=== PATIENT | female | born 1940 | race Caucasian/White ===

== ENCOUNTER → 2016-12-29 | Outpatient (CLI) | payer OTHER ==
[~2016-12-29] MED LIST: AMLO-110 PO; ATEN-173 PO; CLX20 PO; LSX20 PO; MULT-506 PO; PRED-301 PO; SIMV10TA2 PO; SYN88 PO
== END | disposition home or self-care (01) ==
LOC: C.LABSPEC 13:18
PROVIDERS: ATTEND Obstetrics & Gynecology
DX: N89.8 Other specified noninflammatory disorders of vagina (principal)

== ENCOUNTER → 2017-02-10 | Outpatient (CLI) | payer OTHER | END | disposition home or self-care (01) | LOC: C.LABSPEC 13:29 | PROVIDERS: ATTEND Physician Assistant | DX: N89.8 Other specified noninflammatory disorders of vagina (principal) ==

== ENCOUNTER → 2017-06-28 | Outpatient (CLI) | payer OTHER | END | disposition home or self-care (01) | LOC: C.LABSPEC 16:41 | PROVIDERS: ATTEND Obstetrics & Gynecology | DX: N89.8 Other specified noninflammatory disorders of vagina (principal); N82.4 Other female intestinal-genital tract fistulae ==

== ENCOUNTER → 2017-08-10 | Outpatient (CLI) | payer OTHER | END | disposition home or self-care (01) | LOC: C.LABSPEC 15:48 | PROVIDERS: ATTEND Obstetrics & Gynecology | DX: N89.8 Other specified noninflammatory disorders of vagina (principal); N82.4 Other female intestinal-genital tract fistulae ==

== ENCOUNTER → 2017-08-10 | Outpatient (CLI) | payer OTHER | END | disposition home or self-care (01) | LOC: C.LABPBG 09:26 | PROVIDERS: ATTEND Internal Medicine Rheumatology | DX: M06.9 Rheumatoid arthritis, unspecified (principal); Z51.81 Encounter for therapeutic drug level monitoring; Z79.899 Other long term (current) drug therapy; M81.0 Age-related osteoporosis without current pathological fracture; M54.2 Cervicalgia ==

== ENCOUNTER → 2017-08-31 | Outpatient (CLI) | payer OTHER ==
--- NOTE | 2017-08-31 16:30 | DIAGNOSTIC IMAGING REPORT ---
C-SPINE ROUTINE 4 OR 5 VIEWS CLINICAL HISTORY: 76 years-old Female presenting with M06.9 Rheumatoid [id number] High risk medication useM81.0. TECHNIQUE: Lateral, bilateral oblique, frontal, and open-mouth odontoid views of the cervical spine were obtained. Additionally, lateral view in flexion and extension positioning was obtained. COMPARISON: None. FINDINGS: On neutral positioning, slight reversal of normal cervical lordosis at C4-5. Vertebral body heights and alignment otherwise maintained. Intervertebral disc height loss at C4-5 through C6-7, where there are disc osteophyte complexes and extensive degenerative change. No significant change in alignment or evidence of subluxation on flexion positioning. Mild cervical lordosis on extension positioning without evidence of abnormal subluxation. Osseous neural foraminal narrowing at C4-5 and C5-6, left greater than right. Lateral masses of C1 articulate normally with C2. The atlantodental interval measures 3 mm in neutral position, does not significantly change on flexion and decreases on extension. IMPRESSION: 1. Multilevel degenerative change at C4-5 through C6-7 with osseous neural foraminal narrowing at C4-5 and C5-6. 2. Mild widening of the atlantodental interval, which suggests atlantoaxial subluxation. This can be seen in the setting of rheumatoid arthritis. Electronically signed by: Jonathan Moreno M.D. 08/31/2017 4:29 PM Dictated Date/Time: 08/31/2017 4:23 PM
== END | disposition home or self-care (01) ==
LOC: C.RAD 15:06
PROVIDERS: ATTEND Internal Medicine Rheumatology
DX: M50.321 Other cervical disc degeneration at C4-C5 level (principal); M50.322 Other cervical disc degeneration at C5-C6 level; M50.323 Other cervical disc degeneration at C6-C7 level; M81.0 Age-related osteoporosis without current pathological fracture; M06.9 Rheumatoid arthritis, unspecified; Z79.899 Other long term (current) drug therapy

== ENCOUNTER → 2017-09-07 | Outpatient (CLI) | payer OTHER | END | disposition home or self-care (01) | LOC: C.MAMM 15:07 | PROVIDERS: ATTEND Internal Medicine Rheumatology | DX: M85.88 Other specified disorders of bone density and structure, other site (principal); M81.0 Age-related osteoporosis without current pathological fracture; M06.9 Rheumatoid arthritis, unspecified; Z51.81 Encounter for therapeutic drug level monitoring; Z79.899 Other long term (current) drug therapy ==

== ENCOUNTER → 2017-10-12 | Outpatient (CLI) | payer OTHER ==
[2017-10-12 17:25] LABS: BASO % 0.2 %; BASO ABS # 0.01 K/uL (0-0.2); COMPLETE YES; EOS % 0.2 %; HEMATOCRIT 37.7 % (37-47); IG% 0.2 %; LYMPH % 17.1 %; LYMPH ABS # 0.89 K/uL (1.2-3.4); MEAN CELL VOLUME 88.5 fL (80-100); MEAN CORPUSCULAR HEMOGLOBIN 28.6 pg (25-34); MEAN CORPUSCULAR HGB CONC 32.4 g/dl (32-36); MEAN PLATELET VOLUME 10.5 fL (7.4-10.4); MONO % 6.3 %; PLATELET COUNT 228 K/uL (130-400); RED BLOOD COUNT 4.26 M/uL (4.2-5.4)
[2017-10-12 17:56] LABS: ALT/SGPT 30 U/L (12-78); AST/SGOT 23 U/L (15-37); CREATININE 1.16 mg/dl (0.60-1.20)
[2017-10-12 17:58] LABS: ALKALINE PHOSPHATASE 71 U/L (45-117)
== END | disposition home or self-care (01) ==
LOC: C.LABPBG 15:44
PROVIDERS: ATTEND Urology
DX: M06.9 Rheumatoid arthritis, unspecified (principal); Z79.899 Other long term (current) drug therapy; R70.0 Elevated erythrocyte sedimentation rate; M54.2 Cervicalgia

== ENCOUNTER → 2018-02-26 | Outpatient (CLI) | payer OTHER ==
[2018-02-26 17:23] LABS: BASO % 1.2 %; BASO ABS # 0.06 K/uL (0-0.2); EOS % 2.9 %; EOS ABS # 0.15 K/uL (0-0.5); HEMATOCRIT 38.1 % (37-47); HEMOGLOBIN 12.4 g/dL (12.0-16.0); IG# 0.01 K/uL (0.00-0.02); LYMPH % 38.3 %; LYMPH ABS # 1.99 K/uL (1.2-3.4); MEAN CELL VOLUME 90.9 fL (80-100); MEAN CORPUSCULAR HEMOGLOBIN 29.6 pg (25-34); MEAN CORPUSCULAR HGB CONC 32.5 g/dl (32-36); MEAN PLATELET VOLUME 11.3 fL (7.4-10.4); MONO ABS # 1.04 K/uL (0.11-0.59); NEUT % 37.4 %; NEUT ABS # 1.94 K/uL (1.4-6.5); PLATELET COUNT 282 K/uL (130-400); RED CELL DISTRIBUTION WIDTH CV 15.3 % (11.5-14.5); RED CELL DISTRIBUTION WIDTH SD 51.2 fL (36.4-46.3); WHITE BLOOD COUNT 5.19 K/uL (4.8-10.8)
[2018-02-26 18:18] LABS: CREATININE 0.89 mg/dl (0.60-1.20)
== END | disposition home or self-care (01) ==
LOC: C.LABPBG 11:43
PROVIDERS: ATTEND Internal Medicine Rheumatology
DX: M06.9 Rheumatoid arthritis, unspecified (principal); Z79.899 Other long term (current) drug therapy; Z51.81 Encounter for therapeutic drug level monitoring

== ENCOUNTER 2022-12-22 13:21 | Inpatient (IN) ==
--- NOTE | 2022-12-22 14:12 | Emergency Department Note ---
History of Present Illness General Chief complaint: Hypotension Stated complaint: BLOOD PRESSURE WENT WAY DOWN Time Seen by Provider: 12/22/22 14:02 Source: patient and family (Daughter at bedside) History of Present Illness Provider complaint: Weakness Onset (ago): day(s) 2 Maximum Pain Intensity: 5 Associated symptoms: + weakness 82-year-old female presents emergency department for weakness. Patient is here with her and daughter at bedside. Daughter is providing majority of the history. Daughter reports that the patient fell 2 weeks ago at her home in [place]. She states that she was transported via private vehicle to [facility] in [place] where they diagnosed her with a broken arm. Patient states she was admitted to the hospital for few days and then discharged to a skilled care nursing facility. She states that no surgery was performed on the patient's arm but she was diagnosed with a broken right humerus. The daughter reports that the patient was removed from the group home facility 2 days ago because of increasing depression and has been home for the last 2 days. Since being home the daughter reports that the patient has not been getting up and walking and has been having difficulty walking. She is reporting pain in her right hip which is chronic. She also reports that the patient has not been eating or drinking properly. No fevers. Daughter reports that when the home health care nurse got there today they advised her to come to the emergency department because of a low blood pressure. Home Medications Medication Instructions Recorded Confirmed Type amlodipine 5 mg tablet 5 mg PO DAILY 09/28/20 12/22/22 History atenolol 25 mg tablet 25 mg PO DAILY 09/28/20 12/22/22 History citalopram 20 mg tablet (Celexa) 20 mg PO DAILY 09/28/20 12/22/22 History furosemide 20 mg tablet (Lasix) 20 mg PO DAILY 09/28/20 12/22/22 History levothyroxine 88 mcg tablet 88 mcg PO DAILY 09/28/20 12/22/22 History multivitamin 1 tab PO DAILY 09/28/20 12/22/22 History omeprazole 20 mg capsule,delayed 20 mg PO DAILY 09/28/20 12/22/22 History release prednisone 5 mg tablet 5 mg PO DAILY 09/28/20 12/22/22 History hydrocodone 5 mg-acetaminophen 300 1 tab PO BID PRN Pain 12/10/20 03/02/23 History mg tablet hydroxychloroquine 200 mg tablet 200 mg PO DAILY 10/01/20 12/22/22 History estradiol 0.01% (0.1 mg/gram) 1 g vaginal 2XWK #42.5 grams 10/20/22 12/22/22 Rx vaginal cream apixaban 2.5 mg tablet (Eliquis) 2.5 mg PO DAILY 12/22/22 12/22/22 History buspirone 5 mg tablet 5 mg PO DAILY 12/22/22 12/22/22 History ferrous sulfate 27 mg iron tablet 27 mg PO BID 12/22/22 12/22/22 History metoprolol tartrate 25 mg tablet 12.5 mg PO DAILY 12/22/22 12/22/22 History Allergies Allergy/AdvReac Type Severity Reaction Status Date / Time simvastatin [From Zocor] Allergy Verified 10/20/22 11:02 azithromycin AdvReac Mild pain in Verified 10/20/22 11:02 arms & legs prochlorperazine AdvReac Unknown MENTAL Verified 10/20/22 11:02 CHANGES Past Med/Surg History Medical History (Updated 12/22/22 @ 21:21 by Terry Villasenor) Anemia Degenerative joint disease of right hip Depression HLD (hyperlipidemia) HTN (hypertension) Hypothyroidism Left humeral fracture Long-term use of immunosuppressant medication Osteoporosis Rectovaginal fistula Rheumatoid arthritis Surgical History (Updated 12/22/22 @ 20:58 by Vineet Causey) History of appendectomy History of bilateral oophorectomy History of hysterectomy History of total knee arthroplasty Hx of cataract extraction bilateral Family History Father Heart disease Hypertension Coronary heart disease COPD (chronic obstructive pulmonary disease) Mother Rheumatoid arthritis Uncle Coronary heart disease Denies family history of Pancreatic cancer Ovarian cancer Prostate cancer Breast cancer Colorectal cancer Uterine cancer Social History (Updated 12/22/22 @ 21:00 by Vineet Causey) Smoking Status: Never smoker Hx Alcohol Use: No Preferred Language: Montserratian marital status: Current Living Situation: Spouse Current Living Situation Comment: 1-story home in [place] current occupational status: 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 @ [employer] How many Children do You have: 1 Feels Safe at Home: Yes Physical Exam Vital Signs Vital Signs - 24 hr 12/22/22 13:55 12/22/22 14:26 12/22/22 14:09 Temperature 36.4 C L Temperature Source Temporal Artery Scan Pulse Rate 84 77 77 Pulse Rate [Apical] Pulse Rate [Right Finger] Pulse Rhythm Regular Regular Pulse Rhythm [Apical] Pulse Rhythm [Right Finger] Pulse Strength Normal Pulse Strength [Apical] Pulse Strength [Right Finger] Respiratory Rate 18 Respiratory Effort / Characteristics Non-Labored Spontaneous Respiratory Depth Normal Respiratory Pattern Regular Blood Pressure 78/46 L Blood Pressure [Right Arm] Blood Pressure Mean 56 Blood Pressure Mean [Right Arm] Blood Pressure Position Sitting Pulse Oximetry 96 94 Oxygen Delivery Method Room Air Room Air Sepsis Recent Fever Within 48 Hours No Sepsis New/Unexplained Change in Mental Status No Sepsis Action Taken by Nursing No Action Required 12/22/22 14:09 12/22/22 17:13 12/22/22 17:53 Temperature Temperature Source Pulse Rate Pulse Rate [Apical] Pulse Rate [Right Finger] 84 78 Pulse Rhythm Pulse Rhythm [Apical] Pulse Rhythm [Right Finger] Regular Pulse Strength Pulse Strength [Apical] Pulse Strength [Right Finger] Normal Respiratory Rate 16 16 17 Respiratory Effort / Characteristics Non-Labored Non-Labored Non-Labored Respiratory Depth Normal Normal Normal Respiratory Pattern Regular Regular Blood Pressure Blood Pressure [Right Arm] 112/69 98/64 L 133/62 Blood Pressure Mean Blood Pressure Mean [Right Arm] 83 75 85 Blood Pressure Position Pulse Oximetry 94 92 Oxygen Delivery Method Room Air Room Air Sepsis Recent Fever Within 48 Hours Sepsis New/Unexplained Change in Mental Status Sepsis Action Taken by Nursing 12/22/22 18:15 12/22/22 20:06 12/22/22 20:55 Temperature Temperature Source Pulse Rate 83 Pulse Rate [Apical] 81 73 Pulse Rate [Right Finger] Pulse Rhythm Pulse Rhythm [Apical] Regular Pulse Rhythm [Right Finger] Pulse Strength Pulse Strength [Apical] Normal Pulse Strength [Right Finger] Respiratory Rate 18 16 Respiratory Effort / Characteristics Non-Labored Respiratory Depth Normal Normal Respiratory Pattern Regular Blood Pressure Blood Pressure [Right Arm] 100/59 L 93/57 L Blood Pressure Mean Blood Pressure Mean [Right Arm] 72 69 Blood Pressure Position Pulse Oximetry 94 93 Oxygen Delivery Method Room Air Room Air Sepsis Recent Fever Within 48 Hours Sepsis New/Unexplained Change in Mental Status Sepsis Action Taken by Nursing Physical Exam GENERAL: Elderly and frail-appearing female. HENT: Exam performed. -Head: Normocephalic and atraumatic. CV: Normal rate, regular rhythm, normal heart sounds and intact distal pulses. There is no peripheral edema. Palpable radial pulses bue. PULM/CHEST: Effort normal and breath sounds normal. No respiratory distress. No stridor. She has no wheezes. She has no rales. -Chest Wall: She exhibits no tenderness. ABD: The abdomen is soft. She has no distension. There is no tenderness. MUSC/SKEL: Pelvis stable. Pain on palpation of the right and left hip. NEURO: She is alert and oriented to person, place, and time. No cranial nerve deficit or sensory deficit. 4/5 strength of bilateral lower extremities. GCS eye subscore is 4. GCS verbal subscore is 5. GCS motor subscore is 6. Course Course 1402: The patient was evaluated in room B11B. A complete history and physical exam was performed Administered Medications Sodium Chloride (Nss 1000ml) 1,000 mls @ 125 mls/hr IV .Q8H LAURYN Stop: 01/21/23 17:44 Last Admin: 12/22/22 17:51 Dose: 125 mls/hr Documented By: JENNIE Doxycycline Hyclate 100 mg/ (Dextrose) 110 mls @ 50 mls/hr IV NOW STA Stop: 12/22/22 21:44 Last Admin: 12/22/22 20:52 Dose: 50 mls/hr Documented By: JENNIE Discontinued Medications Hydrocortisone Sodium Succinate (Hydrocortisone Sod Succinate 100 Mg/2 Ml Vial) 100 mg IV NOW STA Stop: 12/22/22 18:23 Last Admin: 12/22/22 20:03 Dose: 100 mg Documented By: JENNIE Sodium Chloride (Nss 1000ml) 1,000 mls @ 999 mls/hr IV .Q1H1M LAURYN Stop: 12/22/22 15:15 Last Infusion: 12/22/22 17:15 Dose: 0 mls/hr Documented By: Admin: 12/22/22 14:21 Dose: 999 mls/hr Documented By: BRIAN Ceftriaxone Sodium 1,000 mg/ (Dextrose) 50 mls @ 100 mls/hr IV NOW STA Stop: 12/22/22 20:01 Last Infusion: 12/22/22 21:09 Dose: 0 mls/hr Documented By: Admin: 12/22/22 20:29 Dose: 100 mls/hr Documented By: CGK Morphine Sulfate (Morphine Sulfate 2 Mg/Ml Carp) 2 mg IV NOW STA Stop: 12/22/22 15:31 Last Admin: 12/22/22 15:44 Dose: 2 mg Documented By: MATTK Ondansetron HCl (Ondansetron Inj 2 Mg/Ml 2 Ml Vial) 4 mg IV NOW STA Stop: 12/22/22 15:31 Last Admin: 12/22/22 15:42 Dose: 4 mg Documented By: MATTK Medical Decision Making Laboratory Data Attestation: I reviewed the patient's lab results. 12/22/22 14:18 12/22/22 14:18 Lab Results 12/22/22 12/22/22 12/22/22 Range/Units 14:09 14:18 14:18 WBC 10.80 (4.8-10.8) K/ul RBC 3.84 L (4.20-5.40) M/uL Hgb 10.0 L (12.0-16.0) g/dl Hct 32.0 L (37.0-47.0) % MCV 83.3 (80.0-100.0) fL MCH 26.0 (25.0-34.0) pg MCHC 31.3 L (32.0-36.0) g/dL RDW Std Deviation 52.5 H (36.4-46.3) fL RDW Coeff of Joao 17.3 H (11.5-14.5) % Plt Count 430 H (130-400) K/uL MPV 10.3 (9.4-12.4) fL Immature Gran % (Auto) 0.5 % Neut % (Auto) 76.3 % Lymph % (Auto) 11.0 % Screven % (Auto) 10.4 % Eos % (Auto) 1.3 % Baso % (Auto) 0.5 % Neut # (Auto) 8.25 H (1.40-6.50) K/uL Lymph # (Auto) 1.19 L (1.2-3.4) K/uL Screven # (Auto) 1.12 H (0.11-0.59) K/uL Eos # (Auto) 0.14 (0-0.50) K/uL Baso # (Auto) 0.05 (0-0.2) K/uL Immature Gran # (Auto) 0.05 (0.01-0.20) K/uL PT 11.3 (9.0-12.0) Seconds INR 1.1 (0.9-1.1) APTT 28.4 (21.0-31.0) Seconds PTT Ratio 1.0 Sodium (136-145) mmol/L Potassium (3.5-5.1) mmol/L Chloride (98-107) mmol/L Carbon Dioxide (21-32) mmol/L Anion Gap (3-11) BUN (6-23) mg/dl Creatinine (0.6-1.2) mg/dl Est Cr Clr Drug Dosing ml/min Est GFR ( Amer) ml/min Est GFR (Non-Af Amer) ml/min BUN/Creatinine Ratio (10-20) Glucose (70-99(Fasting)) mg/dl Lactate (0.4-2.0) mmol/L Calcium (8.5-10.1) mg/dl Magnesium (1.7-2.4) mg/dl Total Bilirubin (0.2-1.0) mg/dl Direct Bilirubin (0-0.2) mg/dl AST (13-39) U/L ALT (7-52) U/L Alkaline Phosphatase (34-104) U/L Total Creatine Kinase (26-192) U/L Troponin I High Sens (0-14) pg/ml Total Protein (6.0-8.3) gm/dl Albumin (3.4-5.0) gm/dl Procalcitonin (0-0.5) ng/ml TSH 4.166 (0.300-4.500) uIu/ml Urine Color Urine Appearance (Clear) Urine pH (4.5-7.5) Ur Specific Fonda (1.000-1.030) Urine Protein (Negative) Urine Glucose (UA) (Negative) Urine Ketones (Negative) Urine Blood (Negative) Urine Nitrite (Negative) Urine Bilirubin (Negative) Urine Urobilinogen (Negative) Ur Leukocyte Esterase (Negative) Urine WBC (Auto) (0-5) /hpf Urine RBC (Auto) (0-4) /hpf U Hyaline Cast (Auto) (0-5) /lpf U Epithel Cells (Auto) (0-5) /lpf Urine Bacteria (Auto) (Negative) Granular Casts (0) /lpf SARS-CoV-2 (PCR) (Negative) Influenza Type A (PCR) (Neg) Influenza Type B (PCR) (Neg) RSV (RT-PCR) (Neg) 12/22/22 12/22/22 12/22/22 Range/Units 14:18 14:18 14:59 WBC (4.8-10.8) K/ul RBC (4.20-5.40) M/uL Hgb (12.0-16.0) g/dl Hct (37.0-47.0) % MCV (80.0-100.0) fL MCH (25.0-34.0) pg MCHC (32.0-36.0) g/dL RDW Std Deviation (36.4-46.3) fL RDW Coeff of Joao (11.5-14.5) % Plt Count (130-400) K/uL MPV (9.4-12.4) fL Immature Gran % (Auto) % Neut % (Auto) % Lymph % (Auto) % Screven % (Auto) % Eos % (Auto) % Baso % (Auto) % Neut # (Auto) (1.40-6.50) K/uL Lymph # (Auto) (1.2-3.4) K/uL Screven # (Auto) (0.11-0.59) K/uL Eos # (Auto) (0-0.50) K/uL Baso # (Auto) (0-0.2) K/uL Immature Gran # (Auto) (0.01-0.20) K/uL PT (9.0-12.0) Seconds INR (0.9-1.1) APTT (21.0-31.0) Seconds PTT Ratio Sodium 131 L (136-145) mmol/L Potassium 4.5 (3.5-5.1) mmol/L Chloride 99 (98-107) mmol/L Carbon Dioxide 20 L (21-32) mmol/L Anion Gap 12 H (3-11) BUN 59 H (6-23) mg/dl Creatinine 1.47 H (0.6-1.2) mg/dl Est Cr Clr Drug Dosing 22.5 ml/min Est GFR ( Amer) 37.6 ml/min Est GFR (Non-Af Amer) 32.4 ml/min BUN/Creatinine Ratio 40.1 H (10-20) Glucose 156 H (70-99(Fasting)) mg/dl Lactate 1.5 (0.4-2.0) mmol/L Calcium 9.3 (8.5-10.1) mg/dl Magnesium 2.3 (1.7-2.4) mg/dl Total Bilirubin 0.7 (0.2-1.0) mg/dl Direct Bilirubin 0.2 (0-0.2) mg/dl AST 29 (13-39) U/L ALT 17 (7-52) U/L Alkaline Phosphatase 167 H (34-104) U/L Total Creatine Kinase 24 L (26-192) U/L Troponin I High Sens 32.6 H (0-14) pg/ml Total Protein 7.4 (6.0-8.3) gm/dl Albumin 3.3 L (3.4-5.0) gm/dl Procalcitonin 2.10 H (0-0.5) ng/ml TSH (0.300-4.500) uIu/ml Urine Color Urine Appearance (Clear) Urine pH (4.5-7.5) Ur Specific Fonda (1.000-1.030) Urine Protein (Negative) Urine Glucose (UA) (Negative) Urine Ketones (Negative) Urine Blood (Negative) Urine Nitrite (Negative) Urine Bilirubin (Negative) Urine Urobilinogen (Negative) Ur Leukocyte Esterase (Negative) Urine WBC (Auto) (0-5) /hpf Urine RBC (Auto) (0-4) /hpf U Hyaline Cast (Auto) (0-5) /lpf U Epithel Cells (Auto) (0-5) /lpf Urine Bacteria (Auto) (Negative) Granular Casts (0) /lpf SARS-CoV-2 (PCR) (Negative) Influenza Type A (PCR) (Neg) Influenza Type B (PCR) (Neg) RSV (RT-PCR) (Neg) 12/22/22 12/22/22 Range/Units 15:57 16:07 WBC (4.8-10.8) K/ul RBC (4.20-5.40) M/uL Hgb (12.0-16.0) g/dl Hct (37.0-47.0) % MCV (80.0-100.0) fL MCH (25.0-34.0) pg MCHC (32.0-36.0) g/dL RDW Std Deviation (36.4-46.3) fL RDW Coeff of Joao (11.5-14.5) % Plt Count (130-400) K/uL MPV (9.4-12.4) fL Immature Gran % (Auto) % Neut % (Auto) % Lymph % (Auto) % Screven % (Auto) % Eos % (Auto) % Baso % (Auto) % Neut # (Auto) (1.40-6.50) K/uL Lymph # (Auto) (1.2-3.4) K/uL Screven # (Auto) (0.11-0.59) K/uL Eos # (Auto) (0-0.50) K/uL Baso # (Auto) (0-0.2) K/uL Immature Gran # (Auto) (0.01-0.20) K/uL PT (9.0-12.0) Seconds INR (0.9-1.1) APTT (21.0-31.0) Seconds PTT Ratio Sodium (136-145) mmol/L Potassium (3.5-5.1) mmol/L Chloride (98-107) mmol/L Carbon Dioxide (21-32) mmol/L Anion Gap (3-11) BUN (6-23) mg/dl Creatinine (0.6-1.2) mg/dl Est Cr Clr Drug Dosing ml/min Est GFR ( Amer) ml/min Est GFR (Non-Af Amer) ml/min BUN/Creatinine Ratio (10-20) Glucose (70-99(Fasting)) mg/dl Lactate (0.4-2.0) mmol/L Calcium (8.5-10.1) mg/dl Magnesium (1.7-2.4) mg/dl Total Bilirubin (0.2-1.0) mg/dl Direct Bilirubin (0-0.2) mg/dl AST (13-39) U/L ALT (7-52) U/L Alkaline Phosphatase (34-104) U/L Total Creatine Kinase (26-192) U/L Troponin I High Sens (0-14) pg/ml Total Protein (6.0-8.3) gm/dl Albumin (3.4-5.0) gm/dl Procalcitonin (0-0.5) ng/ml TSH (0.300-4.500) uIu/ml Urine Color Dark Yellow Urine Appearance Clear (Clear) Urine pH 5.0 (4.5-7.5) Ur Specific Fonda 1.022 (1.000-1.030) Urine Protein Trace H (Negative) Urine Glucose (UA) Negative (Negative) Urine Ketones Trace H (Negative) Urine Blood Negative (Negative) Urine Nitrite Negative (Negative) Urine Bilirubin Negative (Negative) Urine Urobilinogen Negative (Negative) Ur Leukocyte Esterase Negative (Negative) Urine WBC (Auto) 1-5 (0-5) /hpf Urine RBC (Auto) 0-4 (0-4) /hpf U Hyaline Cast (Auto) 5-10 H (0-5) /lpf U Epithel Cells (Auto) >30 H (0-5) /lpf Urine Bacteria (Auto) 1+ H (Negative) Granular Casts 1-5 H (0) /lpf SARS-CoV-2 (PCR) NEGATIVE (Negative) Influenza Type A (PCR) Negative (Neg) Influenza Type B (PCR) Negative (Neg) RSV (RT-PCR) Negative (Neg) Imaging Data Attestation: I personally reviewed and interpreted this imaging study as follows: My Impression: Chest x-ray: Cardiomegaly Radiologist's Impression: Chest X-Ray 12/22/22 14:09 XR chest 1V portable HISTORY: 82 years-old Female Sepsis acute sepsis COMPARISON: 04/23/2006 TECHNIQUE: AP view of the chest FINDINGS: Cardiac silhouette is enlarged. Atherosclerosis of the aorta. No pneumothorax. Small left pleural effusion with mild left basilar densities. Degenerative changes of the shoulders and spine. Acute to subacute appearing comminuted and mildly displaced fracture involving the proximal diaphyseal left humerus. Battery pack projects over the left chest wall. IMPRESSION: 1. Cardiac megaly without overt pulmonary edema. 2. Small left pleural effusion with mild left basilar opacities. 3. Acute to subacute appearing comminuted and mildly displaced fracture within the proximal diaphyseal left humerus. ACT 112: Negative or not required by law. The above report was generated using voice recognition software. It may contain grammatical, syntax or spelling errors. Electronically signed by: Carson Donato M.D. 12/22/2022 2:[address] 12/22/22 14:17 CT head/brain wo con CLINICAL HISTORY: weakness Technique: Contiguous axial CT images of the head were acquired from the base of the skull to the vertex without intravenous contrast administration. Images were viewed in brain, subdural and bone windows. Automated dose lowering techniques and/or adjustment according to patient size were utilized for this exam. Comparison: None available at the time of this dictation. Findings: The ventricles, basal cisterns, and cerebral sulci are normal. There is no acute intracranial hemorrhage or evidence of acute territorial infarction. Neither mass effect, shift of the midline structures, nor abnormal extra-axial fluid collections are shown. Imaged portions of the paranasal sinuses and mastoid air cells are clear. The orbits appear normal. There are no acute fractures of the calvaria or scalp sw elling. Impression: No acute intracranial hemorrhage, no evidence of acute territorial infarction or other acute intracranial disease process. ACT 112: Negative or not required by law. Electronically signed by: Apollo Navarro M.D. 12/22/2022 3:01 PM Pelvis X-Ray 12/22/22 14:17 XR pelvis 1-2V routine CLINICAL HISTORY: Bilateral hip pain. COMPARISON: None FINDINGS: Markedly abnormal appearance of the right hip is noted. Specifically, there is chronic remodeling of the right acetabulum and flattening/erosion of the femoral head with loss of the right hip joint space. There is associated sclerosis and osteophytosis. 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 There is no acute fracture within the pelvis or hips. Mild left hip osteoarthritis is present. IMPRESSION: 1. Markedly abnormal appearance of the right hip. Severe right hip ost eoarthritis with loss of the right hip joint space, remodeling of the acetabulum and flattening/erosion of the femoral head with superior displacement. These findings are not acute. 2. No acute fracture within the pelvis or hips. ACT 112: Negative or not required by law. Electronically signed by: Mark Addison M.D. 12/22/2022 2:54 PM ECG Data Attestation: I personally reviewed and interpreted this ECG as follows: Indication: + weakness Rate (beats per minute): 79 Rhythm: + atrial fibrillation ECG Intervals/blocks: + Normal QRS and + Normal QT-c ECG ST segments: + Normal ST segments MDM Narrative Cardiac monitoring: An order was placed for continuous cardiac monitoring. The monitor shows a rate of 80 with atrial fibrilation rhythm interpreted by me Vital signs improved with IV fluids. Labs show white blood cell count of 10.8 hemoglobin of 10 coagulation studies within normal limits sodium 131 creatinine 1.47 patient's troponin is mildly elevated 32.6 procalcitonin mildly elevated 2.1 urinalysis negative influenza and COVID-negative. Pelvis x-ray showed no acute fracture or dislocation CT of the head showed no ICH chest x-ray showed cardiomegaly. [id number] bedside ultrasound showed small trace pericardial effusion but no tamponade. Patient will be admitted to the hospitalist team discussed with Dr. Thompson will evaluate the patient for admission Impression & Plan Elevated troponin, Left humeral fracture Discharge Plan Visit Data Chief Complaint: Hypotension Stated Complaint: BLOOD PRESSURE WENT WAY DOWN ED Provider: Terry Villasenor Discharge Problem: Elevated troponin, Left humeral fracture Patient Disposition: Being Evaluated by Hospitalist Forms Stand Alone Forms: [facility], Virtual Emergency Department, Important Visit Information Prescriptions Prescriptions: No Action estradiol 0.01 % (0.1 mg/gram) cream 1 g vaginal 2XWK Qty: 42.5 3RF Rx Instructions: Insert 1/4 applicatorful vaginally 2 time a week. amlodipine 5 mg tablet 5 mg PO DAILY atenolol 25 mg tablet 25 mg PO DAILY citalopram [Celexa] 20 mg tablet 20 mg PO DAILY furosemide [Lasix] 20 mg tablet 20 mg PO DAILY levothyroxine 88 mcg tablet 88 mcg PO DAILY multivitamin Tablet 1 tab PO DAILY prednisone 5 mg tablet 5 mg PO DAILY omeprazole 20 mg capsule,delayed release(DR/EC) 20 mg PO DAILY hydroxychloroquine 200 mg tablet 200 mg PO DAILY hydrocodone-acetaminophen 5-300 mg tablet 1 tab PO BID PRN (Reason: Pain) buspirone 5 mg tablet 5 mg PO DAILY metoprolol tartrate 25 mg Tablet 12.5 mg PO DAILY ferrous sulfate 27 mg iron Tablet 27 mg PO BID Eliquis 2.5 mg tablet 2.5 mg PO DAILY Referrals Referrals: Alin Branch [Primary Care Provider] -
[2022-12-22] MEDS ORDERED: SODIUM CHLORIDE 0.9% 1000ML 1,000 ML IV SCH ×2 (14:15→17:45)
--- NOTE | 2022-12-22 14:44 | XRay Report ---
XR chest 1V portable HISTORY: 82 years-old Female Sepsis acute sepsis COMPARISON: 04/23/2006 TECHNIQUE: AP view of the chest FINDINGS: Cardiac silhouette is enlarged. Atherosclerosis of the aorta. No pneumothorax. Small left pleural eff usion with mild left basilar densities. Degenerative changes of the shoulders and spine. Acute to sub acute appearing comminuted and mildly displaced fracture involving the proximal diaphyseal left humer us. Battery pack projects over the left chest wall. IMPRESSION: 1. Cardiac megaly without overt pulmonary edema. 2. Small left pleural effusion with mild left basilar opacities. 3. Acute to subacute appearing comminuted and mildly displaced fracture within the proximal diaphysea l left humerus. ACT 112: Negative or not required by law. The above report was generated using voice recognition software. It may contain grammatical, syntax o r spelling errors. Electronically signed by: Carson Donato M.D. 12/22/2022 2:42 PM
[2022-12-22 14:45] LABS: Basophils # (auto) 0.05 K/uL (0-0.2); Basophils % (auto) 0.5 %; Eosinophils # (auto) 0.14 K/uL (0-0.50); Eosinophils % (auto) 1.3 %; Immature Granulocytes # (auto) 0.05 K/uL (0.01-0.20); Immature Granulocytes % (auto) 0.5 %; Lymphocytes # (auto) 1.19 K/uL (1.2-3.4); Mean Corpuscular Hgb Conc 31.3 g/dL (32.0-36.0); Mean Corpuscular Volume 83.3 fL (80.0-100.0); Mean Platelet Volume 10.3 fL (9.4-12.4); Monocytes # (auto) 1.12 K/uL (0.11-0.59); Monocytes % (auto) 10.4 %; Neutrophils # (auto) 8.25 K/uL (1.40-6.50); Neutrophils % (auto) 76.3 %; Platelet Count 430 K/uL (130-400); RDW Coefficient of Variation 17.3 % (11.5-14.5); RDW Standard Deviation 52.5 fL (36.4-46.3); Red Blood Count 3.84 M/uL (4.20-5.40)
--- NOTE | 2022-12-22 14:56 | XRay Report ---
XR pelvis 1-2V routine CLINICAL HISTORY: Bilateral hip pain. COMPARISON: None FINDINGS: Markedly abnormal appearance of the right hip is noted. Specifically, there is chronic rem odeling of the right acetabulum and flattening/erosion of the femoral head with loss of the right hip joint space. There is associated sclerosis and osteophytosis. 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 There is no acute fracture within the pelvis or hips. Mild lef t hip osteoarthritis is present. IMPRESSION: 1. Markedly abnormal appearance of the right hip. Severe right hip osteoarthritis with loss of the ri ght hip joint space, remodeling of the acetabulum and flattening/erosion of the femoral head with sup erior displacement. These findings are not acute. 2. No acute fracture within the pelvis or hips. ACT 112: Negative or not required by law. Electronically signed by: Mark Addison M.D. 12/22/2022 2:54 PM
[2022-12-22 14:59] LABS: INR 1.1 (0.9-1.1); Partial Thromboplastin Time 28.4 Seconds (21.0-31.0); Prothrombin Time 11.3 Seconds (9.0-12.0)
--- NOTE | 2022-12-22 15:03 | CT Scan Report ---
CT head/brain wo con CLINICAL HISTORY: weakness Technique: Contiguous axial CT images of the head were acquired from the base of the skull to the domonique charles without intravenous contrast administration. Images were viewed in brain, subdural and bone [facility] . Automated dose lowering techniques and/or adjustment according to patient size were utilized for this exam. Comparison: None available at the time of this dictation. Findings: The ventricles, basal cisterns, and cerebral sulci are normal. There is no acute intracranial hemorrh age or evidence of acute territorial infarction. Neither mass effect, shift of the midline structures , nor abnormal extra-axial fluid collections are shown. Imaged portions of the paranasal sinuses and mastoid air cells are clear. The orbits appear normal. There are no acute fractures of the calvaria or scalp swelling. Impression: No acute intracranial hemorrhage, no evidence of acute territorial infarction or other acute intracra nial disease process. ACT 112: Negative or not required by law. Electronically signed by: Apollo Navarro M.D. 12/22/2022 3:01 PM
[2022-12-22 15:26] LABS: Troponin I High Sensitivity 32.6 pg/ml (0-14)
[2022-12-22] MEDS ORDERED: MoRPHine SULFATE 2 MG/ML CARP IV STA (15:30)
[2022-12-22] MEDS ORDERED: ONDANSETRON INJ 2 MG/ML 2 ML VIAL IV STA (15:30)
[2022-12-22 16:27] LABS: Albumin Level 3.3 gm/dl (3.4-5.0); BUN Creatinine Ratio 40.1 (10-20); Bilirubin Direct 0.2 mg/dl (0-0.2); Bilirubin,Total 0.7 mg/dl (0.2-1.0); Calcium 9.3 mg/dl (8.5-10.1); Creatinine Clr Calc Pharmacy 22.5 ml/min; Est GFR (African American) 37.6 ml/min; Est GFR (Non-African American) 32.4 ml/min; Magnesium 2.3 mg/dl (1.7-2.4); Potassium 4.5 mmol/L (3.5-5.1); Total Protein 7.4 gm/dl (6.0-8.3)
[2022-12-22 16:44] LABS: Appearance Urine Clear (Clear); Bilirubin Urine Negative (Negative); Blood Urine Negative (Negative); Color Urine Dark Yellow; Epithelial Cell Urine Auto >30 /lpf (0-5); Glucose Urine UA Negative (Negative); Ketones Urine Trace (Negative); Leukocyte Esterase Urine Negative (Negative); Nitrite Urine Negative (Negative); Protein Urine Trace (Negative); RBC Urine Automated 0-4 /hpf (0-4); Specific Gravity Urine 1.022 (1.000-1.030); Urobilinogen Urine Negative (Negative)
[2022-12-22 16:47] LABS: Influenza A virus by PCR Negative (Neg); Influenza B virus by PCR Negative (Neg); RSV by PCR Negative (Neg); SARS CoV2 RNA(COVID-19) Ceph NEGATIVE (Negative)
[2022-12-22 17:23] LABS: Bacteria Urine Automated 1+ (Negative)
[2022-12-22] MEDS ORDERED: HYDROCORTISONE SOD SUCCINATE 100 MG/2 ML VIAL IV STA (18:22)
--- NOTE | 2022-12-22 18:28 | History & Physical Report ---
Date of Service December 22, 2022 Assessment & Plan (1) Adrenal crisis: Plan: Patient may have been off her chronic steroid therapy for 1-2 weeks or longer. This cannot be confirmed, but daughter is also suspicious this may have been the case as well. Further, even if she had been taking such and if she is developing an infection, she will need stress doses regardless. Given the hypotension in the ER gave a loading dose of 100mg of IV hydrocortisone. Will follow this with hydrocortisone 50mg IV q8h, then slow taper to usual dose of 5-10mg of prednisone daily. Generous fluids to be given. (2) Hypotension: Plan: 2nd to #1. cannot rule out sepsis. certainly there is an element of dehydration. Stress dose IV hydrocortisone. Generous fluids. IV antibiotics. Follow cultures. (3) Abnormal CXR: Plan: ?LLL infiltrates? Given her immune compromised status she may not have typical pneumonia symptoms. Procal is elevated, and she does have LLL rales on exam. Will Rx for pneumonia - start rocephin/doxy. Follow blood cx's. (4) Left humeral fracture: Plan: Sustained sometime in Nov 2021 after a fall. Was hospitalized in [place] at [facility]. Seen by orthopedics there - nonoperative Rx advised at that time. Continue NWB status to LUMaximo. Continue sling. Will obtain dedicated x-rays. Will consult [facility] Orth[facility] for the fracture. Pain meds. Check 25-OH vit D level. (5) Degenerative joint disease of right hip: Plan: SEVERE DJD on x-rays. There had been some talk over the last few months about hip replacement. She has severe, chronic pain and ambulatory dysfunction due to the hip. She underwent IR arthrocentesis of the joint at [facility]. Daughter states the joint was free of infection; no fluid was successfully aspirated. Continue pain meds with norco prn and scheduled tylenol TID. (6) Rectovaginal fistula: Plan: Sees [facility] Ob-decorator hand for such. Big risk factor for chronic UTI. U/a is suggestive of possible UTI - abx for pneumonia will cover. Follow urine cx. Continue topical estrogen cream. (7) Hypothyroidism: Plan: Check TSH. Cont synthroid. (8) Rheumatoid arthritis: Plan: Dx in her late 20s. Follows with Dr Sincere Murphy, [facility]. Cont plaquenil. Is on chronic prednisone 5-10mg/day. Employ stress dose steroids as noted above. (9) Osteoporosis: Plan: Check 25-OH vit D level in am. (10) Hypertension: Plan: Due to hypotension hold all anti-hypertensives including lasix. (11) Hyperlipidemia: Plan: Does not appear she takes meds for this. (12) Depression: Plan: Cont celexa. Cont buspar. (13) Anemia: Plan: Check nutritional labs during the visit. CBC in am for stability. (14) PEDRO (acute kidney injury): Plan: Granular casts noted on u/a consistent with ATN from low BP/dehydration. IV fluids. Repeat BMP am. (15) Hyponatremia: Plan: Likely 2nd to volume depletion & lasix use. Hold lasix. IV fluids. BMP am. (16) Atrial fibrillation: Plan: Recent diagnosis in November during her hospital stay in [facility]. Her rates are controlled while in the ER. Due to hypotension, however, will need to hold her beta yogesh for now. Cont Eliquis BID - 2.5mg BID based on body weight, renal function. Echo at [place] with preserved EF and only mild valvular disease. LA/RA enlargement likely the biggest risk factor for her a.fib. (17) Elevated troponin: Plan: Likely myocardial demand ischemia in setting of #1, #2, infection, etc. No evidence of ACS. No ischemic symptoms. (18) DVT prophylaxis: Plan: eliquis 2.5mg BID. Plan daughter extensively updated at bedside try to obtain d/c summary from stay at [facility] History of Present Illness Chief Complaint: weakness Primary Care Provider: Alin Mcgovern 82yo female with history of long-standing rheumatoid arthritis, chronic steroid dependency for rheumatoid arthritis, recently diagnosed a.fib, rectovaginal fistula, HTN, and hypothyroidism presents from home after home health nursing checked on her today and found that her blood pressure was very low. The patient was just in [place] at a SNF rehab facility undergoing rehab after fracturing her left humerus. She asked for discharge about 2-3 days ago and arrived home in [place] shortly after. Since arriving home earlier this week she has been very weak and fatigued. Due to chronic right hip pain and ambulatory dysfunction she has been unable to get around her home. Appetite has been very poor and liquid intake has also been poor. Although she has been on prednisone therapy for her RA for at least a year or longer she is uncertain if she had been receiving it during her time in [place]. Upon arrival in the ER this evening her SBP was in the 70s. Following a fluid bolus her SBP improved to >100. Patient reports that in November she fell at home and fractured her left humerus. EMS was called and they found her vitals to be wnl. Her daughter who resides in [place] had actually just arrived in [place] about the same time as this accident. After much discussion it was decided that her daughter would drive her to [place] and seek medical attention there. Mrs Barajas was brought to a [facility] in the [place] area, and from there was transferred to [facility] for care of her left humerus fracture. She was evaluated at [facility] by orthopedics and a nonoperative approach was taken for the proximal humerus fracture. In addition, while hospitalized she underwent IR arthrocentesis of the right hip joint as the right hip is severely deformed. No fluid was obtained during the tap. Rehab was advised following her hospitalization and she was transferred to a SNF rehab center in the [place] area. While at rehab the patient became severely depressed. By her own report it sounds as if she was not ready to be discharged but asked for an early release. Again she was discharged from rehab back to her home in [place] about 2 days ago. Since coming home she has had her daughter & with her. In addition to the above, while at [facility], she was diagnosed with a.fib. Her daughter was able to give me her echocardiogram report -- EF 55-60%, no WMA, LA/RA dilatation, mild , mild MR, mild TR, normal PA pressures. Allergies Allergy/AdvReac Type Severity Reaction Status Date / Time simvastatin [From Zocor] Allergy Verified 10/20/22 11:02 azithromycin AdvReac Mild pain in Verified 10/20/22 11:02 arms & legs prochlorperazine AdvReac Unknown MENTAL Verified 10/20/22 11:02 CHANGES Home Medications Medication Instructions Recorded Confirmed Type amlodipine 5 mg tablet 5 mg PO DAILY 09/28/20 12/22/22 History atenolol 25 mg tablet 25 mg PO DAILY 09/28/20 12/22/22 History citalopram 20 mg tablet (Celexa) 20 mg PO DAILY 09/28/20 12/22/22 History furosemide 20 mg tablet (Lasix) 20 mg PO DAILY 09/28/20 12/22/22 History levothyroxine 88 mcg tablet 88 mcg PO DAILY 09/28/20 12/22/22 History multivitamin 1 tab PO DAILY 09/28/20 12/22/22 History omeprazole 20 mg capsule,delayed 20 mg PO DAILY 09/28/20 12/22/22 History release prednisone 5 mg tablet 5 mg PO DAILY 09/28/20 12/22/22 History hydrocodone 5 mg-acetaminophen 300 1 tab PO BID PRN Pain 10/01/20 12/22/22 History mg tablet hydroxychloroquine 200 mg tablet 200 mg PO DAILY 10/01/20 12/22/22 History estradiol 0.01% (0.1 mg/gram) 1 g vaginal 2XWK #42.5 grams 10/20/22 12/22/22 Rx vaginal cream apixaban 2.5 mg tablet (Eliquis) 2.5 mg PO DAILY 12/22/22 12/22/22 History buspirone 5 mg tablet 5 mg PO DAILY 12/22/22 12/22/22 History ferrous sulfate 27 mg iron tablet 27 mg PO BID 12/22/22 12/22/22 History metoprolol tartrate 25 mg tablet 12.5 mg PO DAILY 12/22/22 12/22/22 History Past Med/Surg History Medical History (Updated 12/23/22 @ 05:45 by Vineet Causey) Anemia Atrial fibrillation Degenerative joint disease of right hip Depression HLD (hyperlipidemia) HTN (hypertension) Hypothyroidism Left humeral fracture Long-term use of immunosuppressant medication Osteoporosis Rectovaginal fistula Rheumatoid arthritis Surgical History (Updated 12/22/22 @ 20:58 by Vineet Causey) History of appendectomy History of bilateral oophorectomy History of hysterectomy History of total knee arthroplasty Hx of cataract extraction bilateral Family History Father Heart disease Hypertension Coronary heart disease COPD (chronic obstructive pulmonary disease) Mother Rheumatoid arthritis Uncle Coronary heart disease Denies family history of Pancreatic cancer Ovarian cancer Prostate cancer Breast cancer Colorectal cancer Uterine cancer Social History (Updated 12/22/22 @ 21:00 by Vineet Smith Smoking Status: Never smoker Hx Alcohol Use: No Hx Substance Use: No Preferred Language: German Communication Ability: Effective Stock Pitcher Required: No Beliefs That Will Affect Care: None marital status: Current Living Situation: Spouse and Family Current Living Situation Comment: 1-story home in [place] current occupational status: 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 @ [employer] How many Children do You have: 1 Feels Safe at Home: Yes Safety Concerns: Feels Safe At This Time Review of Systems Review of Systems: gen - fatigue, recent poor appetite; no fevers or chills eyes - no visual changes HENT - denies ear pain, sore throat, nasal congestion neck - denies pain cv - denies chest pain or orthopnea pulm - no cough, no dyspnea, no RAMON GI - no abd pain, diarrhea, nausea or emesis; no blood per rectum - no dysuria musculo - severe, chronic right hip pain; pain left arm skin - no rash endo - no diabetes neuro - no headaches psych - recent depression following her L humeral fracture Physical Exam Physical Exam: gen - looks dehydrated, but NAD, awake/alert eyes - PERRL HENT - MM very dry, no lesions neck - no JVD, no masses heart - RRR, s1 s2, 2/6 systolic murmur LSB lungs - faint rales LLL, otherwise CTA b/l abd - soft NT ND BS+ musculo - right hip with severely limited passive ROM; left arm in sling; bruising noted upper arm; RA changes/deformities of joints of hands, knees, etc ext - no peripheral edema, pulses feet 2+ b/l neuro - no focal motor deficits; strength handgrips 5/5; distal strength b/l feet 5/5 (plantarflexion/dorsiflexion) skin - no rash, bruising L upper arm psych - a/o x 3 Results & Data Results & Data ([facility]) Vital Signs (Past 12 Hours) Vital Signs Temp Pulse Pulse Resp BP BP Pulse Ox 12/22/22 18:15 83 12/22/22 17:53 78 17 133/62 92 12/22/22 17:13 84 16 98/64 L 94 12/22/22 14:09 16 112/69 12/22/22 14:09 77 94 12/22/22 14:26 77 12/22/22 13:55 36.4 C L 84 18 78/46 L 96 O2 Del Method 12/22/22 18:15 12/22/22 17:53 Room Air 12/22/22 17:13 Room Air 12/22/22 14:09 12/22/22 14:09 Room Air 12/22/22 14:26 12/22/22 13:55 Room Air Laboratory Results Laboratory Results - last 24 hr 12/22/22 12/22/22 12/22/22 14:09 14:18 14:18 WBC 10.80 RBC 3.84 L Hgb 10.0 L Hct 32.0 L MCV 83.3 MCH 26.0 MCHC 31.3 L RDW Std Deviation 52.5 H RDW Coeff of Joao 17.3 H Plt Count 430 H MPV 10.3 Immature Gran % (Auto) 0.5 Neut % (Auto) 76.3 Lymph % (Auto) 11.0 [place] % (Auto) 10.4 Eos % (Auto) 1.3 Baso % (Auto) 0.5 Neut # (Auto) 8.25 H Lymph # (Auto) 1.19 L [place] # (Auto) 1.12 H Eos # (Auto) 0.14 Baso # (Auto) 0.05 Immature Gran # (Auto) 0.05 PT 11.3 INR 1.1 APTT 28.4 PTT Ratio 1.0 Sodium Potassium Chloride Carbon Dioxide Anion Gap BUN Creatinine Est Cr Clr Drug Dosing Est GFR ( Amer) Est GFR (Non-Af Amer) BUN/Creatinine Ratio Glucose Lactate Calcium Magnesium Total Bilirubin Direct Bilirubin AST ALT Alkaline Phosphatase Total Creatine Kinase Troponin I High Sens Total Protein Albumin Procalcitonin TSH 4.166 Urine Color Urine Appearance Urine pH Ur Specific Gomer Urine Protein Urine Glucose (UA) Urine Ketones Urine Blood Urine Nitrite Urine Bilirubin Urine Urobilinogen Ur Leukocyte Esterase Urine WBC (Auto) Urine RBC (Auto) U Hyaline Cast (Auto) U Epithel Cells (Auto) Urine Bacteria (Auto) Granular Casts SARS-CoV-2 (PCR) Influenza Type A (PCR) Influenza Type B (PCR) RSV (RT-PCR) 12/22/22 12/22/22 12/22/22 14:18 14:18 14:59 WBC RBC Hgb Hct MCV MCH MCHC RDW Std Deviation RDW Coeff of Joao Plt Count MPV Immature Gran % (Auto) Neut % (Auto) Lymph % (Auto) [place] % (Auto) Eos % (Auto) Baso % (Auto) Neut # (Auto) Lymph # (Auto) [place] # (Auto) Eos # (Auto) Baso # (Auto) Immature Gran # (Auto) PT INR APTT PTT Ratio Sodium 131 L Potassium 4.5 Chloride 99 Carbon Dioxide 20 L Anion Gap 12 H BUN 59 H Creatinine 1.47 H Est Cr Clr Drug Dosing 22.5 Est GFR ( Amer) 37.6 Est GFR (Non-Af Amer) 32.4 BUN/Creatinine Ratio 40.1 H Glucose 156 H Lactate 1.5 Calcium 9.3 Magnesium 2.3 Total Bilirubin 0.7 Direct Bilirubin 0.2 AST 29 ALT 17 Alkaline Phosphatase 167 H Total Creatine Kinase 24 L Troponin I High Sens 32.6 H Total Protein 7.4 Albumin 3.3 L Procalcitonin 2.10 H TSH Urine Color Urine Appearance Urine pH Ur Specific Gomer Urine Protein Urine Glucose (UA) Urine Ketones Urine Blood Urine Nitrite Urine Bilirubin Urine Urobilinogen Ur Leukocyte Esterase Urine WBC (Auto) Urine RBC (Auto) U Hyaline Cast (Auto) U Epithel Cells (Auto) Urine Bacteria (Auto) Granular Casts SARS-CoV-2 (PCR) Influenza Type A (PCR) Influenza Type B (PCR) RSV (RT-PCR) 12/22/22 12/22/22 15:57 16:07 WBC RBC Hgb Hct MCV MCH MCHC RDW Std Deviation RDW Coeff of Joao Plt Count MPV Immature Gran % (Auto) Neut % (Auto) Lymph % (Auto) [place] % (Auto) Eos % (Auto) Baso % (Auto) Neut # (Auto) Lymph # (Auto) [place] # (Auto) Eos # (Auto) Baso # (Auto) Immature Gran # (Auto) PT INR APTT PTT Ratio Sodium Potassium Chloride Carbon Dioxide Anion Gap BUN Creatinine Est Cr Clr Drug Dosing Est GFR ( Amer) Est GFR (Non-Af Amer) BUN/Creatinine Ratio Glucose Lactate Calcium Magnesium Total Bilirubin Direct Bilirubin AST ALT Alkaline Phosphatase Total Creatine Kinase Troponin I High Sens Total Protein Albumin Procalcitonin TSH Urine Color Dark Yellow Urine Appearance Clear Urine pH 5.0 Ur Specific Gomer 1.022 Urine Protein Trace H Urine Glucose (UA) Negative Urine Ketones Trace H Urine Blood Negative Urine Nitrite Negative Urine Bilirubin Negative Urine Urobilinogen Negative Ur Leukocyte Esterase Negative Urine WBC (Auto) 1-5 Urine RBC (Auto) 0-4 U Hyaline Cast (Auto) 5-10 H U Epithel Cells (Auto) >30 H Urine Bacteria (Auto) 1+ H Granular Casts 1-5 H SARS-CoV-2 (PCR) NEGATIVE Influenza Type A (PCR) Negative Influenza Type B (PCR) Negative RSV (RT-PCR) Negative Diagnostic Findings Chest X-Ray 12/22/22 14:09 XR chest 1V portable HISTORY: 82 years-old Female Sepsis acute sepsis COMPARISON: 04/23/2006 TECHNIQUE: AP view of the chest FINDINGS: Cardiac silhouette is enlarged. Atherosclerosis of the aorta. No pneumothorax. Small left pleural effusion with mild left basilar densities. Degenerative changes of the shoulders and spine. Acute to subacute appearing comminuted and mildly displaced fracture involving the proximal diaphyseal left humerus. Battery pack projects over the left chest wall. IMPRESSION: 1. Cardiac megaly without overt pulmonary edema. 2. Small left pleural effusion with mild left basilar opacities. 3. Acute to subacute appearing comminuted and mildly displaced fracture within the proximal diaphyseal left humerus. ACT 112: Negative or not required by law. The above report was generated using voice recognition software. It may contain grammatical, syntax or spelling errors. Electronically signed by: Carson Donato M.D. 12/22/2022 2:[address] 12/22/22 14:17 CT head/brain wo con CLINICAL HISTORY: weakness Technique: Contiguous axial CT images of the head were acquired from the base of the skull to the vertex without intravenous contrast administration. Images were viewed in brain, subdural and bone windows. Automated dose lowering techniques and/or adjustment according to patient size were utilized for this exam. Comparison: None available at the time of this dictation. Findings: The ventricles, basal cisterns, and cerebral sulci are normal. There is no acute intracranial hemorrhage or evidence of acute territorial infarction. Neither mass effect, shift of the midline structures, nor abnormal extra-axial fluid collections are shown. Imaged portions of the paranasal sinuses and mastoid air cells are clear. The orbits appear normal. There are no acute fractures of the calvaria or scalp swelling. Impression: No acute intracranial hemorrhage, no evidence of acute territorial infarction or other acute intracranial disease process. ACT 112: Negative or not required by law. Electronically signed by: Apollo Navarro M.D. 12/22/2022 3:01 PM Pelvis X-Ray 12/22/22 14:17 XR pelvis 1-2V routine CLINICAL HISTORY: Bilateral hip pain. COMPARISON: None FINDINGS: Markedly abnormal appearance of the right hip is noted. Specifically, there is chronic remodeling of the right acetabulum and flattening/erosion of the femoral head with loss of the right hip joint space. There is associated sclerosis and osteophytosis. 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 There is no acute fracture within the pelvis or hips. Mild left hip osteoarthritis is present. IMPRESSION: 1. Markedly abnormal appearance of the right hip. Severe right hip osteoarthritis with loss of the right hip joint space, remodeling of the acetabulum and flattening/erosion of the femoral head with superior displacement. These findings are not acute. 2. No acute fracture within the pelvis or hips. ACT 112: Negative or not required by law. Electronically signed by: Mark Addison M.D. 12/22/2022 2:54 PM EKG - a.fib, HR <100, nonspecific ST changes anterolateral leads and multiple limb leads Code Status & VTE Plan Code Status DNR/DNI VTE Prophylaxis Plan VTE Prophylaxis will be ordered: Yes PG Care Time/CCT Total # of Minutes Spent Total Time Spent with Patient: Total time spent is greater than 50% in coordination of care (as documented) at patient's floor/unit and/or counseling patient: Coding Level of Care Code 05371 INT INP/OBS CARE 3/75MIN Diagnoses Adrenal crisis E27.2 Hypotension I95.9 Abnormal CXR R93.89 Left humeral fracture S42.302A Degenerative joint disease of right hip M16.11 Rectovaginal fistula N82.3 Hypothyroidism E03.9 Rheumatoid arthritis M06.9 Osteoporosis M81.0 Hypertension I10 Hyperlipidemia E78.5 Depression F32.A Anemia D64.9 PEDRO (acute kidney injury) N17.9 Hyponatremia E87.1 Atrial fibrillation I48.91 Elevated troponin R77.8 DVT prophylaxis Z29.9
[2022-12-22] MEDS ORDERED: cefTRIAXone SODIUM 1,000 MG in DEXTROSE 5% AD-VAN 50 ML IV STA (19:32)
[2022-12-22] MEDS ORDERED: DOXYCYCLINE HYCLATE 100 MG in DEXTROSE 5% 100 ML IV STA (19:33)
[2022-12-22] MEDS ORDERED: ONDANSETRON INJ 2 MG/ML 2 ML VIAL IV PRN (21:37)
[2022-12-22] MEDS ORDERED: APIXABAN 2.5 MG TAB PO SCH (21:37)
[2022-12-22] MEDS: HYDROCODONE/ACETAMOPHEN 5/325MG TAB PO PRN (22:12)
[2022-12-22] MEDS: ACETAMINOPHEN 325 MG TAB PO SCH (22:15)
[2022-12-22] MEDS: LACTATED RINGER'S 1,000 ML IV SCH (22:57)
[2022-12-23] MEDS: ESTRADIOL 0.01% SCH ×3 (01:24→16:32)
[2022-12-23] MEDS: HYDROCORTISONE SOD 50 MG in SYRINGE 0 ML IV SCH ×3 (04:52→22:24)
--- NOTE | 2022-12-23 05:37 | Electrocardiogram Report ---
Test Reason : Blood Pressure : / mmHG Vent. Rate : 079 BPM Atrial Rate : 267 BPM P-R Int : 000 ms QRS Dur : 086 ms QT Int : 396 ms P-R-T Axes : 000 -26 -36 degrees QTc Int : 454 ms Atrial fibrillation Low voltage QRS Nonspecific T wave abnormality Abnormal ECG When compared with ECG of 13-DEC-2007 14:19, Atrial fibrillation has replaced Sinus rhythm Nonspecific T wave abnormality, worse in Inferior leads Nonspecific T wave abnormality now evident in Lateral leads Confirmed by Azael Randall ([id number]) on 12/23/2022 5:36:52 AM Referred By: Confirmed By:Azael Randall
[2022-12-23 06:33] LABS: Hematocrit (blood only) 22.2 % (37.0-47.0); Hemoglobin 6.9 g/dl (12.0-16.0); Mean Corpuscular Hemoglobin 26.2 pg (25.0-34.0); Mean Corpuscular Hgb Conc 31.1 g/dL (32.0-36.0); Mean Corpuscular Volume 84.4 fL (80.0-100.0); Mean Platelet Volume 10.4 fL (9.4-12.4); Platelet Count 283 K/uL (130-400); RDW Coefficient of Variation 17.2 % (11.5-14.5); RDW Standard Deviation 52.4 fL (36.4-46.3); Red Blood Count 2.63 M/uL (4.20-5.40); White Blood Count 5.39 K/ul (4.8-10.8)
[2022-12-23] MEDS: LEVOTHYROXINE SODIUM 88 MCG TABLET PO SCH (06:34)
[2022-12-23 06:48] LABS: Immature Granulocytes # (auto) 0.02 K/uL (0.01-0.20); Immature Granulocytes % (auto) 0.4 %; Lymphocytes # (auto) 0.52 K/uL (1.2-3.4); Lymphocytes % (auto) 9.6 %; Monocytes # (auto) 0.47 K/uL (0.11-0.59); Monocytes % (auto) 8.7 %; Neutrophils # (auto) 4.38 K/uL (1.40-6.50); Neutrophils % (auto) 81.3 %
[2022-12-23 06:51] LABS: BUN Creatinine Ratio 46.7 (10-20); Calcium 7.9 mg/dl (8.5-10.1); Creatinine Clr Calc Pharmacy 36.8 ml/min; Est GFR (African American) 68.1 ml/min; Est GFR (Non-African American) 58.7 ml/min; Potassium 4.8 mmol/L (3.5-5.1)
[2022-12-23 06:56] LABS: Troponin I High Sensitivity 16.9 pg/ml (0-14)
--- NOTE | 2022-12-23 07:07 | XRay Report ---
XR humerus LT 2V CLINICAL HISTORY: Left humerus fracture. COMPARISON: None FINDINGS: Note is made of an acute to subacute comminuted and mildly displaced left humeral neck fra cture which extends to the proximal shaft. Multiple bone fragments are noted. Distal component is dis placed 1.3 cm anteriorly. Severe arthritis of the left elbow is noted. Left elbow is suboptimally ass essed but no fractures identified within the left elbow. No definite evidence for left elbow joint ef fusion. There are also severe degenerative changes of the left shoulder with elevation of the left hu meral head. IMPRESSION: 1. Acute to subacute comminuted displaced left humeral neck fracture. 2. Severe left shoulder and elbow osteoarthritis. ACT 112: Negative or not required by law. Electronically signed by: Mark Addison M.D. 12/23/2022 7:06 AM
[2022-12-23 07:33] LABS: Estimated Average Glucose 120 mg/dl; Hemoglobin A1C 5.8 % (4.5-5.6)
[2022-12-23 07:39] LABS: Vitamin D, 25 Hydrox 46.9 ng/ml (30-100)
[2022-12-23 07:47] LABS: Hematocrit (blood only) 25.6 % (37.0-47.0); Hemoglobin 8.1 g/dl (12.0-16.0)
[2022-12-23] MEDS: ACETAMINOPHEN 325 MG TAB PO SCH ×3 (08:35→22:27)
[2022-12-23] MEDS: MULTIVITAMIN TAB PO SCH (08:36)
[2022-12-23] MEDS: busPIRone 5 MG TAB PO SCH (08:36)
[2022-12-23] MEDS: HYDROXYCHLOROQUINE SULFATE 200 MG TAB PO SCH (08:36)
[2022-12-23] MEDS: PANTOprazole 40 MG TAB PO SCH (08:36)
[2022-12-23] MEDS: CITALOPRAM 20 MG TAB PO SCH (08:36)
[2022-12-23] MEDS: POLYETHYLENE (MIRALAX) 17 GM PACK PO SCH (08:42)
[2022-12-23 08:50] LABS: Ferritin 250.9 ng/ml (8-388)
[2022-12-23] MEDS ORDERED: METOPROLOL TARTRATE 25 MG TAB PO SCH (09:00)
[2022-12-23] MEDS: LACTATED RINGER'S 1,000 ML IV SCH ×2 (09:03→18:49)
[2022-12-23] MEDS: DOXYCYCLINE HYCLATE 100 MG in DEXTROSE 5% 100 ML IV SCH ×2 (10:21→22:26)
--- NOTE | 2022-12-23 14:35 | Orthopedic Consultation ---
Date of Service December 23, 2022 Assessment & Plan (1) Left humeral fracture: She was seen and examined by Dr. Barajas today. Continue nonoperative management of the proximal humerus fracture. She is actually fairly comfortable with it at this time. Continue use of the arm sling. 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 We discussed possible total hip replacement with her as she is severely limited by her hip at this point. She is interested in tj. We will discuss with the hospitalist service about proceeding with hip replacement. History of Present Illness Reason for Consultation: .Left proximal humerus fx Right hip pain Requesting Physician: . Attending Physician: Vineet Causey . 82 year old patient admitted with adrenal crisis/hypotension, that orthopedics was consulted for regarding a left proximal humerus fracture and right hip pain/severe DJD. She is right hand dominant. Apparently her right hip began hurting about a month ago and she began to use a rollator walker at that time. She has a history of rheumatoid arthritis and has been on chronic steroids. She then fell in her kitchen about 2 weeks ago due to her hip and suffered the humerus fracture. She was initially taken to a hospital in [place] for the fracture, was discharged and eventually returned home. While at home she was hypotensive and admitted here yesterday. She does not have much pain with the humerus fracture anymore. Her major complaint is the right hip pain. Allergies Allergy/AdvReac Type Severity Reaction Status Date / Time simvastatin [From Zocor] Allergy Verified 10/20/22 11:02 azithromycin AdvReac Mild pain in Verified 10/20/22 11:02 arms & legs prochlorperazine AdvReac Unknown MENTAL Verified 10/20/22 11:02 CHANGES Home Medications Medication Instructions Recorded Confirmed Type amlodipine 5 mg tablet 5 mg PO DAILY 09/28/20 12/22/22 History atenolol 25 mg tablet 25 mg PO DAILY 09/28/20 12/22/22 History citalopram 20 mg tablet (Celexa) 20 mg PO DAILY 09/28/20 12/22/22 History furosemide 20 mg tablet (Lasix) 20 mg PO DAILY 09/28/20 12/22/22 History levothyroxine 88 mcg tablet 88 mcg PO DAILY 09/28/20 12/22/22 History multivitamin 1 tab PO DAILY 09/28/20 12/22/22 History omeprazole 20 mg capsule,delayed 20 mg PO DAILY 09/28/20 12/22/22 History release prednisone 5 mg tablet 5 mg PO DAILY 09/28/20 12/22/22 History hydrocodone 5 mg-acetaminophen 300 1 tab PO BID PRN Pain 10/01/20 12/22/22 History mg tablet hydroxychloroquine 200 mg tablet 200 mg PO DAILY 10/01/20 12/22/22 History estradiol 0.01% (0.1 mg/gram) 1 g vaginal 2XWK #42.5 grams 10/20/22 12/22/22 Rx vaginal cream apixaban 2.5 mg tablet (Eliquis) 2.5 mg PO DAILY 12/22/22 12/22/22 History buspirone 5 mg tablet 5 mg PO DAILY 12/22/22 12/22/22 History ferrous sulfate 27 mg iron tablet 27 mg PO BID 12/22/22 12/22/22 History metoprolol tartrate 25 mg tablet 12.5 mg PO DAILY 12/22/22 12/22/22 History Past Med/Surg History Medical History Anemia Atrial fibrillation Degenerative joint disease of right hip Depression HLD (hyperlipidemia) HTN (hypertension) Hypothyroidism Left humeral fracture Long-term use of immunosuppressant medication Osteoporosis Rectovaginal fistula Rheumatoid arthritis Surgical History History of appendectomy History of bilateral oophorectomy History of hysterectomy History of total knee arthroplasty Hx of cataract extraction bilateral Family History Father Heart disease Hypertension Coronary heart disease COPD (chronic obstructive pulmonary disease) Mother Rheumatoid arthritis Uncle Coronary heart disease Denies family history of Pancreatic cancer Ovarian cancer Prostate cancer Breast cancer Colorectal cancer Uterine cancer Social History Smoking Status: Never smoker Hx Alcohol Use: No Hx Substance Use: No Preferred Language: French Communication Ability: Effective Cabinet Finisher Required: No Beliefs That Will Affect Care: None marital status: Current Living Situation: Spouse and Family Current Living Situation Comment: 1-story home in [place] current occupational status: 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 Physical Exam .alert and oriented. NAD Left arm is in a sling. No pain with gentle limited motion of the shoulder. Right leg: unable to do a good straight leg raise due to the hip. She has pain and stiffness with motion of the hip. She can dorsiflex and plantarflex. Sensation intact to touch. Results & Data Results & Data Laboratory Results . Diagnostic Findings .Xrays of the left shoulder show a displaced proximal humerus fracture, in acceptable alignment still. xrays of the hip/pelvis show severe right hip DJD with collapse/deterioration of the femoral head PG Care Time/CCT Total # of Minutes Spent Total Time Spent with Patient: Total time spent is greater than 50% in coordination of care (as documented) at patient's floor/unit and/or counseling patient: Coding Level of Care Code 03928 IN/OBS CONSULT LVL 5,80M Diagnoses Left humeral fracture S42.302A Degenerative joint disease of right hip M16.11
[2022-12-23] MEDS: HYDROCODONE/ACETAMOPHEN 5/325MG TAB PO PRN (18:47)
[2022-12-23] MEDS ORDERED: cefTRIAXone SODIUM 1,000 MG in DEXTROSE 5% AD-VAN 50 ML IV SCH (20:00)
--- NOTE | 2022-12-23 21:07 | Hospitalist Progress Note ---
Date of Service December 23, 2022 Assessment & Plan (1) Adrenal crisis: Plan: IMPROVED. Patient may have been off her chronic steroid therapy for 1-2 weeks or longer prior to admission. She presented with severe hypotension - SBP in the 70s - improved with IV fluid bolus & stress dose steroids. Hypotension resolved. Cont hydrocortisone 50mg IV q8h, then slow taper to usual dose of 5-10mg of prednisone daily. Continue IV fluids. (2) Hypotension: Plan: 2nd to #1 - resolved. cannot rule out sepsis. also presented with dehydration. cont IV fluids and stress dose steroids. (3) Abnormal CXR: Plan: ?LLL infiltrates? Given her immune compromised status she may not have typical pneumonia symptoms. Procal is elevated, and she does have LLL rales on exam. Cont Rx of pneumonia - day #2 of rocephin/doxy. Follow blood cx's but thus far negative. (4) Left humeral fracture: Plan: Sustained sometime in Nov 2021 after a fall. Was hospitalized in [place] at [facility]. Seen by orthopedics there - nonoperative Rx advised at that time. Continue NWB status to LUE. Continue sling. Appreciate [facility] Ortho consult - they also recommend ongoing nonoperative Rx. Cont pain meds prn. 25-OH vit D level wnl. (5) Degenerative joint disease of right hip: Plan: SEVERE DJD on x-rays. She has severe, chronic pain and ambulatory dysfunction due to the hip. She underwent IR arthrocentesis of the joint at [facility]. Daughter states the joint was free of infection; no fluid was successfully aspirated. Continue pain meds with norco prn and scheduled tylenol TID. Appreciate [facility] Ortho consult. They are willing to perform right hip replacement during this admission. Patient interested. Once we have more firmness in her decision will hold Elielviais in prep for that surgery. (6) Rectovaginal fistula: Plan: Sees [facility] Ob-frameman for such. Big risk factor for chronic UTI. U/a is suggestive of possible UTI - abx for pneumonia will cover. Follow urine cx. Still pending. Continue topical estrogen cream. (7) Hypothyroidism: Plan: TSH wnl. Cont synthroid. (8) Rheumatoid arthritis: Plan: Dx in her late 20s. Follows with Dr Sincere Murphy, [facility] Rhe[facility] - [facility]. Cont plaquenil. Is on chronic prednisone 5-10mg/day. Employ stress dose steroids as noted above. (9) Osteoporosis: Plan: 25-OH vit D level wnl. (10) Hypertension: Plan: Due to hypotension hold all anti-hypertensives except metoprolol - see below. (11) Hyperlipidemia: Plan: Does not appear she takes meds for this. (12) Depression: Plan: Cont celexa. Cont buspar. (13) Anemia: Plan: B12, folate wnl. Fe studies - likely element of Fe def along with anemia of chronic disease. If blood cx's remain negative consider IV venofer while here. (14) PEDRO (acute kidney injury): Plan: Granular casts noted on u/a consistent with ATN from low BP/dehydration. Cr today improved. Cont IVF. repeat BMP am. (15) Hyponatremia: Plan: Likely 2nd to volume depletion & lasix use. Improved today s/p IV fluids. Repeat BMP am. (16) Atrial fibrillation: Plan: Recent diagnosis in November during her hospital stay in [facility]. Cont Eliquis BID - 2.5mg BID based on body weight, renal function. Echo at [place] with preserved EF and only mild valvular disease. LA/RA enlargement likely the biggest risk factor for her a.fib. Her rates have started to rise - thus, resume metoprolol 25mg BID. Re-eval tomorrow. (17) Elevated troponin: Plan: Likely myocardial demand ischemia in setting of #1, #2, infection, etc. No evidence of ACS. No ischemic symptoms. (18) DVT prophylaxis: Plan: eliquis 2.5mg BID. (19) Prediabetes: Plan: a1c 5.8% will child welfare counselor patient no Rx needed at this time, however Plan daughter extensively updated by phone yesterday Admission and Anticipated Discharge Date Admission Date: December 22, 2022 Subjective patient feeling better today appetite still poor denies cough still quite tired, however main complaint is that of right hip pain minimal left humerus pain denies GI symptoms ortho saw in consult - offered R hip replacement, she is interested in such Review of Systems Review of Systems: gen - no fevers cv - no orthopnea pulm - no dyspnea at rest GI - no abd pain Physical Exam Physical Exam: gen - looks better today, NAD skin - generalized pallor neck - no JVD mouth - MM still a little dry today heart - irregular, rate near 100, s1 s2, no murmur lungs - focal rales L base only, no wheezing abd - soft NT ND BS+ ext - no edema, pulses 2+ b/l musculo - left arm in sling Results & Data Results & Data ([facility]) Vital Signs (Past 12 Hours) Vital Signs Temp Pulse Pulse Resp BP BP Pulse Ox 12/23/22 18:23 89 12/23/22 18:14 36.4 C L 89 20 148/95 H 97 12/23/22 17:30 85 14 168/104 H 97 12/23/22 16:23 85 20 135/90 96 12/23/22 14:00 94 H 17 140/95 12/23/22 14:09 12/23/22 13:00 86 15 140/91 97 12/23/22 12:10 93 H 19 158/83 H 92 12/23/22 10:23 79 18 132/75 94 Pulse Ox O2 Del Method O2 Del Method 12/23/22 18:23 12/23/22 18:14 Room Air 12/23/22 17:30 Room Air 12/23/22 16:23 Room Air 12/23/22 14:00 12/23/22 14:09 96 Room Air 12/23/22 13:00 Room Air 12/23/22 12:10 Room Air 12/23/22 10:23 Room Air Laboratory Results Laboratory Results - last 24 hr 12/23/22 12/23/22 12/23/22 05:40 05:40 05:40 WBC 5.39 RBC 2.63 L Hgb 6.9 L* D Hct 22.2 L MCV 84.4 MCH 26.2 MCHC 31.1 L RDW Std Deviation 52.4 H RDW Coeff of Joao 17.2 H Plt Count 283 MPV 10.4 Immature Gran % (Auto) 0.4 Neut % (Auto) 81.3 Lymph % (Auto) 9.6 Dooly % (Auto) 8.7 Eos % (Auto) 0.0 Baso % (Auto) 0.0 Neut # (Auto) 4.38 Lymph # (Auto) 0.52 L Dooly # (Auto) 0.47 Eos # (Auto) 0.00 Baso # (Auto) 0.00 Immature Gran # (Auto) 0.02 Sodium 133 L Potassium 4.8 Chloride 105 Carbon Dioxide 19 L Anion Gap 9 BUN 42 H Creatinine 0.90 D Est Cr Clr Drug Dosing 36.8 Est GFR ( Amer) 68.1 Est GFR (Non-Af Amer) 58.7 BUN/Creatinine Ratio 46.7 H Glucose 107 H Estimat Average Glucose Hemoglobin A1c Calcium 7.9 L Iron 16 L TIBC 151 L Unsaturated IBC 135 L Transferrin % Sat 11 L Ferritin 250.9 Troponin I High Sens 16.9 H D Vitamin B12 824 25-OH Vitamin D Total 46.9 Folate 17.54 Blood Type Antibody Screen 12/23/22 12/23/22 12/23/22 05:40 05:40 07:15 WBC RBC Hgb Hct MCV MCH MCHC RDW Std Deviation RDW Coeff of Joao Plt Count MPV Immature Gran % (Auto) Neut % (Auto) Lymph % (Auto) Dooly % (Auto) Eos % (Auto) Baso % (Auto) Neut # (Auto) Lymph # (Auto) Dooly # (Auto) Eos # (Auto) Baso # (Auto) Immature Gran # (Auto) Sodium Potassium Chloride Carbon Dioxide Anion Gap BUN Creatinine Est Cr Clr Drug Dosing Est GFR ( Amer) Est GFR (Non-Af Amer) BUN/Creatinine Ratio Glucose Estimat Average Glucose 120 Hemoglobin A1c 5.8 H Calcium Iron Cancelled TIBC Cancelled Unsaturated IBC Cancelled Transferrin % Sat Cancelled Ferritin Cancelled Troponin I High Sens Vitamin B12 25-OH Vitamin D Total Folate Blood Type O Negative Antibody Screen NEGATIVE 12/23/22 07:15 WBC RBC Hgb 8.1 L Hct 25.6 L MCV MCH MCHC RDW Std Deviation RDW Coeff of Joao Plt Count MPV Immature Gran % (Auto) Neut % (Auto) Lymph % (Auto) Dooly % (Auto) Eos % (Auto) Baso % (Auto) Neut # (Auto) Lymph # (Auto) Dooly # (Auto) Eos # (Auto) Baso # (Auto) Immature Gran # (Auto) Sodium Potassium Chloride Carbon Dioxide Anion Gap BUN Creatinine Est Cr Clr Drug Dosing Est GFR ( Amer) Est GFR (Non-Af Amer) BUN/Creatinine Ratio Glucose Estimat Average Glucose Hemoglobin A1c Calcium Iron TIBC Unsaturated IBC Transferrin % Sat Ferritin Troponin I High Sens Vitamin B12 25-OH Vitamin D Total Folate Blood Type Antibody Screen PG Care Time/CCT Total # of Minutes Spent Total Time Spent with Patient: Total time spent is greater than 50% in coordination of care (as documented) at patient's floor/unit and/or counseling patient: Coding Level of Care Code 33884 SUB INP/OBS CARE 2/35MIN Diagnoses Adrenal crisis E27.2 Hypotension I95.9 Abnormal CXR R93.89 Left humeral fracture S42.302A Degenerative joint disease of right hip M16.11 Rectovaginal fistula N82.3 Hypothyroidism E03.9 Rheumatoid arthritis M06.9 Osteoporosis M81.0 Hypertension I10 Hyperlipidemia E78.5 Depression F32.A Anemia D64.9 PEDRO (acute kidney injury) N17.9 Hyponatremia E87.1 Atrial fibrillation I48.91 Elevated troponin R77.8 DVT prophylaxis Z29.9 Prediabetes R73.03
[2022-12-23] MEDS: METOPROLOL TARTRATE 25 MG TAB PO SCH (22:26)
[2022-12-24] MEDS: LACTATED RINGER'S 1,000 ML IV SCH ×2 (05:22→16:46)
[2022-12-24] MEDS: HYDROCODONE/ACETAMOPHEN 5/325MG TAB PO PRN (05:23)
[2022-12-24] MEDS: HYDROCORTISONE SOD 50 MG in SYRINGE 0 ML IV SCH (05:23)
[2022-12-24] MEDS: LEVOTHYROXINE SODIUM 88 MCG TABLET PO SCH (05:24)
[2022-12-24] MEDS: ESTRADIOL 0.01% SCH ×4 (05:29→23:10)
[2022-12-24 07:50] LABS: Hematocrit (blood only) 26.5 % (37.0-47.0); Hemoglobin 8.4 g/dl (12.0-16.0); Mean Corpuscular Hemoglobin 25.8 pg (25.0-34.0); Mean Corpuscular Hgb Conc 31.7 g/dL (32.0-36.0); Mean Corpuscular Volume 81.5 fL (80.0-100.0); Platelet Count 416 K/uL (130-400); RDW Coefficient of Variation 16.7 % (11.5-14.5); RDW Standard Deviation 49.9 fL (36.4-46.3); Red Blood Count 3.25 M/uL (4.20-5.40); White Blood Count 6.41 K/ul (4.8-10.8)
[2022-12-24] MEDS ORDERED: HYDROCORTISONE SOD 50 MG in SYRINGE 0 ML IV SCH (07:55)
[2022-12-24 09:29] LABS: BUN Creatinine Ratio 40.5 (10-20); Calcium 8.7 mg/dl (8.5-10.1); Creatinine Clr Calc Pharmacy 40.8 ml/min; Est GFR (African American) 79.7 ml/min; Est GFR (Non-African American) 68.7 ml/min
[2022-12-24] MEDS: ACETAMINOPHEN 325 MG TAB PO SCH ×3 (09:31→20:20)
[2022-12-24] MEDS: METOPROLOL TARTRATE 25 MG TAB PO SCH (09:31)
[2022-12-24] MEDS: PANTOprazole 40 MG TAB PO SCH (09:31)
[2022-12-24] MEDS: busPIRone 5 MG TAB PO SCH (09:32)
[2022-12-24] MEDS: MULTIVITAMIN TAB PO SCH (09:32)
[2022-12-24] MEDS: CITALOPRAM 20 MG TAB PO SCH (09:32)
[2022-12-24] MEDS: POLYETHYLENE (MIRALAX) 17 GM PACK PO SCH (09:32)
[2022-12-24] MEDS: HYDROXYCHLOROQUINE SULFATE 200 MG TAB PO SCH (09:32)
[2022-12-24] MEDS: DOXYCYCLINE HYCLATE 100 MG in DEXTROSE 5% 100 ML IV SCH ×2 (09:59→20:15)
--- NOTE | 2022-12-24 10:05 | XRay Report ---
XR chest 1V portable CLINICAL HISTORY: ?LLL pneumonia on prior cxr TECHNIQUE: Single frontal radiograph of the chest was obtained. Comparison: Comparison is made to chest radiograph 12/22/2022 FINDINGS: No lines and tubes are seen. Cardiomegaly is noted. Left retrocardiac opacity is seen, more defined t arango on prior radiograph. There is a possible trace left effusion. IMPRESSION: 1. Left retrocardiac opacity may represent atelectasis, pneumonia, and/or aspiration. It is somewhat more defined than on the prior exam. Stable cardiomegaly is noted. 2. Possible trace left pleural effusion. 3. Redemonstration of left humeral fracture. ACT 112: Negative or not required by law. Electronically signed by: Apollo Navarro M.D. 12/24/2022 10:03 AM
--- NOTE | 2022-12-24 10:39 | Progress Notes ---
SUBJECTIVE: An 82-year-old female admitted with adrenal crisis with underlying rheumatoid disease an d severe right hip arthritis/AVN and a recent humerus fracture. She is doing pretty well in bed. Jose lema said her arm does not hurt much at all. Her right hip is the most bothersome problem. She is havi ng trouble ambulating and getting around. This has just been a couple months' duration. She is feel ing much better. OBJECTIVE: VITAL SIGNS: Temperature 37.2. Vital signs are stable. GENERAL: Physical examination shows a pleasant, elderly, frail female. She is sitting up in bed, lo oks pretty comfortable. EXTREMITIES: Examination of the left arm reveals the arm to be well aligned. Sling is in place. Re ally not much pain with this. No gross motion at the fracture site. She is neurologically intact. Examination of the right hip reveals her leg to be slightly shortened and externally rotated. She gilmore s got marked pain with any type of hip motion. NEUROLOGIC: She is neurologically intact. LABORATORY DATA: Hemoglobin 8.4. Hematocrit 26.5. Electrolytes are stable. ASSESSMENT AND PLAN: An 82-year-old female with underlying rheumatoid disease, on chronic steroids, admitted with hypotension, adrenal crisis, possible pneumonia, severe hip pain with AVN/DJD, left rec ent humerus fracture. Her humerus seems to be doing pretty well. Her hip is the bigger problem from the orthopedic standpo int. Treatment for this is hip replacement. We need to make sure she is medically optimized. There is some concern from pneumonia, so that should be treated first. We need to stop her Eliquis as well . Will wait for medicine as far as direction on when we could potentially proceed with this hip repl acement. In the meantime, she can weight bear as tolerated. Should have DVT prophylaxis to include TEDs and SCDs. We are going to stop the Eliquis once we determine a time for hip surgery. Any ortho pedic questions can be directed to me at [phone]. Job ID: [id number]
[2022-12-24] MEDS: HYDROCORTISONE SOD 25 MG in SYRINGE 0 ML IV SCH ×2 (13:36→20:16)
[2022-12-24] MEDS ORDERED: IRON SUCROSE 200 MG in 0.9 % SODIUM CHLORIDE 100 ML IV ONE (15:30)
[2022-12-24] MEDS ORDERED: CEFEPIME 1,000 MG in SYRINGE 0 ML IV SCH (15:45)
[2022-12-24] MEDS: CEFEPIME 2,000 MG in SYRINGE 0 ML IV SCH (17:21)
[2022-12-24] MEDS ORDERED: METOPROLOL TARTRATE 1 MG/ML VIAL IV STA (20:35)
--- NOTE | 2022-12-24 20:59 | Hospitalist Progress Note ---
Date of Service December 24, 2022 Assessment & Plan (1) Adrenal crisis: Plan: resolved. cont to wean IV hydrocortisone - cut to 25mg TID today. then wean again tomorrow - likely over to PO formulation. then ultimately slow taper to usual dose of 5-10mg of prednisone daily. Continue IV fluids but stop in am. (2) Hypotension: Plan: 2nd to #1 - resolved. (3) LLL pneumonia: Plan: probable LLL infiltrate on cxr x 2, and focal LLL rales on exam. some of the anorexia may be from her pneumonia. since she was just hospitalized within the last few weeks at a hospital in [place] and was in SNF rehab - broaden rocephin to cefepime for better gram negative coverage. cont doxy for atypical coverage. blood cx's negative. day #3 today of abx. (4) Left humeral fracture: Plan: Sustained sometime in Nov 2021 after a fall at her home. Was hospitalized in [place] at [facility]. Seen by orthopedics there - nonoperative Rx advised at that time. Continue NWB status to LUE. Continue sling. Appreciate [facility] Ortho consult - they also recommend ongoing nonoperative Rx. Cont pain meds prn. 25-OH vit D level wnl. (5) Degenerative joint disease of right hip: Plan: SEVERE DJD on x-rays. She has severe, chronic pain and ambulatory dysfunction due to the hip. She underwent IR arthrocentesis of the joint at [facility]. Daughter states the joint was free of infection; no fluid was successfully aspirated. Continue pain meds with norco prn and scheduled tylenol TID. Appreciate [facility] Ortho consult. They are planning to perform right hip replacement next week when medically optimized. Will hold Eliquis in preparation for such. (6) Rectovaginal fistula: Plan: Sees [facility] Ob-electro mechanical assembler for such. Big risk factor for chronic UTI. U/a is suggestive of possible UTI - abx for pneumonia will cover. But culture is negative. Continue topical estrogen cream. (7) Hypothyroidism: Plan: TSH wnl. Cont synthroid. (8) Rheumatoid arthritis: Plan: Dx in her late 20s. Follows with Dr Sincere Murphy, [facility] Rheum - [facility] Cont plaquenil. Is on chronic prednisone 5-10mg/day. Cont stress dose steroids but wean today. (9) Osteoporosis: Plan: 25-OH vit D level wnl. (10) Hypertension: Plan: Resumed metoprolol (11) Hyperlipidemia: Plan: Does not appear she takes meds for this. (12) Depression: Plan: Cont celexa. Cont buspar. (13) Anemia: Plan: B12, folate wnl. Fe studies - likely element of Fe def along with anemia of chronic disease. Will give venofer 200mg IV x 1. CBC in am. (14) PEDRO (acute kidney injury): Plan: Granular casts noted on u/a consistent with ATN from low BP/dehydration. Cr again improved today. Na level improving. Cont IVF. repeat BMP am. (15) Hyponatremia: Plan: 2nd to volume depletion & lasix use. Improved again today. Cont IVF - 50cc/hr until the am. Repeat BMP am. (16) Atrial fibrillation: Plan: Recent diagnosis in November during her hospital stay in [facility]. HOLDING Eliquis BID - 2.5mg BID for upcoming right hip surgery. Echo at [place] with preserved EF and only mild valvular disease. LA/RA enlargement likely the biggest risk factor for her a.fib. Her rates are still uncontrolled with metoprolol - increase to 50mg BID. Cont telemetry. (17) Elevated troponin: Plan: Likely myocardial demand ischemia in setting of #1, #2, infection, etc. No evidence of ACS. No ischemic symptoms. (18) DVT prophylaxis: Plan: hold eliquis while on hold - heparin 5000 BID - start next 24-48 hours (19) Prediabetes: Plan: a1c 5.8% will primary counselor patient no Rx needed at this time, however Plan daughter extensively updated by phone this evening Admission and Anticipated Discharge Date Admission Date: December 24, 2022 Subjective patient reports "Feeling better" with less weakness appetite modestly better no dyspnea denies cough right hip pain persists but no worse than previous left arm in sling is not painful tele overnight - a.fib, rates >100 Review of Systems Review of Systems: gen - no fevers/chills cv - no cp, no orthopnea pulm - no wheezing GI - no nausea or emesis Physical Exam Physical Exam: gen - NAD skin - generalized pallor unchanged neck - no JVD mouth - MMM; dryness resolved heart - irregular, mild tachycardia, s1 s2, no murmur lungs - focal rales L base only - no changed; good airation, no wheezing abd - soft NT ND BS+ ext - no edema, pulses 2+ b/l musculo - left arm in sling skin - bruises over left arm Results & Data Results & Data ([facility]) Vital Signs (Past 12 Hours) Vital Signs Temp Pulse Resp BP Pulse Ox O2 Del Method 12/24/22 20:20 149/99 H 12/24/22 15:34 37 C 112 H 20 157/90 H 96 Room Air 12/24/22 11:31 37.1 C 81 19 147/81 H 94 Room Air Laboratory Results Laboratory Results - last 24 hr 12/24/22 12/24/22 07:07 07:07 WBC 6.41 RBC 3.25 L Hgb 8.4 L Hct 26.5 L MCV 81.5 MCH 25.8 MCHC 31.7 L RDW Std Deviation 49.9 H RDW Coeff of Joao 16.7 H Plt Count 416 H MPV 10.0 Sodium 133 L Potassium 4.0 Chloride 102 Carbon Dioxide 22 Anion Gap 9 BUN 32 H Creatinine 0.79 Est Cr Clr Drug Dosing 40.8 Est GFR ( Amer) 79.7 Est GFR (Non-Af Amer) 68.7 BUN/Creatinine Ratio 40.5 H Glucose 125 H Calcium 8.7 PG Care Time/CCT Total # of Minutes Spent Total Time Spent with Patient: Total time spent is greater than 50% in coordination of care (as documented) at patient's floor/unit and/or counseling patient: Coding Level of Care Code 09220 SUB INP/OBS CARE 2/35MIN Diagnoses Adrenal crisis E27.2 Hypotension I95.9 LLL pneumonia J18.9 Left humeral fracture S42.302A Degenerative joint disease of right hip M16.11 Rectovaginal fistula N82.3 Hypothyroidism E03.9 Rheumatoid arthritis M06.9 Osteoporosis M81.0 Hypertension I10 Hyperlipidemia E78.5 Depression F32.A Anemia D64.9 PEDRO (acute kidney injury) N17.9 Hyponatremia E87.1 Atrial fibrillation I48.91 Elevated troponin R77.8 DVT prophylaxis Z29.9 Prediabetes R73.03
[2022-12-24] MEDS ORDERED: METOPROLOL TARTRATE 50 MG TAB PO SCH (21:00)
[2022-12-25] MEDS: LACTATED RINGER'S 1,000 ML IV SCH (04:31)
[2022-12-25] MEDS: CEFEPIME 2,000 MG in SYRINGE 0 ML IV SCH ×2 (04:31→17:55)
[2022-12-25] MEDS: HYDROCORTISONE SOD 25 MG in SYRINGE 0 ML IV SCH (05:06)
[2022-12-25] MEDS: LEVOTHYROXINE SODIUM 88 MCG TABLET PO SCH (05:07)
--- NOTE | 2022-12-25 08:23 | Progress Notes ---
DATE OF SERVICE: 12/25/2022. SUBJECTIVE: An 82-year-old female admitted with adrenal crisis with severe hip pain and left proxima l humerus fracture. She is doing okay. She is feeling a little bit better today, pain meade. She gilmore s been immobilized much. No chest pain or shortness of breath. OBJECTIVE: VITAL SIGNS: Temperature 37.0. A bit hypertensive and tachycardic. EXTREMITIES: Examination of the left shoulder reveals the sling to be in place. She moves around wi thout much pain. Examination of the right hip reveals the leg to be slightly shortened. She has pain with any type of motion. She is neurologically intact. LABORATORY DATA: No new labs this morning. ASSESSMENT: An 82-year-old female admitted with adrenal crisis, hypotension, dehydration with a rece nt proximal humerus fracture and severe right hip arthritis, likely due to AVN. She has got underlyi ng rheumatoid disease as well. She looks pretty good this morning. It looks like she is pretty much back to baseline health. She has been a little tachycardic. PLAN: At this point, we are going to medically optimize her. We are going to proceed with a right t otal hip replacement when she is medically optimized. We are holding her Eliquis for now. The goal of being able to do this either Monday or Monday. We will see what medicine has to say. In the brunilda ntime, TEDs and SCDs for DVT prophylaxis. Hold Eliquis. She can weight bear as tolerated. Sling on left arm. Any orthopedic questions can be directed to me at [phone]. Job ID: [id number]
[2022-12-25] MEDS ORDERED: IRON SUCROSE 200 MG in 0.9 % SODIUM CHLORIDE 100 ML IV ONE (08:30)
[2022-12-25] MEDS: ESTRADIOL 0.01% SCH (09:11)
[2022-12-25] MEDS: POLYETHYLENE (MIRALAX) 17 GM PACK PO SCH (09:12)
[2022-12-25] MEDS: METOPROLOL TARTRATE 25 MG TAB PO SCH ×2 (09:12→20:39)
[2022-12-25] MEDS: CITALOPRAM 20 MG TAB PO SCH (09:13)
[2022-12-25] MEDS: busPIRone 5 MG TAB PO SCH ×2 (09:13→20:39)
[2022-12-25] MEDS: MULTIVITAMIN TAB PO SCH (09:13)
[2022-12-25] MEDS: ACETAMINOPHEN 325 MG TAB PO SCH ×3 (09:13→20:39)
[2022-12-25] MEDS: HYDROXYCHLOROQUINE SULFATE 200 MG TAB PO SCH (09:13)
[2022-12-25] MEDS: PANTOprazole 40 MG TAB PO SCH (09:14)
[2022-12-25 09:17] LABS: Hematocrit (blood only) 29.8 % (37.0-47.0); Hemoglobin 9.4 g/dl (12.0-16.0); Mean Corpuscular Hemoglobin 25.8 pg (25.0-34.0); Mean Corpuscular Hgb Conc 31.5 g/dL (32.0-36.0); Mean Corpuscular Volume 81.6 fL (80.0-100.0); Mean Platelet Volume 9.9 fL (9.4-12.4); Platelet Count 482 K/uL (130-400); RDW Coefficient of Variation 16.7 % (11.5-14.5); RDW Standard Deviation 49.2 fL (36.4-46.3); Red Blood Count 3.65 M/uL (4.20-5.40); White Blood Count 7.02 K/ul (4.8-10.8)
[2022-12-25 09:45] LABS: BUN Creatinine Ratio 32.4 (10-20); Calcium 9.2 mg/dl (8.5-10.1); Creatinine Clr Calc Pharmacy 43.2 ml/min; Est GFR (African American) 90.7 ml/min; Est GFR (Non-African American) 78.2 ml/min; Potassium 2.7 mmol/L (3.5-5.1)
[2022-12-25] MEDS: DOXYCYCLINE HYCLATE 100 MG in DEXTROSE 5% 100 ML IV SCH ×2 (10:15→20:49)
[2022-12-25 11:29] LABS: Magnesium 1.6 mg/dl (1.7-2.4); Potassium 2.6 mmol/L (3.5-5.1)
[2022-12-25] MEDS ORDERED: POTASSIUM CHLORIDE CRTAB 20 MEQ TABCR PO STA (11:41)
[2022-12-25] MEDS: MAGNESIUM SULFATE / D5W 1 GM/100 ML BAG IV SCH ×2 (12:11→14:01)
[2022-12-25] MEDS ORDERED: POTASSIUM CHLORIDE CRTAB 20 MEQ TABCR PO ONE ×2 (14:30→17:00)
[2022-12-25 17:42] LABS: Magnesium 2.1 mg/dl (1.7-2.4); Potassium 3.5 mmol/L (3.5-5.1)
[2022-12-25] MEDS: ESTRACE VAG CREAM 0.01% 42.5 GM PV SCH (20:38)
[2022-12-25] MEDS: HYDROCORTISONE 10 MG TAB PO SCH (20:39)
[2022-12-25] MEDS: MELATONIN 3 MG TAB PO SCH (20:49)
[2022-12-25] MEDS ORDERED: ESTRACE VAG CREAM 0.01% 42.5 GM PV SCH (21:00)
--- NOTE | 2022-12-25 22:15 | Hospitalist Progress Note ---
Date of Service December 25, 2022 Assessment & Plan (1) Adrenal crisis: Plan: resolved. cont to wean IV hydrocortisone - cut to hydrocortisone 20mg PO BID today. leave this dose until after her right hip surgery. may need an additional 20mg on day of surgery as well. then ultimately slow taper to usual dose of 5-10mg of prednisone daily. stop IV fluids (2) Hypotension: Plan: 2nd to #1 - resolved. (3) LLL pneumonia: Plan: probable LLL infiltrate on cxr x 2, and focal LLL rales on exam. some of the anorexia may be from her pneumonia. since she was just hospitalized within the last few weeks at a hospital in [place] and was in SNF rehab I broadened her rocephin to cefepime for better gram negative coverage. cont doxy for atypical coverage. blood cx's negative. day #4 today of abx. plan 7 days in total (4) Left humeral fracture: Plan: Sustained sometime in Nov 2021 after a fall at her home. Was hospitalized in [place] at [facility]. Seen by orthopedics there - nonoperative Rx advised at that time. Continue NWB status to LUE. Continue sling. Appreciate [facility] Ortho consult - they also recommend ongoing nonoperative Rx. Cont pain meds prn. 25-OH vit D level wnl. (5) Degenerative joint disease of right hip: Plan: SEVERE DJD on x-rays. She has severe, chronic pain and ambulatory dysfunction due to the hip. She underwent IR arthrocentesis of the joint at [facility]. Daughter states the joint was free of infection; no fluid was successfully aspirated. Continue pain meds with norco prn and scheduled tylenol TID. Appreciate [facility] Ortho consult. They are planning to perform right hip replacement . Urvashi on hold for such. I believe she will be ready from a cardiopulmonary standpoint by Monday. Despite LLL pneumonia it has been mild, she has no symptoms, her O2 sats have been wnl, etc. 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 Big risk factor for chronic UTI. U/a is suggestive of possible UTI - abx for pneumonia will cover. But culture is negative. Continue topical estrogen cream. (7) Hypothyroidism: Plan: TSH wnl. Cont synthroid. (8) Rheumatoid arthritis: Plan: Dx in her late 20s. Follows with Dr Sincere Murphy, [facility] Rheum - [facility]. Cont plaquenil. Is on chronic prednisone 5-10mg/day. Cont stress dose steroids but wean again today. (9) Osteoporosis: Plan: 25-OH vit D level wnl. (10) Hypertension: Plan: Resumed metoprolol (11) Hyperlipidemia: Plan: Does not appear she takes meds for this. (12) Depression: Plan: Cont celexa. Cont buspar but increased to 5mg BID due to ongoing anxiety. (13) Anemia: Plan: B12, folate wnl. Fe studies - likely element of Fe def along with anemia of chronic disease. s/p venofer 200mg IV x 1. (14) PEDRO (acute kidney injury): Plan: Granular casts noted on admission u/a consistent with ATN from low BP/dehydration. Peak Cr 1.47 today 0.6 resolved stop IV fluids (15) Hyponatremia: Plan: 2nd to volume depletion & lasix use. stop IV fluids bmp am if Na level stays low then check urine osm, urine Na (16) Atrial fibrillation: Plan: Recent diagnosis in November during her hospital stay in [facility]. HOLDING Eliquis BID - 2.5mg BID for upcoming right hip surgery. Echo at [place] with preserved EF and only mild valvular disease. LA/RA enlargement likely the biggest risk factor for her a.fib. Her rates are improved with increase in metoprolol to 75mg BID. Cont telemetry. (17) Elevated troponin: Plan: Likely myocardial demand ischemia in setting of #1, #2, infection, etc. No evidence of ACS. No ischemic symptoms. (18) DVT prophylaxis: Plan: hold eliquis while on hold - heparin 5000 BID - start in am (19) Prediabetes: Plan: a1c 5.8% will supervisor counseling and guidance patient no Rx needed at this time, however (20) Hypokalemia: Plan: replace with 40meq po x 3 doses today repeat level later today was wnl replace low mag (21) Hypomagnesemia: Plan: replaced with 2grams mag sulfate repeat level this evening was wnl Plan daughter extensively updated by phone yesterday evening care d/w Dr Barajas from [facility] progressing Admission and Anticipated Discharge Date Admission Date: December 24, 2022 Subjective patient is anxious suffers from chronic anxiety she is anxious about upcoming R hip surgery eating still is only fair <50% of meals consumed drinking fluids no diarrhea or vomiting right hip pain controlled tele - afib rates improved with increase in metoprolol to 75 BID still denies cough or dyspnea at rest no orthopnea either Review of Systems Review of Systems: gen - no fevers; weak/fatigue/anorexia cv - no chest pain or orthopnea pulm - no wheezing GI - no vomiting or diarrhea Physical Exam Physical Exam: gen - NAD, resting in bed comfortably watching TV skin - generalized pallor unchanged neck - no JVD mouth - MMM heart - irregularly irregular, normal rate <100, s1 s2, no murmur lungs - scant focal rales L base only; good airation otherwise, no wheezing abd - soft NT ND BS+ ext - no edema, pulses 2+ b/l musculo - left arm in sling skin - bruises over left arm Results & Data Results & Data ([facility]) Vital Signs (Past 12 Hours) Vital Signs Temp Pulse Resp BP Pulse Ox O2 Del Method 12/25/22 19:11 36.8 C 84 18 134/70 96 Room Air 12/25/22 16:48 36.9 C 88 20 169/80 H 94 Room Air 12/25/22 11:47 37.1 C 80 19 154/90 H 97 Room Air Laboratory Results Laboratory Results - last 24 hr 12/25/22 12/25/22 12/25/22 08:55 08:55 10:55 WBC 7.02 RBC 3.65 L Hgb 9.4 L Hct 29.8 L MCV 81.6 MCH 25.8 MCHC 31.5 L RDW Std Deviation 49.2 H RDW Coeff of Joao 16.7 H Plt Count 482 H MPV 9.9 Sodium 135 L Potassium 2.7 L D 2.6 L Chloride 100 Carbon Dioxide 25 Anion Gap 10 BUN 23 Creatinine 0.71 Est Cr Clr Drug Dosing 43.2 Est GFR ( Amer) 90.7 Est GFR (Non-Af Amer) 78.2 BUN/Creatinine Ratio 32.4 H Glucose 143 H Calcium 9.2 Magnesium 1.6 L 12/25/22 17:04 WBC RBC Hgb Hct MCV MCH MCHC RDW Std Deviation RDW Coeff of Joao Plt Count MPV Sodium Potassium 3.5 D Chloride Carbon Dioxide Anion Gap BUN Creatinine Est Cr Clr Drug Dosing Est GFR ( Amer) Est GFR (Non-Af Amer) BUN/Creatinine Ratio Glucose Calcium Magnesium 2.1 Diagnostic Findings blood cx's neg from admission PG Care Time/CCT Total # of Minutes Spent Total Time Spent with Patient: Total time spent is greater than 50% in coordination of care (as documented) at patient's floor/unit and/or counseling patient: Coding Level of Care Code 73501 SUB INP/OBS CARE 3/50MIN Diagnoses Adrenal crisis E27.2 Hypotension I95.9 LLL pneumonia J18.9 Left humeral fracture S42.302A Degenerative joint disease of right hip M16.11 Rectovaginal fistula N82.3 Hypothyroidism E03.9 Rheumatoid arthritis M06.9 Osteoporosis M81.0 Hypertension I10 Hyperlipidemia E78.5 Depression F32.A Anemia D64.9 PEDRO (acute kidney injury) N17.9 Hyponatremia E87.1 Atrial fibrillation I48.91 Elevated troponin R77.8 DVT prophylaxis Z29.9 Prediabetes R73.03 Hypokalemia E87.6 Hypomagnesemia E83.42
[2022-12-26] MEDS: LEVOTHYROXINE SODIUM 88 MCG TABLET PO SCH (04:59)
[2022-12-26] MEDS: CEFEPIME 2,000 MG in SYRINGE 0 ML IV SCH ×2 (04:59→17:12)
[2022-12-26 07:00] LABS: Hematocrit (blood only) 30.2 % (37.0-47.0); Hemoglobin 9.7 g/dl (12.0-16.0); Mean Corpuscular Hemoglobin 25.5 pg (25.0-34.0); Mean Corpuscular Hgb Conc 32.1 g/dL (32.0-36.0); Mean Corpuscular Volume 79.5 fL (80.0-100.0); Platelet Count 509 K/uL (130-400); RDW Standard Deviation 49.1 fL (36.4-46.3); White Blood Count 6.75 K/ul (4.8-10.8)
[2022-12-26 07:20] LABS: BUN Creatinine Ratio 26.5 (10-20); Calcium 9.3 mg/dl (8.5-10.1); Creatinine Clr Calc Pharmacy 45.4 ml/min; Est GFR (African American) 93.1 ml/min; Est GFR (Non-African American) 80.3 ml/min; Potassium 3.7 mmol/L (3.5-5.1)
[2022-12-26] MEDS: HYDROCORTISONE 10 MG TAB PO SCH ×2 (08:03→20:26)
[2022-12-26] MEDS: METOPROLOL TARTRATE 25 MG TAB PO SCH ×2 (08:03→20:28)
[2022-12-26] MEDS: HYDROXYCHLOROQUINE SULFATE 200 MG TAB PO SCH (08:03)
[2022-12-26] MEDS: busPIRone 5 MG TAB PO SCH ×2 (08:03→20:27)
[2022-12-26] MEDS: PANTOprazole 40 MG TAB PO SCH (08:04)
[2022-12-26] MEDS: ACETAMINOPHEN 325 MG TAB PO SCH ×3 (08:04→20:27)
[2022-12-26] MEDS: CITALOPRAM 20 MG TAB PO SCH (08:04)
[2022-12-26] MEDS: MULTIVITAMIN TAB PO SCH (08:04)
[2022-12-26] MEDS: HEPARIN SOD 5,000 UNIT/0.5 ML VIAL SQ SCH ×2 (08:06→20:28)
[2022-12-26] MEDS: POLYETHYLENE (MIRALAX) 17 GM PACK PO SCH (08:06)
[2022-12-26] MEDS: DOXYCYCLINE HYCLATE 100 MG CAP PO SCH ×2 (08:06→20:27)
--- NOTE | 2022-12-26 08:07 | Progress Notes ---
DATE OF SERVICE: 12/26/2022. SUBJECTIVE: An 82-year-old female admitted with a left humerus fracture and severe right hip pain an d adrenal crisis. She seems to be doing quite well. She has also got concern about some pneumonia. She has got on some IV antibiotics. She feels like she is back to baseline. Her hip is bothering h er, but manageable at the moment. Really not much arm pain. OBJECTIVE: VITAL SIGNS: Temperature is 36.8. Vital signs are stable. GENERAL: Shows a pleasant, frail, elderly female. She is lying in bed, looks pretty comfortable thi s morning. EXTREMITIES: Examination of the left arm reveals the sling to be in place. No particular pain with shoulder motion. Examination of the right hip reveals to be slightly shortened and externally rotated. Pain with any type of hip motion. She is neurologically intact. LABORATORY DATA: Hemoglobin 9.7. Hematocrit 30.2. Electrolytes are stable. ASSESSMENT: An 82-year-old female admitted with adrenal crisis doing better. 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 PLAN: We discussed this treatment with medical physicians. They would like to give her 1 more day o f tuning up and antibiotics for possible pneumonia. Her hemoglobin is improving. In light of this, we will continue optimization. We will plan on doing this hip replacement tomorrow. The risks and b enefits of procedure have been explained. She understands and desires to proceed. Informed consent was obtained previously. We will continue to hold her anticoagulation for now. We will start her ba ck 24 hours postop. Continue SAYDA rosado. Job ID: [id number]
[2022-12-26] MEDS: SODIUM CHLORIDE 1 GM TABLET PO SCH (18:22)
[2022-12-26] MEDS: MELATONIN 3 MG TAB PO SCH (20:28)
--- NOTE | 2022-12-26 21:29 | Hospitalist Progress Note ---
Date of Service December 26, 2022 Assessment & Plan (1) Adrenal crisis: Plan: resolved. stress dose IV hydrocortisone has jules weaned to hydrocortisone 20mg PO BID. Leave at this dose; no further wean; in fact she will need another "burst" of stress dose steroids tomorrow for her right hip replacement. Then, Post-op she will ultimately need to be tapered to her usual chronic dose of prednisone 5-10mg/day (used for rheumatoid arthritis). (2) Hypotension: Plan: 2nd to #1 - resolved. (3) LLL pneumonia: Plan: probable/suspected, although no pulmonary symptoms during this hospital stay with stable O2 sats; never had O2 requirement pneumonia clinically resolved at this point. LLL infiltrate on cxr x 2, and focal LLL rales on exam - which have since resolved. some of her anorexia may be from her pneumonia. since she was just hospitalized within the last few weeks at a hospital in [place] and was in SNF rehab I broadened her rocephin to cefepime for better gram negative coverage. cont doxy for atypical coverage. blood cx's negative. day #5 today of abx. plan 7 days in total then stop (4) Left humeral fracture: Plan: Sustained sometime in Nov 2021 after a fall at her home. Was hospitalized in [place] at [facility]. Seen by orthopedics there - nonoperative Rx advised at that time. Continue NWB status to LUE. Continue sling. Appreciate [facility] Ortho consult - they also recommend ongoing nonoperative Rx. Cont pain meds prn. 25-OH vit D level wnl. (5) Degenerative joint disease of right hip: Plan: SEVERE DJD on x-rays. She has severe, chronic pain and ambulatory dysfunction due to the hip. She underwent IR arthrocentesis of the joint at [facility]. Daughter states the joint was free of infection; no fluid was successfully aspirated. Continue pain meds with norco prn and scheduled tylenol TID. Appreciate [facility] Ortho consult. Eliquis on hold for upcoming elective surgery of the right hip. Last dose was PM of 12/22/22. From a cardiopulmonary standpoint she is optimized. A.fib -- rates <100 on metoprolol BID. Pneumonia adequately treated; stable O2 sats the entire hospitalization. Recent echo done at [facility] in [place] -- EF 55-60%, no WMA, LA/RA dilatation, mild , mild MR, mild TR, normal PA pressures. Patient has had no recent cardiac ischemic symptoms to suggest underlying CAD/ischemia. Post-op she should return to telemetry due to risk of uncontrolled a.fib, volume overload, etc. She is also at risk of recurrent addisonian crisis but this can be avoided with stress dose steroids & proper hydration. (6) Rectovaginal fistula: Plan: Sees [facility] Ob-oil gauger for such. Big risk factor for chronic UTI. Admission U/a was suggestive of possible UTI - abx for pneumonia will suffice. But culture was negative. Continue topical estrogen cream. (7) Hypothyroidism: Plan: TSH wnl. Cont synthroid. (8) Rheumatoid arthritis: Plan: Dx in her late 20s. Follows with Dr Sincere Murphy, [facility] Rheum - [facility]. Cont plaquenil. Is on chronic prednisone 5-10mg/day. Cont stress dose steroids - see #1 above. The plaquenil can be continued through surgery and post-op as well - no need to hold. (9) Osteoporosis: Plan: 25-OH vit D level wnl. (10) Hypertension: Plan: Cont metoprolol 75mg BID (11) Hyperlipidemia: Plan: Does not appear she takes meds for this. (12) Depression: Plan: Cont celexa. Cont buspar but increased to 5mg BID due to ongoing anxiety. May even need TID dosing. (13) Anemia: Plan: B12, folate wnl. Fe studies - likely element of Fe def along with anemia of chronic disease. s/p venofer 200mg IV x 1 earlier this admission. Consider another dose while here. H/H remain acceptable. Repeat CBC am. (14) PEDRO (acute kidney injury): Plan: Granular casts noted on admission u/a consistent with ATN from low BP/dehydration. Peak Cr 1.47 today again Cr is 0.6 resolved IV fluids discontinued (15) Hyponatremia: Plan: Initially thought 2nd to volume depletion & lasix use. She received copious hydration in the first 1/2 of the stay with improvement in BUN & CR and overall volume status. Despite such her Na level never normalized. Urine osm today is high. Urine Na very high >100. 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 Check serum osm. SIADH due to SSRI use? Start NaCL tab - 1gm daily to start. May need to resume her low-dose lasix in the future as well. BMP am. (16) Atrial fibrillation: Plan: Recent diagnosis in November during her hospital stay in [facility]. HOLDING Eliquis BID for upcoming right hip surgery. Last dose - PM of 12/22/22. Echo at [facility] with preserved EF and only mild valvular disease. LA/RA enlargement likely the biggest risk factor for her a.fib. Her rates are controlled with metoprolol 75mg BID. Cont telemetry. (17) Elevated troponin: Plan: Likely myocardial demand ischemia in setting of #1, #2, infection, etc. No evidence of ACS. Never had ischemic symptoms. Peak HS trop was 32, quickly falling after that. (18) DVT prophylaxis: Plan: holding eliquis while on hold - heparin [address] 3/7 AM dose on hold for the OR (19) Prediabetes: Plan: a1c 5.8% no Rx needed at this time, however (20) Hypokalemia: Plan: replaced resolved BMP in am for stability was likely due to cellular shifts in the midst of massive dehydration at time of admission (21) Hypomagnesemia: Plan: replaced resolved Plan NPO after [place] domo daughter previously updated over the weekend Admission and Anticipated Discharge Date Admission Date: December 24, 2022 Subjective Tele overnight - a.fib, rates nearly 100% below 100 BPM pt admits to ongoing anxiety - "I worry about everything" but the increased dose of buspar to 5mg BID has helped she denies any dyspnea, cough, or dyspnea on exertion no chest pain no palpitations she is eating fair -- 25-50% of meals right hip pain controlled today no left humerus pain did have bowel movement today Review of Systems Review of Systems: gen - no fevers or chills neuro - no dizziness cv - no cp, no orthopnea pulm - no wheezing GI - no abd pain or vomiting Physical Exam Physical Exam: gen - NAD, resting in the recliner chair comfortably watching TV skin - generalized pallor unchanged neck - no JVD mouth - MMM heart - irregularly irregular, rate <100, s1 s2, no murmur lungs - CTA b/l; good airation b/l; no rales or wheezing abd - soft NT ND BS+ ext - no edema, pulses 2+ b/l musculo - left arm in sling; bruises L arm unchanged/resolving; OA changes of b/l knees; RA changes of b/l hands/small joints psych - a/o x 3, slightly anxious Results & Data Results & Data ([facility]) Vital Signs (Past 12 Hours) Vital Signs Temp Pulse Pulse Resp BP Pulse Ox O2 Del Method 12/26/22 20:18 36.7 C 70 19 156/94 H 96 Room Air 12/26/22 16:00 36.9 C 92 H 20 152/99 H 97 Room Air 12/26/22 11:19 103 H 12/26/22 11:19 Room Air 12/26/22 10:49 36.7 C 92 H 20 147/91 H 97 Room Air Laboratory Results Laboratory Results - last 24 hr 12/26/22 12/26/22 12/26/22 05:21 05:21 Unknown WBC 6.75 RBC 3.80 L Hgb 9.7 L Hct 30.2 L MCV 79.5 L MCH 25.5 MCHC 32.1 RDW Std Deviation 49.1 H RDW Coeff of Joao 17.0 H Plt Count 509 H MPV 10.0 Sodium 132 L Potassium 3.7 Chloride 98 Carbon Dioxide 28 Anion Gap 6 BUN 18 Creatinine 0.68 Est Cr Clr Drug Dosing 45.4 Est GFR ( Amer) 93.1 Est GFR (Non-Af Amer) 80.3 BUN/Creatinine Ratio 26.5 H Glucose 100 H Calcium 9.3 Urine Osmolality 506 Ur Random Sodium 12/26/22 Unknown WBC RBC Hgb Hct MCV MCH MCHC RDW Std Deviation RDW Coeff of Joao Plt Count MPV Sodium Potassium Chloride Carbon Dioxide Anion Gap BUN Creatinine Est Cr Clr Drug Dosing Est GFR ( Amer) Est GFR (Non-Af Amer) BUN/Creatinine Ratio Glucose Calcium Urine Osmolality Ur Random Sodium 156 PG Care Time/CCT Total # of Minutes Spent Total Time Spent with Patient: Total time spent is greater than 50% in coordination of care (as documented) at patient's floor/unit and/or counseling patient: Coding Level of Care Code 63706 SUB INP/OBS CARE 2/35MIN Diagnoses Adrenal crisis E27.2 Hypotension I95.9 LLL pneumonia J18.9 Left humeral fracture S42.302A Degenerative joint disease of right hip M16.11 Rectovaginal fistula N82.3 Hypothyroidism E03.9 Rheumatoid arthritis M06.9 Osteoporosis M81.0 Hypertension I10 Hyperlipidemia E78.5 Depression F32.A Anemia D64.9 PEDRO (acute kidney injury) N17.9 Hyponatremia E87.1 Atrial fibrillation I48.91 Elevated troponin R77.8 DVT prophylaxis Z29.9 Prediabetes R73.03 Hypokalemia E87.6 Hypomagnesemia E83.42
[2022-12-27] MEDS: LEVOTHYROXINE SODIUM 88 MCG TABLET PO SCH (05:57)
[2022-12-27] MEDS: CEFEPIME 2,000 MG in SYRINGE 0 ML IV SCH ×2 (05:57→18:27)
[2022-12-27] MEDS ORDERED: BUPIVACAINE 0.5 % 5 MG/1 ML PF 10ML VIAL ONE (06:29)
[2022-12-27 06:47] LABS: Hematocrit (blood only) 31.5 % (37.0-47.0); Hemoglobin 10.2 g/dl (12.0-16.0); Mean Corpuscular Hemoglobin 26.2 pg (25.0-34.0); Mean Corpuscular Hgb Conc 32.4 g/dL (32.0-36.0); Mean Corpuscular Volume 80.8 fL (80.0-100.0); Mean Platelet Volume 9.7 fL (9.4-12.4); Platelet Count 462 K/uL (130-400); RDW Coefficient of Variation 16.7 % (11.5-14.5); RDW Standard Deviation 47.8 fL (36.4-46.3); White Blood Count 6.66 K/ul (4.8-10.8)
[2022-12-27 07:37] LABS: BUN Creatinine Ratio 26.9 (10-20); Calcium 9.2 mg/dl (8.5-10.1); Creatinine Clr Calc Pharmacy 43.5 ml/min; Est GFR (African American) 93.6 ml/min; Est GFR (Non-African American) 80.7 ml/min
[2022-12-27] MEDS: METOPROLOL TARTRATE 25 MG TAB PO SCH ×2 (09:10→20:48)
[2022-12-27] MEDS: SODIUM CHLORIDE 1 GM TABLET PO SCH (09:10)
[2022-12-27] MEDS ORDERED: POTASSIUM CHLORIDE CRTAB 20 MEQ TABCR PO STA (11:14)
[2022-12-27] MEDS: POLYETHYLENE (MIRALAX) 17 GM PACK PO SCH (11:23)
[2022-12-27] MEDS: HYDROCORTISONE 10 MG TAB PO SCH ×2 (11:23→20:49)
[2022-12-27] MEDS ORDERED: fentaNYL citrate PF 100 MCG/2 ML VIAL ONE ×2 (12:46→14:44)
--- NOTE | 2022-12-27 12:50 | Hospitalist Progress Note ---
Date of Service December 27, 2022 Assessment & Plan (1) Adrenal crisis: Plan: resolved. stress dose IV hydrocortisone has jules weaned to hydrocortisone 20mg PO BID. Leave at this dose; no further wean; Then, Post-op she will ultimately need to be tapered to her usual chronic dose of prednisone 5-10mg/day (used for rheumatoid arthritis). (2) Hypotension: Plan: 2nd to #1 - resolved. (3) LLL pneumonia: Plan: probable/suspected, although no pulmonary symptoms during this hospital stay with stable O2 sats; never had O2 requirement pneumonia clinically resolved at this point. LLL infiltrate on cxr x 2, and focal LLL rales on exam - which have since resolved. some of her anorexia may be from her pneumonia. since she was just hospitalized within the last few weeks at a hospital in [place] and was in SNF rehab I broadened her rocephin to cefepime for better gram negative coverage. cont doxy for atypical coverage. blood cx's negative. day #5 today of abx. plan 7 days in total then stop (4) Left humeral fracture: Plan: Sustained sometime in Nov 2021 after a fall at her home. Was hospitalized in [place] at [facility]. Seen by orthopedics there - nonoperative Rx advised at that time. Continue NWB status to LUE. Continue sling. Appreciate [facility] [place] - they also recommend ongoing nonoperative Rx. Cont pain meds prn. 25-OH vit D level wnl. (5) Degenerative joint disease of right hip: Plan: SEVERE DJD on x-rays, avascular necrosis Plan is hip replacement today Apixaban on hold (6) Rectovaginal fistula: Plan: Sees [facility]-crm analyst for such. Big risk factor for chronic UTI. Admission U/a was suggestive of possible UTI - abx for pneumonia will suffice. But culture was negative. Continue topical estrogen cream. (7) Hypothyroidism: Plan: TSH wnl. Cont synthroid. (8) Rheumatoid arthritis: Plan: Dx in her late 20s. Follows with Dr Sincere Murphy, [facility] Rheum - [facility]. Cont plaquenil. Is on chronic prednisone 5-10mg/day. Cont stress dose steroids - see #1 above. The plaquenil can be continued through surgery and post-op as well - no need to hold. (9) Osteoporosis: Plan: 25-OH vit D level wnl. (10) Hypertension: Plan: Cont metoprolol 75mg BID (11) Hyperlipidemia: Plan: Does not appear she takes meds for this. (12) Depression: Plan: Cont celexa. Cont buspar but increased to 5mg BID due to ongoing anxiety. May even need TID dosing. (13) Anemia: Plan: B12, folate wnl. Fe studies - likely element of Fe def along with anemia of chronic disease. s/p venofer 200mg IV x 1 earlier this admission. Consider another dose while here. H/H remain acceptable. Repeat CBC am. (14) PEDRO (acute kidney injury): Plan: Granular casts noted on admission u/a consistent with ATN from low BP/dehydration. resolved IV fluids discontinued (15) Hyponatremia: Plan: Initially thought 2nd to volume depletion & lasix use. She received copious hydration in the first 1/2 of the stay with improvement in BUN & CR and overall volume status. Despite such her Na level never normalized. Urine osm today is high. Urine Na very high >100. 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 Check serum osm. SIADH due to SSRI use? Start NaCL tab - 1gm daily to start. May need to resume her low-dose lasix in the future as well. BMP am. (16) Atrial fibrillation: Plan: Recent diagnosis in November during her hospital stay in [facility]. HOLDING Eliquis BID for upcoming right hip surgery. Last dose - PM of 12/22/22. Echo at [place] with preserved EF and only mild valvular disease. LA/RA enlargement likely the biggest risk factor for her a.fib. Her rates are controlled with metoprolol 75mg BID. Cont telemetry. (17) Elevated troponin: Plan: Likely myocardial demand ischemia in setting of #1, #2, infection, etc. No evidence of ACS. Never had ischemic symptoms. Peak HS trop was 32, quickly falling after that. (18) DVT prophylaxis: Plan: holding eliquis while on hold - heparin 5000 BID (19) Prediabetes: Plan: a1c 5.8% no Rx needed at this time, however (20) Hypokalemia: Plan: replace (21) Hypomagnesemia: Plan: replaced resolved Plan Will need PT and rehab after surgery Admission and Anticipated Discharge Date Admission Date: December 24, 2022 Subjective patient seen and examined, daughter by the bedside, awaiting OR today Review of Systems Review of Systems: All systems reviewed are negative, apart from the ones contained in the history. Physical Exam Physical Exam: The patient is awake, alert and oriented 3, well developed and well nourished, normocephalic and atraumatic, lying in bed and in no acute distress. HEENT--PERRL, EOMI, mucous membranes and oropharynx mildly dry Neck--supple. No JVD. No bruits. Thyroid normal, trachea midline, no adenopathy. Heart--normal S1 and S2. No murmurs, rubs or gallops. Lungs--clear bilaterally, no respiratory distress, no accessory muscle use. Abdomen--normal bowel sounds and soft. Mild epigastric and left sided abdominal pain Extremities--left arm in sling Dermatologic--normal skin turgor, normal color, no abnormal lymph nodes, no rash. Neurologic--cranial nerves II through XII grossly intact. Rheumatologic--normal range of motion. Psychiatric--normal affect. Results & Data Results & Data ([facility]) Vital Signs (Past 12 Hours) Vital Signs Temp Pulse Pulse Resp BP Pulse Ox O2 Del Method 12/27/22 12:08 97.7 F 91 H 20 97 Room Air 12/27/22 11:27 98.6 F 82 18 153/95 H 96 Room Air 12/27/22 07:49 98.2 F 94 H 16 165/69 H 95 Room Air 12/27/22 03:04 98.4 F 73 15 165/89 H 98 Room Air PG Care Time/CCT Total # of Minutes Spent Total Time Spent with Patient: Total time spent is greater than 50% in coordination of care (as documented) at patient's floor/unit and/or counseling patient: Coding Level of Care Code 87724 SUB INP/OBS CARE 2/35MIN Diagnoses Adrenal crisis E27.2 Hypotension I95.9 LLL pneumonia J18.9 Left humeral fracture S42.302A Degenerative joint disease of right hip M16.11 Rectovaginal fistula N82.3 Hypothyroidism E03.9 Rheumatoid arthritis M06.9 Osteoporosis M81.0 Hypertension I10 Hyperlipidemia E78.5 Depression F32.A Anemia D64.9 PEDRO (acute kidney injury) N17.9 Hyponatremia E87.1 Atrial fibrillation I48.91 Elevated troponin R77.8 DVT prophylaxis Z29.9 Prediabetes R73.03 Hypokalemia E87.6 Hypomagnesemia E83.42 Time Spent (min) 35
--- NOTE | 2022-12-27 12:50 | Anesthesiology Consultation ---
Date of Service December 27, 2022 Assessment & Plan Chart Review Chart Review: Acceptable Risk for Surgery and Patient NOT seen in Pre Admission Testing Consults Requested none ASA ASA4 Proposed Anesthesia Anesthesia Type: General Anesthesia Line Insertion: Arterial line Risk / Benefits Reviewed With: PT / POA / Parent / Guardian, Accepts Plan and Informed Consent Obtained History Surgery Operation Date: 12/27/22 12:30 Proposed Procedures p Right Total Hip Arthroplasty Cemented - Talha Barajas MD Height/Weight Height: 5 ft 2 in Weight: 44.044 kg Allergies Allergy/AdvReac Type Severity Reaction Status Date / Time simvastatin [From Zocor] Allergy Verified 12/27/22 12:06 azithromycin AdvReac Mild pain in Verified 12/27/22 12:06 arms & legs prochlorperazine AdvReac Unknown MENTAL Verified 12/27/22 12:06 CHANGES Medications Home Medications Medication Instructions Recorded Confirmed Last Taken amlodipine 5 mg tablet 5 mg PO DAILY 09/28/20 12/22/22 Unknown atenolol 25 mg tablet 25 mg PO DAILY 09/28/20 12/22/22 Unknown citalopram 20 mg tablet (Celexa) 20 mg PO DAILY 09/28/20 12/22/22 Unknown furosemide 20 mg tablet (Lasix) 20 mg PO DAILY 09/28/20 12/22/22 Unknown levothyroxine 88 mcg tablet 88 mcg PO DAILY 09/28/20 12/22/22 Unknown multivitamin 1 tab PO DAILY 09/28/20 12/22/22 Unknown omeprazole 20 mg capsule,delayed 20 mg PO DAILY 09/28/20 12/22/22 Unknown release prednisone 5 mg tablet 5 mg PO DAILY 09/28/20 12/22/22 Unknown hydrocodone 5 mg-acetaminophen 300 1 tab PO BID PRN Pain 10/01/20 12/22/22 Unknown mg tablet hydroxychloroquine 200 mg tablet 200 mg PO DAILY 10/01/20 12/22/22 Unknown estradiol 0.01% (0.1 mg/gram) 1 g vaginal 2XWK #42.5 grams 10/20/22 12/22/22 Unknown vaginal cream apixaban 2.5 mg tablet (Eliquis) 2.5 mg PO DAILY 12/22/22 12/22/22 Unknown buspirone 5 mg tablet 5 mg PO DAILY 12/22/22 12/22/22 Unknown ferrous sulfate 27 mg iron tablet 27 mg PO BID 12/22/22 12/22/22 Unknown metoprolol tartrate 25 mg tablet 12.5 mg PO DAILY 12/22/22 12/22/22 Unknown Active Medications Generic Name Dose Route Start Last Admin Trade Name Ericq PRN Reason Stop Dose Admin Acetaminophen 650 mg 12/22/22 21:37 12/26/22 20:27 Acetaminophen 325 Mg Tab PO 01/21/23 21:36 650 mg TID LAURYN Administration Hydrocodone Bitart/Acetaminophen 1 tab 12/22/22 21:37 12/24/22 05:23 Hydrocodone/Acetamophen 5/325mg Tab PO 01/05/23 21:36 1 tab Q6H PRN Administration Pain Buspirone HCl 5 mg 12/25/22 21:00 12/26/22 20:27 Buspirone 5 Mg Tab PO 01/24/23 20:59 5 mg BID LAURYN Administration Citalopram Hydrobromide 20 mg 12/23/22 09:00 12/26/22 08:04 Citalopram 20 Mg Tab PO 01/22/23 08:59 20 mg DAILY LAURYN Administration Doxycycline Hyclate 100 mg 12/26/22 09:00 12/26/22 20:27 Doxycycline Hyclate 100 Mg Cap PO 12/30/22 08:59 100 mg BID LAURYN Administration Estradiol 1 appln 12/25/22 21:00 12/25/22 20:38 Estrace Vag Cream 0.01% 42.5 Gm PV 01/24/23 20:59 1 appln SuTh@2100 LAURYN Administration Heparin Sodium (Porcine) 5,000 units 12/26/22 09:00 12/26/22 20:28 Heparin Sod 5,000 Unit/0.5 Ml Vial SQ 01/25/23 08:59 5,000 units Q12 LAURYN Administration Hydrocortisone 20 mg 12/25/22 21:00 12/27/22 11:23 Hydrocortisone 10 Mg Tab PO 01/24/23 20:59 20 mg BID LAURYN Administration Hydroxychloroquine Sulfate 200 mg 12/23/22 09:00 12/26/22 08:03 Hydroxychloroquine Sulfate 200 Mg Tab PO 01/22/23 08:59 200 mg DAILY LAURYN Administration Cefepime HCl 2,000 mg/ Syringe 20 mls @ 5 mls/min 12/24/22 17:00 12/27/22 05:57 IV 12/31/22 16:59 5 mls/min Q12H LAURYN Administration Protocol Levothyroxine Sodium 88 mcg 12/23/22 06:30 12/27/22 05:57 Levothyroxine Sodium 88 Mcg Tablet PO 01/22/23 06:29 88 mcg DAILYBB LAURYN Administration Melatonin 3 mg 12/25/22 21:00 12/26/22 20:28 Melatonin 3 Mg Tab PO 01/24/23 20:59 3 mg HS LAURYN Administration Metoprolol Tartrate 75 mg 12/25/22 09:00 12/27/22 09:10 Metoprolol Tartrate 25 Mg Tab PO 01/24/23 08:59 75 mg BID LAURYN Administration Multivitamins 1 tab 12/23/22 09:00 12/26/22 08:04 Multivitamin Tab PO 01/22/23 08:59 1 tab DAILY LAURYN Administration Pantoprazole Sodium 40 mg 12/23/22 09:00 12/26/22 08:04 Pantoprazole 40 Mg Tab PO 01/22/23 08:59 40 mg QAM LAURYN Administration Polyethylene Glycol 17 gm 12/23/22 09:00 12/27/22 11:23 Polyethylene (Miralax) 17 Gm Pack PO 01/22/23 08:59 Not Given DAILY LAURYN Sodium Chloride 1 gm 12/26/22 17:30 12/27/22 09:10 Sodium Chloride 1 Gm Tablet PO 01/25/23 17:29 1 gm DAILY LAURYN Administration NPO Date Last Intake of Fluids: 12/26/22 Time Last Intake of Fluids: 20:00 Date Last Intake of Solids: 12/26/22 Time Last Intake of Solids: 20:00 Past Medical History Medical History Anemia Atrial fibrillation Degenerative joint disease of right hip Depression HLD (hyperlipidemia) HTN (hypertension) Hypothyroidism Left humeral fracture Long-term use of immunosuppressant medication Osteoporosis Rectovaginal fistula Rheumatoid arthritis Exercise / Class Metabolic Activity III < 4 Walking/Shop/Light housework Past Family History Family History Father Heart disease Hypertension Coronary heart disease COPD (chronic obstructive pulmonary disease) Mother Rheumatoid arthritis Uncle Coronary heart disease Denies family history of Pancreatic cancer Ovarian cancer Prostate cancer Breast cancer Colorectal cancer Uterine cancer Past Surgical History Surgical History History of appendectomy History of bilateral oophorectomy History of hysterectomy History of total knee arthroplasty Hx of cataract extraction bilateral Past Anesthesia History No Hx of Anesthesia Complications and No Family Hx of Anesthesia Complications History of PONV No Hx of PONV and No Hx of Motion Sickness Social History Smoking Status: Never smoker Hx Alcohol Use: No Hx Substance Use: No Physical Exam Vital Signs Last Vital Signs Temp 36.5 C 12/27/22 12:08 Pulse 91 H 12/27/22 12:08 Resp 20 12/27/22 12:08 BP 153/95 H 12/27/22 11:27 Pulse Ox 97 12/27/22 12:08 O2 Del Method Room Air 12/27/22 12:08 Constitutional no acute distress and not cachectic ENMT Mouth: no dentition abnormality Thyromental Distance: < 3.5 Finger Breadths Mallampati Class: II Neck normal visual inspection and trachea midline; neck extension not limited Respiratory normal respiratory effort Auscultation: + diminished lung sounds (left side) Cardiovascular Rate/Rhythm: + abnormal rate (irregular/AFib) and + abnormal rhythm (Irregular/AFib) Heart Sounds: no murmur Vessels: no carotid bruit Musculoskeletal Spine: normal cervical ROM and no pain with cervical ROM Extremities: + limited ROM of extremities Neurologic moves all extremities Motor/Sensory: no sensory deficit Psychiatric Orientation: alert and oriented x 3 Testing Laboratory Results 12/27/22 05:57 12/27/22 05:57 PT 11.3 Seconds (9.0-12.0) 12/22/22 14:18 INR 1.1 (0.9-1.1) 12/22/22 14:18 APTT 28.4 Seconds (21.0-31.0) 12/22/22 14:18 Hemoglobin A1c 5.8 % (4.5-5.6) H 12/23/22 05:40 Urine Color Dark Yellow 12/22/22 15:57 Urine Appearance Clear (Clear) 12/22/22 15:57 Urine pH 5.0 (4.5-7.5) 12/22/22 15:57 Ur Specific [place] 1.022 (1.000-1.030) 12/22/22 15:57 Urine Protein Trace (Negative) H 12/22/22 15:57 Urine Glucose (UA) Negative (Negative) 12/22/22 15:57 Urine Ketones Trace (Negative) H 12/22/22 15:57 Urine Nitrite Negative (Negative) 12/22/22 15:57 Ur Leukocyte Esterase Negative (Negative) 12/22/22 15:57 Urine WBC (Auto) 1-5 /hpf (0-5) 12/22/22 15:57 Urine RBC (Auto) 0-4 /hpf (0-4) 12/22/22 15:57 U Hyaline Cast (Auto) 5-10 /lpf (0-5) H 12/22/22 15:57 U Epithel Cells (Auto) >30 /lpf (0-5) H 12/22/22 15:57 Urine Bacteria (Auto) 1+ (Negative) H 12/22/22 15:57 Blood Type O Negative 12/23/22 07:15 Antibody Screen NEGATIVE 12/23/22 07:15 12/22/22 14:59 Aerobic Blood Culture - Preliminary Blood No growth in Aerobic bottle after 48 hours. Anaerobic Blood Culture - Preliminary No growth in Anaerobic bottle after 48 hours. 12/22/22 14:18 Aerobic Blood Culture - Preliminary Blood No growth in Aerobic bottle after 48 hours. Anaerobic Blood Culture - Preliminary No growth in Anaerobic bottle after 48 hours. 12/22/22 15:57 Urine Culture - Final Urine,Clean Catch Three types of organisms present, all low counts probable skin pamela. No further identifications or sensitivities to follow. Electrocardiogram Date: 12/22/22 Findings: + AFIB @ (@ 79;low voltage QRS;Non specific T wave abnormality) Chest X-Ray Date: 12/24/22 Findings: + cardiomegaly and + infiltrate (left retrocardiac opacity)
[2022-12-27] MEDS ORDERED: VANCOMYCIN HCL 1000MG/20ML VIAL ONE (13:08)
[2022-12-27] MEDS ORDERED: ceFAZolin 2,000 MG/15 ML IV PUSH IV ONE (13:26)
[2022-12-27] MEDS ORDERED: TRANEXAMIC ACID / 0.7% NACL 1000MG/100ML BAG IV ONE (13:26)
--- NOTE | 2022-12-27 13:27 | History & Physical Bridge Note ---
Date of Service December 27, 2022 History & Physical Bridge Note I have examined the patient, reviewed the History & Physical and in the interval since the performance of the History & Physical I have noted the following changes of clinical significance: no changes noted
[2022-12-27] MEDS ORDERED: BUPIVACAINE/EPINEPHRINE 0.5% MPF 1:200,000 30 ML VIAL ONE (13:30)
[2022-12-27] MEDS ORDERED: TRANEXAMIC ACID IV ONE (13:40)
[2022-12-27] MEDS ORDERED: SODIUM CHLORIDE 0.9% IV ONE (13:40)
[2022-12-27] MEDS ORDERED: ceFAZolin 2000MG 2,000 MG/15 ML SYR IV ONE (13:41)
[2022-12-27] MEDS ORDERED: ATROPINE SULFATE 0.1 MG/ML 10ML SYR IV PRN (14:00)
[2022-12-27] MEDS ORDERED: LABETALOL HCL IV 5 MG/ML 20ML IV PRN (14:00)
[2022-12-27] MEDS ORDERED: NALOXONE HCL 0.4 MG/1 ML VIAL/CARP IV PRN ×2 (14:00→17:26)
[2022-12-27] MEDS ORDERED: FLUMAZENIL 0.1 MG/1 ML 10 ML VIAL IV PRN (14:00)
[2022-12-27] MEDS ORDERED: fentaNYL citrate PF 100 MCG/2 ML VIAL IV PRN (14:00)
[2022-12-27] MEDS ORDERED: ePHEDrine sulfate 50 MG/ML AMP IV PRN (14:00)
[2022-12-27] MEDS ORDERED: SUCCINYLCHOLINE CHLORIDE 20 MG/ML 10 ML VIAL IV ONE (14:03)
[2022-12-27] MEDS ORDERED: LIDOCAINE 2% MPF LOCAL 5 ML VIAL INFIL ONE (14:03)
[2022-12-27] MEDS ORDERED: PROPOFOL IV EMULSION 10 MG/ML 20 ML VIAL IV ONE (14:03)
[2022-12-27] MEDS ORDERED: CISATRACURIUM BESYLATE IV SOLN 2 MG/ML 10 ML VIAL IV ONE (14:03)
[2022-12-27] MEDS ORDERED: ONDANSETRON INJ 2 MG/ML 2 ML VIAL ONE ×2 (14:05→16:04)
[2022-12-27] MEDS ORDERED: ePHEDrine sulfate 50 MG/ML SYR ONE (14:29)
[2022-12-27] MEDS ORDERED: SUGAMMADEX SODIUM 200 MG/2 ML VIAL IV ONE (15:37)
[2022-12-27] MEDS ORDERED: HYDROmorphone INJ 2 MG/ML SYR/VIAL ONE (15:38)
--- NOTE | 2022-12-27 15:56 | Operative Report ---
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 I identified the patient and participated in the time-out.: Yes Procedure Operation Date: 12/27/22 12:30 Actual Procedures p Right Total Hip Arthroplasty Cemented(Right) - Talha Barajas MD Surgeon Talha Barajas MD Abstracter None Estimated Blood Loss 100 Findings Consistent with Post-Op Diagnosis Specimens Right femoral head sent for pathology Anesthesia Type General Complications none Disposition Accompanied Patient To Recovery: No Indications Patient 82-year-old female with longstanding rheumatoid disease who was admitted for steroid crisis. On admission she has been having difficulty getting around for the past several months. She actually fell couple weeks ago out of the left leg humerus fracture. X-rays of now showed severe right hip arthritis. She did have an infectious work-up done elsewhere which was negative. Patient was indicated for right total hip replacement. She was medically optimized preoper atively. Description of Procedure Operative implants consist of: 1 Biomet G7 size 50 mm acetabular shell. 2. 6.5 cancellous acetabular screws 135 mm length 1 to 25 mm length. 3. [place] hole eliminator. 4. Highly cross-linked polyethylene liner with a 50 mm outer diameter and 36 mm inner diam with a mckay placed inferior and posterior. 5. DePuy Matthews size 3 standard cemented femoral stem. 6. +5/36 mm metal articular ball. The patient was taken the operating, identified, placed on the operating table supine position. All contractors were properly padded. IV antibiotics tried by anesthesia team. A general anesthetic was implemented. The patient was then placed in the left lateral cubitus position. Roll was placed. Stulberg hip positioner was used for positioning. Right hip and leg were then prepped and draped in usual sterile fashion. A posterolateral approach to the right hip was then performed through a curvilinear incision centered over the greater trochanter. Sharp dissection scalp through subcutaneous tissue down to level the IT band gluteal fascia the IT band gluteal fascia incised longitudinally in line with skin incision. The underlying greater trochanteric bursa was excised. The piriformis and external rotators were tagged and taken off the posterior aspect hip joint capsule. Great care was taken throughout the procedure protect the sciatic nerve at all times. A posterior capsulotomy was then performed leaving a large flap for later repair. Hip was internally rotated and dislocated. Femoral neck osteot joss cut was made with Final Cut about 15 mm above the lesser trochanter Kinter. The femoral head and neck were removed and sent for pathology. The femur was retracted anteriorly. Attention drawn the acetabulum. The acetabulum was full of fibrous debris and cartilage debris. I took quite a bit of time and debriding this as well as excising the labrum. The capsule was very thick. I have removed the pulmonary fat. The sequential reaming the acetabulum was then performed again with size 43 and progressing up to 49. I reamed a little bit with a 50 reamer. We had to do this very delicately as her bone was fairly soft and she did have a deformed acetabulum due to this previous deformity. A 50 mm G7 acetabular shell was then placed in about 40 degrees lateral opening and 20 degrees of anteversion. It was fixed with two 6.5 cancellous acetabular screws. Trial liner was placed. Attention drawn the femur. The proximal femur was entered with cookie-cutter followed by canal finder and lateralizing reamer. I broached beginning with size 1 and progressing up to 3. We got excellent fit and 3. I then trialed the hip and the +5 articular ball provide full stability. I wanted to maximize her stability so we use a 36 mm head. We also would like to place a hooded liner with a mckay posterior and inferior to maximize her stability in flexion. We elect to place these implants. All trial implants were removed. An apex hole laminate was placed. Highly cross-linked polyethylene liner was placed with a mckay placed inferior and posterior. A double batch [place] G cement was mixed. A small cement restrictor was placed down the canal. The cement was injected in the canal. A size 3 standard offset Matthews stem was placed with a centralizer. All extraneous cement was removed. Once the cement hardened a +5/36 mm metal articular ball was placed. Hip was located once again found to be stable. Attention drawn to closing. The wound was irrigated scope sounds pulsatile lavage solution. I did inject locally with about 50 cc of half percent Marcaine with epinephrine. The posterior capsule and external rotators were repaired through drill holes in the posterior trochanter with #2 Tycron suture. The IT band gluteal fascia then closed with #1 PDS suture running fashion for subcutaneous tissues then closed in 2 layers with a deep layer #1 Vicryl suture and subcutaneous tissues with 2-0 Dexon suture in buried interrupted fashion. Skin was closed skin gloria. Leg was then cleaned and dried and sterile dressed with Xeroform, 4 fours, sterile ABD pad, foam tape was applied. The patient then brought out of general anesthesia and transferred to the recovery room in stable condition. Patient tolerated procedure well and there are no complications. I attest to the content of the Intraoperative Record and any orders documented therein. Any exceptions are noted below.
--- NOTE | 2022-12-27 17:04 | Anesthesiology Progress Note ---
Date of Service December 27, 2022 Anesthesia Post Procedure Vital Signs Vital Signs: Temp Pulse Pulse Pulse Resp BP Pulse Ox 12/27/22 16:55 86 13 110/68 95 12/27/22 16:45 36 C L 96 H 18 117/62 95 12/27/22 16:15 107 H 17 135/102 H 95 12/27/22 16:35 96 H 19 106/70 96 12/27/22 16:25 101 H 14 92/65 L 96 12/27/22 16:05 110 H 15 134/99 100 12/27/22 15:55 36.2 C L 103 H 17 129/109 H 93 12/27/22 09:00 88 12/27/22 09:00 12/27/22 12:08 36.5 C 91 H 20 97 12/27/22 11:27 37.0 C 82 18 153/95 H 96 12/27/22 07:49 36.8 C 94 H 16 165/69 H 95 12/26/22 22:00 86 12/27/22 03:04 36.9 C 73 15 165/89 H 98 12/27/22 00:33 12/26/22 23:30 36.8 C 93 H 17 161/91 H 96 12/26/22 20:18 36.7 C 70 19 156/94 H 96 O2 Del Method O2 Flow Rate 12/27/22 16:55 Oxymask 5 12/27/22 16:45 Nasal Cannula 2 12/27/22 16:15 Oxymask 5 12/27/22 16:35 Nasal Cannula 2 12/27/22 16:25 Oxymask 5 12/27/22 16:05 Oxymask 5 12/27/22 15:55 Oxymask 3 12/27/22 09:00 12/27/22 09:00 Room Air 12/27/22 12:08 Room Air 12/27/22 11:27 Room Air 12/27/22 07:49 Room Air 12/26/22 22:00 12/27/22 03:04 Room Air 12/27/22 00:33 Room Air 12/26/22 23:30 Room Air 12/26/22 20:18 Room Air Pain Intensity Lower Back: Pain Intensity: 5 Right Hip: Pain Intensity: 4 Transfer of Care Handoff Completed per policy Notes Mental Status: alert / awake / arousable Patient Amnestic to Procedure: Yes Nausea / Vomiting: adequately controlled Pain: adequately controlled Airway Patency, RR, SpO2: stable & adequate BP & HR: stable & adequate Hydration State: stable & adequate Anesthetic Complications: no major complications apparent
[2022-12-27] MEDS ORDERED: HYDROmorphone INJ 0.5 MG/0.5 ML SYR IV PRN (17:26)
[2022-12-27] MEDS ORDERED: METOCLOPRAMIDE HCL INJ 5 MG/ML 2 ML VIAL IV PRN (17:26)
[2022-12-27] MEDS ORDERED: traMADol HCL 50 MG TABLET PO PRN (17:26)
[2022-12-27] MEDS ORDERED: bisacodyL 10 MG SUPP PR PRN (17:26)
[2022-12-27] MEDS ORDERED: ALUMINUM/MAGNESIUM SUSP 30 ML UDC PO PRN (17:26)
[2022-12-27] MEDS ORDERED: ONDANSETRON INJ 2 MG/ML 2 ML VIAL IV PRN (17:26)
[2022-12-27] MEDS ORDERED: MAGNESIUM HYDROXIDE SUSP 30 ML UDC PO PRN (17:26)
[2022-12-27] MEDS: ACETAMINOPHEN 325 MG TAB PO SCH (17:35)
[2022-12-27] MEDS: DOXYCYCLINE HYCLATE 100 MG CAP PO SCH ×2 (17:36→20:50)
[2022-12-27] MEDS: PANTOprazole 40 MG TAB PO SCH (17:36)
[2022-12-27] MEDS: MULTIVITAMIN TAB PO SCH (17:36)
[2022-12-27] MEDS: busPIRone 5 MG TAB PO SCH ×2 (17:36→20:49)
[2022-12-27] MEDS: SODIUM CHLORIDE 0.9% 1000ML 1,000 ML IV SCH (18:00)
--- NOTE | 2022-12-27 18:04 | XRay Report ---
SINGLE VIEW PELVIS; SINGLE VIEW RIGHT HIP CLINICAL HISTORY: Postoperative examination. FINDINGS: An AP portable view of the hips and pelvis with a crosstable lateral portable view of the r ight hip are compared to study dated 12/22/2022. A bipolar right hip arthroplasty is in near-anatomic a lignment. At least 2 cortical lag screw transfix the acetabular cup. No acute fracture is identified. There are expected postoperative changes overlying the right hip including skin clips, subcutaneous gas, and soft tissue swelling. Mild degenerative changes noted in the left hip. A Navarro catheter is i n place. IMPRESSION: Expected postoperative findings status post right hip arthroplasty. No acute fracture is seen. ACT 112: Negative or not required by law. Electronically signed by: Justin Salmon M.D. 12/27/2022 6:02 PM
[2022-12-27] MEDS: HYDROXYCHLOROQUINE SULFATE 200 MG TAB PO SCH (18:23)
[2022-12-27] MEDS: CITALOPRAM 20 MG TAB PO SCH (18:23)
[2022-12-27] MEDS: ASCORBIC ACID 500 MG TAB PO SCH (18:27)
[2022-12-27] MEDS: SENNA 8.6 MG TAB PO SCH (20:50)
[2022-12-27] MEDS: DOCUSATE SODIUM 100 MG CAP PO SCH (20:50)
[2022-12-27] MEDS: MELATONIN 3 MG TAB PO SCH (20:52)
[2022-12-27] MEDS ORDERED: TRANEXAMIC ACID / 0.7% NACL 1,000 MG/100 ML BAG IV SCH (22:00)
[2022-12-27] MEDS: ACETAMINOPHEN 500 MG TAB PO SCH (22:39)
[2022-12-27] MEDS: ceFAZolin 1000MG 1,000 MG/7.5 ML SYR IV SCH (22:39)
[2022-12-28] MEDS: SODIUM CHLORIDE 0.9% 1000ML 1,000 ML IV SCH (04:57)
[2022-12-28] MEDS: CEFEPIME 2,000 MG in SYRINGE 0 ML IV SCH ×2 (04:58→16:57)
[2022-12-28] MEDS: ceFAZolin 1000MG 1,000 MG/7.5 ML SYR IV SCH (04:58)
[2022-12-28] MEDS: LEVOTHYROXINE SODIUM 88 MCG TABLET PO SCH (04:59)
[2022-12-28] MEDS: ACETAMINOPHEN 500 MG TAB PO SCH ×3 (05:01→21:06)
[2022-12-28 06:34] LABS: Basophils # (auto) 0.01 K/uL (0-0.2); Basophils % (auto) 0.1 %; Eosinophils # (auto) 0.01 K/uL (0-0.50); Eosinophils % (auto) 0.1 %; Hematocrit (blood only) 27.5 % (37.0-47.0); Hemoglobin 8.6 g/dl (12.0-16.0); Immature Granulocytes # (auto) 0.08 K/uL (0.01-0.20); Immature Granulocytes % (auto) 0.8 %; Lymphocytes # (auto) 1.09 K/uL (1.2-3.4); Lymphocytes % (auto) 10.5 %; Mean Corpuscular Hemoglobin 26.1 pg (25.0-34.0); Mean Corpuscular Hgb Conc 31.3 g/dL (32.0-36.0); Mean Corpuscular Volume 83.6 fL (80.0-100.0); Mean Platelet Volume 10.1 fL (9.4-12.4); Monocytes # (auto) 0.91 K/uL (0.11-0.59); Monocytes % (auto) 8.7 %; Neutrophils # (auto) 8.33 K/uL (1.40-6.50); Neutrophils % (auto) 79.8 %; Platelet Count 335 K/uL (130-400); RDW Coefficient of Variation 17.3 % (11.5-14.5); RDW Standard Deviation 51.1 fL (36.4-46.3); Red Blood Count 3.29 M/uL (4.20-5.40); White Blood Count 10.43 K/ul (4.8-10.8)
[2022-12-28 07:10] LABS: BUN Creatinine Ratio 25.8 (10-20); Calcium 8.1 mg/dl (8.5-10.1); Creatinine Clr Calc Pharmacy 34.1 ml/min; Est GFR (African American) 62.2 ml/min; Est GFR (Non-African American) 53.6 ml/min; Potassium 3.6 mmol/L (3.5-5.1)
[2022-12-28] MEDS: ASCORBIC ACID 500 MG TAB PO SCH ×2 (08:08→16:57)
[2022-12-28] MEDS: CITALOPRAM 20 MG TAB PO SCH (08:08)
[2022-12-28] MEDS: busPIRone 5 MG TAB PO SCH ×2 (08:08→21:07)
[2022-12-28] MEDS: DOXYCYCLINE HYCLATE 100 MG CAP PO SCH ×2 (08:09→21:06)
[2022-12-28] MEDS: HYDROCORTISONE 10 MG TAB PO SCH ×2 (08:10→21:07)
[2022-12-28] MEDS: METOPROLOL TARTRATE 25 MG TAB PO SCH ×2 (08:11→21:06)
[2022-12-28] MEDS: MULTIVITAMIN TAB PO SCH (08:11)
[2022-12-28] MEDS: SODIUM CHLORIDE 1 GM TABLET PO SCH (08:12)
[2022-12-28] MEDS: POLYETHYLENE (MIRALAX) 17 GM PACK PO SCH (08:12)
[2022-12-28] MEDS: PANTOprazole 40 MG TAB PO SCH (08:12)
[2022-12-28] MEDS: DOCUSATE SODIUM 100 MG CAP PO SCH ×2 (08:15→21:12)
[2022-12-28] MEDS ORDERED: MULTIVITAMIN TAB PO SCH (09:00)
[2022-12-28] MEDS: HYDROXYCHLOROQUINE SULFATE 200 MG TAB PO SCH (09:01)
--- NOTE | 2022-12-28 11:18 | Hospitalist Progress Note ---
Date of Service December 28, 2022 Assessment & Plan (1) Adrenal crisis: Plan: resolved. stress dose IV hydrocortisone has jules weaned to hydrocortisone 20mg PO BID. Leave at this dose; no further wean; Then, Post-op she will ultimately need to be tapered to her usual chronic dose of prednisone 5-10mg/day (used for rheumatoid arthritis). (2) Hypotension: Plan: 2nd to #1 - resolved. (3) LLL pneumonia: Plan: probable/suspected, although no pulmonary symptoms during this hospital stay with stable O2 sats; never had O2 requirement pneumonia clinically resolved at this point. LLL infiltrate on cxr x 2, and focal LLL rales on exam - which have since resolved. some of her anorexia may be from her pneumonia. since she was just hospitalized within the last few weeks at a hospital in [place] and was in SNF rehab I broadened her rocephin to cefepime for better gram negative coverage. cont doxy for atypical coverage. blood cx's negative. day #5 today of abx. plan 7 days in total then stop (4) Left humeral fracture: Plan: Sustained sometime in Nov 2021 after a fall at her home. Was hospitalized in [place] at [facility]. Seen by orthopedics there - nonoperative Rx advised at that time. Continue NWB status to LUE. Continue sling. Appreciate [facility] Ortho consult - they also recommend ongoing nonoperative Rx. Cont pain meds prn. 25-OH vit D level wnl. (5) Degenerative joint disease of right hip: Plan: SEVERE DJD on x-rays, avascular necrosis She is day 1 s/p Right Total Hip Arthroplasty Resume Apixaban when ok by ortho (6) Rectovaginal fistula: Plan: Sees [facility] Ob-child welfare counselor for such. Big risk factor for chronic UTI. Admission U/a was suggestive of possible UTI - abx for pneumonia will suffice. But culture was negative. Continue topical estrogen cream. (7) Hypothyroidism: Plan: TSH wnl. Cont synthroid. (8) Rheumatoid arthritis: Plan: Dx in her late 20s. Follows with Dr Sincere Murphy, [facility] Rheum - [facility]. Cont plaquenil. Is on chronic prednisone 5-10mg/day. Cont stress dose steroids - see #1 above. The plaquenil can be continued through surgery and post-op as well - no need to hold. (9) Osteoporosis: Plan: 25-OH vit D level wnl. (10) Hypertension: Plan: Cont metoprolol 75mg BID (11) Hyperlipidemia: Plan: Does not appear she takes meds for this. (12) Depression: Plan: Cont celexa. Cont buspar but increased to 5mg BID due to ongoing anxiety. May even need TID dosing. (13) Anemia: Plan: B12, folate wnl. Fe studies - likely element of Fe def along with anemia of chronic disease. s/p venofer 200mg IV x 1 earlier this admission. Consider another dose while here. H/H remain acceptable. Repeat CBC am. (14) PEDRO (acute kidney injury): Plan: Granular casts noted on admission u/a consistent with ATN from low BP/dehydration. resolved IV fluids discontinued (15) Hyponatremia: Plan: Initially thought 2nd to volume depletion & lasix use. She received copious hydration in the first 1/2 of the stay with improvement in BUN & CR and overall volume status. Despite such her Na level never normalized. Urine osm is high. Urine Na very high >100. 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 Check serum osm. SIADH due to SSRI use? Start NaCL tab - 1gm daily to start. May need to resume her low-dose lasix in the future as well. BMP am. (16) Atrial fibrillation: Plan: Recent diagnosis in November during her hospital stay in [facility]. HOLDING Eliquis BID for upcoming right hip surgery. Last dose - PM of 12/22/22. Echo at [place] with preserved EF and only mild valvular disease. LA/RA enlargement likely the biggest risk factor for her a.fib. Her rates are controlled with metoprolol 75mg BID. Cont telemetry. (17) Elevated troponin: Plan: Likely myocardial demand ischemia in setting of #1, #2, infection, etc. No evidence of ACS. Never had ischemic symptoms. Peak HS trop was 32, quickly falling after that. (18) DVT prophylaxis: Plan: holding eliquis while on hold - heparin 5000 BID (19) Prediabetes: Plan: a1c 5.8% no Rx needed at this time, however (20) Hypokalemia: Plan: replace (21) Hypomagnesemia: Plan: replaced resolved Plan Will need PT and rehab Admission and Anticipated Discharge Date Admission Date: December 24, 2022 Subjective patient seen and examined, she is stable post surgery Review of Systems Review of Systems: All systems reviewed are negative, apart from the ones contained in the history. Physical Exam Physical Exam: The patient is awake, alert and oriented 3, well developed and well nourished, normocephalic and atraumatic, lying in bed and in no acute distress. HEENT--PERRL, EOMI, mucous membranes and oropharynx mildly dry Neck--supple. No JVD. No bruits. Thyroid normal, trachea midline, no adenopathy. Heart--normal S1 and S2. No murmurs, rubs or gallops. Lungs--clear bilaterally, no respiratory distress, no accessory muscle use. Abdomen--normal bowel sounds and soft. Mild epigastric and left sided abdominal pain Extremities--left arm in sling Dermatologic--normal skin turgor, normal color, no abnormal lymph nodes, no rash. Neurologic--cranial nerves II through XII grossly intact. Rheumatologic--normal range of motion. Psychiatric--normal affect. Results & Data Results & Data ([facility]) Vital Signs (Past 12 Hours) Vital Signs Temp Pulse Pulse Resp BP Pulse Ox O2 Del Method 12/28/22 09:00 Nasal Cannula 12/28/22 07:41 98.1 F 85 18 158/88 H 98 Nasal Cannula 12/28/22 05:48 98.4 F 70 19 160/95 H 95 Nasal Cannula 12/28/22 01:31 82 O2 Flow Rate 12/28/22 09:00 2 12/28/22 07:41 2 12/28/22 05:48 12/28/22 01:31 PG Care Time/CCT Total # of Minutes Spent Total Time Spent with Patient: Total time spent is greater than 50% in coordination of care (as documented) at patient's floor/unit and/or counseling patient: Coding Level of Care Code 36841 SUB INP/OBS CARE 2/35MIN Diagnoses Adrenal crisis E27.2 Hypotension I95.9 LLL pneumonia J18.9 Left humeral fracture S42.302A Degenerative joint disease of right hip M16.11 Rectovaginal fistula N82.3 Hypothyroidism E03.9 Rheumatoid arthritis M06.9 Osteoporosis M81.0 Hypertension I10 Hyperlipidemia E78.5 Depression F32.A Anemia D64.9 PEDRO (acute kidney injury) N17.9 Hyponatremia E87.1 Atrial fibrillation I48.91 Elevated troponin R77.8 DVT prophylaxis Z29.9 Prediabetes R73.03 Hypokalemia E87.6 Hypomagnesemia E83.42 Time Spent (min) 35
--- NOTE | 2022-12-28 14:05 | Progress Notes ---
DATE OF SERVICE: 12/28/2022. SUBJECTIVE: An 82-year-old female with underlying rheumatoid disease, postoperative day 1 from a rig ht hybrid total hip arthroplasty. She has also got a left humeral diaphyseal fracture/metaphyseal fr acture, which is healing. She is doing quite well. Denies any real significant pain today. She carrera s say she has been up and walked some. No chest pain or shortness of breath. OBJECTIVE: VITAL SIGNS: Temperature 36.7. Vital signs are stable. GENERAL: Shows a pleasant, elderly female. Lying in bed, looks pretty comfortable. EXTREMITIES: Examination of the right hip reveals dressing to be clean, dry and intact. Leg lengths were equal. She can dorsiflex and plantarflex her foot appropriately. She is neurologically intact . Examination of the left shoulder reveals no obvious deformity. She is wearing her sling. She is neurologically intact. She has got chronic rheumatoid changes distally. LABORATORY DATA: Hemoglobin 8.6. Hematocrit 27.5. Electrolytes are stable. Sodium little low at 1 31. ASSESSMENT: An 82-year-old female with underlying rheumatoid disease and hip avascular necrosis, now postoperative day 1 from her right total hip replacement. She is doing well. Hip seems to be doing well. She is neurologically intact. PLAN: 1. DVT prophylaxis including thigh-high TEDs, SCDs, and she can go back on her Eliquis dose. It beto ht be prudent to keep her on a lower dose, considering her size. 2. PT/OT. She can weight bear as tolerated. Does need to obey hip precautions. 3. Pain control, doing okay with current pain regimen. 4. Medical management as per the medicine service. 5. Disposition: She is orthopedically okay for discharge any time medically stable. I need to see her back two to three weeks out from surgery date. Any orthopedic questions can be directed to me at [phone]. Job ID: [id number]
[2022-12-28] MEDS ORDERED: LORazepam 0.5 MG TAB PO STA (21:06)
[2022-12-28] MEDS: MELATONIN 3 MG TAB PO SCH (21:07)
[2022-12-28] MEDS: SENNA 8.6 MG TAB PO SCH (21:13)
[2022-12-29] MEDS: CEFEPIME 2,000 MG in SYRINGE 0 ML IV SCH ×2 (05:05→16:09)
[2022-12-29] MEDS: ACETAMINOPHEN 500 MG TAB PO SCH ×3 (05:06→22:24)
[2022-12-29] MEDS: LEVOTHYROXINE SODIUM 88 MCG TABLET PO SCH (05:06)
[2022-12-29 06:31] LABS: Hematocrit (blood only) 27.9 % (37.0-47.0); Hemoglobin 8.9 g/dl (12.0-16.0); Mean Corpuscular Hemoglobin 25.9 pg (25.0-34.0); Mean Corpuscular Hgb Conc 31.9 g/dL (32.0-36.0); Mean Corpuscular Volume 81.3 fL (80.0-100.0); Platelet Count 309 K/uL (130-400); RDW Coefficient of Variation 17.7 % (11.5-14.5); RDW Standard Deviation 49.9 fL (36.4-46.3); Red Blood Count 3.43 M/uL (4.20-5.40); White Blood Count 11.64 K/ul (4.8-10.8)
[2022-12-29 06:47] LABS: BUN Creatinine Ratio 29.9 (10-20); Calcium 8.6 mg/dl (8.5-10.1); Creatinine Clr Calc Pharmacy 39.6 ml/min; Est GFR (African American) 82.2 ml/min; Est GFR (Non-African American) 70.9 ml/min; Potassium 3.2 mmol/L (3.5-5.1)
[2022-12-29] MEDS: DOCUSATE SODIUM 100 MG CAP PO SCH ×2 (07:54→20:06)
[2022-12-29] MEDS: POLYETHYLENE (MIRALAX) 17 GM PACK PO SCH (07:55)
[2022-12-29] MEDS: HYDROXYCHLOROQUINE SULFATE 200 MG TAB PO SCH (08:00)
[2022-12-29] MEDS: ASCORBIC ACID 500 MG TAB PO SCH ×2 (08:00→16:09)
[2022-12-29] MEDS: busPIRone 5 MG TAB PO SCH ×2 (08:00→20:06)
[2022-12-29] MEDS: MULTIVITAMIN TAB PO SCH (08:00)
[2022-12-29] MEDS: SODIUM CHLORIDE 1 GM TABLET PO SCH (08:00)
[2022-12-29] MEDS: HYDROCORTISONE 10 MG TAB PO SCH ×2 (08:00→20:07)
[2022-12-29] MEDS: CITALOPRAM 20 MG TAB PO SCH (08:00)
[2022-12-29] MEDS: PANTOprazole 40 MG TAB PO SCH (08:00)
[2022-12-29] MEDS: METOPROLOL TARTRATE 25 MG TAB PO SCH ×2 (08:00→20:08)
[2022-12-29] MEDS: DOXYCYCLINE HYCLATE 100 MG CAP PO SCH ×2 (08:00→20:06)
--- NOTE | 2022-12-29 08:01 | Progress Notes ---
DATE OF SERVICE: 12/29/2022 SUBJECTIVE: An 82-year-old female with underlying rheumatoid disease and adrenal crisis, now postop day 2 from a right hybrid total hip replacement. She is doing pretty well. Some pain, but controlle d. No chest pain or shortness of breath. Her left arm is doing well. OBJECTIVE: VITAL SIGNS: Temperature is 36.5. Vital signs are stable. PHYSICAL EXAMINATION: Physical examination of the right hip reveals the dressing to be clean, dry, a nd intact. Leg lengths were equal. She can dorsiflex and plantarflex her foot appropriately. She i s neurologically intact. Examination of the left arm reveals the sling to be in place. No visible d eformity. Minimal pain with shoulder motion. LABORATORY DATA: Hemoglobin 8.9. Hematocrit 27.9. Electrolytes are stable. Potassium is just a li ttle bit low at 3.2. ASSESSMENT: An 82-year-old female with underlying rheumatoid disease, now postop day 2 from her hybr id total hip replacement for severe arthritis, likely secondary to avascular necrosis and several wee ks out from her proximal humerus fracture. She is doing quite well. PLAN: 1. DVT prophylaxis to include thigh-high TEDs, SCDs, and back on her normal anticoagulation would be fine. 2. PT and OT. She can fully weightbear as tolerated on the right hip. Does need to obey hip precau tions. 3. Left shoulder fracture. Continue using the sling for the next month. 4. Disposition: She is orthopedically okay for discharge any time medically stable. I need to see her back 2 to 3 weeks out from surgery date. She will continue wearing the sling in the meantime. A nv orthopedic questions can be directed to me at [phone]. Job ID: [id number]
[2022-12-29] MEDS ORDERED: POTASSIUM CHLORIDE CRTAB 20 MEQ TABCR PO STA (08:34)
--- NOTE | 2022-12-29 12:04 | Hospitalist Progress Note ---
Date of Service December 29, 2022 Assessment & Plan (1) Adrenal crisis: Plan: resolved. stress dose IV hydrocortisone has jules weaned to hydrocortisone 20mg PO BID. Wean to 10mg BID, goal is her home dose of 5mg daily (2) Hypotension: Plan: 2nd to #1 - resolved. (3) LLL pneumonia: Plan: probable/suspected, although no pulmonary symptoms during this hospital stay with stable O2 sats; never had O2 requirement pneumonia clinically resolved at this point. LLL infiltrate on cxr x 2, and focal LLL rales on exam - which have since resolved. some of her anorexia may be from her pneumonia. since she was just hospitalized within the last few weeks at a hospital in [place] and was in SNF rehab I broadened her rocephin to cefepime for better gram negative coverage. cont doxy for atypical coverage. blood cx's negative. completed a course of antibiotics (4) Left humeral fracture: Plan: Sustained sometime in Nov 2021 after a fall at her home. Was hospitalized in [place] at [facility]. Seen by orthopedics there - nonoperative Rx advised at that time. Continue NWB status to LUE. Continue sling. Appreciate [facility] Ortho consult - they also recommend ongoing nonoperative Rx. Cont pain meds prn. 25-OH vit D level wnl. 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 Big risk factor for chronic UTI. Admission U/a was suggestive of possible UTI - abx for pneumonia will suffice. But culture was negative. Continue topical estrogen cream. (7) Hypothyroidism: Plan: TSH wnl. Cont synthroid. (8) Rheumatoid arthritis: Plan: Dx in her late 20s. Follows with Dr Sincere Murphy, [facility] Rheum - [facility]. Cont plaquenil. Is on chronic prednisone 5-10mg/day. Cont stress dose steroids - see #1 above. The plaquenil can be continued through surgery and post-op as well - no need to hold. (9) Osteoporosis: Plan: 25-OH vit D level wnl. (10) Hypertension: Plan: Cont metoprolol 75mg BID (11) Hyperlipidemia: Plan: Does not appear she takes meds for this. (12) Depression: Plan: Cont celexa. Cont buspar but increased to 5mg BID due to ongoing anxiety. May even need TID dosing. (13) Anemia: Plan: B12, folate wnl. Fe studies - likely element of Fe def along with anemia of chronic disease. s/p venofer 200mg IV x 1 earlier this admission. Consider another dose while here. H/H remain acceptable. Repeat CBC am. (14) PEDRO (acute kidney injury): Plan: Granular casts noted on admission u/a consistent with ATN from low BP/dehydration. resolved IV fluids discontinued (15) Hyponatremia: Plan: close to her baseline, 132 today she may have an element of SIADH (16) Atrial fibrillation: Plan: continue eliquis Her rates are controlled with metoprolol 75mg BID. Cont telemetry. (17) Elevated troponin: Plan: Likely myocardial demand ischemia in setting of #1, #2, infection, etc. No evidence of ACS. Never had ischemic symptoms. Peak HS trop was 32, quickly falling after that. (18) DVT prophylaxis: Plan: continue eliquis (19) Prediabetes: Plan: a1c 5.8% no Rx needed at this time, however (20) Hypokalemia: Plan: replace (21) Hypomagnesemia: Plan: replaced resolved Plan Will need rehab Admission and Anticipated Discharge Date Admission Date: December 24, 2022 Subjective patient seen and examined, she is stable post surgery, participating in PT Review of Systems Review of Systems: All systems reviewed are negative, apart from the ones contained in the history. Physical Exam Physical Exam: The patient is awake, alert and oriented 3, well developed and well nourished, normocephalic and atraumatic, lying in bed and in no acute distress. HEENT--PERRL, EOMI, mucous membranes and oropharynx mildly dry Neck--supple. No JVD. No bruits. Thyroid normal, trachea midline, no adenopathy. Heart--normal S1 and S2. No murmurs, rubs or gallops. Lungs--clear bilaterally, no respiratory distress, no accessory muscle use. Abdomen--normal bowel sounds and soft. Mild epigastric and left sided abdominal pain Extremities--left arm in sling Dermatologic--normal skin turgor, normal color, no abnormal lymph nodes, no rash. Neurologic--cranial nerves II through XII grossly intact. Rheumatologic--normal range of motion. Psychiatric--normal affect. Results & Data Results & Data ([facility]) Vital Signs (Past 12 Hours) Vital Signs Temp Pulse Pulse Resp BP Pulse Ox O2 Del Method 12/29/22 11:21 98.1 F 91 H 18 134/74 96 Room Air 12/29/22 07:20 98.6 F 82 18 151/83 H 97 Room Air 12/29/22 04:55 97.7 F 78 16 157/82 H 98 Room Air PG Care Time/CCT Total # of Minutes Spent Total Time Spent with Patient: Total time spent is greater than 50% in coordination of care (as documented) at patient's floor/unit and/or counseling patient: Coding Level of Care Code 93806 SUB INP/OBS CARE 2/35MIN Diagnoses Adrenal crisis E27.2 Hypotension I95.9 LLL pneumonia J18.9 Left humeral fracture S42.302A Degenerative joint disease of right hip M16.11 Rectovaginal fistula N82.3 Hypothyroidism E03.9 Rheumatoid arthritis M06.9 Osteoporosis M81.0 Hypertension I10 Hyperlipidemia E78.5 Depression F32.A Anemia D64.9 PEDRO (acute kidney injury) N17.9 Hyponatremia E87.1 Atrial fibrillation I48.91 Elevated troponin R77.8 DVT prophylaxis Z29.9 Prediabetes R73.03 Hypokalemia E87.6 Hypomagnesemia E83.42 Time Spent (min) 35
[2022-12-29] MEDS: APIXABAN 2.5 MG TAB PO SCH (20:05)
[2022-12-29] MEDS: ESTRACE VAG CREAM 0.01% 42.5 GM PV SCH (20:07)
[2022-12-29] MEDS: MELATONIN 3 MG TAB PO SCH (20:08)
[2022-12-29] MEDS: SENNA 8.6 MG TAB PO SCH (20:08)
[2022-12-30] MEDS: CEFEPIME 2,000 MG in SYRINGE 0 ML IV SCH (05:38)
[2022-12-30] MEDS: ACETAMINOPHEN 500 MG TAB PO SCH ×3 (05:38→22:51)
[2022-12-30] MEDS: LEVOTHYROXINE SODIUM 88 MCG TABLET PO SCH (05:39)
[2022-12-30 06:33] LABS: Hematocrit (blood only) 25.8 % (37.0-47.0); Hemoglobin 8.3 g/dl (12.0-16.0); Mean Corpuscular Hemoglobin 26.3 pg (25.0-34.0); Mean Corpuscular Hgb Conc 32.2 g/dL (32.0-36.0); Mean Corpuscular Volume 81.6 fL (80.0-100.0); Mean Platelet Volume 10.1 fL (9.4-12.4); Platelet Count 269 K/uL (130-400); RDW Coefficient of Variation 17.8 % (11.5-14.5); RDW Standard Deviation 51.2 fL (36.4-46.3); Red Blood Count 3.16 M/uL (4.20-5.40); White Blood Count 10.72 K/ul (4.8-10.8)
[2022-12-30 06:55] LABS: BUN Creatinine Ratio 30.4 (10-20); Calcium 8.3 mg/dl (8.5-10.1); Est GFR (African American) 79.7 ml/min; Est GFR (Non-African American) 68.7 ml/min
--- NOTE | 2022-12-30 07:53 | Progress Notes ---
DATE OF SERVICE: 12/30/2022. SUBJECTIVE: An 82-year-old female now postop day 3 from a right hybrid total hip arthroplasty for sev ere AVN and hip arthritis. She is also about 3 or 4 weeks out from a proximal humerus fracture, init ially treated elsewhere. She is doing well. Pain is getting better daily. Arm is not really bother ing at all. Some hip pain, but improved. OBJECTIVE: VITAL SIGNS: Temperature 37.1. Vital signs stable. GENERAL: Shows a pleasant, elderly, frail female. She is lying in bed and looks comfortable this mo rning. EXTREMITIES: Examination of the right hip reveals incision to be clean, dry and intact. No drainage . Leg lengths were equal. She is neurologically intact. Examination of the left arm reveals no obvious deformity. The arm moves as a single unit. No partic ular pain. ASSESSMENT: An 82-year-old female postoperative day 3 from right hybrid total hip replacement and ab out 3-4 weeks out from a proximal humerus fracture, doing pretty well. She was admitted for adrenal crisis. She looks good and stable. PLAN: 1. DVT prophylaxis includes thigh-high TEDs, SCDs and she is back on her Eliquis at 2.5 mg twice a d ay. 2. PT/OT. She can fully weightbear as tolerated in the right leg. Needs to obey hip precautions. She will need to limit weightbearing on the left arm. 3. Humerus fracture. Continue sling for the next month. 4. Medical management as per the medicine service. 5. Disposition: She is orthopedically okay for discharge any time medically stable. I need to see her back 2-3 weeks out from surgery date. Any orthopedic questions can be directed to me at . Job ID: [id number]
[2022-12-30] MEDS: HYDROXYCHLOROQUINE SULFATE 200 MG TAB PO SCH (08:05)
[2022-12-30] MEDS: ASCORBIC ACID 500 MG TAB PO SCH ×2 (08:06→16:21)
[2022-12-30] MEDS: MULTIVITAMIN TAB PO SCH (08:06)
[2022-12-30] MEDS: SODIUM CHLORIDE 1 GM TABLET PO SCH (08:06)
[2022-12-30] MEDS: CITALOPRAM 20 MG TAB PO SCH (08:06)
[2022-12-30] MEDS: METOPROLOL TARTRATE 25 MG TAB PO SCH ×2 (08:07→20:52)
[2022-12-30] MEDS: HYDROCORTISONE 10 MG TAB PO SCH ×2 (08:07→20:44)
[2022-12-30] MEDS: PANTOprazole 40 MG TAB PO SCH (08:07)
[2022-12-30] MEDS: busPIRone 5 MG TAB PO SCH ×2 (08:08→20:46)
[2022-12-30] MEDS: DOCUSATE SODIUM 100 MG CAP PO SCH ×2 (08:08→20:45)
[2022-12-30] MEDS: APIXABAN 2.5 MG TAB PO SCH ×2 (08:08→20:47)
[2022-12-30] MEDS: POLYETHYLENE (MIRALAX) 17 GM PACK PO SCH (08:08)
[2022-12-30] MEDS ORDERED: POTASSIUM CHLORIDE CRTAB 20 MEQ TABCR PO STA (11:15)
--- NOTE | 2022-12-30 11:34 | Hospitalist Progress Note ---
Date of Service December 30, 2022 Assessment & Plan (1) Adrenal crisis: Plan: resolved. stress dose IV hydrocortisone has jules weaned to hydrocortisone 20mg PO BID. Wean to 5mg BID, goal is her home dose of 5mg daily (2) Hypotension: Plan: 2nd to #1 - resolved. (3) LLL pneumonia: Plan: probable/suspected, although no pulmonary symptoms during this hospital stay with stable O2 sats; never had O2 requirement pneumonia clinically resolved at this point. LLL infiltrate on cxr x 2, and focal LLL rales on exam - which have since resolved. some of her anorexia may be from her pneumonia. since she was just hospitalized within the last few weeks at a hospital in [place] and was in SNF rehab I broadened her rocephin to cefepime for better gram negative coverage. cont doxy for atypical coverage. blood cx's negative. completed a course of antibiotics (4) Left humeral fracture: Plan: Sustained sometime in Nov 2021 after a fall at her home. Was hospitalized in [place] at [facility]. Seen by orthopedics there - nonoperative Rx advised at that time. Continue NWB status to LUE. Continue sling. Appreciate [facility] Ortho consult - they also recommend ongoing nonoperative Rx. Cont pain meds prn. 25-OH vit D level wnl. 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 Big risk factor for chronic UTI. Admission U/a was suggestive of possible UTI - abx for pneumonia will suffice. But culture was negative. Continue topical estrogen cream. (7) Hypothyroidism: Plan: TSH wnl. Cont synthroid. (8) Rheumatoid arthritis: Plan: Dx in her late 20s. Follows with Dr Sincere Murphy, [facility] Rheum - [facility]. Cont plaquenil. Is on chronic prednisone 5-10mg/day. Cont stress dose steroids - see #1 above. The plaquenil can be continued through surgery and post-op as well - no need to hold. (9) Osteoporosis: Plan: 25-OH vit D level wnl. (10) Hypertension: Plan: Cont metoprolol 75mg BID (11) Hyperlipidemia: Plan: Does not appear she takes meds for this. (12) Depression: Plan: Cont celexa. Cont buspar but increased to 5mg BID due to ongoing anxiety. May even need TID dosing. (13) Anemia: Plan: B12, folate wnl. Fe studies - likely element of Fe def along with anemia of chronic disease. s/p venofer 200mg IV x 1 earlier this admission. Consider another dose while here. H/H remain acceptable. Repeat CBC am. (14) PEDRO (acute kidney injury): Plan: Granular casts noted on admission u/a consistent with ATN from low BP/dehydration. resolved IV fluids discontinued (15) Hyponatremia: Plan: close to her baseline, 132 today she may have an element of SIADH (16) Atrial fibrillation: Plan: continue eliquis Her rates are controlled with metoprolol 75mg BID. Cont telemetry. (17) Elevated troponin: Plan: Likely myocardial demand ischemia in setting of #1, #2, infection, etc. No evidence of ACS. Never had ischemic symptoms. Peak HS trop was 32, quickly falling after that. (18) DVT prophylaxis: Plan: continue eliquis (19) Prediabetes: Plan: a1c 5.8% no Rx needed at this time, however (20) Hypokalemia: Plan: replace (21) Hypomagnesemia: Plan: replaced resolved Plan plan is rehab when accepted Admission and Anticipated Discharge Date Admission Date: December 24, 2022 Subjective patient seen and examined, she is stable post surgery, participating in PT, waiting for rehab Review of Systems Review of Systems: All systems reviewed are negative, apart from the ones contained in the history. Physical Exam Physical Exam: The patient is awake, alert and oriented 3, well developed and well nourished, normocephalic and atraumatic, lying in bed and in no acute distress. HEENT--PERRL, EOMI, mucous membranes and oropharynx mildly dry Neck--supple. No JVD. No bruits. Thyroid normal, trachea midline, no adenopathy. Heart--normal S1 and S2. No murmurs, rubs or gallops. Lungs--clear bilaterally, no respiratory distress, no accessory muscle use. Abdomen--normal bowel sounds and soft. Mild epigastric and left sided abdominal pain Extremities--left arm in sling Dermatologic--normal skin turgor, normal color, no abnormal lymph nodes, no rash. Neurologic--cranial nerves II through XII grossly intact. Rheumatologic--normal range of motion. Psychiatric--normal affect. Results & Data Results & Data ([facility]) Vital Signs (Past 12 Hours) Vital Signs Temp Pulse Pulse Pulse Resp BP Pulse Ox 12/30/22 11:14 98.1 F 82 18 124/77 96 12/30/22 07:45 98.2 F 74 18 160/90 H 98 12/30/22 07:43 79 12/30/22 04:36 98.8 F 79 18 148/86 H 97 12/30/22 00:02 98.4 F 83 16 155/82 H 98 O2 Del Method 12/30/22 11:14 Room Air 12/30/22 07:45 Room Air 12/30/22 07:43 12/30/22 04:36 Room Air 12/30/22 00:02 Room Air PG Care Time/CCT Total # of Minutes Spent Total Time Spent with Patient: Total time spent is greater than 50% in coordination of care (as documented) at patient's floor/unit and/or counseling patient: Coding Level of Care Code 54500 SUB INP/OBS CARE 2/35MIN Diagnoses Adrenal crisis E27.2 Hypotension I95.9 LLL pneumonia J18.9 Left humeral fracture S42.302A Degenerative joint disease of right hip M16.11 Rectovaginal fistula N82.3 Hypothyroidism E03.9 Rheumatoid arthritis M06.9 Osteoporosis M81.0 Hypertension I10 Hyperlipidemia E78.5 Depression F32.A Anemia D64.9 PEDRO (acute kidney injury) N17.9 Hyponatremia E87.1 Atrial fibrillation I48.91 Elevated troponin R77.8 DVT prophylaxis Z29.9 Prediabetes R73.03 Hypokalemia E87.6 Hypomagnesemia E83.42 Time Spent (min) 35
[2022-12-30] MEDS: MELATONIN 3 MG TAB PO SCH (20:40)
[2022-12-30] MEDS: SENNA 8.6 MG TAB PO SCH (20:47)
[2022-12-31 05:09] LABS: Hematocrit (blood only) 25.8 % (37.0-47.0); Hemoglobin 8.2 g/dl (12.0-16.0); Mean Corpuscular Hemoglobin 26.4 pg (25.0-34.0); Mean Corpuscular Hgb Conc 31.8 g/dL (32.0-36.0); Mean Platelet Volume 10.3 fL (9.4-12.4); Platelet Count 277 K/uL (130-400); RDW Coefficient of Variation 18.5 % (11.5-14.5); Red Blood Count 3.11 M/uL (4.20-5.40); White Blood Count 8.65 K/ul (4.8-10.8)
[2022-12-31] MEDS: LEVOTHYROXINE SODIUM 88 MCG TABLET PO SCH (05:47)
[2022-12-31] MEDS: ACETAMINOPHEN 500 MG TAB PO SCH ×3 (05:47→21:02)
[2022-12-31] MEDS: DOCUSATE SODIUM 100 MG CAP PO SCH ×2 (09:16→21:04)
[2022-12-31] MEDS: POLYETHYLENE (MIRALAX) 17 GM PACK PO SCH (09:16)
[2022-12-31] MEDS: METOPROLOL TARTRATE 25 MG TAB PO SCH ×2 (09:16→21:00)
[2022-12-31] MEDS: HYDROCORTISONE 10 MG TAB PO SCH ×2 (09:17→21:00)
[2022-12-31] MEDS: SODIUM CHLORIDE 1 GM TABLET PO SCH (09:17)
[2022-12-31] MEDS: ASCORBIC ACID 500 MG TAB PO SCH ×2 (09:17→17:21)
[2022-12-31] MEDS: busPIRone 5 MG TAB PO SCH ×2 (09:18→22:09)
[2022-12-31] MEDS: PANTOprazole 40 MG TAB PO SCH (09:18)
[2022-12-31] MEDS: HYDROXYCHLOROQUINE SULFATE 200 MG TAB PO SCH (09:18)
[2022-12-31] MEDS: MULTIVITAMIN TAB PO SCH (09:18)
[2022-12-31] MEDS: APIXABAN 2.5 MG TAB PO SCH ×2 (09:18→20:59)
[2022-12-31] MEDS: CITALOPRAM 20 MG TAB PO SCH (09:18)
[2022-12-31] MEDS ORDERED: MELATONIN 3 MG TAB PO PRN (10:06)
--- NOTE | 2022-12-31 10:46 | Hospitalist Progress Note ---
Date of Service December 31, 2022 Assessment & Plan (1) Adrenal crisis: Plan: resolved. Prior to surgery, Received stress dose IV hydrocortisone has jules weaned to hydrocortisone 20mg PO BID. Wean to 5mg BID, goal is her home dose of 5mg daily (2) Hypotension: Plan: 2nd to #1 - resolved. (3) LLL pneumonia: Plan: probable/suspected, although no pulmonary symptoms during this hospital stay with stable O2 sats; never had O2 requirement pneumonia clinically resolved at this point. LLL infiltrate on cxr x 2, and focal LLL rales on exam - which have since resolved. some of her anorexia may be from her pneumonia. since she was just hospitalized within the last few weeks at a hospital in [place] and was in SNF rehab I broadened her rocephin to cefepime for better gram negative coverage. cont doxy for atypical coverage. blood cx's negative. completed a course of antibiotics (4) Left humeral fracture: Plan: Sustained sometime in Nov 2021 after a fall at her home. Was hospitalized in [place] at [facility]. Seen by orthopedics there - nonoperative Rx advised at that time. Continue NWB status to LUE. Continue sling. Appreciate [facility] Ortho consult - they also recommend ongoing nonoperative Rx. Cont pain meds prn. 25-OH vit D level wnl. 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 Big risk factor for chronic UTI. Continue topical estrogen cream. (7) Hypothyroidism: Plan: TSH wnl. Cont synthroid. (8) Rheumatoid arthritis: Plan: Dx in her late 20s. Follows with Dr Sincere Murphy, [facility]. Cont plaquenil. Is on chronic prednisone 5-10mg/day. Cont stress dose steroids - see #1 above. The plaquenil can be continued through surgery and post-op as well - no need to hold. (9) Osteoporosis: Plan: 25-OH vit D level wnl. (10) Hypertension: Plan: Cont metoprolol 75mg BID (11) Hyperlipidemia: Plan: Does not appear she takes meds for this. (12) Depression: Plan: Cont celexa. Cont buspar but increased to 5mg BID due to ongoing anxiety. May even need TID dosing. (13) Anemia: Plan: B12, folate wnl. Fe studies - likely element of Fe def along with anemia of chronic disease. s/p venofer 200mg IV x 1 earlier this admission. Consider another dose while here. H/H remain acceptable. Repeat CBC am. (14) PEDRO (acute kidney injury): Plan: Granular casts noted on admission u/a consistent with ATN from low BP/de hydration. resolved IV fluids discontinued (15) Hyponatremia: Plan: close to her baseline, 132 today she may have an element of SIADH (16) Atrial fibrillation: Plan: continue eliquis Her rates are controlled with metoprolol 75mg BID. Cont telemetry. (17) Elevated troponin: Plan: Likely myocardial demand ischemia in setting of #1, #2, infection, etc. No evidence of ACS. Never had ischemic symptoms. Peak HS trop was 32, quickly falling after that. (18) DVT prophylaxis: Plan: continue eliquis (19) Prediabetes: Plan: a1c 5.8% no Rx needed at this time, however (20) Hypokalemia: Plan: replace (21) Hypomagnesemia: Plan: replaced resolved Plan plan is rehab when accepted Admission and Anticipated Discharge Date Admission Date: December 24, 2022 Subjective patient seen and examined, she is stable post surgery, participating in PT, waiting for rehab, but did not sleep well last night Review of Systems Review of Systems: All systems reviewed are negative, apart from the ones contained in the history. Physical Exam Physical Exam: The patient is awake, alert and oriented 3, well developed and well nourished, normocephalic and atraumatic, lying in bed and in no acute distress. HEENT--PERRL, EOMI, mucous membranes and oropharynx mildly dry Neck--supple. No JVD. No bruits. Thyroid normal, trachea midline, no adenopathy. Heart--normal S1 and S2. No murmurs, rubs or gallops. Lungs--clear bilaterally, no respiratory distress, no accessory muscle use. Abdomen--normal bowel sounds and soft. Mild epigastric and left sided abdominal pain Extremities--left arm in sling Dermatologic--normal skin turgor, normal color, no abnormal lymph nodes, no rash. Neurologic--cranial nerves II through XII grossly intact. Rheumatologic--normal range of motion. Psychiatric--normal affect. Results & Data Results & Data ([facility]) Vital Signs (Past 12 Hours) Vital Signs Temp Pulse Pulse Pulse Resp BP Pulse Ox 12/31/22 08:21 83 12/31/22 06:45 98.2 F 85 18 167/87 H 99 12/31/22 02:27 97.3 F L 74 17 143/81 H 96 12/30/22 22:51 98.1 F 88 16 140/92 98 O2 Del Method 12/31/22 08:21 12/31/22 06:45 Room Air 12/31/22 02:27 Room Air 12/30/22 22:51 Room Air PG Care Time/CCT Total # of Minutes Spent Total Time Spent with Patient: Total time spent is greater than 50% in coordination of care (as documented) at patient's floor/unit and/or counseling patient: Coding Level of Care Code 07409 SUB INP/OBS CARE 2/35MIN Diagnoses Adrenal crisis E27.2 Hypotension I95.9 LLL pneumonia J18.9 Left humeral fracture S42.302A Degenerative joint disease of right hip M16.11 Rectovaginal fistula N82.3 Hypothyroidism E03.9 Rheumatoid arthritis M06.9 Osteoporosis M81.0 Hypertension I10 Hyperlipidemia E78.5 Depression F32.A Anemia D64.9 PEDRO (acute kidney injury) N17.9 Hyponatremia E87.1 Atrial fibrillation I48.91 Elevated troponin R77.8 DVT prophylaxis Z29.9 Prediabetes R73.03 Hypokalemia E87.6 Hypomagnesemia E83.42 Time Spent (min) 35
[2022-12-31] MEDS: MELATONIN 3 MG TAB PO SCH (21:01)
[2022-12-31] MEDS: SENNA 8.6 MG TAB PO SCH (21:04)
[2023-01-01 05:02] LABS: Hematocrit (blood only) 25.5 % (37.0-47.0); Mean Corpuscular Hemoglobin 26.2 pg (25.0-34.0); Mean Corpuscular Hgb Conc 31.4 g/dL (32.0-36.0); Mean Corpuscular Volume 83.6 fL (80.0-100.0); Mean Platelet Volume 9.8 fL (9.4-12.4); Platelet Count 264 K/uL (130-400); RDW Coefficient of Variation 18.3 % (11.5-14.5); RDW Standard Deviation 54.1 fL (36.4-46.3); Red Blood Count 3.05 M/uL (4.20-5.40); White Blood Count 6.55 K/ul (4.8-10.8)
[2023-01-01 05:13] LABS: BUN Creatinine Ratio 37.7 (10-20); Calcium 8.5 mg/dl (8.5-10.1); Creatinine Clr Calc Pharmacy 38.9 ml/min; Est GFR (African American) 82.2 ml/min; Est GFR (Non-African American) 70.9 ml/min; Potassium 3.2 mmol/L (3.5-5.1)
[2023-01-01] MEDS: LEVOTHYROXINE SODIUM 88 MCG TABLET PO SCH (05:43)
[2023-01-01] MEDS: ACETAMINOPHEN 500 MG TAB PO SCH ×3 (05:43→21:24)
[2023-01-01] MEDS ORDERED: POTASSIUM CHLORIDE CRTAB 20 MEQ TABCR PO STA (08:23)
[2023-01-01] MEDS: ASCORBIC ACID 500 MG TAB PO SCH ×2 (08:59→17:17)
[2023-01-01] MEDS: APIXABAN 2.5 MG TAB PO SCH ×2 (09:00→20:39)
[2023-01-01] MEDS: CITALOPRAM 20 MG TAB PO SCH (09:00)
[2023-01-01] MEDS: busPIRone 5 MG TAB PO SCH ×2 (09:00→20:37)
[2023-01-01] MEDS: METOPROLOL TARTRATE 25 MG TAB PO SCH ×2 (09:00→20:40)
[2023-01-01] MEDS: HYDROXYCHLOROQUINE SULFATE 200 MG TAB PO SCH (09:01)
[2023-01-01] MEDS: MULTIVITAMIN TAB PO SCH (09:01)
[2023-01-01] MEDS: DOCUSATE SODIUM 100 MG CAP PO SCH ×2 (09:01→21:04)
[2023-01-01] MEDS: SODIUM CHLORIDE 1 GM TABLET PO SCH (09:01)
[2023-01-01] MEDS: PANTOprazole 40 MG TAB PO SCH (09:01)
[2023-01-01] MEDS: POLYETHYLENE (MIRALAX) 17 GM PACK PO SCH (09:01)
[2023-01-01] MEDS: HYDROCORTISONE 10 MG TAB PO SCH (09:01)
--- NOTE | 2023-01-01 09:29 | Progress Notes ---
SUBJECTIVE: An 82-year-old female postoperative day #5 from a right cemented total hip arthroplasty for severe AVN and rheumatoid disease. She also has a proximal humerus fracture, which is 3-4 weeks old. She is doing well. Just waiting for placement. No new complaints. Pain is controlled. OBJECTIVE: VITAL SIGNS: Temperature 36.7. Vital signs are stable. GENERAL: Shows a frail, elderly female. The patient is lying in bed, looks pretty comfortable this morning. EXTREMITIES: Examination of the right hip reveals incision to be clean, dry and intact. Leg lengths were equal. She is neurologically intact. Examination of the left arm reveals no obvious deformity. Her sling is in place. No particular pain . She is neurologically intact. ASSESSMENT: An 82-year-old female postoperative day #5 from a right hybrid total hip arthroplasty fo r severe AVN. She also has a proximal humerus fracture, which is 3-4 weeks out, and doing well. PLAN: At this point, she can progress activity as tolerated. She can weight bear as tolerated. She needs to obey hip precautions. I need to see her back in about 2 weeks out from surgery date. Need s to wear the sling on the left arm. She is acceptable for discharge any time medically stable and b ed available. I need to see her 2-3 weeks out from surgery date. Any orthopedic questions can be di rected to me at [phone]. Job ID: [id number]
[2023-01-01] MEDS ORDERED: amLODIPine BESYLATE 5 MG TAB PO ONE (11:55)
--- NOTE | 2023-01-01 12:02 | Hospitalist Progress Note ---
Date of Service January 01, 2023 Assessment & Plan (1) Adrenal crisis: Plan: resolved. Prior to surgery, Received stress dose IV hydrocortisone has jules weaned to hydrocortisone 20mg PO BID. Weaned down to her home dose of 5mg daily (2) Hypotension: Plan: 2nd to #1 - resolved. (3) LLL pneumonia: Plan: Patient completed a course of antibiotics (4) Left humeral fracture: Plan: Sustained sometime in Nov 2021 after a fall at her home. Was hospitalized in [place] at [facility]. Seen by orthopedics there - nonoperative Rx advised at that time. Continue NWB status to LUE. Continue sling. Appreciate [facility] Ortho consult - they also recommend ongoing nonoperative Rx. Cont pain meds prn. 25-OH vit D level wnl. 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 Big risk factor for chronic UTI. Continue topical estrogen cream. (7) Hypothyroidism: Plan: TSH wnl. Cont synthroid. (8) Rheumatoid arthritis: Plan: Dx in her late 20s. Follows with Dr Sincere Murphy, [facility] - [facility]. Cont plaquenil. Is on chronic prednisone 5-10mg/day. Cont stress dose steroids - see #1 above. The plaquenil can be continued through surgery and post-op as well - no need to hold. (9) Osteoporosis: Plan: 25-OH vit D level wnl. (10) Hypertension: Plan: Cont metoprolol 75mg BID Resume Amlodipine (11) Hyperlipidemia: Plan: Does not appear she takes meds for this. (12) Depression: Plan: Cont celexa. Cont buspar but increased to 5mg BID due to ongoing anxiety. May even need TID dosing. (13) Anemia: Plan: B12, folate wnl. Fe studies - likely element of Fe def along with anemia of chronic disease. s/p venofer 200mg IV x 1 earlier this admission. Consider another dose while here. H/H remain acceptable. Repeat CBC am. (14) PEDRO (acute kidney injury): Plan: Granular casts noted on admission u/a consistent with ATN from low BP/dehydration. resolved (15) Hyponatremia: Plan: close to her baseline, 132 today she may have an element of SIADH (16) Atrial fibrillation: Plan: continue eliquis Her rates are controlled with metoprolol 75mg BID. Cont telemetry. (17) Elevated troponin: Plan: Likely myocardial demand ischemia in setting of #1, #2, infection, etc. No evidence of ACS. Never had ischemic symptoms. Peak HS trop was 32, quickly falling after that. (18) DVT prophylaxis: Plan: continue eliquis (19) Prediabetes: Plan: a1c 5.8% no Rx needed at this time, however (20) Hypokalemia: Plan: replace (21) Hypomagnesemia: Plan: replaced resolved Plan plan is rehab when accepted, hopefully tomorrow Admission and Anticipated Discharge Date Admission Date: December 24, 2022 Subjective patient seen and examined, she is stable post surgery, participating in PT, waiting for rehab, a couple of episodes of loose bowel movement Review of Systems Review of Systems: All systems reviewed are negative, apart from the ones contained in the history. Physical Exam Physical Exam: The patient is awake, alert and oriented 3, well developed and well nourished, normocephalic and atraumatic, lying in bed and in no acute distress. HEENT--PERRL, EOMI, mucous membranes and oropharynx mildly dry Neck--supple. No JVD. No bruits. Thyroid normal, trachea midline, no adenopathy. Heart--normal S1 and S2. No murmurs, rubs or gallops. Lungs--clear bilaterally, no respiratory distress, no accessory muscle use. Abdomen--normal bowel sounds and soft. Mild epigastric and left sided abdominal pain Extremities--left arm in sling Dermatologic--normal skin turgor, normal color, no abnormal lymph nodes, no rash. Neurologic--cranial nerves II through XII grossly intact. Rheumatologic--normal range of motion. Psychiatric--normal affect. Results & Data Results & Data ([facility]) Vital Signs (Past 12 Hours) Vital Signs Temp Pulse Pulse Resp BP Pulse Ox O2 Del Method 01/01/23 06:37 98.1 F 85 19 170/93 H 95 Room Air 01/01/23 03:21 97.5 F L 76 18 159/93 H 98 Room Air PG Care Time/CCT Total # of Minutes Spent Total Time Spent with Patient: Total time spent is greater than 50% in coordination of care (as documented) at patient's floor/unit and/or counseling patient: Coding Level of Care Code 98928 SUB INP/OBS CARE 2/35MIN Diagnoses Adrenal crisis E27.2 Hypotension I95.9 LLL pneumonia J18.9 Left humeral fracture S42.302A Degenerative joint disease of right hip M16.11 Rectovaginal fistula N82.3 Hypothyroidism E03.9 Rheumatoid arthritis M06.9 Osteoporosis M81.0 Hypertension I10 Hyperlipidemia E78.5 Depression F32.A Anemia D64.9 PEDRO (acute kidney injury) N17.9 Hyponatremia E87.1 Atrial fibrillation I48.91 Elevated troponin R77.8 DVT prophylaxis Z29.9 Prediabetes R73.03 Hypokalemia E87.6 Hypomagnesemia E83.42 Time Spent (min) 35
[2023-01-01] MEDS: MELATONIN 3 MG TAB PO SCH (20:41)
[2023-01-01] MEDS: ESTRACE VAG CREAM 0.01% 42.5 GM PV SCH (20:46)
[2023-01-01] MEDS: SENNA 8.6 MG TAB PO SCH (21:04)
[2023-01-02 04:56] LABS: Hematocrit (blood only) 27.1 % (37.0-47.0); Hemoglobin 8.5 g/dl (12.0-16.0); Mean Corpuscular Hemoglobin 26.2 pg (25.0-34.0); Mean Corpuscular Hgb Conc 31.4 g/dL (32.0-36.0); Mean Corpuscular Volume 83.6 fL (80.0-100.0); Mean Platelet Volume 9.7 fL (9.4-12.4); Platelet Count 255 K/uL (130-400); RDW Coefficient of Variation 18.6 % (11.5-14.5); RDW Standard Deviation 55.9 fL (36.4-46.3); Red Blood Count 3.24 M/uL (4.20-5.40); White Blood Count 6.84 K/ul (4.8-10.8)
[2023-01-02 05:15] LABS: BUN Creatinine Ratio 44.8 (10-20); Calcium 8.9 mg/dl (8.5-10.1); Creatinine Clr Calc Pharmacy 53.5 ml/min; Est GFR (African American) 98.1 ml/min; Est GFR (Non-African American) 84.6 ml/min; Potassium 3.3 mmol/L (3.5-5.1)
[2023-01-02] MEDS: ACETAMINOPHEN 500 MG TAB PO SCH ×3 (06:14→20:12)
[2023-01-02] MEDS: LEVOTHYROXINE SODIUM 88 MCG TABLET PO SCH (06:14)
[2023-01-02] MEDS ORDERED: POTASSIUM CHLORIDE CRTAB 20 MEQ TABCR PO STA (08:26)
[2023-01-02] MEDS: METOPROLOL TARTRATE 25 MG TAB PO SCH ×2 (08:35→20:10)
[2023-01-02] MEDS: MULTIVITAMIN TAB PO SCH (08:35)
[2023-01-02] MEDS: PANTOprazole 40 MG TAB PO SCH (08:35)
[2023-01-02] MEDS: HYDROCORTISONE 10 MG TAB PO SCH (08:35)
[2023-01-02] MEDS: APIXABAN 2.5 MG TAB PO SCH ×2 (08:35→20:11)
[2023-01-02] MEDS: ASCORBIC ACID 500 MG TAB PO SCH ×2 (08:36→16:51)
[2023-01-02] MEDS: CITALOPRAM 20 MG TAB PO SCH (08:36)
[2023-01-02] MEDS: amLODIPine BESYLATE 5 MG TAB PO SCH (08:36)
[2023-01-02] MEDS: SODIUM CHLORIDE 1 GM TABLET PO SCH (08:36)
[2023-01-02] MEDS: busPIRone 5 MG TAB PO SCH ×2 (08:36→20:11)
[2023-01-02] MEDS: HYDROXYCHLOROQUINE SULFATE 200 MG TAB PO SCH (08:36)
[2023-01-02] MEDS: DOCUSATE SODIUM 100 MG CAP PO SCH ×2 (09:57→20:12)
[2023-01-02] MEDS: POLYETHYLENE (MIRALAX) 17 GM PACK PO SCH (09:57)
--- NOTE | 2023-01-02 11:54 | Hospitalist Progress Note ---
Date of Service January 02, 2023 Assessment & Plan (1) Adrenal crisis: Plan: resolved. Prior to surgery, Received stress dose IV hydrocortisone has jules weaned to hydrocortisone 20mg PO BID. Weaned down to her home dose of 5mg daily (2) Hypotension: Plan: 2nd to #1 - resolved. (3) LLL pneumonia: Plan: Patient completed a course of antibiotics (4) Left humeral fracture: Plan: Sustained sometime in Nov 2021 after a fall at her home. Was hospitalized in [place] at [facility]. Seen by orthopedics there - nonoperative Rx advised at that time. Continue NWB status to LUE. Continue sling. Appreciate [facility] Ortho consult - they also recommend ongoing nonoperative Rx. Cont pain meds prn. 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 Big risk factor for chronic UTI. Continue topical estrogen cream. (7) Hypothyroidism: Plan: TSH wnl. Cont synthroid. (8) Rheumatoid arthritis: Plan: Dx in her late 20s. Follows with Dr Sincere Murphy, [facility] Rheum [facility]. Cont plaquenil. Is on chronic prednisone 5-10mg/day. (9) Osteoporosis: Plan: 25-OH vit D level wnl. (10) Hypertension: Plan: Cont metoprolol 75mg BID Resume Amlodipine (11) Hyperlipidemia: Plan: Does not appear she takes meds for this. (12) Depression: Plan: Cont celexa. Cont buspar but increased to 5mg BID due to ongoing anxiety. May even need TID dosing. (13) Anemia: Plan: B12, folate wnl. Fe studies - likely element of Fe def along with anemia of chronic disease. s/p venofer 200mg IV x 1 earlier this admission. Consider another dose while here. H/H remain acceptable. (14) PEDRO (acute kidney injury): Plan: Granular casts noted on admission u/a consistent with ATN from low BP/dehydration. resolved (15) Hyponatremia: Plan: close to her baseline, she may have an element of SIADH (16) Atrial fibrillation: Plan: continue eliquis Her rates are controlled with metoprolol 75mg BID. Cont telemetry. (17) Elevated troponin: Plan: Likely myocardial demand ischemia in setting of #1, #2, infection, etc. No evidence of ACS. Never had ischemic symptoms. Peak HS trop was 32, quickly falling after that. (18) DVT prophylaxis: Plan: continue eliquis (19) Prediabetes: Plan: a1c 5.8% no Rx needed at this time, however (20) Hypokalemia: Plan: replace (21) Hypomagnesemia: Plan: replaced resolved Plan plan is rehab when accepted, hopefully tomorrow Admission and Anticipated Discharge Date Admission Date: December 24, 2022 Subjective patient seen and examined, she is stable post surgery, participating in PT, waiting for rehab, no new complaints today Review of Systems Review of Systems: All systems reviewed are negative, apart from the ones contained in the history. Physical Exam Physical Exam: The patient is awake, alert and oriented 3, well developed and well nourished, normocephalic and atraumatic, lying in bed and in no acute distress. HEENT--PERRL, EOMI, mucous membranes and oropharynx mildly dry Neck--supple. No JVD. No bruits. Thyroid normal, trachea midline, no adenopathy. Heart--normal S1 and S2. No murmurs, rubs or gallops. Lungs--clear bilaterally, no respiratory distress, no accessory muscle use. Abdomen--normal bowel sounds and soft. Mild epigastric and left sided abdominal pain Extremities--left arm in sling Dermatologic--normal skin turgor, normal color, no abnormal lymph nodes, no ra sh. Neurologic--cranial nerves II through XII grossly intact. Rheumatologic--normal range of motion. Psychiatric--normal affect. Results & Data Results & Data ([facility]) Vital Signs (Past 12 Hours) Vital Signs Temp Pulse Resp BP Pulse Ox O2 Del Method 01/02/23 07:24 97.3 F L 73 16 157/80 H 96 Room Air 01/02/23 04:00 97.5 F L 77 18 147/84 H 94 Room Air PG Care Time/CCT Total # of Minutes Spent Total Time Spent with Patient: Total time spent is greater than 50% in coordination of care (as documented) at patient's floor/unit and/or counseling patient: Coding Level of Care Code 52043 SUB INP/OBS CARE 2/35MIN Diagnoses Adrenal crisis E27.2 Hypotension I95.9 LLL pneumonia J18.9 Left humeral fracture S42.302A Degenerative joint disease of right hip M16.11 Rectovaginal fistula N82.3 Hypothyroidism E03.9 Rheumatoid arthritis M06.9 Osteoporosis M81.0 Hypertension I10 Hyperlipidemia E78.5 Depression F32.A Anemia D64.9 PEDRO (acute kidney injury) N17.9 Hyponatremia E87.1 Atrial fibrillation I48.91 Elevated troponin R77.8 DVT prophylaxis Z29.9 Prediabetes R73.03 Hypokalemia E87.6 Hypomagnesemia E83.42 Time Spent (min) 35
[2023-01-02] MEDS: MELATONIN 3 MG TAB PO SCH (20:10)
[2023-01-02] MEDS: SENNA 8.6 MG TAB PO SCH (20:12)
[2023-01-03] MEDS: LEVOTHYROXINE SODIUM 88 MCG TABLET PO SCH (05:08)
[2023-01-03] MEDS: ACETAMINOPHEN 500 MG TAB PO SCH (05:08)
[2023-01-03 05:57] LABS: BUN Creatinine Ratio 34.4 (10-20); Calcium 8.5 mg/dl (8.5-10.1); Creatinine Clr Calc Pharmacy 48.8 ml/min; Est GFR (Non-African American) 81.9 ml/min; Potassium 3.6 mmol/L (3.5-5.1)
[2023-01-03] MEDS: PANTOprazole 40 MG TAB PO SCH (08:58)
[2023-01-03] MEDS: SODIUM CHLORIDE 1 GM TABLET PO SCH (08:58)
[2023-01-03] MEDS: HYDROXYCHLOROQUINE SULFATE 200 MG TAB PO SCH (08:58)
[2023-01-03] MEDS: MULTIVITAMIN TAB PO SCH (08:58)
[2023-01-03] MEDS: APIXABAN 2.5 MG TAB PO SCH (08:59)
[2023-01-03] MEDS: busPIRone 5 MG TAB PO SCH (08:59)
[2023-01-03] MEDS: ASCORBIC ACID 500 MG TAB PO SCH (08:59)
[2023-01-03] MEDS: amLODIPine BESYLATE 5 MG TAB PO SCH (08:59)
[2023-01-03] MEDS: HYDROCORTISONE 10 MG TAB PO SCH (08:59)
[2023-01-03] MEDS: METOPROLOL TARTRATE 25 MG TAB PO SCH (08:59)
[2023-01-03] MEDS: CITALOPRAM 20 MG TAB PO SCH (09:00)
[2023-01-03] MEDS: DOCUSATE SODIUM 100 MG CAP PO SCH (09:00)
[2023-01-03] MEDS: POLYETHYLENE (MIRALAX) 17 GM PACK PO SCH (09:23)
--- NOTE | 2023-01-03 11:57 | Hospitalist Progress Note ---
Date of Service January 03, 2023 Assessment & Plan (1) Adrenal crisis: Plan: Now resolved. Prior to surgery, Received stress dose IV hydrocortisone has jules weaned to hydrocortisone 20mg PO BID. Has been Weaned down to her home dose of 5mg daily (2) Hypotension: Plan: 2nd to #1 - resolved. (3) LLL pneumonia: Plan: Patient completed a course of antibiotics (4) Left humeral fracture: Plan: Sustained sometime in Nov 2021 after a fall at her home. Was hospitalized in [place] at [facility] [address]. Seen by orthopedics there - nonoperative Rx advised at that time. Continue NWB status to LUE. Continue sling. Appreciate [facility] Ortho consult - they also recommend ongoing nonoperative Rx. Cont pain meds prn. 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 Big risk factor for chronic UTI. Continue topical estrogen cream. (7) Hypothyroidism: Plan: TSH wnl. Cont synthroid. (8) Rheumatoid arthritis: Plan: Dx in her late 20s. Follows with Dr Sincere Murphy, [facility]. Cont plaquenil. Is on chronic prednisone 5-10mg/day. (9) Osteoporosis: Plan: 25-OH vit D level wnl. (10) Hypertension: Plan: Cont metoprolol 75mg BID Resume Amlodipine (11) Hyperlipidemia: Plan: Does not appear she takes meds for this. (12) Depression: Plan: Cont celexa. Cont buspar but increased to 5mg BID due to ongoing anxiety. May even need TID dosing. (13) Anemia: Plan: B12, folate wnl. Fe studies - likely element of Fe def along with anemia of chronic disease. s/p venofer 200mg IV x 1 earlier this admission. Consider another dose while here. H/H remain acceptable. (14) PEDRO (acute kidney injury): Plan: Granular casts noted on admission u/a consistent with ATN from low BP/dehydration. resolved (15) Hyponatremia: Plan: close to her baseline, she may have an element of SIADH (16) Atrial fibrillation: Plan: continue eliquis Her rates are controlled with metoprolol 75mg BID. Cont telemetry. (17) Elevated troponin: Plan: Likely myocardial demand ischemia in setting of #1, #2, infection, etc. No evidence of ACS. Never had ischemic symptoms. Peak HS trop was 32, quickly falling after that. (18) DVT prophylaxis: Plan: continue eliquis (19) Prediabetes: Plan: a1c 5.8% no Rx needed at this time, however (20) Hypokalemia: Plan: Resolved (21) Hypomagnesemia: Plan: replaced resolved Plan plan is rehab when accepted, hopefully today Admission and Anticipated Discharge Date Admission Date: December 24, 2022 Subjective patient seen and examined, she is stable post surgery, participating in PT, waiting for rehab, no new complaints today, tolerating diet Review of Systems Review of Systems: All systems reviewed are negative, apart from the ones contained in the history. Physical Exam Physical Exam: The patient is awake, alert and oriented 3, well developed and well nourished, normocephalic and atraumatic, lying in bed and in no acute distress. HEENT--PERRL, EOMI, mucous membranes and oropharynx mildly dry Neck--supple. No JVD. No bruits. Thyroid normal, trachea midline, no adenopathy. Heart--normal S1 and S2. No murmurs, rubs or gallops. Lungs--clear bilaterally, no respiratory distress, no accessory muscle use. Abdomen--normal bowel sounds and soft. Mild epigastric and left sided abdominal pain Extremities--left arm in sling Dermatologic--normal skin turgor, normal color, no abnormal lymph nodes, no rash. Neurologic--cranial nerves II through XII grossly intact. Rheumatologic--normal range of motion. Psychiatric--normal affect. Results & Data Results & Data ([facility]) Vital Signs (Past 12 Hours) Vital Signs Temp Pulse Pulse Resp BP Pulse Ox O2 Del Method 01/03/23 11:36 98.2 F 75 18 115/70 96 Room Air 01/03/23 07:56 98.1 F 74 16 169/87 H 98 Room Air 01/03/23 06:09 72 01/03/23 03:08 97.7 F 78 20 146/79 H 95 Room Air PG Care Time/CCT Total # of Minutes Spent Total Time Spent with Patient: Total time spent is greater than 50% in coordination of care (as documented) at patient's floor/unit and/or counseling patient: Coding Level of Care Code 24615 SUB INP/OBS CARE 2/35MIN Diagnoses Adrenal crisis E27.2 Hypotension I95.9 LLL pneumonia J18.9 Left humeral fracture S42.302A Degenerative joint disease of right hip M16.11 Rectovaginal fistula N82.3 Hypothyroidism E03.9 Rheumatoid arthritis M06.9 Osteoporosis M81.0 Hypertension I10 Hyperlipidemia E78.5 Depression F32.A Anemia D64.9 PEDRO (acute kidney injury) N17.9 Hyponatremia E87.1 Atrial fibrillation I48.91 Elevated troponin R77.8 DVT prophylaxis Z29.9 Prediabetes R73.03 Hypokalemia E87.6 Hypomagnesemia E83.42 Time Spent (min) 35
--- NOTE | 2023-01-03 12:49 | Discharge Summary ---
Date of Service January 03, 2023 Admission HPI Per Admitting Provider Froilan 82yo female with history of long-standing rheumatoid arthritis, chronic steroid dependency for rheumatoid arthritis, recently diagnosed a.fib, rectovaginal fistula, HTN, and hypothyroidism presents from home after home health nursing checked on her today and found that her blood pressure was very low. The patient was just in [place] at a SNF rehab facility undergoing rehab after fracturing her left humerus. She asked for discharge about 2-3 days ago and arrived home in [place] shortly after. Since arriving home earlier this week she has been very weak and fatigued. Due to chronic right hip pain and ambulatory dysfunction she has been unable to get around her home. Appetite has been very poor and liquid intake has also been poor. Although she has been on prednisone therapy for her RA for at least a year or longer she is uncertain if she had been receiving it during her time in [place]. Upon arrival in the ER this evening her SBP was in the 70s. Following a fluid bolus her SBP improved to >100. Patient reports that in November she fell at home and fractured her left humerus. EMS was called and they found her vitals to be wnl. Her daughter who resides in [place] had actually just arrived in [place] about the same time as this accident. After much discussion it was decided that her daughter would drive her to [place] and seek medical attention there. Mrs Barajas was brought to a community hospital in the [place] area, and from there was transferred to [facility] for care of her left humerus fracture. She was evaluated at [facility] by orthopedics and a nonoperative approach was taken for the proximal humerus fracture. In addition, while hospitalized she underwent IR arthrocentesis of the right hip joint as the right hip is severely deformed. No fluid was obtained during the tap. Rehab was advised following her hospitalization and she was transferred to a SNF rehab center in the [place] area. While at rehab the patient became severely depressed. By her own report it sounds as if she was not ready to be discharged but asked for an early release. Again she was discharged from rehab back to her home in [place] about 2 days ago. Since coming home she has had her daughter & with her. In addition to the above, while at [facility], she was diagnosed with a.fib. Her daughter was able to give me her echocardiogram report -- EF 55-60%, no WMA, LA/RA dilatation, mild , mild MR, mild TR, normal PA pressures. Principal Diagnosis left humeral fracture, hip osteoarthritis s/p replacement Discharge Exam The patient is awake, alert and oriented 3, well developed and well nourished, normocephalic and atraumatic, lying in bed and in no acute distress. HEENT--PERRL, EOMI, mucous membranes and oropharynx mildly dry Neck--supple. No JVD. No bruits. Thyroid normal, trachea midline, no adenopathy . Heart--normal S1 and S2. No murmurs, rubs or gallops. Lungs--clear bilaterally, no respiratory distress, no accessory muscle use. Abdomen--normal bowel sounds and soft. Mild epigastric and left sided abdominal pain Extremities--left arm in sling Dermatologic--normal skin turgor, normal color, no abnormal lymph nodes, no rash. Neurologic--cranial nerves II through XII grossly intact. Rheumatologic--normal range of motion. Psychiatric--normal affect. Discharge Data Allergies Allergy/AdvReac Type Severity Reaction Status Date / Time simvastatin [From Zocor] Allergy Verified 12/27/22 12:06 azithromycin AdvReac Mild pain in Verified 12/27/22 12:06 arms & legs prochlorperazine AdvReac Unknown MENTAL Verified 12/27/22 12:06 CHANGES Consultations 12/22/22 17:12 ED Decision to Admit Stat 12/22/22 19:40 Consult Orthopedic Surgery Routine Procedures Performed Operation Date: 12/27/22 12:30 Actual Procedures p Right Total Hip Arthroplasty Cemented(Right) - Talha Barajas MD Ordered Studies 12/22/22 14:17 CT head/brain wo con Stat Hospital Course (1) Adrenal crisis: Now resolved. Prior to surgery, Received stress dose IV hydrocortisone has jules weaned to hydrocortisone 20mg PO BID. Has been Weaned down to her home dose of 5mg daily (2) Hypotension: 2nd to #1 - resolved. (3) LLL pneumonia: Patient completed a course of antibiotics (4) Left humeral fracture: Sustained sometime in Nov 2021 after a fall at her home. Was hospitalized in [place] at [facility]. Seen by orthopedics there - nonoperative Rx advised at that time. Continue NWB status to LUE. Continue sling. Appreciate [facility] consult - they also recommend ongoing nonoperative Rx. Cont pain meds prn. 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 Big risk factor for chronic UTI. Continue topical estrogen cream. (7) Hypothyroidism: TSH wnl. Cont synthroid. (8) Rheumatoid arthritis: Dx in her late 20s. Follows with Dr Sincere Muprhy, [facility]. Cont plaquenil. Is on chronic prednisone 5-10mg/day. (9) Osteoporosis: 25-OH vit D level wnl. (10) Hypertension: Cont metoprolol 75mg BID Resume Amlodipine (11) Hyperlipidemia: Does not appear she takes meds for this. (12) Depression: Cont celexa. Cont buspar but increased to 5mg BID due to ongoing anxiety. May even need TID dosing. (13) Anemia: B12, folate wnl. Fe studies - likely element of Fe def along with anemia of chronic disease. s/p venofer 200mg IV x 1 earlier this admission. H/H remain acceptable. (14) PEDRO (acute kidney injury): Granular casts noted on admission u/a consistent with ATN from low BP/dehydration. resolved (15) Hyponatremia: close to her baseline, she may have an element of SIADH (16) Atrial fibrillation: continue eliquis Her rates are controlled with metoprolol 75mg BID. Cont telemetry. (17) Elevated troponin: Likely myocardial demand ischemia in setting of #1, #2, infection, etc. No evidence of ACS. Never had ischemic symptoms. Peak HS trop was 32, quickly falling after that. (18) DVT prophylaxis: continue eliquis (19) Prediabetes: a1c 5.8% no Rx needed at this time, however (20) Hypokalemia: Resolved (21) Hypomagnesemia: replaced resolved Plan plan is rehab when accepted, hopefully today Total Time Total Time Spent Total Time Spent (In Minutes): 35 Discharge Plan Discharge Items Patient Disposition: Transfer Correction Fac Reason For Visit: ADRENAL CRISIS, HYPOTENSION, PEDRO Discharge Diagnosis: Right Hip Replacement Activity: Per Instructions section Activity Comment: Follow/Obey hip precautions at all times. Weightbearing: Full weightbearing Weightbearing Comment: Weightbear as tolerated obeying hip precautions at all times. Non-emergency contact: Surgeon Call non-emergency contact if: you have any medication questions Follow-up/Referrals: Alin Branch [Primary Care Provider] - Talha Barajas MD [Physician] - (Orthopedic follow-up 2-3 weeks from surgery date.) Diet: Regular Addtl Attending Provider Instructions: ACTIVITY RECOMMENDATIONS: Physical Therapy: * Aggressive physical therapy is not usually needed. You will learn to take care of yourself safely and walk. * Follow the "Hip Precautions Instructions." * In some cases, the social group worker at the hospital will arrange to have a therapist come to your house for the first couple of weeks to help you learn these skills. * You need to practice on your own or with the help of a family member as needed. * When you learn these skills, most of the therapy can be done on your own. Home Exercise: * You were shown a series of exercises in the hospital. Do these exercises three to four times each day including the exercises you were shown in physical therapy. Walking: * Get up and walk several times each day. For the first four weeks, try not to stand or walk for more than one hour at a time. If you do stand or walk for more than one hour, you will not hurt anything, but your leg will likely swell. * As you feel comfortable, you may change from the walker or crutches to a cane and then to independent walking. MEDICATIONS: New Medicine: * You will likely be taking one or more of these medicines: 1. Tramadol - Take, as directed, when you need it, every six hours to control your pain. 2. Eliquis - Thins your blood to lessen the chance of forming a blood clot. * The most common side effects of pain medicine and iron are nausea and constipation. If nausea or constipation is too much of a problem or if you have any ques tions about your new medicines or doses, call [facility] at . We will try to help you manage these issues. "VERY IMPORTANT TO READ AND REVIEW" Pain: * The immediate post-operative period after hip replacement surgery is often quite painful. * You are given a prescription for pain medicine. You should take it, as directed, when you need it, especially before physical therapy and before going to bed. Pain that interferes with sleep is very common and can last several months. * You will likely need pain medicine for the first two to four weeks. It will not stop all of the pain. The pain will lessen and as you feel better, you may change to milder pain medicine such as Tylenol. * The most common side effects of pain medicine are nausea and constipation, so don't take more than you need. SPECIAL CARE INSTRUCTIONS: TEDs/Elastic Stockings: * The white elastic stockings help limit swelling and prevent blood clots from forming in your legs. The more you wear them, the more they work. * Wear them for six weeks. Incision Site Care: * Remove dressing postoperative day 2 and then shower. Keep direct shower pressure off the incision site. * After showering, cover tatiana with dry gauze and change daily or more frequently if the dressing is getting saturated with drainage. * May completely stop using bandage if wound is dry and no drainage * Tatiana are removed between 2 and 3 weeks post-op. If your follow-up appointment is made before 2 weeks, please have your appointment re- scheduled. It is too early to remove the tatiana. Prevention of Infection: * Take antibiotics one hour before any dental cleaning, dental work, urological procedure, gastrointestinal procedure or any invasive surgery in order to prevent your new joint from getting infected. * You may get the antibiotics from the doctor performing the procedure or you may call our office at before and we will call in a prescription to the pharmacy of your choice. Things to Watch For: * Drainage from the incision site that occurs more than one week after your surgery. * Severely increased leg pain or swelling. * Increased redness at the incision site. * Fever above 102 degrees Fahrenheit. * Unusual chest pain or shortness of breath. * Unusual pain or burning with urination. Call [facility] at with any of the above problems or if you have any questions about your medicines or recovery. FOLLOW UP VISIT: Make an appointment to see your doctor for approximately two weeks after surgery for a progress check and staple removal by calling the office at . Pending Studies at Discharge: No Stand-Alone Forms: My [facility] Skilled Items Patient informed of condition?: Yes DNR: Yes Discharge Level of Care: Skilled Communicable Disease: No Discharge Prognosis: Stable Lines: None Urinary Catheter: No Medications and DC Order Prescriptions: Continued estradiol 0.01 % (0.1 mg/gram) cream 1 g vaginal 2XWK Qty: 42.5 3RF Rx Instructions: Insert 1/4 applicatorful vaginally 2 time a week. amlodipine 5 mg tablet 5 mg PO DAILY atenolol 25 mg tablet 25 mg PO DAILY citalopram [Celexa] 20 mg tablet 20 mg PO DAILY furosemide [Lasix] 20 mg tablet 20 mg PO DAILY levothyroxine 88 mcg tablet 88 mcg PO DAILY multivitamin Tablet 1 tab PO DAILY prednisone 5 mg tablet 5 mg PO DAILY omeprazole 20 mg capsule,delayed release(DR/EC) 20 mg PO DAILY hydroxychloroquine 200 mg tablet 200 mg PO DAILY hydrocodone-acetaminophen 5-300 mg tablet 1 tab PO BID PRN (Reason: Pain) buspirone 5 mg tablet 5 mg PO DAILY metoprolol tartrate 25 mg Tablet 12.5 mg PO DAILY ferrous sulfate 27 mg iron Tablet 27 mg PO BID Eliquis 2.5 mg tablet 2.5 mg PO DAILY Discharge Orders: Discharge Order (Routine); Ordered 01/03/23 Ordered By: Olya Quevedo Admission Data Admit Date/Time: 12/24/22 07:04 Attending Provider: Olya Quevedo Admit Provider: Vineet Causey Primary Care Provider: Alin Branch Other Providers: Vasile Joy at [place] ; Jonathan Vargas ; Talha Barajas ; Vasile Pepper Other Interventions: Discharge Summary Assessment (RN) Last Done: 01/03/23 12:42 Coding Level of Care Code 03879 INP/OBS DISCH >30 MIN Diagnoses Adrenal crisis E27.2 Hypotension I95.9 LLL pneumonia J18.9 Left humeral fracture S42.302A Degenerative joint disease of right hip M16.11 Rectovaginal fistula N82.3 Hypothyroidism E03.9 Rheumatoid arthritis M06.9 Osteoporosis M81.0 Hypertension I10 Hyperlipidemia E78.5 Depression F32.A Anemia D64.9 PEDRO (acute kidney injury) N17.9 Hyponatremia E87.1 Atrial fibrillation I48.91 Elevated troponin R77.8 DVT prophylaxis Z29.9 Prediabetes R73.03 Hypokalemia E87.6 Hypomagnesemia E83.42 Time Spent (min) 35
== END 2023-01-03 14:20 | DRG 981 ==
LOC: EDINP 13:21 → ED 13:21 → 4W 21:37 → SUATTDRO 12-24 07:04

== ENCOUNTER 2023-03-02 20:38 | Inpatient (IN) ==
--- NOTE | 2023-03-02 21:13 | Emergency Department Note ---
Impression & Plan Compression fx, lumbar spine, Epidural hematoma ED Provider Note NAME: DEANN CLINE AGE: 82 SEX: F : 1940 ARRIVES VIA: Walk-In INFORMANT: Patient, patient's family members ED PROVIDER(S): En Richardson DO CHIEF COMPLAINT: Back pain HPI: The patient is an 82-year-old female who has a history of back pain. The patient states that she has had back pain intermittently for many years but she did have a fall in November. At that time she injured her upper extremity. She been having intermittent back pain but was feeling a reoccurrence and a worsening of her pain over the last week and a half. She was seen by the brush painter. She had an MRI ordered which was done today. The MRI appears to be consistent with multiple abnormalities including an epidural hematoma and compression fracture in the back. She was sent to the emergency department for further evaluation of these results. The patient himself denies having any saddle anesthesia. She denies having any weakness in arms or legs. She states the pain is across her lower back across the beltline. ROS: See above HPI for pertinent positives & negatives. A total of 10 systems reviewed and were otherwise negative. PAST MEDICAL HISTORY: See Below PAST SURGICAL HISTORY: See Below FAMILY HISTORY: See Below SOCIAL HISTORY: See Below HOME MEDICATIONS: See Below ALLERGIES: See Below VITALS: See Below PHYSICAL EXAMINATION: GENERAL: Patient is awake alert in no acute distress patient is resting comfortably and showing no signs of anxiety EYES: The conjunctivae are clear. The pupils are round and reactive. EARS, NOSE, MOUTH AND THROAT: The nose is without any evidence of any deformity. NECK: The neck is nontender and supple. RESPIRATORY: Normal respiratory effort is noted there is no evidence of wheezing rhonchi or rales CARDIOVASCULAR: Irregular heart sounds were noted to auscultation. There is no definite murmur. GASTROINTESTINAL: The abdomen is soft. Abdomen is nontender. BACK: Low midline tenderness was noted to palpation. Range of motion does appear limited secondary to pain. There was no definite step-off. MUSCULOSKELETAL/EXTREMITIES: There is no evidence of gross deformity full range of motion is noted in the hips and shoulders. SKIN: Skin was warm and dry. Trace pedal edema was noted bilaterally. NEUROLOGIC: Patient is awake alert and oriented x3. Great toe raise was symmetric. Achilles tendon reflexes were 1+ bilaterally. Left patellar tendon reflex appears to be diminished and may be a 1+. Right patellar tendon reflex is 2+. MEDICAL DECISION MAKING: The patient is an 82-year-old female who presented to the emergency department for an evaluation of back pain. The patient's had back pain for quite some time. She did have a fall in November. She had return of her back pain approximately 1 and half weeks ago. The patient had an MRI as an outpatient. She was called and told to go to the emergency department immediately for the findings on MRI. The patient does take blood thinners for history of paroxysmal atrial fibrillation. I discussed the patient's laboratory and radiographic studies with her. She did not know the results of her MRI. She was found to have an acute L2 compression fracture which appears to have some retropulsion as well as some compression on the spinal cord. She was also found to have an epidural hematoma at the L2 vertebral level. This is likely secondary to the use of the blood thinners as well as the recent trauma. I discussed her condition with the spinal surgeon. At this time he feels the patient could be managed in our facility. He asked that I discussed the case with the [facility] They will evaluate the patient in the emergency department. Triage Nursing notes reviewed. Prior medical records reviewed Vital Signs: reviewed and remarkable for elevated blood pressure. Differential diagnosis: Musculoskeletal, disc herniation, fracture, metastatic disease, cord compression, discitis, sciatica, cauda equina, infection, aortic disease, renal colic, gastrointestinal, as well as other pathologies. ER treatment provided: See below Diagnostics interpreted by me: ECG: EKG was obtained in the emergency department. My interpretation is atrial fibrillation at 105 bpm. PVCs were noted. Nonspecific ST segment abnormalities were noted. This was compared to a tracing from February 14, 2023. Sinus rhythm has been replaced with atrial fibrillation. Cardiac Monitoring: An order was placed for continuous cardiac monitoring. The monitor shows a rate of 103 bpm with atrial fibrillation. Laboratory studies: As stated above and show below. Imaging studies: See below. Consultation(s): I discussed this case with Dr. Choi who is on for the spinal surgery group. I discussed this case with Dr. Ennis who is on for the [facility] hospitalist group. Past Med/Surg History Medical History Adrenal crisis [facility] ER 12/22/22 > admission- per admission records, suspected that patient was off chronic steroid therapy for 1-2 weeks prior to admission/adrenal crisis* Received stress dose IV hydrocortisone prior to 12/27/22 right GOPI done at [facility] Anemia Taking oral iron supplementation Atrial fibrillation Reason for Eliquis Follows with Dr. Marlow Back pain Chronic steroid use for RA Degenerative joint disease of right hip Depression HLD (hyperlipidemia) HTN (hypertension) Hypothyroidism Left humeral fracture 11/2022 after fall, non-operative management recommended Osteoporosis Rectovaginal fistula Rheumatoid arthritis Scoliosis Surgical History History of anesthesia reaction "Gave me too much" with skin graft surgery approximately 7 years ago ([place]) > "had difficulty breathing"/no other or similar issues with other surgeries/anesthesia, recent surgery at [facility] 12/2022 without any issues per patient History of appendectomy History of benign breast biopsy History of section History of colonoscopy History of hysterectomy LINDA BSO History of joint surgery Right 3 fingers (+ hardware) History of skin graft to hand History of surgery on right wrist History of tooth extraction History of total left knee replacement (TKR) History of total right knee replacement (TKR) Hx of cataract extraction bilateral Status post right hip replacement Right GOPI (12/27/22): Grade view 1, MAC#3, ETT 6.5 at [facility] Family History Father Coronary heart disease Heart disease COPD (chronic obstructive pulmonary disease) Hypertension Mother Rheumatoid arthritis Uncle Coronary heart disease Other No family history of adverse response to anesthesia Denies family history of Pancreatic cancer Ovarian cancer Prostate cancer Breast cancer Colorectal cancer Uterine cancer Social History Smoking Status: Never smoker Second Hand Exposure: No; Do You Dip or Chew Tobacco: No; Hx Alcohol Use: No Hx Substance Use: No Preferred Language: Pashto Communication Ability: Effective Storage Brine Worker Required: No Beliefs That Will Affect Care: None marital status: Current Living Situation: Spouse Current Living Situation Comment: 1-story home in [place] current occupational status: 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 @ [employer] How many Children do You have: 1 Feels Safe at Home: Yes Assistive Devices: Glasses and Hearing Aid - Right Allergies Allergies Allergy/AdvReac Type Severity Reaction Status Date / Time prochlorperazine AdvReac Intermediate Mental Verified 02/10/23 10:12 changes azithromycin AdvReac Mild Arm/leg Verified 02/10/23 10:12 pain simvastatin [From Zocor] AdvReac Mild N/V Verified 02/10/23 10:12 Home Meds Home Medications Medication Instructions Recorded Confirmed amlodipine 5 mg tablet 5 mg PO QAM 09/28/20 02/10/23 citalopram 20 mg tablet (Celexa) 20 mg PO QAM 09/28/20 02/10/23 levothyroxine 88 mcg tablet 88 mcg PO QAM 09/28/20 02/10/23 multivitamin 1 tab PO QAM 09/28/20 02/10/23 omeprazole 20 mg capsule,delayed 20 mg PO QAM 09/28/20 02/10/23 release prednisone 5 mg tablet 5 mg PO QAM 09/28/20 02/10/23 hydroxychloroquine 200 mg tablet 200 mg PO QAM 10/01/20 02/10/23 apixaban 2.5 mg tablet (Eliquis) 2.5 mg PO QAM 12/22/22 02/10/23 buspirone 5 mg tablet 5 mg PO QAM 12/22/22 02/10/23 ferrous sulfate 27 mg iron tablet 27 mg PO BID 12/22/22 02/10/23 acetaminophen 325 mg capsule 325 mg PO QID PRN Pain 01/10/23 02/10/23 (Tylenol) docusate sodium 100 mg capsule 100 mg PO DAILY PRN Constipation 01/10/23 02/10/23 (Colace) metoprolol tartrate 75 mg tablet 75 mg PO BID 01/10/23 02/10/23 cholecalciferol (vitamin D3) 125 125 mcg PO QAM 02/10/23 02/10/23 mcg (5,000 unit) tablet (Vitamin D3) Previous Rx's Medication Instructions Recorded estradiol 0.01% (0.1 mg/gram) 1 g vaginal 2XWK #42.5 grams 10/20/22 vaginal cream Results & Data (ED) Vital Signs Vital Signs - 24 hr 03/02/23 20:46 03/02/23 21:20 Temperature 36.5 C Temperature Source Temporal Artery Scan Pulse Rate 103 H Respiratory Rate 18 Respiratory Effort / Characteristics Non-Labored Spontaneous Respiratory Depth Normal Blood Pressure 147/82 H Blood Pressure Mean 103 Blood Pressure Position Sitting Pulse Oximetry 94 97 Oxygen Delivery Method Room Air Room Air Sepsis Recent Fever Within 48 Hours No Sepsis New/Unexplained Change in Mental Status No Sepsis Action Taken by Nursing No Action Required Home Medications Current Medication List: was personally reviewed by me Laboratory Data Attestation: I reviewed the patient's lab results. 03/02/23 21:18 03/02/23 21:18 Lab Results 03/02/23 03/02/23 03/02/23 Range/Units 21:18 21:18 21:18 WBC 7.28 (4.8-10.8) K/ul RBC 4.05 L (4.20-5.40) M/uL Hgb 11.0 L (12.0-16.0) g/dl Hct 34.6 L (37.0-47.0) % MCV 85.4 (80.0-100.0) fL MCH 27.2 (25.0-34.0) pg MCHC 31.8 L (32.0-36.0) g/dL RDW Std Deviation 53.0 H (36.4-46.3) fL RDW Coeff of Joao 16.9 H (11.5-14.5) % Plt Count 285 (130-400) K/uL MPV 10.1 (9.4-12.4) fL Immature Gran % (Auto) 0.4 % Neut % (Auto) 63.3 % Lymph % (Auto) 23.5 % Craig % (Auto) 12.1 % Eos % (Auto) 0.3 % Baso % (Auto) 0.4 % Neut # (Auto) 4.61 (1.40-6.50) K/uL Lymph # (Auto) 1.71 (1.2-3.4) K/uL Craig # (Auto) 0.88 H (0.11-0.59) K/uL Eos # (Auto) 0.02 (0-0.50) K/uL Baso # (Auto) 0.03 (0-0.2) K/uL Immature Gran # (Auto) 0.03 (0.01-0.20) K/uL PT 10.9 (9.0-12.0) Seconds INR 1.0 (0.9-1.1) APTT 24.8 (21.0-31.0) Seconds PTT Ratio 0.9 Sodium 136 (136-145) mmol/L Potassium 3.9 (3.5-5.1) mmol/L Chloride 101 (98-107) mmol/L Carbon Dioxide 25 (21-32) mmol/L Anion Gap 10 (3-11) BUN 31 H (6-23) mg/dl Creatinine 0.88 (0.6-1.2) mg/dl Est Cr Clr Drug Dosing 37.6 ml/min Est GFR ( Amer) 69.9 ml/min Est GFR (Non-Af Amer) 60.3 ml/min BUN/Creatinine Ratio 35.2 H (10-20) Glucose 96 (70-99(Fasting)) mg/dl Calcium 9.9 (8.6-10.3) mg/dl Total Bilirubin 0.5 (0.2-1.0) mg/dl AST 28 (13-39) U/L ALT 14 (7-52) U/L Alkaline Phosphatase 117 H (34-104) U/L Troponin I High Sens 30.2 H (0-14) pg/ml Total Protein 7.5 (6.0-8.3) gm/dl Albumin 3.9 (3.4-5.0) gm/dl Globulin 3.6 (2.5-4.0) gm/dl Albumin/Globulin Ratio 1.1 (0.9-2) Lipase 21 (11-82) U/L SARS-CoV-2, RNA, NAAT (NEGATIVE) 03/02/23 Range/Units 21:19 WBC (4.8-10.8) K/ul RBC (4.20-5.40) M/uL Hgb (12.0-16.0) g/dl Hct (37.0-47.0) % MCV (80.0-100.0) fL MCH (25.0-34.0) pg MCHC (32.0-36.0) g/dL RDW Std Deviation (36.4-46.3) fL RDW Coeff of Joao (11.5-14.5) % Plt Count (130-400) K/uL MPV (9.4-12.4) fL Immature Gran % (Auto) % Neut % (Auto) % Lymph % (Auto) % Craig % (Auto) % Eos % (Auto) % Baso % (Auto) % Neut # (Auto) (1.40-6.50) K/uL Lymph # (Auto) (1.2-3.4) K/uL Craig # (Auto) (0.11-0.59) K/uL Eos # (Auto) (0-0.50) K/uL Baso # (Auto) (0-0.2) K/uL Immature Gran # (Auto) (0.01-0.20) K/uL PT (9.0-12.0) Seconds INR (0.9-1.1) APTT (21.0-31.0) Seconds PTT Ratio Sodium (136-145) mmol/L Potassium (3.5-5.1) mmol/L Chloride (98-107) mmol/L Carbon Dioxide (21-32) mmol/L Anion Gap (3-11) BUN (6-23) mg/dl Creatinine (0.6-1.2) mg/dl Est Cr Clr Drug Dosing ml/min Est GFR ( Amer) ml/min Est GFR (Non-Af Amer) ml/min BUN/Creatinine Ratio (10-20) Glucose (70-99(Fasting)) mg/dl Calcium (8.6-10.3) mg/dl Total Bilirubin (0.2-1.0) mg/dl AST (13-39) U/L ALT (7-52) U/L Alkaline Phosphatase (34-104) U/L Troponin I High Sens (0-14) pg/ml Total Protein (6.0-8.3) gm/dl Albumin (3.4-5.0) gm/dl Globulin (2.5-4.0) gm/dl Albumin/Globulin Ratio (0.9-2) Lipase (11-82) U/L SARS-CoV-2, RNA, NAAT NEGATIVE (NEGATIVE) Discharge Plan Visit Data Chief Complaint: Abnormal Labs/Diagnostic Testing Stated Complaint: ABNORMAL LABS,BACK PAIN ED Provider: En Richardson Discharge Problem: Compression fx, lumbar spine, Epidural hematoma Patient Disposition: Being Evaluated by Hospitalist Forms Stand Alone Forms: My [facility] [email or web address] Prescriptions Prescriptions: No Action estradiol 0.01 % (0.1 mg/gram) cream 1 g vaginal 2XWK Qty: 42.5 3RF Rx Instructions: Insert 1/4 applicatorful vaginally 2 time a week. acetaminophen [Tylenol] 325 mg capsule 325 mg PO QID PRN (Reason: Pain) docusate sodium [Colace] 100 mg capsule 100 mg PO DAILY PRN (Reason: Constipation) metoprolol tartrate 75 mg tablet 75 mg PO BID amlodipine 5 mg tablet 5 mg PO QAM citalopram [Celexa] 20 mg tablet 20 mg PO QAM levothyroxine 88 mcg tablet 88 mcg PO QAM multivitamin Tablet 1 tab PO QAM prednisone 5 mg tablet 5 mg PO QAM omeprazole 20 mg capsule,delayed release(DR/EC) 20 mg PO QAM hydroxychloroquine 200 mg tablet 200 mg PO QAM buspirone 5 mg tablet 5 mg PO QAM ferrous sulfate 27 mg iron Tablet 27 mg PO BID Eliquis 2.5 mg tablet 2.5 mg PO QAM cholecalciferol (vitamin D3) [Vitamin D3] 125 mcg (5,000 unit) Tablet 125 mcg PO QAM Referrals Referrals: Alin Branch [Primary Care Provider] -
[2023-03-02 21:52] LABS: Albumin Globulin Ratio 1.1 (0.9-2); Albumin Level 3.9 gm/dl (3.4-5.0); BUN Creatinine Ratio 35.2 (10-20); Bilirubin,Total 0.5 mg/dl (0.2-1.0); Calcium 9.9 mg/dl (8.6-10.3); Creatinine Clr Calc Pharmacy 37.6 ml/min; Est GFR (African American) 69.9 ml/min; Est GFR (Non-African American) 60.3 ml/min; Globulin 3.6 gm/dl (2.5-4.0); Potassium 3.9 mmol/L (3.5-5.1); Total Protein 7.5 gm/dl (6.0-8.3)
[2023-03-02 21:55] LABS: Basophils # (auto) 0.03 K/uL (0-0.2); Basophils % (auto) 0.4 %; Eosinophils # (auto) 0.02 K/uL (0-0.50); Eosinophils % (auto) 0.3 %; Hematocrit (blood only) 34.6 % (37.0-47.0); Immature Granulocytes # (auto) 0.03 K/uL (0.01-0.20); Immature Granulocytes % (auto) 0.4 %; Lymphocytes # (auto) 1.71 K/uL (1.2-3.4); Lymphocytes % (auto) 23.5 %; Mean Corpuscular Hemoglobin 27.2 pg (25.0-34.0); Mean Corpuscular Hgb Conc 31.8 g/dL (32.0-36.0); Mean Corpuscular Volume 85.4 fL (80.0-100.0); Mean Platelet Volume 10.1 fL (9.4-12.4); Monocytes # (auto) 0.88 K/uL (0.11-0.59); Monocytes % (auto) 12.1 %; Neutrophils # (auto) 4.61 K/uL (1.40-6.50); Neutrophils % (auto) 63.3 %; Platelet Count 285 K/uL (130-400); RDW Coefficient of Variation 16.9 % (11.5-14.5); Red Blood Count 4.05 M/uL (4.20-5.40); White Blood Count 7.28 K/ul (4.8-10.8)
[2023-03-02 21:58] LABS: Troponin I High Sensitivity 30.2 pg/ml (0-14)
[2023-03-02 22:06] LABS: Partial Thromboplastin Ratio 0.9; Partial Thromboplastin Time 24.8 Seconds (21.0-31.0); Prothrombin Time 10.9 Seconds (9.0-12.0)
--- NOTE | 2023-03-02 22:11 | History & Physical Report ---
Date of Service March 02, 2023 Assessment & Plan (1) Compression fx, lumbar spine: Plan: 82yo female with a history of atrial fibrillation (on eliquis), HTN, HLD, osteoporosis, rheumatoid arthritis (on hydroxychloroquine and prednisone), and chronic back pain presents with a one-month history of worsening back pain, accelerating over the past 1.5 weeks. Patient was referred to the ED by her outpatient orthopedist in response to recent outpatient MRI findings. Back pain, compression fractures, L2 epidural hematoma, osteoporosis Outpatient imaging: showed osteoporotic compression fractures, severe spinal stenosis, and a ventral epidural hematoma at L2 (per radiology read; I do not have access to patient's outpatient imaging) Patient denies saddle anesthesia or bowel/bladder incontinence Orthopedic surgery consulted Will hold off on IV steroids given lack of radicular symptoms or evidence of cord compression (will continue patient's PO prednisone as noted below) Pain control: APAP 1000mg IV q8h scheduled Oxycodone 5mg PO q4h prn moderate pain Morphine 2mg IV q2h prn severe pain Intranasal calcitonin qd PT/OT, fall precautions, NPO pending possible procedure AFwRVR Patient with known history of atrial fibrillation; in RVR on admission with rates in the 100s Suspect RVR is secondary to pain; will hold off on escalating rate control beyond patient's home regimen for now Telemetry monitoring Continue home eliquis, metoprolol QTc prolongation QTc on admission prolonged to 515 Telemetry monitoring Will hold patient's home citalopram and hydroxychloroquine for now Electrolyte repletion to keep K>4.0 and Mg>2.0 Daily EKG Elevated hsTroponin hsTroponin on admission elevated to 30.2 Patient is without chest pain or overt ischemic change on EKG Suspect this is secondary to demand ischemia given RVR 2-hour repeat ordered; continue to monitor per protocol Rheumatoid arthritis Holding home hydroxychloroquine as noted above due to QTc prolongation Continue home prednisone 5mg PO qd Elevated alkaline phosphatase Etiology unclear, patient is without abdominal symptoms Trend CMP HTN: continue home regimen HLD: continue home regimen Hypothyroidism: continue home regimen JOSE JUAN/MDD: holding home citalopram, continue home buspar FEN: NPO pending possible procedure Code status: conditional (defibrillation OK / NO chest compressions / DNI) DVT ppx: home eliquis Held home meds: citalopram, hydroxychloroquine Consults: orthopedic surgery PT/OT: ordered Dispo: med/telemetry (2) Epidural hematoma: (3) HTN (hypertension): (4) HLD (hyperlipidemia): (5) Hypothyroidism: (6) Osteoporosis: (7) Long-term use of immunosuppressant medication: (8) Rheumatoid arthritis: (9) Atrial fibrillation: (10) Back pain: History of Present Illness Primary Care Provider: Alin Branch 82yo female with a history of atrial fibrillation (on eliquis), HTN, HLD, osteoporosis, rheumatoid arthritis (on hydroxychloroquine and prednisone), and chronic back pain presents with a one-month history of worsening back pain, accelerating over the past 1.5 weeks. Patient was referred to the ED by her outpatient orthopedist in response to recent outpatient MRI findings. - has chronic back pain, has been worsening for the past month, with severe worsening over the past 1.5 weeks - denies saddle anesthesia, bowel/bladder incontinence, radicular symptoms - had an MRI done on Monday which showed osteoporotic compression fractures, severe spinal stenosis, and a ventral epidural hematoma at L2 - of note, did have a fall in November of this year Patient denies fever, chills, headache, vision changes, CP, SOB, edema, abdominal pain, nausea, vomiting, dysuria, hematochezia, melena, lightheadedness, dizziness, numbness, weakness, or other symptoms. Denies recent illness and recent travel. Upon arrival, vitals were notable for elevated BP (140s/100s) and tachycardia (100s); patient afebrile, spO2 adequate on room air. Initial labs were notable for mild anemia (11.0), elevated alk phos (117), and minimally-elevated hsTroponin (30.2); no leukocytosis, platelets wnl, no electrolyte abnormalities, creatinine not elevated, Tbili not elevated, covid PCR negative. EKG: AFwRVR, no overt ischemic change, prolonged QTc (515) Surrogate decision-maker in case of an emergency: Jacky Barajas ([phone]) Allergies Allergy/AdvReac Type Severity Reaction Status Date / Time azithromycin AdvReac Intermediate Arm/leg Verified 03/02/23 22:29 pain prochlorperazine AdvReac Intermediate Mental Verified 03/02/23 22:29 changes simvastatin [From Zocor] AdvReac Intermediate N/V Verified 03/02/23 22:29 Home Medications Medication Instructions Recorded Confirmed Type amlodipine 5 mg tablet 5 mg PO QAM 09/28/20 03/02/23 History citalopram 20 mg tablet (Celexa) 20 mg PO QAM 09/28/20 03/02/23 History levothyroxine 88 mcg tablet 88 mcg PO QAM 09/28/20 03/02/23 History multivitamin 1 tab PO QAM 09/28/20 03/02/23 History omeprazole 20 mg capsule,delayed 20 mg PO QAM 09/28/20 03/02/23 History release prednisone 5 mg tablet 5 mg PO QAM 09/28/20 03/02/23 History hydroxychloroquine 200 mg tablet 200 mg PO QAM 10/01/20 03/02/23 History estradiol 0.01% (0.1 mg/gram) 1 g vaginal 2XWK #42.5 grams 10/20/22 03/02/23 Rx vaginal cream apixaban 2.5 mg tablet (Eliquis) 2.5 mg PO QAM 12/22/22 03/02/23 History buspirone 5 mg tablet 5 mg PO BID 12/22/22 03/02/23 History acetaminophen 325 mg capsule 650 mg PO Q4H PRN PAIN/FEVER 01/10/23 03/02/23 History (Tylenol) docusate sodium 100 mg capsule 100 mg PO DAILY PRN Constipation 01/10/23 03/02/23 History (Colace) metoprolol tartrate 75 mg tablet 75 mg PO BID 01/10/23 03/02/23 History ferrous sulfate 325 mg (65 mg 325 mg PO DAILY 03/02/23 03/02/23 History iron) tablet polyethylene glycol 3350 17 17 g PO DAILY PRN Constipation 03/02/23 03/02/23 History gram/dose oral powder (Miralax) Past Med/Surg History Medical History (Updated 03/04/23 @ 04:47 by Vineet Causey MD) Adrenal crisis [facility] ER 12/22/22 > admission- per admission records, suspected that patient was off chronic steroid therapy for 1-2 weeks prior to admission/adrenal crisis* Received stress dose IV hydrocortisone prior to 12/27/22 right GOPI done at [facility] Anemia Taking oral iron supplementation Atrial fibrillation Reason for Eliquis Follows with Dr. Marlow Back pain Chronic steroid use for RA Degenerative joint disease of right hip Depression Epidural hematoma HLD (hyperlipidemia) HTN (hypertension) Hypothyroidism Left humeral fracture 11/2022 after fall, non-operative management recommended Osteoporosis Rectovaginal fistula Rheumatoid arthritis Scoliosis Surgical History History of anesthesia reaction "Gave me too much" with skin graft surgery approximately 7 years ago ([place]) > "had difficulty breathing"/no other or similar issues with other surgeries/anesthesia, recent surgery at [facility] 12/2022 without any issues per patient History of appendectomy History of benign breast biopsy History of section History of colonoscopy History of hysterectomy LINDA BSO History of joint surgery Right 3 fingers (+ hardware) History of skin graft to hand History of surgery on right wrist History of tooth extraction History of total left knee replacement (TKR) History of total right knee replacement (TKR) Hx of cataract extraction bilateral Status post right hip replacement Right GOPI (12/27/22): Grade view 1, MAC#3, ETT 6.5 at [facility] Family History Father Coronary heart disease Heart disease COPD (chronic obstructive pulmonary disease) Hypertension Mother Rheumatoid arthritis Uncle Coronary heart disease Other No family history of adverse response to anesthesia Denies family history of Pancreatic cancer Ovarian cancer Prostate cancer Breast cancer Colorectal cancer Uterine cancer Social History Smoking Status: Never smoker Second Hand Exposure: No; Do You Dip or Chew Tobacco: No; Hx Alcohol Use: No Hx Substance Use: No Preferred Language: Slovenian Communication Ability: Effective Director Of Plant Operations Required: No Beliefs That Will Affect Care: None marital status: Current Living Situation: Spouse Current Living Situation Comment: lives at home with 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 occupational 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 Assessment and Plan: Intractable back pain/compression fracture with L2 epidural hematoma- Orthopedic spine surgery Dr. Choi asked that patient be admitted to the medical service and he will consult Pain management: Tylenol 1 g IV every 8 hours Oxycodone 5 mg p.o. every 4 hours as needed moderate pain Morphine sulfate 2 mg IV every 2 hours as needed for severe pain Intranasal calcitonin daily Consult PT/OT Elevated highly sensitive troponin/atrial fibrillation with RVR- The patient will be admitted to telemetry for serial cardiac enzymes, serial EK G's, cardiac rhythm monitoring and a 2-D echocardiogram with Dopplers. If procedure planned, will need to change Eliquis to heparin IV as a bridge Change oral metoprolol to Lopressor IV IV fluids as noted Rheumatoid arthritis- On prednisone 5 mg daily in outpatient setting Monitor for need for stress dosing Hydroxychloroquine temporarily held because of concerns regarding QTc prolongation Remaining orders and notations as noted Resident Activity Tracking Resident Involvement: Resident Care Provided Care Provided: Adult Hospital Medicine (1) Compression fx, lumbar spine Encounter type: initial encounter Lumbar vertebra fracture level: L2 Qualified Code(s): S32.020A - Wedge compression fracture of second lumbar vertebra, initial encounter for closed fracture
[2023-03-02] MEDS: METOPROLOL TARTRATE 25 MG TAB PO SCH (22:32)
[2023-03-02] MEDS ORDERED: MoRPHine SULFATE 2 MG/ML CARP IV PRN (23:51)
[2023-03-02] MEDS: ACETAMINOPHEN 1000 MG/100 ML IV IV SCH (23:51)
[2023-03-02] MEDS ORDERED: POLYETHYLENE (MIRALAX) 17 GM PACK PO PRN (23:54)
[2023-03-02] MEDS ORDERED: POTASSIUM CHLORIDE CRTAB 20 MEQ TABCR PO STA (23:58)
[2023-03-03] MEDS: CALCITONIN SALMON NA 200 IU/AC 3.7 ML BTL SCH ×2 (01:09→07:34)
[2023-03-03] MEDS: oxyCODONE HCL IR 5 MG TAB (IMMEDIATE RELEASE) PO PRN ×4 (01:13→13:51)
[2023-03-03] MEDS: LEVOTHYROXINE SODIUM 88 MCG TABLET PO SCH (05:39)
[2023-03-03 06:30] LABS: Appearance Urine Cloudy (Clear); Bacteria Urine Automated 4+ (Negative); Bilirubin Urine Negative (Negative); Blood Urine Trace (Negative); Color Urine Yellow; Glucose Urine UA Negative (Negative); Ketones Urine Negative (Negative); Leukocyte Esterase Urine 3+ (Negative); Nitrite Urine Negative (Negative); Protein Urine Negative (Negative); Specific Gravity Urine 1.015 (1.000-1.030); Urobilinogen Urine Negative (Negative); WBC Urine Automated >30 /hpf (0-5)
[2023-03-03 06:56] LABS: RBC Urine Automated 0-4 /hpf (0-4)
[2023-03-03] MEDS: ACETAMINOPHEN 1000 MG/100 ML IV IV SCH ×3 (07:30→23:53)
[2023-03-03] MEDS: busPIRone 5 MG TAB PO SCH (07:33)
[2023-03-03] MEDS: PANTOprazole 40 MG TAB PO SCH (07:33)
[2023-03-03] MEDS: amLODIPine BESYLATE 5 MG TAB PO SCH (07:33)
[2023-03-03] MEDS: METOPROLOL TARTRATE 25 MG TAB PO SCH ×2 (07:34→19:59)
[2023-03-03 08:40] LABS: Hematocrit (blood only) 31.1 % (37.0-47.0); Mean Corpuscular Hemoglobin 27.2 pg (25.0-34.0); Mean Corpuscular Hgb Conc 32.2 g/dL (32.0-36.0); Mean Corpuscular Volume 84.5 fL (80.0-100.0); Mean Platelet Volume 9.8 fL (9.4-12.4); Platelet Count 272 K/uL (130-400); RDW Coefficient of Variation 17.1 % (11.5-14.5); RDW Standard Deviation 53.1 fL (36.4-46.3); Red Blood Count 3.68 M/uL (4.20-5.40); White Blood Count 5.74 K/ul (4.8-10.8)
[2023-03-03 08:58] LABS: Albumin Globulin Ratio 1.1 (0.9-2); Albumin Level 3.3 gm/dl (3.4-5.0); BUN Creatinine Ratio 35.5 (10-20); Bilirubin,Total 0.4 mg/dl (0.2-1.0); Calcium 8.4 mg/dl (8.6-10.3); Est GFR (African American) 83.5 ml/min; Potassium 4.3 mmol/L (3.5-5.1); Total Protein 6.3 gm/dl (6.0-8.3)
[2023-03-03] MEDS ORDERED: APIXABAN 2.5 MG TAB PO SCH (09:00)
[2023-03-03] MEDS ORDERED: HYDROXYCHLOROQUINE SULFATE 200 MG TAB PO SCH (09:00)
[2023-03-03] MEDS ORDERED: predniSONE 5 MG TAB PO SCH (09:00)
[2023-03-03] MEDS ORDERED: CITALOPRAM 20 MG TAB PO SCH (09:00)
[2023-03-03] MEDS: cefTRIAXone SODIUM 1,000 MG in DEXTROSE 5% AD-VAN 50 ML IV SCH (10:00)
[2023-03-03] MEDS: dexAMETHasone 4 MG in SYRINGE 0 ML IV SCH ×2 (11:18→19:58)
--- NOTE | 2023-03-03 11:57 | Orthopedic Consultation ---
Date of Consultation March 03, 2023 Assessment & Plan (1) Compression fracture: MRI of the lumbar spine was available for review performed on 03/01/2023 at [facility]. We would review the scans personally. They demonstrate evidence of superior endplate fracture of L2. There is severe multilevel s pondylosis. There is severe central impressive at L1-L2 L2-L3 and most impressive at L3-L4. Assessment L1-2 compression fracture with severe multilevel spinal stenosis. Plan at this time she does have evidence of acute fracture however she is neurologically intact did not see any indication for urgent surgical invention. I will order TLSO brace and begin ambulation as tolerated. If she continues to struggle with axial back pain we may consider kyphoplasty of L2 however we would have to withhold her Eliquis for any surgical procedure. History of Present Illness Reason for Consultation: Back pain Attending Physician: Vineet Causey MD History of Present Illness This a very pleasant 82-year-old female that presents with worsening back pain. She states she is comfortable while in bed and at rest but any standing walking creates pain that is across actual region of her lumbosacral spine. She does note chronic persistent tingling in her feet. This been present for some time. This is not new. She denies any loss of bowel bladder function denies any leg pain or weakness. Allergies Allergy/AdvReac Type Severity Reaction Status Date / Time azithromycin AdvReac Intermediate Arm/leg Verified 03/02/23 22:29 pain prochlorperazine AdvReac Intermediate Mental Verified 03/02/23 22:29 changes simvastatin [From Zocor] AdvReac Intermediate N/V Verified 03/02/23 22:29 Home Medications Medication Instructions Recorded Confirmed Type amlodipine 5 mg tablet 5 mg PO QAM 09/28/20 03/02/23 History citalopram 20 mg tablet (Celexa) 20 mg PO QAM 09/28/20 03/02/23 History levothyroxine 88 mcg tablet 88 mcg PO QAM 09/28/20 03/02/23 History multivitamin 1 tab PO QAM 09/28/20 03/02/23 History omeprazole 20 mg capsule,delayed 20 mg PO QAM 09/28/20 03/02/23 History release prednisone 5 mg tablet 5 mg PO QAM 09/28/20 03/02/23 History hydroxychloroquine 200 mg tablet 200 mg PO QAM 10/01/20 03/02/23 History estradiol 0.01% (0.1 mg/gram) 1 g vaginal 2XWK #42.5 grams 10/20/22 03/02/23 Rx vaginal cream apixaban 2.5 mg tablet (Eliquis) 2.5 mg PO QAM 12/22/22 03/02/23 History buspirone 5 mg tablet 5 mg PO BID 12/22/22 03/02/23 History acetaminophen 325 mg capsule 650 mg PO Q4H PRN PAIN/FEVER 01/10/23 03/02/23 History (Tylenol) docusate sodium 100 mg capsule 100 mg PO DAILY PRN Constipation 01/10/23 03/02/23 History (Colace) metoprolol tartrate 75 mg tablet 75 mg PO BID 01/10/23 03/02/23 History ferrous sulfate 325 mg (65 mg 325 mg PO DAILY 03/02/23 03/02/23 History iron) tablet polyethylene glycol 3350 17 17 g PO DAILY PRN Constipation 03/02/23 03/02/23 History gram/dose oral powder (Miralax) Patient History Medical History Adrenal crisis [facility] ER 12/22/22 > admission- per admission records, suspected that patient was off chronic steroid therapy for 1-2 weeks prior to admission/adrenal crisis* Received stress dose IV hydrocortisone prior to 12/27/22 right GOPI done at [facility] Anemia Taking oral iron supplementation Atrial fibrillation Reason for Eliquis Follows with Dr. Marlow Back pain Chronic steroid use for RA Degenerative joint disease of right hip Depression HLD (hyperlipidemia) HTN (hypertension) Hypothyroidism Left humeral fracture 11/2022 after fall, non-operative management recommended Osteoporosis Rectovaginal fistula Rheumatoid arthritis Scoliosis Surgical History History of anesthesia reaction "Gave me too much" with skin graft surgery approximately 7 years ago ([place]) > "had difficulty breathing"/no other or similar issues with other surgeries/anesthesia, recent surgery at [facility] 12/2022 without any issues per patient History of appendectomy History of benign breast biopsy History of section History of colonoscopy History of hysterectomy LINDA BSO History of joint surgery Right 3 fingers (+ hardware) History of skin graft to hand History of surgery on right wrist History of tooth extraction History of total left knee replacement (TKR) History of total right knee replacement (TKR) Hx of cataract extraction bilateral Status post right hip replacement Right GOPI (12/27/22): Grade view 1, MAC#3, ETT 6.5 at [facility] Family History Father Coronary heart disease Heart disease COPD (chronic obstructive pulmonary disease) Hypertension Mother Rheumatoid arthritis Uncle Coronary heart disease Other No family history of adverse response to anesthesia Denies family history of Pancreatic cancer Ovarian cancer Prostate cancer Breast cancer Colorectal cancer Uterine cancer Social History Smoking Status: Never smoker Second Hand Exposure: No; Do You Dip or Chew Tobacco: No; Hx Alcohol Use: No Hx Substance Use: No Preferred Language: Italian Communication Ability: Effective Material Flow Analyst Required: No Beliefs That Will Affect Care: None marital status: Current Living Situation: Spouse Current Living Situation Comment: lives at home with current occupational status: 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 She is quite comfortable. She has full sensation to light touch and cold bilateral extremities. She has plus 4 out of 5 plantarflexion dorsiflexion quadriceps and hip flexors. Negative logroll. Results & Data Vital Signs (Past 12 Hours) Vital Signs Temp Pulse Resp BP Pulse Ox O2 Del Method 03/03/23 11:36 36.6 C 57 L 18 134/86 97 Room Air 03/03/23 07:45 Room Air 03/03/23 07:26 36.8 C 54 L 16 139/77 96 Room Air
--- NOTE | 2023-03-03 19:22 | Hospitalist Progress Note ---
Date of Service March 03, 2023 Assessment & Plan (1) Compression fracture of L2: Plan: likely 2nd to reported fall in the setting of significant osteoporosis from long-time prednisone use & other osteoporotic risk factors seen by Dr Choi - SARAH brace advised for now along with pain control pain control - tylenol 1gm TID scheduled; oxycodone prn; miacalcin daily; add lidoderm patches she is on chronic prednisone for RA - will provide "stress" dosing in the form of dexamethasone 4mg BID which likely will help pain as well if pain remains reasonably controlled we can likely treat this nonoperatively if pain worsens or persists Dr Choi stated he could offer kyphoplasty for now - treat conservatively of note - 25OH vit D level on 12/23/22 was 46 (2) Lumbar spinal stenosis: Plan: severe - L1-L2, L2-L3, and L3-L4 with latter the worst level. fortunately she has good strength of LEs and no radicular symptoms. can monitor for now. (3) Epidural hematoma: Plan: I spoke with Dr Choi regarding this. This was mentioned on MRI report of the lumbar spine done as outpatient thru the [facility]. The hematoma is very, very small. It is located in the lumbar region likely due to her previous fall in the setting of daily eliquis usage. Discussed with Dr Choi - kevin to use anticoagulation but will hold Eliquis and switch to Heparin drip in am tomorrow. If any worsening pain or leg symptoms then the heparin can be promptly cut off. Trend H/H. Serial exams, etc. (4) Atrial fibrillation: Plan: Dx initially in 11/2022 while in a [facility]. Initiated on low-dose Eliquis at that time. Remains on metoprolol BID. Presented yesterday in rapid a.fib but converted back to NSR. EKG today with NSR. Echo at [facility] 11/2022 with preserved EF and only mild valvular disease. LA/RA enlargement likely the biggest risk factor for her a.fib. Hold eliquis. Starting tomorrow use heparin drip in nataly in the event she needs a spinal procedure by Dr Choi next week. Cont tele. (5) Prediabetes: Plan: a1c 5.8% in December 2022 no Rx needed (6) Hypertension: Plan: under reasonable control with metoprolol + amlodipine (7) Anemia: Plan: H/H only mildly low today trend (8) Rheumatoid arthritis: Plan: follows with [facility] Emperatriz Hernandez on chronic prednisone 5mg daily + plaquenil 200mg daily hold latter change prednisone to dexamethasone for stress dosing + pain control no active RA fare at this time (9) Hypothyroidism: Plan: TSH 4.1 early December 2022 cont synthroid (10) Long-term use of immunosuppressant medication: Plan: prednisone + plaquenil for long-standing RA (11) Abnormal urinalysis: Plan: suggestive of UTI start rocephin 1gm daily follow culture Plan care d/w Dr Steph ROLLINS to chair/BR as tolerated with brace & assistance PT, OT needed Admission and Anticipated Discharge Date Admission Date: March 02, 2023 Subjective patient converted to NSR from rapid a.fib during my visit she was resting in bed states her pain is fine "as long as I don't move" with any movement she has severe pain over the expected location of L2 she denies leg pains or paresthesias of legs had right hip replacement by Dr Barajas on 12/27/22 and had full recovery from such she states she was walking well on the RLE following her surgery denies any dyspnea, abd pain or chest pain Review of Systems Review of Systems: gen - no fevers; appetite fair cv - no orthopnea pulm - no cough GI - no nausea/emesis Physical Exam Physical Exam: gen - very thin, NAD, pleasant mouth - MMM, no thrush neck - no JVD heart - RRR, s1 s2 lungs - CTA b/l abd - soft NT ND BS+ ext - no edema, pulses 2+ b/l musculo - tender to palpation over expected location of L2 spinous process; also with paraspinal lumbar tenderness to palpation neuro - strength b/l hip flexion 5/5; b/l ankle dorsiflexion/plantarflexion 5/5 Results & Data Results & Data Vital Signs (Past 12 Hours) Vital Signs Temp Pulse Pulse Resp BP Pulse Ox O2 Del Method 03/03/23 15:34 64 03/03/23 15:14 37 C 66 18 108/62 95 Room Air 03/03/23 11:36 36.6 C 57 L 18 134/86 97 Room Air 03/03/23 07:45 Room Air 03/03/23 07:26 36.8 C 54 L 16 139/77 96 Room Air Laboratory Results Laboratory Results - last 24 hr 03/02/23 03/02/23 03/02/23 21:18 21:18 21:18 WBC 7.28 RBC 4.05 L Hgb 11.0 L Hct 34.6 L MCV 85.4 MCH 27.2 MCHC 31.8 L RDW Std Deviation 53.0 H RDW Coeff of Joao 16.9 H Plt Count 285 MPV 10.1 Immature Gran % (Auto) 0.4 Neut % (Auto) 63.3 Lymph % (Auto) 23.5 [place] % (Auto) 12.1 Eos % (Auto) 0.3 Baso % (Auto) 0.4 Neut # (Auto) 4.61 Lymph # (Auto) 1.71 [place] # (Auto) 0.88 H Eos # (Auto) 0.02 Baso # (Auto) 0.03 Immature Gran # (Auto) 0.03 PT 10.9 INR 1.0 APTT 24.8 PTT Ratio 0.9 Sodium 136 Potassium 3.9 Chloride 101 Carbon Dioxide 25 Anion Gap 10 BUN 31 H Creatinine 0.88 Est Cr Clr Drug Dosing 37.6 Est GFR ( Amer) 69.9 Est GFR (Non-Af Amer) 60.3 BUN/Creatinine Ratio 35.2 H Glucose 96 Calcium 9.9 Magnesium Total Bilirubin 0.5 AST 28 ALT 14 Alkaline Phosphatase 117 H Troponin I High Sens 30.2 H Total Protein 7.5 Albumin 3.9 Globulin 3.6 Albumin/Globulin Ratio 1.1 Lipase 21 Urine Color Urine Appearance Urine pH Ur Specific [place] Urine Protein Urine Glucose (UA) Urine Ketones Urine Blood Urine Nitrite Urine Bilirubin Urine Urobilinogen Ur Leukocyte Esterase Urine WBC (Auto) Urine RBC (Auto) U Hyaline Cast (Auto) U Epithel Cells (Auto) Urine Bacteria (Auto) Urine Crystals Urine Yeast SARS-CoV-2, RNA, NAAT 03/02/23 03/02/23 03/03/23 21:19 23:50 08:05 WBC 5.74 RBC 3.68 L Hgb 10.0 L Hct 31.1 L MCV 84.5 MCH 27.2 MCHC 32.2 RDW Std Deviation 53.1 H RDW Coeff of Joao 17.1 H Plt Count 272 MPV 9.8 Immature Gran % (Auto) Neut % (Auto) Lymph % (Auto) [place] % (Auto) Eos % (Auto) Baso % (Auto) Neut # (Auto) Lymph # (Auto) [place] # (Auto) Eos # (Auto) Baso # (Auto) Immature Gran # (Auto) PT INR APTT PTT Ratio Sodium Potassium Chloride Carbon Dioxide Anion Gap BUN Creatinine Est Cr Clr Drug Dosing Est GFR ( Amer) Est GFR (Non-Af Amer) BUN/Creatinine Ratio Glucose Calcium Magnesium Total Bilirubin AST ALT Alkaline Phosphatase Troponin I High Sens 37.2 H Total Protein Albumin Globulin Albumin/Globulin Ratio Lipase Urine Color Urine Appearance Urine pH Ur Specific [place] Urine Protein Urine Glucose (UA) Urine Ketones Urine Blood Urine Nitrite Urine Bilirubin Urine Urobilinogen Ur Leukocyte Esterase Urine WBC (Auto) Urine RBC (Auto) U Hyaline Cast (Auto) U Epithel Cells (Auto) Urine Bacteria (Auto) Urine Crystals Urine Yeast SARS-CoV-2, RNA, NAAT NEGATIVE 03/03/23 03/03/23 08:05 Unknown WBC RBC Hgb Hct MCV MCH MCHC RDW Std Deviation RDW Coeff of Joao Plt Count MPV Immature Gran % (Auto) Neut % (Auto) Lymph % (Auto) [place] % (Auto) Eos % (Auto) Baso % (Auto) Neut # (Auto) Lymph # (Auto) [place] # (Auto) Eos # (Auto) Baso # (Auto) Immature Gran # (Auto) PT INR APTT PTT Ratio Sodium 135 L Potassium 4.3 Chloride 104 Carbon Dioxide 26 Anion Gap 5 BUN 27 H Creatinine 0.76 Est Cr Clr Drug Dosing 43.0 Est GFR ( Amer) 83.5 Est GFR (Non-Af Amer) 72.0 BUN/Creatinine Ratio 35.5 H Glucose 78 Calcium 8.4 L Magnesium 2.0 Total Bilirubin 0.4 AST 25 ALT 12 Alkaline Phosphatase 92 Troponin I High Sens Total Protein 6.3 Albumin 3.3 L Globulin 3.0 Albumin/Globulin Ratio 1.1 Lipase Urine Color Yellow Urine Appearance Cloudy A Urine pH 7.0 Ur Specific [place] 1.015 Urine Protein Negative Urine Glucose (UA) Negative Urine Ketones Negative Urine Blood Trace H Urine Nitrite Negative Urine Bilirubin Negative Urine Urobilinogen Negative Ur Leukocyte Esterase 3+ H Urine WBC (Auto) >30 H Urine RBC (Auto) 0-4 U Hyaline Cast (Auto) 1-5 U Epithel Cells (Auto) 10-20 H Urine Bacteria (Auto) 4+ H Urine Crystals Not Reportable Urine Yeast Not Reportable SARS-CoV-2, RNA, NAAT PG Care Time/CCT Total # of Minutes Spent Total Time Spent with Patient: Total time spent is greater than 50% in coordination of care (as documented) at patient's floor/unit and/or counseling patient: Coding Level of Care Code 95762 SUB INP/OBS CARE 3/50MIN Diagnoses Compression fracture of L2 S32.020A Lumbar spinal stenosis M48.061 Epidural hematoma S06.4XAA Atrial fibrillation I48.91 Prediabetes R73.03 Hypertension I10 Anemia D64.9 Rheumatoid arthritis M06.9 Hypothyroidism E03.9 Long-term use of immunosuppressant medication Z79.60 Abnormal urinalysis R82.90
[2023-03-04] MEDS: LEVOTHYROXINE SODIUM 88 MCG TABLET PO SCH (05:46)
--- NOTE | 2023-03-04 06:01 | Billing Data ---
Date of Service March 04, 2023 Coding Level of Care Code 00280 INT INP/OBS CARE
--- NOTE | 2023-03-04 06:15 | Electrocardiogram Report ---
Test Reason : Blood Pressure : / mmHG Vent. Rate : 105 BPM Atrial Rate : 000 BPM P-R Int : 000 ms QRS Dur : 106 ms QT Int : 390 ms P-R-T Axes : 000 -59 032 degrees QTc Int : 515 ms Atrial fibrillation with rapid ventricular response with premature ventricular or aberrantly conducte d complexes Left axis deviation Low voltage QRS Incomplete right bundle branch block Nonspecific T wave abnormality Abnormal ECG When compared with ECG of 14-FEB-2023 07:28, Atrial fibrillation has replaced Sinus rhythm Vent. rate has increased BY 52 BPM Incomplete right bundle branch block is now Present Criteria for Septal infarct are no longer Present Confirmed by Azael Randall ([id number] on 03/04/2023 6:15:13 AM Referred By: Jim Cousins Confirmed By:Azael Radnall
[2023-03-04 06:31] LABS: Hematocrit (blood only) 33.9 % (37.0-47.0); Hemoglobin 10.6 g/dl (12.0-16.0); Mean Corpuscular Hgb Conc 31.3 g/dL (32.0-36.0); Mean Corpuscular Volume 86.5 fL (80.0-100.0); Mean Platelet Volume 10.3 fL (9.4-12.4); Platelet Count 272 K/uL (130-400); RDW Coefficient of Variation 16.8 % (11.5-14.5); RDW Standard Deviation 53.4 fL (36.4-46.3); Red Blood Count 3.92 M/uL (4.20-5.40); White Blood Count 6.29 K/ul (4.8-10.8)
--- NOTE | 2023-03-04 06:32 | Electrocardiogram Report ---
Test Reason : Blood Pressure : / mmHG Vent. Rate : 061 BPM Atrial Rate : 061 BPM P-R Int : 188 ms QRS Dur : 078 ms QT Int : 444 ms P-R-T Axes : 030 -31 018 degrees QTc Int : 446 ms Normal sinus rhythm Left axis deviation Low voltage QRS Poor R wave progression, consider anterior CA vs. lead placement vs. LVH Abnormal ECG When compared with ECG of 02-MAR-2023 21:06, Sinus rhythm has replaced Atrial fibrillation Vent. rate has decreased BY 44 BPM Incomplete right bundle branch block is no longer Present Confirmed by Azael Randall ([id number] on 03/04/2023 6:32:30 AM Referred By: Jim Cousins Confirmed By:Azael Randall
[2023-03-04 06:43] LABS: BUN Creatinine Ratio 34.7 (10-20); Calcium 9.1 mg/dl (8.6-10.3); Creatinine Clr Calc Pharmacy 45.4 ml/min; Est GFR (African American) 89.1 ml/min; Est GFR (Non-African American) 76.9 ml/min; Potassium 4.6 mmol/L (3.5-5.1)
[2023-03-04] MEDS: oxyCODONE HCL IR 5 MG TAB (IMMEDIATE RELEASE) PO PRN ×2 (08:03→23:19)
[2023-03-04] MEDS: ACETAMINOPHEN 500 MG TAB PO SCH ×3 (08:03→20:14)
[2023-03-04] MEDS: busPIRone 5 MG TAB PO SCH (08:04)
[2023-03-04] MEDS: dexAMETHasone 4 MG in SYRINGE 0 ML IV SCH (08:05)
[2023-03-04] MEDS: cefTRIAXone SODIUM 1,000 MG in DEXTROSE 5% AD-VAN 50 ML IV SCH (08:05)
[2023-03-04] MEDS: PANTOprazole 40 MG TAB PO SCH (08:05)
[2023-03-04] MEDS: CALCITONIN SALMON NA 200 IU/AC 3.7 ML BTL SCH (08:07)
[2023-03-04] MEDS: METOPROLOL TARTRATE 25 MG TAB PO SCH ×2 (08:08→20:15)
[2023-03-04] MEDS: amLODIPine BESYLATE 5 MG TAB PO SCH (08:08)
--- NOTE | 2023-03-04 18:23 | Hospitalist Progress Note ---
Date of Service March 04, 2023 Assessment & Plan (1) Compression fracture of L2: Plan: likely 2nd to reported fall in the setting of significant osteoporosis from long-time prednisone use & other osteoporotic risk factors seen by Dr Choi - TLSO brace advised for now along with pain control pain control - tylenol 1gm TID scheduled; oxycodone prn; miacalcin daily; lidoderm patches also on dexamethasone 4mg BID with the above she is quite comfortable, able to ambulate with TLSO brace, etc if pain remains reasonably controlled we can likely treat this nonoperatively if pain worsens Dr Choi stated he could offer kyphoplasty for now - cont to treat conservatively of note - 25OH vit D level on 12/23/22 was 46 (2) Lumbar spinal stenosis: Plan: severe - L1-L2, L2-L3, and L3-L4 with latter the worst level. fortunately she continues with normal strength of LEs and no radicular symptoms. (3) Epidural hematoma: Plan: I spoke with Dr Choi regarding this. This was mentioned on MRI report of the lumbar spine done as outpatient thru the [facility]. The hematoma is very, very small. It is located in the lumbar region likely due to her previous fall in the setting of daily eliquis usage. Discussed with Dr Choi - kevin to use anticoagulation ongoing. I did place the Eliquis on hold starting Monday pm just in case she would need a procedure for her back. If we get to tomorrow and she continues to have controlled pain we can likely resume Eliquis as she likely would not need kyphoplasty. (4) Atrial fibrillation: Plan: Dx initially in 11/2022 while in a [facility]. Initiated on low-dose Eliquis at that time. Remains on metoprolol BID. Presented this admission in rapid a.fib but converted back to NSR. Echo at [facility] 11/2022 with preserved EF and only mild valvular disease. LA/RA enlargement likely the biggest risk factor for her a.fib. Holding eliquis as stated above. Cont tele. (5) Prediabetes: Plan: a1c 5.8% in December 2022 no Rx needed (6) Hypertension: Plan: under reasonable control with metoprolol + amlodipine (7) Anemia: Plan: H/H stable (8) Rheumatoid arthritis: Plan: follows with Dr Sincere Murphy, [facility] - Emperatriz Hernandez on chronic prednisone 5mg daily + plaquenil 200mg daily hold latter changed prednisone to dexamethasone for stress dosing + pain control no active RA fare at this time lower dex to 2mg BID and cont to wean back down to her usual prednisone dose of 5mg/day (9) Hypothyroidism: Plan: TSH 4.1 early December 2022 cont synthroid (10) Long-term use of immunosuppressant medication: Plan: prednisone + plaquenil for long-standing RA (11) UTI (urinary tract infection): Plan: 2nd GNR 2nd alpha strep await final cx cont rocephin daily Plan care d/w Dr Choi 03/03/23 doing very nicely left message for pt's daughter on her voicemail home next 1-2 days if back pain cont to remain controlled Admission and Anticipated Discharge Date Admission Date: March 02, 2023 Subjective tele NSR overnight no PAF she feels well did very good with PT at last session - they feel she can return home back pain is minimal today even when she was moving around no leg pains eating ok drinking ok no new complaints Review of Systems Review of Systems: cv - no orthopnea or edema pulm - no dyspnea GI - no pain, nausea or emesis Physical Exam Physical Exam: gen - very thin, NAD, pleasant mouth - MMM, no thrush neck - no JVD heart - RRR, s1 s2 lungs - CTA b/l abd - soft NT ND BS+ ext - no edema, pulses 2+ b/l neuro - strength continues to be very normal -- b/l hip flexion 5/5; b/l ankle dorsiflexion/plantarflexion 5/5 Results & Data Results & Data Vital Signs (Past 12 Hours) Vital Signs Temp Pulse Pulse Pulse Resp BP BP 03/04/23 15:15 63 03/04/23 15:07 36.9 C 62 18 128/73 03/04/23 11:20 36.5 C 61 16 110/80 03/04/23 08:00 03/04/23 07:40 37.0 C 61 18 116/80 03/04/23 06:51 58 L Pulse Ox O2 Del Method 03/04/23 15:15 03/04/23 15:07 96 Room Air 03/04/23 11:20 97 Room Air 03/04/23 08:00 Room Air 03/04/23 07:40 98 Room Air 03/04/23 06:51 Laboratory Results Laboratory Results - last 24 hr 03/04/23 03/04/23 05:27 05:27 WBC 6.29 RBC 3.92 L Hgb 10.6 L Hct 33.9 L MCV 86.5 MCH 27.0 MCHC 31.3 L RDW Std Deviation 53.4 H RDW Coeff of Joao 16.8 H Plt Count 272 MPV 10.3 Sodium 135 L Potassium 4.6 Chloride 104 Carbon Dioxide 24 Anion Gap 7 BUN 25 H Creatinine 0.72 Est Cr Clr Drug Dosing 45.4 Est GFR ( Amer) 89.1 Est GFR (Non-Af Amer) 76.9 BUN/Creatinine Ratio 34.7 H Glucose 113 H Calcium 9.1 Diagnostic Findings urine cx - GNR, alpha strep PG Care Time/CCT Total # of Minutes Spent Total Time Spent with Patient: Total time spent is greater than 50% in coordination of care (as documented) at patient's floor/unit and/or counseling patient: Coding Level of Care Code 45948 SUB INP/OBS CARE 2/35MIN Diagnoses Compression fracture of L2 S32.020A Lumbar spinal stenosis M48.061 Epidural hematoma S06.4XAA Atrial fibrillation I48.91 Prediabetes R73.03 Hypertension I10 Anemia D64.9 Rheumatoid arthritis M06.9 Hypothyroidism E03.9 Long-term use of immunosuppressant medication Z79.60 UTI (urinary tract infection) N39.0
[2023-03-04] MEDS: LIDOCAINE 5% 1 PATCH TD SCH (20:21)
[2023-03-04] MEDS: dexAMETHasone 2 MG in SYRINGE 0 ML IV SCH (20:22)
[2023-03-05] MEDS: LEVOTHYROXINE SODIUM 88 MCG TABLET PO SCH (05:52)
[2023-03-05] MEDS: oxyCODONE HCL IR 5 MG TAB (IMMEDIATE RELEASE) PO PRN (07:04)
[2023-03-05 07:17] LABS: Hematocrit (blood only) 34.2 % (37.0-47.0); Hemoglobin 10.8 g/dl (12.0-16.0); Mean Corpuscular Hemoglobin 27.1 pg (25.0-34.0); Mean Corpuscular Hgb Conc 31.6 g/dL (32.0-36.0); Mean Corpuscular Volume 85.9 fL (80.0-100.0); Mean Platelet Volume 10.3 fL (9.4-12.4); Platelet Count 282 K/uL (130-400); RDW Coefficient of Variation 16.8 % (11.5-14.5); RDW Standard Deviation 53.1 fL (36.4-46.3); Red Blood Count 3.98 M/uL (4.20-5.40)
[2023-03-05 07:29] LABS: BUN Creatinine Ratio 35.5 (10-20); Calcium 9.1 mg/dl (8.6-10.3); Creatinine Clr Calc Pharmacy 52.7 ml/min; Est GFR (Non-African American) 82.8 ml/min; Potassium 3.7 mmol/L (3.5-5.1)
[2023-03-05] MEDS: CALCITONIN SALMON NA 200 IU/AC 3.7 ML BTL SCH (07:45)
[2023-03-05] MEDS: amLODIPine BESYLATE 5 MG TAB PO SCH (07:46)
[2023-03-05] MEDS: PANTOprazole 40 MG TAB PO SCH (07:46)
[2023-03-05] MEDS: busPIRone 5 MG TAB PO SCH (07:46)
[2023-03-05] MEDS: ACETAMINOPHEN 500 MG TAB PO SCH (07:46)
[2023-03-05] MEDS: METOPROLOL TARTRATE 25 MG TAB PO SCH ×2 (07:46→20:05)
[2023-03-05] MEDS: cefTRIAXone SODIUM 1,000 MG in DEXTROSE 5% AD-VAN 50 ML IV SCH (07:47)
[2023-03-05] MEDS: LIDOCAINE 5% 1 PATCH TD SCH (07:47)
[2023-03-05] MEDS: dexAMETHasone 2 MG in SYRINGE 0 ML IV SCH ×2 (07:47→20:05)
--- NOTE | 2023-03-05 11:49 | Hospitalist Progress Note ---
Date of Service March 05, 2023 Assessment & Plan (1) Compression fracture of L2: Plan: likely 2nd to reported fall in the setting of significant osteoporosis from long-time prednisone use & other osteoporotic risk factors seen by Dr Choi - TREYO brace advised for now along with pain control pain control - tylenol 1gm TID scheduled; miacalcin daily; lidoderm patches also on dexamethasone 2mg BID she is not getting optimal pain relief with oxy change to norco 7.5mg q6h prn change dex to 4mg po daily starting tomorrow and wean over 5-7 days back to usual chronic prednisone dose of 5mg daily of note - 25OH vit D level on 12/23/[address] Choi to reassess tomorrow (2) Lumbar spinal stenosis: Plan: severe - L1-L2, L2-L3, and L3-L4 with latter the worst level. fortunately she continues with normal strength of LEs and no radicular symptoms. MRI report -- 03/01/23 - via [facility] system: IMPRESSION: 1. Transitional lumbar spine anatomy. 4 [id number] lumbar type vertebral bodies are again noted and corroborated counting down from C2 on localizer sequence. 12 rib-bearing thoracic type vertebral bodies are present on counting sequence accompanying this study. Lumbosacral transitional vertebra designated as L5 for this study. L5 sacralization, with fully formed L5-S1 disc and left L5 transverse process widening (Castellvi Ia). ATTENTION TO SPINE NUMBERING IS MANDATORY PRIOR TO PLANNED SPINAL SURGICAL/INTERVENTIONAL PROCEDURE. 2. Acute/subacute L2 superior endplate osteoporotic compression fracture. L2 fracture fragment retropulsion contributes to severe L1-L2 spinal canal stenosis and cauda equina compression. Additional L3-L4 severe spinal canal stenosis and cauda equina compression. Spinal surgery consultation is recommended. Lumbar spine CT without contrast may be performed to further characterize. 3. L2 vertebral level ventral epidural hematoma, which contributes to mild L2 vertebral level spinal canal stenosis. 4. Additional moderate L2-L3, L4-L5, and L5-S1 spinal canal stenoses. 5. Subacute T12 superior endplate osteoporotic compression fracture. T12 fracture fragment retropulsion contributes to mild T11-T12 spinal canal stenosis. 6. Exiting right L3 and exiting left L5 nerve root compression in respective neural foramina; traversing left L5 and traversing left S1 nerve root compression in respective subarticular zones. Nerve root contact at L1-L2, L2-L3, L3-L4, L4-L5, and L5-S1. Correlation with dermatomal symptom level recommended. 7. Multilevel neural foraminal narrowing, at worst severe. 8. Convex left lumbar scoliosis, measuring 25 degrees by Lezama method between superior L1 and inferior L5 endplates. 9. Grade I retrolisthesis of L1 on L2 and L5 on S1. 10. 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 11. L1 inferior endplate remote compression fracture. 12. T12-L1, L2- L3, L3-L4, L4-L5, and L5-S1 disc level and L1 inferior endplate mixed fibrovascular and fatty degenerative endplate changes. Fibrovascular degenerative endplate changes may be symptomatic. 13. Incompletely included T10 vertebral body lesion. Diagnostic considerations include atypical hemangioma (venous malformation). Thoracic spine CT without contrast to assess for bony trabeculation characteristically found in hemangioma (venous malformation) may be considered. (3) Epidural hematoma: Plan: I spoke with Dr Choi regarding this. This was mentioned on MRI report of the lumbar spine done as outpatient thru the [facility]. The hematoma is very, very small. It is located at the L2 level. MRI Report is as follows re: this -- "L2 vertebral level ventral epidural hematoma, which contributes to mild L2 vertebral level spinal canal stenosis." The report does not list dimensions of the hematoma. Discussed with Dr Choi - ok to use anticoagulation ongoing. I did place the Eliquis on hold starting Monday pm just in case she would need a procedure for her back. H/H have been stable. (4) Atrial fibrillation: Plan: Dx initially in 11/2022 while in a [facility]. Initiated on low-dose Eliquis at that time. Remains on metoprolol BID. Presented this admission in rapid a.fib but converted back to NSR. Echo at [facility] 11/2022 with preserved EF and only mild valvular disease. LA/RA enlargement likely the biggest risk factor for her a.fib. Holding eliquis as stated above. Cont tele. (5) Prediabetes: Plan: a1c 5.8% in December 2022 no Rx needed (6) Hypertension: Plan: had been under reasonable control with metoprolol + amlodipine but BPs trending up may need larger dose amlodipine follow for now (7) Anemia: Plan: H/H stable CBC in am (8) Rheumatoid arthritis: Plan: follows with Dr Sincere Murphy, [facility] - Emperatriz Hernandez on chronic prednisone 5mg daily + plaquenil 200mg daily hold latter changed prednisone to dexamethasone for stress dosing + pain control no active RA fare at this time lower dex to 4mg daily starting 03/06 and then wean over 5-7 days back to home dose of 5mg daily of prednisone (9) Hypothyroidism: Plan: TSH 4.1 early December 2022 cont synthroid (10) Long-term use of immunosuppressant medication: Plan: prednisone + plaquenil for long-standing RA (11) UTI (urinary tract infection): Plan: 2nd E.coli 2nd alpha strep s/p 3 days of IV rocephin change to 4 days of PO augmentin then stop abx Plan care d/w Dr Choi 03/03/23 doing very nicely updated pt's daughter by phone this pm cleared by PT/OT for home Dr Choi to see tomorrow on 03/06 if all is ok from his standpoint will d/c home then Admission and Anticipated Discharge Date Admission Date: March 02, 2023 Subjective patient states back pain is fairly controlled - oxycodone lasts 3-4 hours at most, then pain returns pain worse with activity denies paresthesias of legs denies weakness of legs no new issues tele overnight NSR Review of Systems Review of Systems: gen - no fevers, eating ok cv - no cp, no orthopnea pulm - no dyspnea GI - no pain/nausea/emesis Physical Exam Physical Exam: gen - very thin, NAD, pleasant, looks good overall mouth - MMM, no thrush neck - no JVD heart - RRR, s1 s2 lungs - CTA b/l abd - soft NT ND BS+ ext - no edema, pulses 2+ b/l neuro - strength b/l hip flexion 5/5; b/l ankle dorsiflexion/plantarflexion 5/5 Results & Data Results & Data Vital Signs (Past 12 Hours) Vital Signs Temp Pulse Pulse Pulse Resp BP BP 03/05/23 10:56 36.4 C L 52 L 18 156/78 H 03/05/23 07:00 55 L 03/05/23 06:37 37.2 C 53 L 16 176/69 H 03/05/23 03:48 37 C 53 L 16 145/86 H 03/05/23 00:28 54 L Pulse Ox O2 Del Method 03/05/23 10:56 97 Room Air 03/05/23 07:00 03/05/23 06:37 98 Room Air 03/05/23 03:48 98 Room Air 03/05/23 00:28 Laboratory Results Laboratory Results - last 24 hr 03/05/23 03/05/23 06:19 06:19 WBC 7.10 RBC 3.98 L Hgb 10.8 L Hct 34.2 L MCV 85.9 MCH 27.1 MCHC 31.6 L RDW Std Deviation 53.1 H RDW Coeff of Joao 16.8 H Plt Count 282 MPV 10.3 Sodium 136 Potassium 3.7 Chloride 104 Carbon Dioxide 25 Anion Gap 7 BUN 22 Creatinine 0.62 Est Cr Clr Drug Dosing 52.7 Est GFR ( Amer) 96.0 Est GFR (Non-Af Amer) 82.8 BUN/Creatinine Ratio 35.5 H Glucose 103 H Calcium 9.1 Diagnostic Findings urine cx - e. coli + gamma strep PG Care Time/CCT Total # of Minutes Spent Total Time Spent with Patient: Total time spent is greater than 50% in coordination of care (as documented) at patient's floor/unit and/or counseling patient: Coding Level of Care Code 81268 SUB INP/OBS CARE 2/35MIN Diagnoses Compression fracture of L2 S32.020A Lumbar spinal stenosis M48.061 Epidural hematoma S06.4XAA Atrial fibrillation I48.91 Prediabetes R73.03 Hypertension I10 Anemia D64.9 Rheumatoid arthritis M06.9 Hypothyroidism E03.9 Long-term use of immunosuppressant medication Z79.60 UTI (urinary tract infection) N39.0
[2023-03-05] MEDS: HYDROCODONE/ACETAMINOPHEN 7.5/325MG TAB PO PRN ×2 (12:18→18:13)
[2023-03-05] MEDS: ACETAMINOPHEN 325 MG TAB PO SCH (16:23)
--- NOTE | 2023-03-05 20:35 | Electrocardiogram Report ---
Test Reason : Blood Pressure : / mmHG Vent. Rate : 058 BPM Atrial Rate : 058 BPM P-R Int : 180 ms QRS Dur : 082 ms QT Int : 442 ms P-R-T Axes : 033 -32 023 degrees QTc Int : 433 ms Sinus bradycardia Left axis deviation Abnormal ECG When compared with ECG of 03-MAR-2023 05:46, (unconfirmed) No significant change was found Confirmed by José Marlow ([id number]) on 03/05/2023 8:35:40 PM Referred By: Jim Ackerman Confirmed By:José Marlow
[2023-03-06] MEDS: HYDROCODONE/ACETAMINOPHEN 7.5/325MG TAB PO PRN ×2 (05:28→11:00)
[2023-03-06] MEDS: LEVOTHYROXINE SODIUM 88 MCG TABLET PO SCH (05:28)
[2023-03-06 06:34] LABS: BUN Creatinine Ratio 34.8 (10-20); Calcium 8.9 mg/dl (8.6-10.3); Creatinine Clr Calc Pharmacy 47.6 ml/min; Est GFR (African American) 92.6 ml/min; Est GFR (Non-African American) 79.9 ml/min; Potassium 3.8 mmol/L (3.5-5.1)
[2023-03-06 06:42] LABS: Hematocrit (blood only) 32.9 % (37.0-47.0); Hemoglobin 10.6 g/dl (12.0-16.0); Mean Corpuscular Hgb Conc 32.2 g/dL (32.0-36.0); Mean Corpuscular Volume 83.7 fL (80.0-100.0); Mean Platelet Volume 10.1 fL (9.4-12.4); Platelet Count 265 K/uL (130-400); RDW Coefficient of Variation 16.4 % (11.5-14.5); RDW Standard Deviation 50.3 fL (36.4-46.3); Red Blood Count 3.93 M/uL (4.20-5.40); White Blood Count 5.49 K/ul (4.8-10.8)
[2023-03-06] MEDS: METOPROLOL TARTRATE 25 MG TAB PO SCH (08:21)
[2023-03-06] MEDS: CALCITONIN SALMON NA 200 IU/AC 3.7 ML BTL SCH (08:22)
[2023-03-06] MEDS: AMOXICILLIN/CLAVULANATE 875 MG TAB PO SCH ×2 (08:22→16:26)
[2023-03-06] MEDS: ACETAMINOPHEN 325 MG TAB PO SCH ×3 (08:28→16:25)
[2023-03-06] MEDS ORDERED: dexAMETHasone 4 MG TAB PO SCH (09:00)
[2023-03-06] MEDS: PANTOprazole 40 MG TAB PO SCH (10:50)
[2023-03-06] MEDS: amLODIPine BESYLATE 5 MG TAB PO SCH (10:50)
[2023-03-06] MEDS: LIDOCAINE 5% 1 PATCH TD SCH (10:50)
[2023-03-06] MEDS: busPIRone 5 MG TAB PO SCH (10:50)
--- NOTE | 2023-03-06 13:04 | Discharge Summary ---
Date of Service March 06, 2023 Discharge Exam gen - very thin, NAD, pleasant, looks good overall mouth - MMM, no thrush neck - no JVD heart - RRR, s1 s2 lungs - CTA b/l abd - soft NT ND BS+ ext - no edema, pulses 2+ b/l neuro - strength b/l hip flexion 5/; b/l ankle dorsiflexion/plantarflexion 02/24 Discharge Data Allergies Allergy/AdvReac Type Severity Reaction Status Date / Time azithromycin AdvReac Intermediate Arm/leg Verified 03/02/23 22:29 pain prochlorperazine AdvReac Intermediate Mental Verified 03/02/23 22:29 changes simvastatin [From Zocor] AdvReac Intermediate N/V Verified 03/02/23 22:29 Consultations 03/02/23 21:20 Consult Orthopedic Surgery Routine 03/02/23 22:03 ED Decision to Admit Stat 03/03/23 07:00 Consult Orthopedic Surgery Routine Hospital Course (1) Compression fracture of L2: likely 2nd to reported fall in the setting of significant osteoporosis from ramesh g-time prednisone use & other osteoporotic risk factors seen by Dr Choi - SARAH brace advised for now along with pain control pain control - tylenol 1gm TID scheduled; miacalcin daily; lidoderm patches also on dexamethasone 2mg BID she is not getting optimal pain relief with oxy change to norco 7.5mg q6h prn change dex to 4mg po daily starting tomorrow and wean over 5-7 days back to usual chronic prednisone dose of 5mg daily of note - 25OH vit D level on 12/23/[address] Choi to reassess tomorrow (2) Lumbar spinal stenosis: severe - L1-L2, L2-L3, and L3-L4 with latter the worst level. fortunately she continues with normal strength of LEs and no radicular symptoms. MRI report -- 03/01/23 - via [employer] system: IMPRESSION: 1. Transitional lumbar spine anatomy. 4 mcj-veu-brynnum lumbar type vertebral bodies are again noted and corroborated counting down from C2 on localizer sequence. 12 rib-bearing thoracic type vertebral bodies are present on counting sequence accompanying this study. Lumbosacral transitional vertebra designated as L5 for this study. L5 sacralization, with fully formed L5-S1 disc and left L5 transverse process widening (Castellvi Ia). ATTENTION TO SPINE NUMBERING IS MANDATORY PRIOR TO PLANNED SPINAL SURGICAL/INTERVENTIONAL PROCEDURE. 2. Acute/subacute L2 superior endplate osteoporotic compression fracture. L2 fracture fragment retropulsion contributes to severe L1-L2 spinal canal stenosis and cauda equina compression. Additional L3-L4 severe spinal canal stenosis and cauda equina compression. Spinal surgery consultation is recommended. Lumbar spine CT without contrast may be performed to further characterize. 3. L2 vertebral level ventral epidural hematoma, which contributes to mild L2 vertebral level spinal canal stenosis. 4. Additional moderate L2-L3, L4-L5, and L5-S1 spinal canal stenoses. 5. Subacute T12 superior endplate osteoporotic compression fracture. T12 fracture fragment retropulsion contrib utes to mild T11-T12 spinal canal stenosis. 6. Exiting right L3 and exiting left L5 nerve root compression in respective neural foramina; traversing left L5 and traversing left S1 nerve root compression in respective subarticular zones. Nerve root contact at L1-L2, L2-L3, L3-L4, L4-L5, and L5-S1. Correlation with dermatomal symptom level recommended. 7. Multilevel neural foraminal narrowing, at worst severe. 8. Convex left lumbar scoliosis, measuring 25 degrees by Lezama method between superior L1 and inferior L5 endplates. 9. Grade I retrolisthesis of L1 on L2 and L5 on S1. 10. 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 11. L1 inferior endplate remote compression fracture. 12. T12-L1, L2-L3, L3-L4, L4-L5, and L5-S1 disc level and L1 inferior endplate mixed fibrovascular and fatty degenerative endplate changes. Fibrovascular degenerative endplate changes may be symptomatic. 13. Incompletely included T10 vertebral body lesion. Diagnostic considerations include atypical hemangioma (venous malformation). Thoracic spine CT without contrast to assess for bony trabeculation characteristically found in hemangioma (venous malformation) may be considered. (3) Epidural hematoma: I spoke with Dr Choi regarding this. This was mentioned on MRI report of the lumbar spine done as outpatient thru the [employer] system. The hematoma is very, very small. It is located at the L2 level. MRI Report is as follows re: this -- "L2 vertebral level ventral epidural hematoma, which contributes to mild L2 vertebral level spinal canal stenosis." The report does not list dimensions of the hematoma. Discussed with Dr Choi - ok to use anticoagulation ongoing. I did place the Eliquis on hold starting Monday pm just in case she would need a procedure for her back. H/H have been stable. (4) Atrial fibrillation: Dx initially in 11/2022 while in a [place] hospital. Initiated on low-dose Eliquis at that time. Remains on metoprolol BID. Presented this admission in rapid a.fib but converted back to NSR. Echo at [facility] 11/2022 with preserved EF and only mild valvular disease. LA/RA enlargement likely the biggest risk factor for her a.fib. Holding eliquis as stated above. Cont tele. (5) Prediabetes: a1c 5.8% in December 2022 no Rx needed (6) Hypertension: had been under reasonable control with metoprolol + amlodipine but BPs trending up may need larger dose amlodipine follow for now (7) Anemia: H/H stable CBC in am (8) Rheumatoid arthritis: follows with Dr Sincere Murphy, [facility] [address] on chronic prednisone 5mg daily + plaquenil 200mg daily hold latter changed prednisone to dexamethasone for stress dosing + pain control no active RA fare at this time lower dex to 4mg daily starting 03/06 and then wean over 5-7 days back to home dose of 5mg daily of prednisone (9) Hypothyroidism: TSH 4.1 early December 2022 cont synthroid (10) Long-term use of immunosuppressant medication: prednisone + plaquenil for long-standing RA (11) UTI (urinary tract infection): 2nd E.coli 2nd alpha strep s/p 3 days of IV rocephin change to 4 days of PO augmentin then stop abx Plan care d/w Dr Choi 03/03/23 doing very nicely updated pt's daughter by phone this pm cleared by PT/OT for home Dr Choi to see tomorrow on 03/06 if all is ok from his standpoint will d/c home then Discharge Plan Discharge Items Patient Disposition: Home - Self-Care Reason For Visit: BACK PAIN, COMPRESSION FRACTURE Discharge Diagnosis: 1. L2 compression fracture 2. Lumbar spinal stenosis 3. Atrial fibrillation 4. Urinary tract infection Activity: As commented below Activity Comment: light activities only Lifting: No more than 10 pounds Driving/Machine Use: NO DRIVING if using narcotic pain killer medication Non-emergency contact: Primary Care Provider Call non-emergency contact if: you have any medication questions, your symptoms worsen, your pain is not controlled, your pain is worsening and you have a fever Follow-up/Referrals: Ayleen Potter MD, FACOG [Physician] - 03/23/23 (gynecology establish care visit ) Mati Choi DO [Surgeon] - (2 weeks - recheck of compression fracture) Alin Branch [Primary Care Provider] - (5-7 days for hospital follow-up ) Sincere Murphy MD [Physician] - (keep any regularly scheduled appointment with Dr Murphy ) Diet: Regular Addtl Attending Provider Instructions: Mrs Barajas, Michi were hospitalized due to severe pain from a compression fracture of lumbar vertebral level 2 ("L2 compression fracture"). See handout on compression fractures. You also likely have been having pain from a back condition called "spinal stenosis." Your MRI scan done at [facility] on 03/[address] Jaxon Choi, spine surgeon with [facility]. He recommended nonoperative treatment of your compression fracture. Orthotics saw you and fitted you for a back brace. During the stay we made adjustments to your pain medication regimen. We also treated you for a urinary tract infection. Finally, when you first arrived at [facility], you had atrial fibrillation. This quickly resolved and you went back into normal rhythm. Recommendations - 1. Pain control for your back - * gfzt-hev-uasjjlu tylenol (acetaminophen) 500mg three times daily scheduled for 1 week then STOP * hydrocodone-acetaminophen - 1 tablet every 6 hours NEEDED for pain; DO NOT EXCEED 4 tablets in a 24-hour period * hydrocodone is a narcotic pain killer medication * it can cause drowsiness - thus, no alcohol use or driving a car while taking this medication * nearly everyone who takes a narcotic pain killer medication gets constipated (see below) * calcitonin nasal spray - 1 spray to 1 nostril each day; from day to day be sure to alternate which nostril you are using * vpmy-eqb-njozotb "SALONPAS" pain patches; place on the site of pain on your back; follow the directions on the package insert 2. For urinary infection - * amoxicillin-clavulanate 875mg - 1 tablet twice daily x 4 days, first dose TONIGHT * to prevent diarrhea from the antibiotic take a "probiotic" once daily for about a week * also eat some extra yogurt daily for about a week 3. Prednisone taper - take as follows - * 03/07 and 03/08 - 4 tabs each day (total 20mg) * 03/09 and 03/10 - 3 tabs each day (total 15mg) * 03/11 and 03/12 - 2 tabs each day (total 10mg) * 03/13 and thereafter - resume your usual 1 tab of 5mg each day 4. High blood pressure - please LOWER your metoprolol to 50mg twice a day. New prescription sent to [facility] for you. Of note - you were previously taking 75mg twice daily. 5. For treatment of constipation while taking the narcotic pain killer you can take 1 or both of the following - * miralax one serving daily in 8oz of water and/or * senokot 2 tablets daily * both medications are dozw-raw-ipuoiio 6. Please note -- your Eliquis blood thinner dosing is 2.5mg TWICE A DAY every day. Follow-up - see separate section Return to [facility] if - * you have uncontrollable back pain or leg pains despite all of the above medications * you have new onset numbness or tingling of one or both legs * you have incontinence of your stool or urine * you have fevers over 100 degrees * any other concerns It was our pleasure to care for you! -Dr Causey Pending Studies at Discharge: No Stand-Alone Forms: My [facility], Smoking Cessation Medications and DC Order Prescriptions: New amoxicillin-pot clavulanate 875-125 mg Tablet 1 tab PO BIDM 4 Days Qty: 8 0RF calcitonin (salmon) 200 unit/actuation [place],Non-Aerosol 1 spray NA DAILY Qty: 1 2RF hydrocodone-acetaminophen 7.5-325 mg Tablet 1 tab PO Q6H PRN (Reason: pain) Qty: 30 0RF Continued estradiol 0.01 % (0.1 mg/gram) cream 1 g vaginal 2XWK Qty: 42.5 3RF Rx Instructions: TUES & FRI. Insert 10/26 applicatorful vaginally 2 time a week. docusate sodium [Colace] 100 mg capsule 100 mg PO DAILY PRN (Reason: Constipation) amlodipine 5 mg tablet 5 mg PO QAM Rx Instructions: HOLD FOR SBP < 100 citalopram [Celexa] 20 mg tablet 20 mg PO QAM levothyroxine 88 mcg tablet 88 mcg PO QAM multivitamin Tablet 1 tab PO QAM prednisone 5 mg tablet 5 mg PO QAM omeprazole 20 mg capsule,delayed release(DR/EC) 20 mg PO QAM hydroxychloroquine 200 mg tablet 200 mg PO QAM buspirone 5 mg tablet 5 mg PO BID ferrous sulfate 325 mg (65 mg iron) Tablet 325 mg PO DAILY Changed metoprolol tartrate 50 mg tablet 50 mg PO BID Qty: 60 5RF acetaminophen 500 mg capsule 500 mg PO TID Qty: 30 0RF Rx Instructions: purchase tiqg-qbo-hjvramv Eliquis 2.5 mg tablet 2.5 mg PO BID Qty: 1 0RF polyethylene glycol 3350 [Miralax] 17 gram/dose Powder 17 g PO DAILY Qty: 1 0RF Krames/Other Patient Handouts: Compression Fx Admission Data Admit Date/Time: 03/02/23 22:25 Attending Provider: Vineet Causey Admit Provider: Alejo Lockhart Primary Care Provider: Alin Branch Other Providers: Mati Choi ; Kushal Ennis Coding Diagnoses Compression fracture of L2 S32.020A Lumbar spinal stenosis M48.061 Epidural hematoma S06.4XAA Atrial fibrillation I48.91 Prediabetes R73.03 Hypertension I10 Anemia D64.9 Rheumatoid arthritis M06.9 Hypothyroidism E03.9 Long-term use of immunosuppressant medication Z79.60 UTI (urinary tract infection) N39.0
--- NOTE | 2023-03-06 13:43 | Orthopedic Progress Note ---
Date of Service March 06, 2023 Assessment & Plan (1) Compression fracture: Plan: Assessment compression fracture with epidural hematoma. Plan at this time patient is responded wonderfully with a brace and physical therapy. Suspect she will not require any surgical intervention at this time. She can ambulate as tolerated with wearing the brace. She will follow-up in the office for x-ray the next few weeks. Admission and Anticipated Discharge Date Admission Date: March 02, 2023 Subjective Back pain is controlled with the brace. She feels much improved from her initial status upon admission. Physical Exam Physical Exam: On exam she is good strength testing. She appears comfortable. Results & Data Vital Signs (Past 12 Hours) Vital Signs Temp Pulse Pulse Pulse Resp BP Pulse Ox 03/06/23 08:00 61 03/06/23 11:06 36.9 C 53 L 19 154/91 H 97 03/06/23 07:46 36.5 C 64 18 167/93 H 98 03/06/23 02:55 36.7 C 58 L 18 167/88 H 98 O2 Del Method 03/06/23 08:00 03/06/23 11:06 Room Air 03/06/23 07:46 Room Air 03/06/23 02:55 Room Air
== END 2023-03-06 18:13 | disposition home or self-care (01) | DRG 543 ==
LOC: ED 20:38 → 2W 22:25 → SUATTDRO 22:25 → 2W 22:49

== ENCOUNTER 2024-03-17 14:48 | Inpatient (IN) ==
--- OUTSIDE RECORDS SUMMARY | 2024-03-17 14:52 | External Medical Summary | Summary of Care ---
Author Name Unknown Organization [facility] Address [address] [place] [address] Phone [phone] Care Team Providers Care Water Proofer Name Role Phone Alin Branch MD Primary Care Provider Reason for Visit * Reason Onset Date Comments Medication Refill 02/09/2024 Encounter Details Date Type Department Care Team (Late st Contact Info) Description 02/09/2024 Refill Rheumatology [address] [place] [phone] Ju Stanley MD [facility] [place] [address] Allergies Active Allergy Reactions Criticality Noted Date Comments Azithromycin Diarrhea,Nausea/vomi tin g High 01/29/2016 Injections only Pt reported Other Reaction(s): Arm/leg pain, Other (See Comments), pain in arms & legs, Unknown Injections only Pt reported Duloxetine 06/12/2023 Other Reaction(s): GI Intolerance nausea vomiting Prochlorperazine High 06/15/2001 Other Reaction(s): *Intolerance, Anxiety, ill feeling, Mental changes, Unknown Simvastatin High 07/15/2015 Other Reaction(s): *Intolerance, N/V documented as of this encounter (statuses as of 02/09/2024) Medications Medication Sig Dispensed Refills Start Date End Date Status Estradiol 0.1 MG/GM Vaginal Cream Administer 0.1 mg into the vagina as needed. 0 12/13/2020 Active Ferrous Sulfate 325 (65 Fe) MG Oral Tablet (Feosol) Take 1 Tablet by mouth daily with breakfast. 30 Tablet 0 01/05/2023 Active Multivitamin Adults Oral Tablet Take 1 Tablet by mouth in the morning. 30 Tablet 0 01/05/2023 Active Levothyroxine Sodium 88 MCG Oral Tablet (Synthroid)Indicati ons:Acquired hypothyroidism Take 1 Tablet by mouth in the morning. (at least 30 min prior to breakfast or other meds). 30 Tablet 0 01/12/2023 Active amLODIPine Besylate 5 MG Oral Tablet (Norvasc)Indication s:HTN, goal below 140/90 Take 1 Tablet by mouth in the morning. 30 Tablet 0 01/12/2023 Active Apixaban 2.5 MG Oral Tablet (Eliquis)Indication s:PAF (paroxysmal atrial fibrillation) (HCC) Take 1 Tablet by mouth in the morning and 1 Tablet before bedtime. 60 Tablet 0 01/12/2023 Active Citalopram Hydrobromide 20 MG Oral Tablet (CeleXA)Indications :Adjustment reaction with anxiety and depression Take 1 Tablet by mouth in the morning. 60 Tablet 0 01/12/2023 Active busPIRone HCl 5 MG Oral Tablet (Buspar)Indications :Adjustment reaction with anxiety and depression Take 1 Tablet by mouth in the morning and 1 Tablet before bedtime. 60 Tablet 0 01/12/2023 Active Metoprolol Tartrate 75 MG Oral TabletIndications:P AF (paroxysmal atrial fibrillation) (HCC) Take 75 mg by mouth in the morning and 75 mg in the evening. 60 Tablet 0 01/12/2023 Active Omeprazole 20 MG Oral Capsule Delayed Release (PriLOSEC)Indicatio ns:Gastroesophageal reflux disease without esophagitis Take 1 Capsule by mouth in the morning. 1 hour before the first meal of the day. 30 Capsule 0 01/12/2023 Active Calcitonin ([place]) 200 UNIT/ACT Nasal Solution (Fortical) Administer 1 [place] into nostril in the morning. 0 03/06/2023 Active Cholecalciferol 125 MCG (5000 UT) Oral Tablet Take 1 Tablet by mouth daily. 0 12/17/2022 Active DULoxetine HCl 60 MG Oral Capsule Delayed Release Particles (Cymbalta) Take 1 Capsule by mouth in the morning. 0 08/11/2023 Active Megestrol Acetate 20 MG Oral Tablet (Megace) Take 1 Tablet by mouth in the morning. 0 08/04/2023 Active Polyethylene Glycol 3350 17 GM/SCOOP Oral Powder (Miralax) daily. 0 03/06/2023 Active Hydroxychloroquine Sulfate 200 MG Oral Tablet (Plaquenil)Indicati ons:Rheumatoid arthritis involving multiple sites with positive rheumatoid factor (HCC) Take 1 Tablet by mouth in the morning. For rheumatoid arthritis. 30 Tablet 11 10/19/2023 Active predniSONE 5 MG Oral Tablet (Deltasone)Indicati ons:Rheumatoid arthritis involving multiple sites with positive rheumatoid factor (HCC) TAKE 1 TABLET BY MOUTH EVERY DAY IN THE MORNING 30 Tablet 2 02/06/2024 Active oxyCODONE-Acetamino phen 5-325 MG Oral Tablet (Percocet) Take 1 Tablet by mouth in the morning and 1 Tablet at noon and 1 Tablet before bedtime. 90 Tablet 0 02/09/2024 Active oxyCODONE-Acetamino phen 5-325 MG Oral Tablet (Percocet) Take 1 Tablet by mouth in the morning and 1 Tablet at noon and 1 Tablet before bedtime. 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 07/08 Osteoporosis 09/10/2002 HYPERTENSION NOS Hypothyroidism GERD (gastroesophageal reflux disease) DDD (degenerative disc disease), lumbar Hyperlipidemia Senile osteoporosis documented as of this encounter (statuses as of 02/09/2024) Resolved Problems Problem Noted Date Diagnosed Date Resolved Date Medical marijuana use 06/30/20212021 H/O rheumatoid arthritis 11/18/2019 Arthritis, rheumatoid 2019 Overview: Started 1965, Mtx (9474-1280), Enbrel (1999-), Prednisone (1999) documented as of this encounter (statuses as of 02/09/2024) Immunizations Name Administration Dates Next Due COVID-19 mRNA, LNP-s, No Pre serve, 2-Dose Series (Pfizer) 09/22/2021,01/01/2021,12/11/2020 Pneumococcal Conjugate Vacc, 13 Valent (Prevnar) 11/02/2016 Season Influenza, Quad, PF, Adjuvanted, 65+ Yrs, IM (FLUAD) 08/12/2020 Seasonal Influenza, Quadriva lent Hd, 65+ Yrs 07/05/2022 Seasonal Influenza, Recombin ant, RIV4, PF, (Flublock) 08/05/2021,08/15/2018 Seasonal Influenza, Split, I IV3, With Preserve, Inj 08/12/2020,07/17/2019,08/15/2018,2017,09/07/2016,07/15/2015,09/04/2013,1 ,07/13/2011,07/25/2008, 004,08/21/2003 Seasonal Influenza, Trivalen t, Adjuvanted, 65+ yrs 08/12/2020 Seasonal Influenza, Trivalen t, High Dose, No Preserve, IM 11/12/2017 documented as of this encounter Social History Tobacco Use Types Packs/Day Years Used Date Smoking Tobacco: Never Smokeless Tobacco: Never Alcohol Use Standard Drinks/Week Comments No 0 (1 standard drink = 0.6 oz pur e alcohol) Sex and Gender Information Value Date Recorded Sex Assigned at Female 08/25/2023 9:00 AM EDT Gender Identity Female 08/25/2023 9:00 AM EDT Sexual Orientation Straight 08/25/2023 9: 00 AM EDT Job Start Date Occupation Industry Not on file Not on file Not on file documented as of this encounter Miscellaneous Notes * Telephone Encounter - Ju Stanley MD - 02/09/2024 12:25 PM EDTSigned Prescriptions: Disp Refills oxyCODONE-Acetaminophen 5-325 MG Oral Tabl*90 Tab*0 Sig: Take 1 Tablet by mouth in the morning and 1 Tablet at noon and 1 Tablet before bedtime.Authorizing Provider: JU STANLEY * Telephone Encounter - Ju Stanley MD - 02/09/2024 12:23 PM EDT I have reviewed the patients controlled substance dispensing history in the Prescription Drug Monitoring Program in compliance with the [facility] regulations before prescribing a controlled substance. Last Tox Screen Results: Results for orders placed or performed in visit on 08/25/23 PAIN MANAGEMENT DRUG PANEL, URINE W/ INTERPRETATION Result Value Compliance Interpretation Based on the medication information provided: The presence of oxycodone and oxycodone metabolite (oxymorphone) is INCONSISTENT with the information provided. The presence of hydrocodone, dihydrocodeine and hydromorphone is CONSISTENT with hydrocodone use. Amphetamines Screen, U Negative Benzodiazepines Screen, U Negative Cannabinoids Screen, U Negative Cocaine Metabolite Screen, U Negative Fentanyl Screen, U Negative Hydrocodone Screen, U Refer to confirmation results (A) Methadone Metabolite Screen, U Negative Morphine/Codeine Screen, U Refer to confirmation results (A) Oxycodone Screen, U Refer to confirmation results (A) Valid Interpretation Normal Creatinine, U 87 Narrative Cutoff Concentrations: Drug Level Amphetamines 500 ng/mL Benzodiazepines 100 ng/mL Cannabinoids 50 ng/mL Cocaine Metabolite 150 ng/mL Fentanyl 1 ng/mL Hydrocodone / Hydromorphone 300 ng/mL Methadone Metabolite 100 ng/mL Morphine / Codeine 300 ng/mL Oxycodone / Oxymorphone 100 ng/mL Screening results are presumptive and can only be used for medical purposes. Confirmatory testing is available upon request. * Telephone Encounter - Pau Gross LPN - 02/09/2024 12:08 PM EDTPending Prescriptions: Disp Refills oxyCODONE-Acetaminophen 5-325 MG Oral Tabl*90 Tab*0 Sig: Take 1 Tablet by mouth in the morning and 1 Tablet at noon and 1 Tablet before bedtime. * Telephone Encounter - Pau Gross LPN - 02/09/2024 12:05 PM EDT Pending Prescriptions: Disp Refills oxyCODONE-Acetaminophen 5-325 MG Oral Tab*90 Tab*0 Sig: Take 1 Tablet by mouth in the morning and 1 Tablet at noon and 1 Tablet before bedtime. 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 Z79.52 Rheumatoid arthritis involving multiple sites with positive rheumatoid factor ([facility]) M05.79 S/P hip replacement, right Z96.641 PAF (paroxysmal atrial fibrillation) ([facility]) I48.0 Iron deficiency anemia D50.9 Closed fracture of proximal end of left humerus with routine healing S42.202D Anxiety F41.9 Rectovaginal fistula N82.3 Prediabetes R73.03 documented in this encounter Plan of Treatment Upcoming Encounters Date Type Department Care Team (Late st Contact Info) Description 06/17/2024 2:30 PM EDT Office Visit Rheumatology [address] [place] [phone] Keyanna Moon CRNP [address] [facility] [place], [place] [address] Health Maintenance Due Date Last Done Comments HbA1c 1946 Depression Screening 1950 Albumin/Creatinine Ratio 1956 DTaP,Tdap,and Td Vaccines (1 - Tdap) 1957 Zoster Vaccines (1 of 2) 1957 COVID-19 Vaccine (5 - season) 2023 07/05/2022, 07/05/2022, 07/05/2022, Additional history exists Influenza Vaccine (FLU shot) (Season Ended) 2024 07/05/2022, 07/05/2022, 08/05/2021, Additional history exists TSH 10/06/2024 10/06/2023, 01/21, 01/10/2017, Additional history exists DXA Scan 11/20/2025 11/20/2023, 10/24, 11/11/2019, Additional history exists Pneumococcal Vaccine: 65+ Years Completed 08/25/2023, 11/02/2016 VITAMIN D LEVEL ONCE IN A LIFETIME-USE SMARTSET# [id number] Completed 08/25/2023, 06/24/2022, 12/20/2021, Additional history exists GARDASIL-HPV IMMUNIZATION SERIES Aged Out No longer eligible based on patient's age to complete this topic Hepatitis B Aged Out No longer eligi ble based on patient's age to complete this topic MENINGOCOCCAL (MENACTRA/MENVEO) Aged Out No longer eligible based on patient's age to complete this topic documented as of this encounter Medical Devices Not on filedocumented as of this encounter Care Teams Water Proofer Relationship Specialty Start Date End Date Alin Branch MD [address] [place] [address] PCP - General 02/09/04 documented as of this encounter
--- OUTSIDE RECORDS SUMMARY | 2024-03-17 14:52 | External Medical Summary | Summary of Care ---
Author Name Unknown Organization [facility] Address [address] [place] [address] Phone [phone] Care Team Providers Care Back Feeder Plywood Layup Line Name Role Phone lAin Branch MD Primary Care Provider Reason for Visit * Reason Onset Date Comments Medication Refill 02/09/2024 Encounter Details Date Type Department Care Team (Late st Contact Info) Description 02/09/2024 Refill Rheumatology [address] [place] [phone] Ju Stanley MD [facility] [place] [address] Rheumatoid arthritis involving multiple sites with positive rheumatoid factor (HCC) Allergies Active Allergy Reactions Criticality Noted Date [...] as of this encounter (statuses as of 02/13/2024) Medications Medication Sig Dispensed Refills Start Date [...] Oral Tablet (Eliquis)Indication s:PAF (paroxysmal atrial fibrillation) ([facility]) Take 1 Tablet by mouth in the [...] day. 30 Capsule 0 01/12/2023 Active Calcitonin ([place]) 200 UNIT/ACT Nasal Solution (Fortical) Administer 1 [place] into nostril in the morning. 0 03/06/2023 [...] Oral Powder (Miralax) daily. 0 03/06/2023 Active predniSONE 5 MG Oral Tablet (Deltasone)Indicati ons:Rheumatoid arthritis involving multiple sites with positive rheumatoid factor (HCC) TAKE 1 TABLET BY MOUTH EVERY DAY IN THE MORNING 30 Tablet 2 02/06/2024 Active oxyCODONE-Acetamino phen 5-325 MG Oral Tablet (Percocet) Take 1 Tablet by mouth in the morning and 1 Tablet at noon and 1 Tablet before bedtime. 90 Tablet 0 02/09/2024 Active Hydroxychloroquine Sulfate 200 MG Oral Tablet (Plaquenil)Indicati ons:Rheumatoid arthritis involving multiple sites with positive rheumatoid factor (HCC) Take 1 Tablet by mouth in the morning. For rheumatoid arthritis. 90 Tablet 1 02/13/2024 Active predniSONE 10 MG Oral Tablet (Deltasone) Take 3 Tablets by mouth daily for 4 days, THEN 2 Tablets daily for 4 days, THEN 1 Tablet daily for 4 days. 24 Tablet 0 02/09/2024 Active Hydroxychloroquine Sulfate 200 MG Oral Tablet (Plaquenil)Indicati ons:Rheumatoid arthritis involving multiple sites with positive rheumatoid factor (HCC) Take 1 Tablet by mouth in the morning. For rheumatoid arthritis. 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] encounter Miscellaneous Notes * Telephone Encounter - Justina Heard [facility] - 02/13/2024 10:27 AM EDTSigned Prescriptions: Disp Refills Hydroxychloroquine Sulfate 200 MG Oral Tab*90 Tab*1 Sig: Take 1 Tablet by mouth in the morning. For rheumatoid arthritis.Authorizing Provider: JU STANLEY User: JUSTINA HEARD * Telephone Encounter - Justina Heard [facility] - 02/13/2024 10:26 AM EDT Rheumatology: Refill Request(s) Per review of the refill parameters, Medication was refilled Rerouted to requested pharmacy Justina Heard [facility] Clinical Pharmacist Rheumatology Department 02/13/2024,10:26 AM * Telephone Encounter - Pau Gross LPN - 02/09/2024 12:52 PM EDTPending Prescriptions: Disp Refills Hydroxychloroquine Sulfate 200 MG Oral Tab*30 Tab*11 Sig: Take 1 Tablet by mouth in the morning. For rheumatoid arthritis. * Telephone Encounter - Pau Gross LPN - 02/09/2024 12:52 PM EDT Pending Prescriptions: Disp Refills Hydroxychloroquine Sulfate 200 MG Oral Ta*30 Tab*11 Sig: Take 1 Tablet by mouth in the morning. For rheumatoid arthritis. 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 Z79.52 Rheumatoid arthritis involving multiple sites with positive rheumatoid factor (HCC) M05.79 S/P hip replacement, right Z96.641 PAF (paroxysmal atrial fibrillation) ([facility]) I48.0 Iron deficiency anemia D50.9 Closed fracture of proximal end of left humerus with routine healing S42.202D Anxiety F41.9 Rectovaginal fistula N82.3 Prediabetes R73.03 documented in this encounter Plan of Treatment Upcoming Encounters Date Type Department Care Team (Late st Contact Info) Description 06/17/2024 2:30 PM EDT Office Visit Rheumatology [address] [place] [phone] Keyanna Moon CRNP [address] [place] [address] [place] [address] Health Maintenance Due Date Last Done Comments HbA1c 1946 Depression Screening 1950 Albumin/Creatinine Ratio 1956 DTaP,Tdap,and Td Vaccines (1 - Tdap) 1957 Zoster Vaccines (1 of 2) 1957 COVID-19 Vaccine ( - season) 2023 07/05/2022, 07/05/2022, 07/05/2022, Additional history exists Influenza Vaccine (FLU shot) (Season Ended) 2024 07/05/2022, 07/05/2022, 08/05/2021, Additional history exists TSH 10/06/2024 10/06/2023, 01/21, 01/10/2017, Additional history exists DXA Scan 11/20/2025 11/20/2023, 10/24, 11/11/2019, Additional history exists Pneumococcal Vaccine: 65+ Years Completed 08/25/2023, 11/02/2016 VITAMIN D LEVEL ONCE IN A LIFETIME-USE SMARTSET# [id number] Completed 08/25/2023, 06/24/2022, 12/20/2021, Additional history exists [...] Not on filedocumented as of this encounter Visit Diagnoses Diagnosis Rheumatoid arthritis involving multiple sites with positive rheumatoid factor (HCC) documented in this encounter Care Teams Back Feeder Plywood Layup Line Relationship Specialty Start Date End Date Alin Branch MD [address] [place] [address] PCP - General 02/09/04 documented as of this encounter
--- OUTSIDE RECORDS SUMMARY | 2024-03-17 14:52 | External Medical Summary | Summary of Care ---
Author Name Unknown Organization [facility] Address [address] [place] [address] Phone [phone] Care Team Providers Care School Bus Driver Name Role Phone Alin Branch MD Primary Care Provider [phone] Reason for Visit * Reason Onset Date Comments Medication Refill 02/05/2024 Encounter Details Date Type Department Care Team (Late st Contact Info) Description 02/05/2024 Refill Rheumatology [address] [place] [phone] Ju Stanley MD [facility] [place] [address] Rheumatoid arthritis involving multiple sites with positive [...] as of this encounter (statuses as of 02/06/2024) Medications Medication Sig Dispensed Refills Start Date [...] Oral Tablet (Eliquis)Indication s:PAF (paroxysmal atrial fibrillation) ([facility]) Take 1 Tablet by mouth in the [...] day. 30 Capsule 0 01/12/2023 Active Calcitonin ([place]) 200 UNIT/ACT Nasal Solution (Fortical) Administer 1 [place] into nostril in the morning. 0 03/06/2023 [...] rheumatoid arthritis. 30 Tablet 11 10/19/2023 Active oxyCODONE-Acetamino phen 5-325 MG Oral Tablet (Percocet) Take 1 Tablet by mouth in the morning and 1 Tablet at noon and 1 Tablet before bedtime. 90 Tablet 0 01/12/2024 Active predniSONE 5 MG Oral Tablet (Deltasone)Indicati ons:Rheumatoid arthritis involving multiple sites with positive rheumatoid factor (HCC) TAKE 1 TABLET BY MOUTH EVERY DAY IN THE MORNING 30 Tablet 2 02/06/2024 Active predniSONE 5 MG Oral Tablet (Deltasone)Indicati ons:Rheumatoid arthritis involving multiple sites with positive rheumatoid factor (HCC) TAKE 1 TABLET BY MOUTH EVERY DAY IN THE MORNING 30 Tablet 2 09/04/2023 Discontinue d(Refill) documented as of this encounter (statuses as of 02/06/2024) Active Problems Problem Noted Date Diagnosed Date S/P hip replacement, right 01/05/2023 PAF (paroxysmal atrial fibrillation) 01/05/2023 Iron deficiency anemia 01/05/2023 Closed fracture of proximal end of left humerus with routine healing 01/05/2023 Anxiety 01/05/2023 Rectovaginal fistula 01/05/2023 Prediabetes 01/05/2023 Rheumatoid arthritis involvi ng multiple sites with positive rheumatoid factor 11/18/2019 Secondary fibromyalgia 07/08/2019 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] Telephone Encounter - Ju Stanley MD - 02/06/2024 2:15 PM EDTSigned Prescriptions: Disp Refills predniSONE 5 MG Oral Tablet (Deltasone) 30 Tab*2 Sig: TAKE 1 TABLET BY MOUTH EVERY DAY IN THE MORNING Authorizing Provider: JU STANLEY * Telephone Encounter - Pau Gross LPN - 02/06/2024 11:35 AM EDTPending Prescriptions: Disp Refills predniSONE 5 MG Oral Tablet (Deltasone) 30 Tab*2 * Telephone Encounter - Pau Gross LPN - 02/06/2024 11:35 AM EDT Pending Prescriptions: Disp Refills predniSONE 5 MG Oral Tablet (Deltasone) 30 Tab*2 Last Visit: 08/25/2023 (in office), 02/17/2020 (telemedicine) Next Visit: 06/17/2024 Patient Active Problem List Diagnosis Code HYPERTENSION NOS I10 Hypothyroidism E03.9 Osteoporosis M81.0 GERD (gastroesophageal reflux disease) K21.9 DDD (degenerative disc disease), lumbar M51.36 Hyperlipidemia E78.5 Senile osteoporosis M81.0 Secondary fibromyalgia M79.7 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 Z79.52 Rheumatoid arthritis involving multiple sites with positive rheumatoid factor (HCC) M05.79 S/P hip replacement, right Z96.641 PAF (paroxysmal atrial fibrillation) ([facility]) I48.0 Iron deficiency anemia D50.9 Closed fracture of proximal end of left humerus with routine healing S42.202D Anxiety F41.9 Rectovaginal fistula N82.3 Prediabetes R73.03 documented in this encounter Plan of Treatment Upcoming Encounters Date Type Department Care Team (Late st Contact Info) Description 06/17/2024 2:30 PM EDT Office Visit Rheumatology [address] [place] [phone] Keyanna Moon CRNP [address] [place] [address] [place], [place] [address] Health Maintenance Due Date Last Done Comments [...] D LEVEL ONCE IN A LIFETIME-USE SMARTSET# [id number] Completed 08/25/2023, 06/24/2022, 12/20/2021, Additional history exists [...] (HCC) documented in this encounter Care Teams School Bus Driver Relationship Specialty Start Date End Date Alin Branch MD [address] [place] [address] PCP - General 02/09/04 documented as of this encounter
--- NOTE | 2024-03-17 14:57 | Emergency Department Note ---
Impression & Plan Closed intertrochanteric fracture of left femur, Fall from standing ED Provider Note HISTORY OF PRESENT ILLNESS: Patient is an 83-year-old female presenting with left hip pain after fall. Patient reports she was walking when she lost her balance and fell, landing on her left hip. She denies striking her head or loss of consciousness. She is on Eliquis for history of A-fib. She denies any new numbness or tingling in her extremities. She denies any chest pain, shortness of breath or lightheadedness prior to her fall. Currently complaining of significant pain in her left hip. ROS: as above PHYSICAL EXAM: Constitutional: Patient appears in no acute distress. HENT: Head: Normocephalic and atraumatic. Eyes: EOMI, PERRL Mouth/Throat: Mucous membranes moist. Neck: Trachea midline. Neck supple. No midline cervical spine tenderness to palpation. Cardiovascular: RRR, No murmurs, rubs or gallops. Intact distal pulses. Pulmonary/Chest: No respiratory distress. Breath sounds clear and equal bilaterally. No wheezes or rales. No chest wall tenderness to palpation. Abdominal: Abdomen soft, no tenderness, rebound or guarding. Back: No midline spinal tenderness, no paraspinal tenderness, no CVA tenderness. Musculoskeletal: - LLE: Left leg is shortened and externally rotated. Tenderness palpation along the lateral part of the hip. Patient is able to wiggle toes, dorsiflex and plantarflex the ankle and bend and extend at the knee. Unable to range the hip without significant pain. Sensation intact to light touch throughout the nerve distributions of the leg. Intact DP pulse Skin: Warm and dry. No rash, erythema, pallor or cyanosis Psychiatric: Appropriate mood and affect for situation. Neurological: Alert and keenly responsive. CN II-XII grossly intact, moving all extremities equally and fully. MDM: - Vitals signs showed hypertension - History obtained via patient. History as above. - Chronic conditions affecting care: Afib - Differential diagnoses include, but are not limited to: pelvic fracture; hip dislocation; femur fracture; contusion - Order placed for continuous cardiac monitoring. At this time, monitor showed rate of 68 bpm with normal sinus rhythm, per my interpretation. - External medical records reviewed. Wound visit note dated 11/16/2023 was reviewed. Patient was being followed in their clinic for pressure ulcer of her right foot. - EKG interpreted by myself showed normal sinus rhythm. Rate 72 bpm. QT 376. No acute ischemic changes. - Laboratory workup interpreted by myself showed normal WBC; stable electrolytes; normal troponin - Xray pelvis with left hip showed left intertrochanteric hip fracture. - Patient initially given 50 mcg IV fentanyl. Was doing well, but alvarez returned. Given 0.5 mg IV dilaudid - Navarro catheter inserted by nursing staff. - Discussion was had with telephonic case manager about patient's case and need for admission - Hospitalist consulted for admission - [facility] ASSESSMENT AND PLAN: Diagnosis: fall from standing; left intertrochanteric femur fracture Plan: admit Past Med/Surg History Problem List Fall from standing (Acute) Closed intertrochanteric fracture of left femur (Acute) Traumatic wound (Acute) Elbow arthritis Acquired foot deformity (Chronic) Pressure ulcer of right foot, stage 3 (Acute) Abnormal ankle brachial index (Acute) Rheumatoid arthritis (Chronic) Follows with rheum - Dr. Bush Intermittent atrial fibrillation Prediabetes diet Enterovaginal fistula Depression Hyperlipidemia Osteoporosis Hypotension Abnormal CXR DVT prophylaxis Hyponatremia PEDRO (acute kidney injury) Elevated troponin (Acute) LLL pneumonia Hypokalemia Hypomagnesemia Closed fracture of left proximal humerus Encounter for pre-operative examination Fall Rectovaginal fistula Pt states getting surgical repair in near future Depression Anemia Taking oral iron supplementation Degenerative joint disease of right hip Hx of cataract extraction bilateral Left humeral fracture (Acute) 11/2022 after fall, non-operative management recommended Status post right hip replacement Right GOPI (12/27/22): Grade view 1, MAC#3, ETT 6.5 at [facility] Medical History Vaginal discharge Osteoarthritis of shoulder Neck pain Low back pain Joint pain, knee High risk medication use ESR raised Cat bite of hand Acute bilateral low back pain without sciatica Acid reflux disease Aortic stenosis Mild per 11/2022 ECHO Lumbar spinal stenosis Compression fracture of L2 Discovered 03/02/23- conservative treatment Following routinely with Dr. Choi- may get steroid injections (still wearing brace) Epidural hematoma Noted on outside imaging per 03/02/23 H&P at [facility] - Dr. Choi consulted- "epidural hematoma very, very small. Located at L2." Recommended no intervention needed- restarted on AC Scoliosis Chronic steroid use for RA Prediabetes diet Atrial fibrillation Reason for Eliquis Follows with Dr. Marlow Scheduled for cardioversion 02/14/23 but converted back to SR prior to procedure Adrenal crisis [facility] ER 12/22/22 > admission- per admission records, suspected that patient was off chronic steroid therapy for 1-2 weeks prior to admission/adrenal crisis* Received stress dose IV hydrocortisone prior to 12/27/22 right GOIP done at [facility] Left humeral fracture 11/2022 after fall, non-operative management recommended Hypertension Rheumatoid arthritis Follows with rheum - Dr. Bush Long-term use of immunosuppressant medication Hypothyroidism Anemia Taking oral iron supplementation Depression HLD (hyperlipidemia) Osteoporosis Rectovaginal fistula Pt states getting surgical repair in near future Surgical History History of skin graft to hand History of anesthesia reaction "Gave me too much" with skin graft surgery approximately 7 years ago ([place]) > "had difficulty breathing"/no other or similar issues with other surgeries/anesthesia, recent surgery at [facility] 12/2022 without any issues per patient History of benign breast biopsy History of joint surgery Right 3 fingers (+ hardware) History of surgery on right wrist History of total left knee replacement (TKR) History of total right knee replacement (TKR) History of colonoscopy History of section History of tooth extraction Status post right hip replacement Right GOPI (12/27/22): Grade view 1, MAC#3, ETT 6.5 at [facility] Hx of cataract extraction bilateral History of hysterectomy LINDA BSO History of appendectomy Family History Father Coronary heart disease Heart disease COPD (chronic obstructive pulmonary disease) Hypertension Mother Rheumatoid arthritis Uncle Coronary heart disease Other No family history of adverse response to anesthesia Denies family history of Pancreatic cancer Ovarian cancer Prostate cancer Breast cancer Colorectal cancer Uterine cancer Social History Smoking Status: Never smoker Second Hand Exposure: Yes (hx in the workplace); Do You Dip or Chew Tobacco: No; Hx Alcohol Use: No Hx Substance Use: No Preferred Language: Mohawk Communication Ability: Effective Visual Impairment: Limited Hearing Ability: Hard of Hearing Supervisor Hydrochloric Area Required: No Beliefs That Will Affect Care: None marital status: Current Living Situation: Spouse and Family Current Living Situation Comment: lives at home with current occupational status: 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 @ [employer] How many Children do You have: 1 Feels Safe at Home: Yes Diet: regular caffeine: Yes during the past year weight has: decreased > 10 lbs Assistive Devices: Glasses and Hearing Aid - Bilateral Allergies Allergies Allergy/AdvReac Type Severity Reaction Status Date / Time alendronate sodium Allergy Mild Verified 12/27/23 08:15 [From Fosamax] azithromycin AdvReac Intermediate Arm/leg Verified 12/27/23 08:15 pain prochlorperazine AdvReac Intermediate Mental Verified 12/27/23 08:15 changes simvastatin [From Zocor] AdvReac Intermediate N/V Verified 12/27/23 08:15 Home Meds Home Medications Medication Instructions Recorded Confirmed amlodipine 5 mg tablet 5 mg PO QAM 09/28/20 12/27/23 levothyroxine 88 mcg tablet 88 mcg PO QAM 09/28/20 12/27/23 multivitamin 1 tab PO QAM 09/28/20 12/27/23 omeprazole 20 mg capsule,delayed 20 mg PO QAM 09/28/20 12/27/23 release prednisone 5 mg tablet 5 mg PO QAM 09/28/20 12/27/23 hydroxychloroquine 200 mg tablet 200 mg PO QAM 10/01/20 12/27/23 buspirone 5 mg tablet 5 mg PO BID 12/22/22 12/27/23 ferrous sulfate 325 mg (65 mg 325 mg PO DAILY 03/02/23 12/27/23 iron) tablet acetaminophen 500 mg capsule 500 mg PO TID PRN Pain 04/11/23 12/27/23 polyethylene glycol 3350 17 17 g PO DAILY PRN Constipation 04/11/23 12/27/23 gram/dose oral powder (Miralax) Previous Rx's Medication Instructions Recorded apixaban 2.5 mg tablet (Eliquis) 2.5 mg PO BID #1 tab 03/06/23 hydrocodone 7.5 mg-acetaminophen 1 tab PO Q6H PRN pain #30 tabs 03/06/23 325 mg tablet metoprolol tartrate 50 mg tablet 50 mg PO BID #60 tabs 03/06/23 estradiol 0.01% (0.1 mg/gram) 0.25 appful vaginal 3XWK #42.5 08/04/23 vaginal cream (Estrace) grams estradiol 0.01% (0.1 mg/gram) 1 g vaginal 3XWK #42.5 grams 01/08/24 vaginal cream Results & Data (ED) Vital Signs Vital Signs - 24 hr 03/17/24 14:58 03/17/24 14:58 03/17/24 14:58 Temperature 37.0 C Temperature Source Oral Pulse Rate 74 74 Pulse Rate [Apical] 74 Respiratory Rate 20 20 20 Respiratory Effort / Characteristics Non-Labored Spontaneous Non-Labored Spontaneous Respiratory Depth Normal Normal Respiratory Pattern Regular Regular Blood Pressure 178/91 H Blood Pressure [Right Arm] 178/91 H Blood Pressure Mean 120 Blood Pressure Mean [Right Arm] 120 Blood Pressure Position Lying Blood Pressure Position [Right Arm] Lying Pulse Oximetry 96 96 96 Oxygen Delivery Method Room Air Room Air Room Air Sepsis Recent Fever Within 48 Hours No Sepsis New/Unexplained Change in Mental Status N/A Sepsis Action Taken by Nursing No Action Required 03/17/24 16:02 Temperature Temperature Source Pulse Rate 68 Pulse Rate [Apical] Respiratory Rate Respiratory Effort / Characteristics Respiratory Depth Respiratory Pattern Blood Pressure Blood Pressure [Right Arm] Blood Pressure Mean Blood Pressure Mean [Right Arm] Blood Pressure Position Blood Pressure Position [Right Arm] Pulse Oximetry Oxygen Delivery Method Sepsis Recent Fever Within 48 Hours Sepsis New/Unexplained Change in Mental Status Sepsis Action Taken by Nursing Laboratory Data 03/17/24 15:07 03/17/24 15:07 Lab Results 03/17/24 Range/Units 15:07 WBC 7.42 (4.8-10.8) K/ul RBC 3.72 L (4.20-5.40) M/uL Hgb 10.7 L (12.0-16.0) g/dl Hct 32.6 L (37.0-47.0) % MCV 87.6 (80.0-100.0) fL MCH 28.8 (25.0-34.0) pg MCHC 32.8 (32.0-36.0) g/dL RDW Std Deviation 54.1 H (36.4-46.3) fL RDW Coeff of Joao 17.0 H (11.5-14.5) % Plt Count 261 (130-400) K/uL MPV 9.9 (9.4-12.4) fL Immature Gran % (Auto) 0.5 % Neut % (Auto) 83.7 % Lymph % (Auto) 9.3 % Ray % (Auto) 6.1 % Eos % (Auto) 0.0 % Baso % (Auto) 0.4 % Neut # (Auto) 6.21 (1.40-6.50) K/uL Lymph # (Auto) 0.69 L (1.20-3.40) K/uL Ray # (Auto) 0.45 (0.11-0.59) K/uL Eos # (Auto) 0.00 (0.00-0.50) K/uL Baso # (Auto) 0.03 (0.00-0.20) K/uL Immature Gran # (Auto) 0.04 (0.01-0.20) K/uL PT 11.6 (9.0-12.0) Seconds INR 1.1 (0.9-1.1) Sodium 138 (136-145) mmol/L Potassium 4.4 (3.5-5.1) mmol/L Chloride 107 (98-107) mmol/L Carbon Dioxide 21 (21-32) mmol/L Anion Gap 10 (3-11) BUN 25 H (6-23) mg/dl Creatinine 0.80 (0.6-1.2) mg/dl Est Cr Clr Drug Dosing 40.2 ml/min Est GFR ( Amer) 77.9 ml/min Est GFR (Non-Af Amer) 67.2 ml/min BUN/Creatinine Ratio 31.3 H (10-20) Glucose 122 H (70-99(Fasting)) mg/dl Calcium 9.6 (8.6-10.3) mg/dl Magnesium 1.9 (1.7-2.4) mg/dl Total Bilirubin 0.7 (0.2-1.0) mg/dl AST 29 (13-39) U/L ALT 16 (7-52) U/L Alkaline Phosphatase 63 (34-104) U/L Troponin I High Sens 13.1 (0-14) pg/ml Total Protein 7.1 (6.0-8.3) gm/dl Albumin 3.9 (3.4-5.0) gm/dl Globulin 3.2 (2.5-4.0) gm/dl Albumin/Globulin Ratio 1.2 (0.9-2) Administered Medications Discontinued Medications Fentanyl Citrate (Fentanyl Citrate Pf 100 Mcg/2 Ml Vial) 50 mcg IV NOW STA Stop: 03/17/24 14:55 Last Admin: 03/17/24 15:06 Dose: 50 mcg Documented By: TNK Hydromorphone HCl (Hydromorphone Inj 0.5 Mg/0.5 Ml Syr) 0.5 mg IV NOW STA Stop: 03/17/24 16:11 Last Admin: 03/17/24 16:12 Dose: 0.5 mg Documented By: TNK Imaging Data Radiologist's Impression: Hip/Pelvis X-Ray 03/17/24 14:54 XR hip LT 2V w pelvis CLINICAL HISTORY: L hip pain s/p fall from standing TECHNIQUE: 2 views of the right hip and single frontal view of the pelvis were obtained. Comparison: Comparison is made to hip radiograph 12/27/2022 FINDINGS: Acute left intertrochanteric fracture with apex lateral angulation. 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 Degenerative changes are seen in the lumbar spine. Soft tissue swelling is seen. IMPRESSION: Left intratrochanteric femur fracture with apex lateral angulation and associated soft tissue swelling. ACT 112: Negative or not required by law. Electronically signed by: Apollo Navarro M.D. 03/17/2024 4:49 PM Discharge Plan Visit Data Chief Complaint: Fall Stated Complaint: FALL, L LEG PAIN ED Provider: Aleshia Callaway Discharge Problem: Closed intertrochanteric fracture of left femur, Fall from standing Forms Stand Alone Forms: My [employer] Prescriptions Prescriptions: No Action estradiol [Estrace] 0.01 % (0.1 mg/gram) cream 0.25 appful vaginal 3XWK Qty: 42.5 0RF Rx Instructions: Use 1/ applicator full on mon- mon-monday estradiol 0.01 % (0.1 mg/gram) cream 1 g vaginal 3XWK Qty: 42.5 3RF Rx Instructions: Mon Wed & MON. Insert 10/26 applicatorful vaginally 3 time a week. amlodipine 5 mg tablet 5 mg PO QAM Rx Instructions: HOLD FOR SBP < 100 levothyroxine 88 mcg tablet 88 mcg PO QAM multivitamin Tablet 1 tab PO QAM prednisone 5 mg tablet 5 mg PO QAM omeprazole 20 mg capsule,delayed release(DR/EC) 20 mg PO QAM hydroxychloroquine 200 mg tablet 200 mg PO QAM buspirone 5 mg tablet 5 mg PO BID polyethylene glycol 3350 [Miralax] 17 gram/dose powder 17 g PO DAILY PRN (Reason: Constipation) acetaminophen 500 mg capsule 500 mg PO TID PRN (Reason: Pain) Rx Instructions: purchase [id number] ferrous sulfate 325 mg (65 mg iron) Tablet 325 mg PO DAILY hydrocodone-acetaminophen 7.5-325 mg Tablet 1 tab PO Q6H PRN (Reason: pain) Qty: 30 0RF metoprolol tartrate 50 mg tablet 50 mg PO BID Qty: 60 5RF Eliquis 2.5 mg tablet 2.5 mg PO BID Qty: 1 0RF Referrals Referrals: Alin Branch [Primary Care Provider] -
[2024-03-17] MEDS: fentaNYL citrate PF 100 MCG/2 ML VIAL IV STA (15:06)
[2024-03-17 15:18] LABS: Basophils # (auto) 0.03 K/uL (0.00-0.20); Basophils % (auto) 0.4 %; Hematocrit (blood only) 32.6 % (37.0-47.0); Hemoglobin 10.7 g/dl (12.0-16.0); Immature Granulocytes # (auto) 0.04 K/uL (0.01-0.20); Immature Granulocytes % (auto) 0.5 %; Lymphocytes # (auto) 0.69 K/uL (1.20-3.40); Lymphocytes % (auto) 9.3 %; Mean Corpuscular Hemoglobin 28.8 pg (25.0-34.0); Mean Corpuscular Hgb Conc 32.8 g/dL (32.0-36.0); Mean Corpuscular Volume 87.6 fL (80.0-100.0); Mean Platelet Volume 9.9 fL (9.4-12.4); Monocytes # (auto) 0.45 K/uL (0.11-0.59); Monocytes % (auto) 6.1 %; Neutrophils # (auto) 6.21 K/uL (1.40-6.50); Neutrophils % (auto) 83.7 %; Platelet Count 261 K/uL (130-400); RDW Standard Deviation 54.1 fL (36.4-46.3); Red Blood Count 3.72 M/uL (4.20-5.40); White Blood Count 7.42 K/ul (4.8-10.8)
[2024-03-17 15:37] LABS: Albumin Globulin Ratio 1.2 (0.9-2); Albumin Level 3.9 gm/dl (3.4-5.0); BUN Creatinine Ratio 31.3 (10-20); Bilirubin,Total 0.7 mg/dl (0.2-1.0); Calcium 9.6 mg/dl (8.6-10.3); Creatinine Clr Calc Pharmacy 40.2 ml/min; Est GFR (African American) 77.9 ml/min; Est GFR (Non-African American) 67.2 ml/min; Globulin 3.2 gm/dl (2.5-4.0); Magnesium 1.9 mg/dl (1.7-2.4); Potassium 4.4 mmol/L (3.5-5.1); Total Protein 7.1 gm/dl (6.0-8.3)
[2024-03-17 15:45] LABS: Troponin I High Sensitivity 13.1 pg/ml (0-14)
[2024-03-17 16:08] LABS: INR 1.1 (0.9-1.1); Prothrombin Time 11.6 Seconds (9.0-12.0)
[2024-03-17] MEDS: HYDROmorphone INJ 0.5 MG/0.5 ML SYR IV STA (16:12)
--- NOTE | 2024-03-17 16:47 | History & Physical Report ---
Date of Service March 17, 2024 Assessment & Plan (1) Closed intertrochanteric fracture of left femur: Plan: Left hip fracture X-ray: Neurovascularly intact on exam. Left lower extremity is shortened and externally rotated with lateral hip tenderness. RCRI class I risk. No CHF, no signs of ischemia, no history of insulin use, creatinine is less than 1 at baseline. Denies preceding anginal symptoms. Had a recent echo that did not show any evidence of wall motion abnormalities. May proceed to surgery for operative repair when recommended by surgical team as a class I approximately 3.9% 30-day risk of /[place]/cardiac arrest Has a history of right total hip replacement for AVN 12/2022 w/ Dr. Barajas Last dose of Eliquis 03/11 6 AM (2) Intermittent atrial fibrillation: Plan: Paroxysmal A-fib Anticoagulation held in the setting of acute fracture EKG on admission is sinus Troponin normal on admission Continue metoprolol 50 mg twice daily Admit to medical telemetry Patient recently had a echo as part of preoperative evaluation with? EKG changes. Echo was with preserved/normal EF and no wall motion abnormalities. Mild concentric LVH was noted. (3) Anemia: Plan: Chronic anemia Baseline hemoglobin ranging from 8.511, although last was 13.4. Admitting hemoglobin 10.7 on Eliquis Hemoglobin trended every 6 hours x 2. Eliquis held MCV is normal Denies history of GI bleeding, is on iron endorses history of GERD (4) Hypertension: Plan: Hypertension Continue metoprolol/amlodipine. slightly hypertensive in the setting of pain Plan Chronic Stable issues: History of rheumatoid arthritis On hydroxychloroquine/prednisone Patient is at risk of adrenal insufficiency given long-term steroid use, if hypotensive and not responsive to fluid consider random cortisol/hydrocortisone. She is not hypotensive, hyponatremic, potassium is normal on admission GERD PPI stress prophylaxis continue Hypothyroidism Continue Synthroid History of epidural hematoma Associated with compression fracture 02/2023. Did well with brace and physical therapy. DVT prophylaxis: SCDs Diet: N.p.o. pending surgical evaluation CODE STATUS: DNR/DNI in the event of an arrest, however would be okay with ICU level of care, electrical defibrillation/pressors in the setting of critical illness outside of CODE BLUE Disposition: Medical telemetry due to acute fracture/stress with history of paroxysmal A-fib History of Present Illness Primary Care Provider: Alin Sarina Hernandez is an 83-year-old female with a past medical history of paroxysmal atrial fibrillation on Eliquis, chronic anemia, prediabetes, hypothyroidism, rheumatoid arthritis on prednisone/Plaquenil who lost her balance and had a mechanical fall and has sustained a hip fracture. Seen the bedside. Was moving boxes helping get things packed when she slipped and fell forward but twisted and hit her hip and landed on her back. No chest pain, chest pressure, lightheadedness, dizziness, syncope, presyncope that contributed to her fall. No vertigo. She has not any chest pain with exertion, although notes she fatigues easily. No chest pain or pleuritic pain on admission. No fever chills or sweats. No recent antibiotic allergies. At time of bedside assessment she has no back pain. Does have some pain in her left hip if she moves. Is able to wiggle her toes without difficulty. She did take her Eliquis this morning. No anginal symptoms with ambulation of the previous month. Medical History: Reviewed Medications: Reviewed Surgical History: Reviewed Family history: Reviewed Allergies: Reviewed Social History: Reviewed Code Status: Reviewed CODE STATUS, is DNR/DNI but would want ICU level care outside of chest compressions/intubation and interest and will continue conditional code to reflect this as was previously noted although patient is consistent with DNR/DNI. Allergies Allergy/AdvReac Type Severity Reaction Status Date / Time alendronate sodium Allergy Unknown CAN'T Verified 03/17/24 17:03 [From Fosamax] REMEMBER azithromycin AdvReac Intermediate Arm/leg Verified 03/17/24 17:03 pain prochlorperazine AdvReac Intermediate Mental Verified 03/17/24 17:03 changes simvastatin [From Zocor] AdvReac Intermediate N/V Verified 03/17/24 17:03 Home Medications Medication Instructions Recorded Confirmed Type amlodipine 5 mg tablet 5 mg PO QAM 09/28/20 03/17/24 History levothyroxine 88 mcg tablet 88 mcg PO QAM 09/28/20 03/17/24 History multivitamin 1 tab PO QAM 09/28/20 03/17/24 History omeprazole 20 mg capsule,delayed 20 mg PO QAM 09/28/20 03/17/24 History release prednisone 5 mg tablet 5 mg PO QAM 09/28/20 03/17/24 History hydroxychloroquine 200 mg tablet 200 mg PO QAM 10/01/20 03/17/24 History buspirone 5 mg tablet 5 mg PO TID 12/22/22 03/17/24 History ferrous sulfate 325 mg (65 mg 325 mg PO DAILY 03/02/23 03/17/24 History iron) tablet apixaban 2.5 mg tablet (Eliquis) 2.5 mg PO BID #1 tab 03/06/23 03/17/24 Rx metoprolol tartrate 50 mg tablet 50 mg PO BID #60 tabs 03/06/23 03/17/24 Rx acetaminophen 500 mg capsule 500 mg PO TID PRN Pain 04/11/23 03/17/24 History polyethylene glycol 3350 17 17 g PO DAILY PRN Constipation 04/11/23 03/17/24 History gram/dose oral powder (Miralax) estradiol 0.01% (0.1 mg/gram) 1 g vaginal 3XWK #42.5 grams 01/08/24 03/17/24 Rx vaginal cream oxycodone-acetaminophen 5 mg-325 1 tab PO Q6H PRN Pain 03/17/24 03/17/24 History mg tablet trazodone 50 mg tablet 50 mg PO HS 03/17/24 03/17/24 History Past Med/Surg History Problem List Fall from standing (Acute) Closed intertrochanteric fracture of left femur (Acute) Traumatic wound (Acute) Elbow arthritis Acquired foot deformity (Chronic) Pressure ulcer of right foot, stage 3 (Acute) Abnormal ankle brachial index (Acute) Rheumatoid arthritis (Chronic) Follows with rheum - Dr. Bush Intermittent atrial fibrillation Prediabetes diet Enterovaginal fistula Depression Hyperlipidemia Osteoporosis Hypotension Abnormal CXR DVT prophylaxis Hyponatremia PEDRO (acute kidney injury) Elevated troponin (Acute) LLL pneumonia Hypokalemia Hypomagnesemia Closed fracture of left proximal humerus Encounter for pre-operative examination Fall Rectovaginal fistula Pt states getting surgical repair in near future Depression Anemia Taking oral iron supplementation Degenerative joint disease of right hip Hx of cataract extraction bilateral Left humeral fracture (Acute) 11/2022 after fall, non-operative management recommended Status post right hip replacement Right GOPI (12/27/22): Grade view 1, MAC#3, ETT 6.5 at [facility] Medical History Vaginal discharge Osteoarthritis of shoulder Neck pain Low back pain Joint pain, knee High risk medication use ESR raised Cat bite of hand Acute bilateral low back pain without sciatica Acid reflux disease Aortic stenosis Mild per 11/2022 ECHO Lumbar spinal stenosis Compression fracture of L2 Discovered 03/02/23- conservative treatment Following routinely with Dr. Choi- may get steroid injections (still wearing brace) Epidural hematoma Noted on outside imaging per 03/02/23 H&P at [facility] - Dr. Choi consulted- "epidural hematoma very, very small. Located at L2." Recommended no intervention needed- restarted on AC Scoliosis Chronic steroid use for RA Prediabetes diet Atrial fibrillation Reason for Eliquis Follows with Dr. Marlow Scheduled for cardioversion 02/14/23 but converted back to SR prior to procedure Adrenal crisis [facility] ER 12/22/22 > admission- per admission records, suspected that patient was off chronic steroid therapy for 1-2 weeks prior to admission/adrenal crisis* Received stress dose IV hydrocortisone prior to 12/27/22 right GOPI done at [facility] Left humeral fracture 11/2022 after fall, non-operative management recommended Hypertension Rheumatoid arthritis Follows with rheum - Dr. Bush Long-term use of immunosuppressant medication Hypothyroidism Anemia Taking oral iron supplementation Depression HLD (hyperlipidemia) Osteoporosis Rectovaginal fistula Pt states getting surgical repair in near future Surgical History History of skin graft to hand History of anesthesia reaction "Gave me too much" with skin graft surgery approximately 7 years ago ([place]) > "had difficulty breathing"/no other or similar issues with other surgeries/anesthesia, recent surgery at [facility] 12/2022 without any issues per patient History of benign breast biopsy History of joint surgery Right 3 fingers (+ hardware) History of surgery on right wrist History of total left knee replacement (TKR) History of total right knee replacement (TKR) History of colonoscopy History of section History of tooth extraction Status post right hip replacement Right GOPI (12/27/22): Grade view 1, MAC#3, ETT 6.5 at [facility] Hx of cataract extraction bilateral History of hysterectomy LINDA BSO History of appendectomy Family History Father Coronary heart disease Heart disease COPD (chronic obstructive pulmonary disease) Hypertension Mother Rheumatoid arthritis Uncle Coronary heart disease Other No family history of adverse response to anesthesia Denies family history of Pancreatic cancer Ovarian cancer Prostate cancer Breast cancer Colorectal cancer Uterine cancer Social History Smoking Status: Never smoker Second Hand Exposure: Yes (hx in the workplace); Do You Dip or Chew Tobacco: No; Hx Alcohol Use: No Hx Substance Use: No Preferred Language: Arabic Communication Ability: Effective Visual Impairment: Limited Hearing Ability: Hard of Hearing Principal Hardware Architect Required: No Beliefs That Will Affect Care: None marital status: Current Living Situation: Spouse and Family Current Living Situation Comment: lives at home with current occupational status: 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 NAD. Cooperative. HEENT: Atraumatic, normocephalic. Vision and hearing grossly intact Pulm: CTAB A&P. -wheezes, -rales, -rhonchi. Symmetrical chest rise. No increased work of breathing. No respiratory distress. Cardiac: RRR, -mrg. Radial pulses intact and symmetrical. Abdominal: Nontender, nondistended, soft. BS present. Extremities: Left extremity externally rotated and shortened. Sensation is soft touch intact bilaterally without deficit, ankle dorsiflexion/plantarflexion 5/5 bilaterally without deficit, PT pulse intact bilaterally Results & Data Results & Data Vital Signs (Past 12 Hours) Vital Signs Temp Pulse Pulse Resp BP BP Pulse Ox 03/17/24 16:02 68 03/17/24 14:58 74 20 96 03/17/24 14:58 74 20 178/91 H 96 03/17/24 14:58 37.0 C 74 20 178/91 H 96 O2 Del Method 03/17/24 16:02 03/17/24 14:58 Room Air 03/17/24 14:58 Room Air 03/17/24 14:58 Room Air PG Care Time/CCT Total # of Minutes Spent Total Time Spent with Patient: Total time spent is greater than 50% in coordination of care (as documented) at patient's floor/unit and/or counseling patient: Coding Level of Care Code 36946 INT INP/OBS CARE 3/75MIN Diagnoses Closed intertrochanteric fracture of left femur S72.142A Intermittent atrial fibrillation I48.0 Anemia D64.9 Hypertension I10
--- NOTE | 2024-03-17 16:51 | XRay Report ---
XR hip LT 2V w pelvis CLINICAL HISTORY: L hip pain s/p fall from standing TECHNIQUE: 2 views of the right hip and single frontal view of the pelvis were obtained. Comparison: Comparison is made to hip radiograph 12/27/2022 FINDINGS: Acute left intertrochanteric fracture with apex lateral angulation. Right hip total arthroplasty is s een. Degenerative changes are seen in the lumbar spine. Soft tissue swelling is seen. IMPRESSION: Left intratrochanteric femur fracture with apex lateral angulation and associated soft tissue swellin g. ACT 112: Negative or not required by law. Electronically signed by: Apollo Navarro M.D. 03/17/2024 4:49 PM
[2024-03-17] MEDS ORDERED: ACETAMINOPHEN 325 MG TAB PO PRN (17:20)
[2024-03-17] MEDS ORDERED: HYDROmorphone INJ 0.5 MG/0.5 ML SYR IV PRN (17:20)
[2024-03-17] MEDS ORDERED: HYDROmorphone INJ 1 MG/ML SYRINGE IV PRN (17:20)
--- NOTE | 2024-03-17 17:26 | Orthopedic Consultation ---
Date of Service March 17, 2024 Assessment & Plan (1) Closed intertrochanteric fracture of left femur: 83 yo F with left intertrochantic femur fracture. Will require surgical stabilization with trochanteric fixation nail. - NWB, bedrest - DVT ppx: mechanical, Eliquis per primary tear. - Will order txa now and preop - NPO at midnight - Expect OR tomorrow unless medical issue with clearance History of Present Illness Reason for Consultation: Left hip fracture Requesting Physician: . 83-year-old female with a past medical history of paroxysmal atrial fibrillation on Eliquis, chronic anemia, prediabetes, hypothyroidism, RA (chronic prednisone) lost her balance and fell, resulting in admission for a left hip fracture. History of right GOPI. Allergies Allergy/AdvReac Type Severity Reaction Status Date / Time alendronate sodium Allergy Unknown CAN'T Verified 03/17/24 17:03 [From Fosamax] REMEMBER azithromycin AdvReac Intermediate Arm/leg Verified 03/17/24 17:03 pain prochlorperazine AdvReac Intermediate Mental Verified 03/17/24 17:03 changes simvastatin [From Zocor] AdvReac Intermediate N/V Verified 03/17/24 17:03 Home Medications Medication Instructions Recorded Confirmed Type amlodipine 5 mg tablet 5 mg PO QAM 09/28/20 03/17/24 History levothyroxine 88 mcg tablet 88 mcg PO QAM 09/28/20 03/17/24 History multivitamin 1 tab PO QAM 09/28/20 03/17/24 History omeprazole 20 mg capsule,delayed 20 mg PO QAM 09/28/20 03/17/24 History release prednisone 5 mg tablet 5 mg PO QAM 09/28/20 03/17/24 History hydroxychloroquine 200 mg tablet 200 mg PO QAM 10/01/20 03/17/24 History buspirone 5 mg tablet 5 mg PO TID 12/22/22 03/17/24 History ferrous sulfate 325 mg (65 mg 325 mg PO DAILY 03/02/23 03/17/24 History iron) tablet apixaban 2.5 mg tablet (Eliquis) 2.5 mg PO BID #1 tab 03/06/23 03/17/24 Rx metoprolol tartrate 50 mg tablet 50 mg PO BID #60 tabs 03/06/23 03/17/24 Rx acetaminophen 500 mg capsule 500 mg PO TID PRN Pain 04/11/23 03/17/24 History polyethylene glycol 3350 17 17 g PO DAILY PRN Constipation 04/11/23 03/17/24 History gram/dose oral powder (Miralax) estradiol 0.01% (0.1 mg/gram) 1 g vaginal 3XWK #42.5 grams 01/08/24 03/17/24 Rx vaginal cream oxycodone-acetaminophen 5 mg-325 1 tab PO Q6H PRN Pain 03/17/24 03/17/24 History mg tablet trazodone 50 mg tablet 50 mg PO HS 03/17/24 03/17/24 History Past Med/Surg History Problem List Fall from standing (Acute) Closed intertrochanteric fracture of left femur (Acute) Traumatic wound (Acute) Elbow arthritis Acquired foot deformity (Chronic) Pressure ulcer of right foot, stage 3 (Acute) Abnormal ankle brachial index (Acute) Rheumatoid arthritis (Chronic) Follows with rheum - Dr. Bush Intermittent atrial fibrillation Prediabetes diet Enterovaginal fistula Depression Hyperlipidemia Osteoporosis Hypotension Abnormal CXR DVT prophylaxis Hyponatremia PEDRO (acute kidney injury) Elevated troponin (Acute) LLL pneumonia Hypokalemia Hypomagnesemia Closed fracture of left proximal humerus Encounter for pre-operative examination Fall Rectovaginal fistula Pt states getting surgical repair in near future Depression Anemia Taking oral iron supplementation Degenerative joint disease of right hip Hx of cataract extraction bilateral Left humeral fracture (Acute) 11/2022 after fall, non-operative management recommended Status post right hip replacement Right GOPI (12/27/22): Grade view 1, MAC#3, ETT 6.5 at [facility] Medical History Vaginal discharge Osteoarthritis of shoulder Neck pain Low back pain Joint pain, knee High risk medication use ESR raised Cat bite of hand Acute bilateral low back pain without sciatica Acid reflux disease Lumbar spinal stenosis Compression fracture of L2 Discovered 03/02/23- conservative treatment Following routinely with Dr. Choi- may get steroid injections (still wearing brace) Epidural hematoma Noted on outside imaging per 03/02/23 H&P at [facility] - Dr. Choi consulted- "epidural hematoma very, very small. Located at L2." Recommended no intervention needed- restarted on AC Scoliosis Chronic steroid use for RA Atrial fibrillation Reason for Eliquis Follows with Dr. Marlow Scheduled for cardioversion 02/14/23 but converted back to SR prior to procedure Adrenal crisis [facility] ER 12/22/22 > admission- per admission records, suspected that patient was off chronic steroid therapy for 1-2 weeks prior to admission/adrenal crisis* Received stress dose IV hydrocortisone prior to 12/27/22 right GOPI done at [facility] Hypertension Long-term use of immunosuppressant medication Hypothyroidism HLD (hyperlipidemia) Osteoporosis Surgical History History of skin graft to hand History of anesthesia reaction "Gave me too much" with skin graft surgery approximately 7 years ago ([place]) > "had difficulty breathing"/no other or similar issues with other surgeries/anesthesia, recent surgery at [facility] 12/2022 without any issues per patient History of benign breast biopsy History of joint surgery Right 3 fingers (+ hardware) History of surgery on right wrist History of total left knee replacement (TKR) History of total right knee replacement (TKR) History of colonoscopy History of section History of tooth extraction History of hysterectomy LINDA BSO History of appendectomy Family History Father Coronary heart disease Heart disease COPD (chronic obstructive pulmonary disease) Hypertension Mother Rheumatoid arthritis Uncle Coronary heart disease Other No family history of adverse response to anesthesia Denies family history of Pancreatic cancer Ovarian cancer Prostate cancer Breast cancer Colorectal cancer Uterine cancer Social History Smoking Status: Never smoker Second Hand Exposure: Yes (hx in the workplace); Do You Dip or Chew Tobacco: No; Hx Alcohol Use: No Hx Substance Use: No Preferred Language: Kazakh Communication Ability: Effective Visual Impairment: Limited Hearing Ability: Hard of Hearing [employer] Intelligence Officer Required: No Beliefs That Will Affect Care: None marital status: Current Living Situation: Spouse Current Living Situation Comment: lives at home with 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 Physical Exam LLE: compartments soft and compressible. DNVI. No skin compromise Constitutional WD/WN, vitals as above no acute distress and not intoxicated appearing Respiratory normal respiratory effort; no labored breathing Cardiovascular Extremities: normal capillary refill Results & Data Results & Data Laboratory Results Laboratory Tests 03/18/24 05:16 Hct 24.0 L Creatinine 0.56 L H & H 03/17/24 03/17/24 03/17/24 Range/Units 15:07 19:09 22:22 Hgb 10.7 L 9.2 L 8.5 L (12.0-16.0) g/dl Hct 32.6 L 28.1 L 25.7 L (37.0-47.0) % 03/18/24 Range/Units 05:16 Hgb 7.8 L (12.0-16.0) g/dl Hct 24.0 L (37.0-47.0) % Coagulation 03/17/24 Range/Units 15:07 INR 1.1 (0.9-1.1) Diagnostic Findings Hip and Pelvis Xrays: comminuted intertrochanteric fracture. Displaced, but stable pattern with intact lateral cortex. PG Care Time/CCT Total # of Minutes Spent Total Time Spent with Patient: Total time spent is greater than 50% in coordination of care (as documented) at patient's floor/unit and/or counseling patient: Coding Level of Care Code 90276 IN/OBS CONSULT LVL 4,60M Diagnoses Closed intertrochanteric fracture of left femur S72.142A
[2024-03-17] MEDS ORDERED: TRANEXAMIC ACID 1,000 MG in SODIUM CHLORIDE 0.9% 50 ML IV ONE (17:27)
[2024-03-17] MEDS ORDERED: ceFAZolin 2000MG 2,000 MG/15 ML SYR IV ONE (17:27)
--- NOTE | 2024-03-17 17:48 | Anesthesiology Consultation ---
Date of Service March 17, 2024 Assessment & Plan (1) Encounter for pre-operative examination: Chart Review Chart Review: Acceptable Risk for Surgery (pt took tonyqujenelle today - Dr Stevens feels cant wait) History Height/Weight Height: 5 ft 2 in Weight: 49.5 kg Allergies Allergy/AdvReac Type Severity Reaction Status Date / Time alendronate sodium Allergy Unknown CAN'T Verified 03/17/24 17:03 [From Fosamax] REMEMBER azithromycin AdvReac Intermediate Arm/leg Verified 03/17/24 17:03 pain prochlorperazine AdvReac Intermediate Mental Verified 03/17/24 17:03 changes simvastatin [From Zocor] AdvReac Intermediate N/V Verified 03/17/24 17:03 Medications Home Medications Medication Instructions Recorded Confirmed Last Taken amlodipine 5 mg tablet 5 mg PO QAM 09/28/20 03/17/24 03/17/24 levothyroxine 88 mcg tablet 88 mcg PO QAM 09/28/20 03/17/24 03/17/24 multivitamin 1 tab PO QAM 09/28/20 03/17/24 03/17/24 omeprazole 20 mg capsule,delayed 20 mg PO QAM 09/28/20 03/17/24 03/17/24 release prednisone 5 mg tablet 5 mg PO QAM 09/28/20 03/17/24 03/17/24 hydroxychloroquine 200 mg tablet 200 mg PO QAM 10/01/20 03/17/24 03/17/24 buspirone 5 mg tablet 5 mg PO TID 12/22/22 03/17/24 03/17/24 08:00 ferrous sulfate 325 mg (65 mg 325 mg PO DAILY 03/02/23 03/17/24 03/17/24 iron) tablet apixaban 2.5 mg tablet (Eliquis) 2.5 mg PO BID #1 tab 03/06/23 03/17/24 03/17/24 08:00 metoprolol tartrate 50 mg tablet 50 mg PO BID #60 tabs 03/06/23 03/17/24 03/17/24 08:00 acetaminophen 500 mg capsule 500 mg PO TID PRN Pain 04/11/23 03/17/24 Unknown polyethylene glycol 3350 17 17 g PO DAILY PRN Constipation 04/11/23 03/17/24 04/12/23 gram/dose oral powder (Miralax) estradiol 0.01% (0.1 mg/gram) 1 g vaginal 3XWK #42.5 grams 01/08/24 03/17/24 03/15/24 vaginal cream oxycodone-acetaminophen 5 mg-325 1 tab PO Q6H PRN Pain 03/17/24 03/17/24 Unknown mg tablet trazodone 50 mg tablet 50 mg PO HS 03/17/24 03/17/24 Unknown Past Medical History Medical History (Updated 03/17/24 @ 17:46 by Mamadou Schulte MD) Vaginal discharge Osteoarthritis of shoulder Neck pain Low back pain Joint pain, knee High risk medication use ESR raised Cat bite of hand Acute bilateral low back pain without sciatica Acid reflux disease Lumbar spinal stenosis Compression fracture of L2 Discovered 03/02/23- conservative treatment Following routinely with Dr. Choi- may get steroid injections (still wearing brace) Epidural hematoma Noted on outside imaging per 03/02/23 H&P [address] [facility] - Dr. Choi consulted- "epidural hematoma very, very small. Located at L2." Recommended no intervention needed- restarted on AC Scoliosis Chronic steroid use for RA Atrial fibrillation Reason for Eliquis Follows with Dr. Marlow Scheduled for cardioversion 02/14/23 but converted back to SR prior to procedure Adrenal crisis [facility] ER 12/22/22 > admission- per admission records, suspected that patient was off chronic steroid therapy for 1-2 weeks prior to admission/adrenal crisis* Received stress dose IV hydrocortisone prior to 12/27/22 right GOPI done at [facility] Hypertension Long-term use of immunosuppressant medication Hypothyroidism HLD (hyperlipidemia) Osteoporosis Past Family History Family History Father Coronary heart disease Heart disease COPD (chronic obstructive pulmonary disease) Hypertension Mother Rheumatoid arthritis Uncle Coronary heart disease Other No family history of adverse response to anesthesia Denies family history of Pancreatic cancer Ovarian cancer Prostate cancer Breast cancer Colorectal cancer Uterine cancer Past Surgical History Surgical History History of skin graft to hand History of anesthesia reaction "Gave me too much" with skin graft surgery approximately 7 years ago ([place]) > "had difficulty breathing"/no other or similar issues with other surgeries/anesthesia, recent surgery at [facility] 12/2022 without any issues per patient History of benign breast biopsy History of joint surgery Right 3 fingers (+ hardware) History of surgery on right wrist History of total left knee replacement (TKR) History of total right knee replacement (TKR) History of colonoscopy History of section History of tooth extraction History of hysterectomy LINDA BSO History of appendectomy Social History Smoking Status: Never smoker Do You Dip or Chew Tobacco: No Hx Alcohol Use: No Hx Substance Use: No substance use type: does not use Physical Exam Vital Signs Last Vital Signs Temp 37.0 C 03/17/24 14:58 Pulse 66 03/17/24 17:00 Resp 20 03/17/24 17:00 BP 161/71 H 03/17/24 17:00 Pulse Ox 98 03/17/24 17:00 O2 Del Method Room Air 03/17/24 17:00 Testing Laboratory Results 03/17/24 15:07 03/17/24 15:07 PT 11.6 Seconds (9.0-12.0) 03/17/24 15:07 INR 1.1 (0.9-1.1) 03/17/24 15:07 Echocardiogram Date: 12/27/23 EF: 50-55% LV Function: normal Valvular Disease: + MR (mild)
[2024-03-17 17:56] LABS: Appearance Urine Turbid (Clear); Bacteria Urine Automated 1+ (None Seen); Bilirubin Urine Negative (Negative); Blood Urine 3+ (Negative); Cast Urine Automated 0-2 /lpf (0-2); Color Urine Yellow; Glucose Urine UA Negative (Negative); Ketones Urine Negative (Negative); Leukocyte Esterase Urine 3+ (Negative); Nitrite Urine Negative (Negative); Protein Urine 1+ (Negative); RBC Urine Automated >20 /hpf (0-2); Specific Gravity Urine 1.022 (1.000-1.030); Urobilinogen Urine Negative (Negative); WBC Urine Automated >50 /hpf (0-5); White Blood Cell Casts Urine Present /lpf (None Prsent)
[2024-03-17] MEDS ORDERED: TRANEXAMIC ACID / 0.7% NACL 1,000 MG/100 ML BAG IV ONE (18:35)
[2024-03-17] MEDS ORDERED: NALOXONE HCL 0.4 MG/1 ML VIAL/CARP IV PRN (18:35)
[2024-03-17] MEDS ORDERED: MAGNESIUM HYDROXIDE SUSP 30 ML UDC PO PRN (18:35)
[2024-03-17] MEDS: LACTATED RINGER'S 1,000 ML IV SCH (19:13)
[2024-03-17 19:27] LABS: Hematocrit (blood only) 28.1 % (37.0-47.0); Hemoglobin 9.2 g/dl (12.0-16.0)
[2024-03-17] MEDS: TRANEXAMIC ACID / 0.7% NACL 1,000 MG/100 ML BAG IV ONE (19:29)
[2024-03-17] MEDS: HYDROmorphone INJ 1 MG/ML SYRINGE IV PRN (19:32)
[2024-03-17] MEDS: METOPROLOL TARTRATE 50 MG TAB PO SCH (20:27)
[2024-03-17] MEDS: busPIRone 5 MG TAB PO SCH (20:27)
[2024-03-17 22:44] LABS: Hematocrit (blood only) 25.7 % (37.0-47.0); Hemoglobin 8.5 g/dl (12.0-16.0)
--- NOTE | 2024-03-17 22:58 | Electrocardiogram Report ---
Test Reason : Blood Pressure : / mmHG Vent. Rate : 072 BPM Atrial Rate : 072 BPM P-R Int : 170 ms QRS Dur : 070 ms QT Int : 376 ms P-R-T Axes : 063 -24 051 degrees QTc Int : 411 ms Normal sinus rhythm Nonspecific ST and T wave abnormality Abnormal ECG When compared with ECG of 27-DEC-2023 08:25, (unconfirmed) Criteria for Anterior infarct are no longer Present Confirmed by José Marlow ([id number]) on 03/17/2024 10:57:23 PM Referred By: REFERRED SELF Confirmed By:José Marlow
[2024-03-18] MEDS: ceFAZolin 2000MG 2,000 MG/15 ML SYR IV SCH ×2 (05:41→16:59)
[2024-03-18 05:59] LABS: Basophils # (auto) 0.03 K/uL (0.00-0.20); Basophils % (auto) 0.5 %; Eosinophils # (auto) 0.02 K/uL (0.00-0.50); Eosinophils % (auto) 0.3 %; Hemoglobin 7.8 g/dl (12.0-16.0); Immature Granulocytes # (auto) 0.01 K/uL (0.01-0.20); Immature Granulocytes % (auto) 0.2 %; Lymphocytes # (auto) 1.45 K/uL (1.20-3.40); Lymphocytes % (auto) 23.6 %; Mean Corpuscular Hemoglobin 28.4 pg (25.0-34.0); Mean Corpuscular Hgb Conc 32.5 g/dL (32.0-36.0); Mean Corpuscular Volume 87.3 fL (80.0-100.0); Mean Platelet Volume 9.9 fL (9.4-12.4); Monocytes # (auto) 1.12 K/uL (0.11-0.59); Monocytes % (auto) 18.2 %; Neutrophils # (auto) 3.52 K/uL (1.40-6.50); Neutrophils % (auto) 57.2 %; Platelet Count 202 K/uL (130-400); RDW Coefficient of Variation 17.2 % (11.5-14.5); RDW Standard Deviation 54.5 fL (36.4-46.3); Red Blood Count 2.75 M/uL (4.20-5.40); White Blood Count 6.15 K/ul (4.8-10.8)
[2024-03-18 06:19] LABS: BUN Creatinine Ratio 33.9 (10-20); Calcium 8.1 mg/dl (8.6-10.3); Creatinine Clr Calc Pharmacy 56.6 ml/min; Est GFR (African American) 98.5 ml/min; Potassium 3.5 mmol/L (3.5-5.1)
[2024-03-18 06:41] LABS: RBC Morphology Unremarkable
[2024-03-18] MEDS ORDERED: fentaNYL citrate PF 100 MCG/2 ML VIAL ONE (06:55)
[2024-03-18] MEDS ORDERED: ONDANSETRON INJ 2 MG/ML 2 ML VIAL ONE (07:04)
[2024-03-18] MEDS ORDERED: LIDOCAINE 2% 2 ML VIAL/AMP(20MG/ML) INFIL ONE (07:04)
[2024-03-18] MEDS ORDERED: ROCURONIUM BROMIDE 10 MG/ML 5 ML VIAL IV ONE (07:04)
[2024-03-18] MEDS ORDERED: PROPOFOL IV EMULSION 10 MG/ML 20 ML VIAL IV ONE (07:04)
[2024-03-18] MEDS ORDERED: SODIUM CHLORIDE 0.9% 250 ML IV PRN ×2 (08:15→09:13)
[2024-03-18] MEDS ORDERED: ONDANSETRON INJ 2 MG/ML 2 ML VIAL IV PRN (08:24)
[2024-03-18] MEDS ORDERED: ATROPINE SULFATE 0.1 MG/ML 10ML SYR IV PRN (08:24)
--- NOTE | 2024-03-18 08:39 | History & Physical Bridge Note ---
Date of Service March 18, 2024 History & Physical Bridge Note I have examined the patient, reviewed the History & Physical and in the interval since the performance of the History & Physical I have noted the following changes of clinical significance: no changes noted. Agree with anesthesia recommended periop transfusion. Will need to watch H/H closely postop. Cristiano could be 72 hours after surgery.
[2024-03-18] MEDS: ceFAZolin 2000MG 2,000 MG/15 ML SYR IV ONE (09:20)
[2024-03-18] MEDS ORDERED: HYDROCORTISONE SOD SUCCINATE 100 MG/2 ML VIAL ONE (09:32)
[2024-03-18] MEDS: TRANEXAMIC ACID / 0.7% NACL 1,000 MG/100 ML BAG IV ONE (09:40)
[2024-03-18] MEDS: TRANEXAMIC ACID / 0.7% NACL 1000MG/100ML BAG IV ONE (10:01)
[2024-03-18] MEDS ORDERED: GLYCOPYRROLATE 0.2 MG/ML VIAL ONE (10:14)
[2024-03-18] MEDS ORDERED: NEOSTIGMINE METHYLSULFATE 1 MG/ML 10ML VIAL ONE (10:14)
[2024-03-18] MEDS: BUPIVACAINE/EPINEPHRINE 0.5% MPF 1:200,000 30 ML VIAL ONE (10:30)
--- NOTE | 2024-03-18 10:47 | Fluoroscopy Report ---
FL hip LT 2-3V CLINICAL HISTORY: LT HIP FX COMPARISON STUDY: Pelvis and left hip radiographs March 17, 2024. FLUOROSCOPY TIME: 1 minute and 22 seconds. Ka,r: 8.81 mGy FLUOROSCOPIC IMAGES: 5 FINDINGS: Fluoroscopy was provided during open reduction and internal fixation of the intertrochanter ic fracture of the left femur with trochanteric nail. Fracture alignment has significantly improved a nd appears near anatomic. Hardware is intact. No unexpected radiopaque foreign bodies. IMPRESSION: Fluoroscopy provided during internal fixation of the intertrochanteric fracture of the l eft femur. ACT 112: Negative or not required by law. Electronically signed by: Mark Addison M.D. 03/18/2024 10:46 AM
[2024-03-18] MEDS: HYDROmorphone INJ 1 MG/ML SYRINGE IV PRN (10:50)
--- NOTE | 2024-03-18 10:57 | Operative Report ---
PG Post Operative Report Pre & Post Diagnosis Operation Date: 03/18/24 08:00 Pre-Op Diagnosis: Closed intertrochanteric fracture of left femur Post-Op Diagnosis: Closed intertrochanteric fracture of left femur I identified the patient and participated in the time-out.: Yes Procedure Operation Date: 03/18/24 08:00 Actual Procedures p Closed Reduction internal fixation with intertrochanteric nail of left proximal femur fracture(Left) - Rao Stevens MD Surgeon Rao Stevens MD Mobile Phone Salesperson Uma Clay PA-C Estimated Blood Loss 50 Findings See Below No subtrochanteric extension. All Synthes implants: 12 mm/130 degree titanium cannulated trochanteric fixation nail of 170 mm length. 11.0 mm titanium helical blade of 90 mm length. Distal interlock screw measuring 32 mm. Specimens none Anesthesia Type General Complications none Disposition Accompanied Patient To Recovery: No Disposition: Recovery Room Indications 83-year-old female admitted after fall resulting in a closed intertrochanteric femur fracture. Reviewed the diagnosis prognosis and treatment options. I did recommend surgical stabilization to restore ambulation expeditiously. We reviewed the risk, benefits, and alternatives of surgery. Those risks included but not limited to infection, nerve or vessel injury, arthrofibrosis of the hip, need for repeat revision surgery, nonunion, malunion, implant complications, pain syndromes, blood clots and complications of anesthesia. She asked appropriate questions, demonstrated good understanding, and desired to proceed with surgery. Informed consent was document in the preop holding area. Description of Procedure On the day of surgery should be was greeted in the preoperative holding area and the informed consent was reviewed and confirmed. The surgical site was then identified by the patient and signed by myself. The patient was taken to the operating placed by the OR table and anesthesia was induced. The patient is then positioned on the fracture table. All marti prominences were well padded. The operative foot was placed in the fracture boot with abundant padding. The well leg was secured. We then positioned the lower extremities in a scissor fashion with a non-op leg flexed down to allow visualization with fluoroscopy which was confirmed before we prepped and draped. Surgical timeout was called and verified by all present. Antibiotics were infused, and equipment was available and functional. The procedure was initiated with closed reduction maneuvers. Gentle in-line traction pulled the fracture out to length. The limb was then internally rotated to reduce the proximal femur. Flexion and adduction were used to adjust the reduction and allow access to the greater trochanter. We had adequate reduction prior to prepping and draping. The leg was then prepped and draped in usual sterile fashion. Surgical timeout was reconfirmed. We initiated the surgical internal fixation portion with finding the start point with the tip of the greater trochanter. Fluoroscopic guidance was used and a small poke hole was established. The start point was confirmed on fluoroscopy in AP and lateral planes and the pin was advanced using a mallet. An incision was made about the pin to allow access for the jig. The pin was then advanced past the lesser trochanter, and its position was confirmed using AP and lateral fluoroscopy. Using the protective sleeve, the opening reamer was advanced under power with fluoroscopic guidance over the guidepin. The short nail was chosen because of her direct oral anticoagulant need and low hemoglobin status and simple intertrochanteric pattern without subtrochanteric extension. A 12 mm short nail was then placed on the jig and advanced over the opening guidewire. It was malleted down into place under fluoroscopic guidance. The cannula was placed on the jig to allow positioning of the cephalo-medullary screw. The skin incision was made in the appropriate spot. The jig cannulas were then placed against the lateral cortex. The cephalo-medullary screw guidepin was advanced towards the femoral head. The center-center position was confirmed on fluoroscopy in AP and lateral planes. We had to reposition once. The length of the screw was measured off the guide. The helical blade screw was then opened on the back table and prepared on the screwdriver. The lateral cortical opening drill, followed by the triple drill reamer for the helical blade was advanced under fluoroscopic guidance. The helical blade was advanced over the guidepin to appropriate position. The helical blade was locked in rotation and then the traction was taken off. Fluoroscopy confirmed maintenance of reduction and adequate position of the implant. The compression sleeve was then advanced against the lateral femur to improve the trochanteric-shaft reduction and compress the intertrochanteric region fracture. The jig was used for the distal interlock screw. The cannulas were advanced against skin to sary incision location. The incision was made and the cannulas advanced against bone. The Synthes drill bit was then advanced in the cannulas for bicortical drilling under flouroscopy. Length was measured using the drill bit. The final 5mm interlock screw was placed and position confirmed with fluoroscopy. This completed the fixation of the fracture. Fluoroscopy was used in both AP and lateral planes to evaluate the entirety of the fracture and implant. Reduction and implant positions were acceptable. The wounds were then thoroughly irrigated with bulb syringe and normal saline. The deep fascial layer was approximated with 0 Vicryl suture. The dermal layer was approximated using 2-0 Vicryl suture. The final skin closure was completed with gloria. Wounds were dressed with sterile Xeroform, sterile gauze, and Tegaderms over ABDs. The patient tolerated procedure well, awoke from anesthesia without complication, was extubated in the operating room, and transferred to the PACU in stable condition. Disposition: The patient will be weightbearing as tolerated. Recommend oral anticoagulant can be restarted which will serve as her DVT chemoprophylaxis as well. 24 hours of antibiotic prophylaxis should be continued. Blood counts will be monitored as she started anemic. Physician program services assistant attestation: Uma Clay PA-C was present and scrubbed for the duration of the case. He was essential to prepping/draping, patient positioning, retraction, and assistance with wound closure. I attest to the content of the Intraoperative Record and any orders documented therein. Any exceptions are noted below.
--- NOTE | 2024-03-18 11:22 | Anesthesiology Progress Note ---
Date of Service March 18, 2024 Anesthesia Post Procedure Vital Signs Vital Signs: Temp Pulse Pulse Pulse Resp BP BP 03/18/24 11:10 65 15 03/18/24 11:00 63 12 03/18/24 10:50 62 19 03/18/24 10:46 36.0 C L 70 12 03/18/24 07:25 03/18/24 07:23 37.0 C 55 L 18 03/18/24 07:11 53 L 03/18/24 03:00 37.6 C H 67 18 129/70 03/17/24 23:22 58 L 03/17/24 23:22 37.0 C 55 L 18 122/77 03/17/24 18:40 73 03/17/24 18:35 36.6 C 72 18 164/72 H 03/17/24 18:35 03/17/24 17:00 66 20 03/17/24 16:02 68 03/17/24 14:58 74 20 03/17/24 14:58 74 20 03/17/24 14:58 37.0 C 74 20 178/91 H BP Pulse Ox O2 Del Method O2 Flow Rate 03/18/24 11:10 142/79 H 98 Oxymask 2 03/18/24 11:00 157/77 H 97 Oxymask 4 03/18/24 10:50 148/80 H 97 Oxymask 4 03/18/24 10:46 165/81 H 96 Oxymask 6 03/18/24 07:25 Room Air 03/18/24 07:23 138/75 97 Room Air 03/18/24 07:11 03/18/24 03:00 98 Room Air 03/17/24 23:22 03/17/24 23:22 99 Room Air 03/17/24 18:40 03/17/24 18:35 98 Room Air 03/17/24 18:35 Room Air 03/17/24 17:00 161/71 H 98 Room Air 03/17/24 16:02 03/17/24 14:58 96 Room Air 03/17/24 14:58 178/91 H 96 Room Air 03/17/24 14:58 96 Room Air Pain Intensity Left Leg: Pain Intensity: 7 Transfer of Care Handoff Completed per policy Notes Mental Status: alert / awake / arousable Patient Amnestic to Procedure: Yes Nausea / Vomiting: adequately controlled Pain: adequately controlled Airway Patency, RR, SpO2: stable & adequate BP & HR: stable & adequate Hydration State: stable & adequate Anesthetic Complications: no major complications apparent
[2024-03-18 11:48] LABS: Hematocrit (blood only) 31.6 % (37.0-47.0); Hemoglobin 10.4 g/dl (12.0-16.0)
--- NOTE | 2024-03-18 12:13 | XRay Report ---
XR hip LT min 2V CLINICAL HISTORY: Post-Operative implant position COMPARISON: Pelvis and left hip radiographs March 17, 2024. FINDINGS: Internal fixation of the intertrochanteric fracture of the left femur with trochanteric na il is noted. Fracture alignment has markedly improved and appears near anatomic. Hardware is intact. No unexpected radiopaque foreign bodies. There are skin gloria. Right hip arthroplasty is partially imaged. IMPRESSION: Expected findings following internal fixation of the intertrochanteric fracture of the le ft femur. ACT 112: Negative or not required by law. Electronically signed by: Mark Addison M.D. 03/18/2024 12:12 PM
[2024-03-18] MEDS ORDERED: POLYETHYLENE (MIRALAX) 17 GM PACK PO PRN (12:17)
[2024-03-18] MEDS: HYDROmorphone INJ 1 MG/ML SYRINGE ONE (12:22)
[2024-03-18] MEDS: predniSONE 5 MG TAB PO SCH (12:27)
[2024-03-18] MEDS: HYDROXYCHLOROQUINE SULFATE 200 MG TAB PO SCH (12:27)
[2024-03-18] MEDS: amLODIPine BESYLATE 5 MG TAB PO SCH (12:28)
[2024-03-18] MEDS: PANTOprazole 40 MG TAB PO SCH (12:28)
[2024-03-18] MEDS ORDERED: Nursing to Pharmacy Communication SCH (19:15)
--- NOTE | 2024-03-18 20:06 | Hospitalist Progress Note ---
Date of Service March 18, 2024 Assessment & Plan (1) Closed intertrochanteric fracture of left femur: Plan: s/p ORIF with troch nail earlier today by Dr Rao Stevens martín-operative course complicated by acute blood loss anemia s/p 1 unit PRBCs this am post-Tx H/H stable/improved check 25-OH vit D level am DVT proph - Eliquis 2.5mg BID - to resume tomorrow AM PT, OT rehab - family and patient requesting [facility] in [place] - will inform social work (2) Intermittent atrial fibrillation: Plan: h/o Paroxysmal A-fib continue metoprolol tartrate 50mg BID echo 12/2023 with preserved but low-normal EF, 50-55% tele thus far with NSR continue telemetry resume Eliquis 2.5mg BID tomorrow AM (3) Anemia: Plan: Patient with chronic anemia Baseline hemoglobin ranging from 8.511, although last was 13.4. Hemoglobin 10.7 upon presentation Fell to 7.8 this am - likely due to bleeding into the left thigh from the hip fracture - c/w acute blood loss anemia s/p 1 unit PRBCs Post-transfusion H/H stable repeat CBC am (4) Hypertension: Plan: Continue metoprolol Continue amlodipine (5) Acute blood loss anemia: Plan: as above s/p 1 unit PRBCs today (6) Current chronic use of systemic steroids: Plan: prednisone 5mg daily for rheumatoid arthritis s/p 100mg of hydrocortisone IV given for stress dose purposes this am increase her prednisone to 20mg tomorrow, then wean by 5mg daily back down to her usual 5mg daily dose (7) Abnormal urinalysis: Plan: 1+ bacteria, WBC casts also noted - but no symptoms of pyelonephritis CT a/p in 2022 without any urinary tract abnormalities, stones, etc currently on multiple doses of IV ancef martní-operatively urine cx pending the IV ancef should cover the majority of pathogens except ESBL e.coli, MRSA, enterococcus, etc adjust antibiotics depending on culture resutls (8) Right foot ulcer: Plan: present for several months was following with wound care in [place] for such? will consult wound care team current dressing looks like Adaptic with kerlix; continue this until wound care sees (there is also a blue spongy material on top of the Adaptic; uncertain what this is; again defer to wound care) Plan Chronic medical problems: Rheumatoid arthritis On hydroxychloroquine/prednisone; see above re: steroids GERD - PPI Hypothyroidism Continue Synthroid; check TSH in am History of epidural hematoma Associated with compression fracture 02/2023. Did well with brace and physical therapy. No operative Rx needed at that time. DVT prophylaxis: SCDs now, but resume Eliquis 03/19 AM left message for pt's daughter on her voicemail 03/18 PM Admission and Anticipated Discharge Date Admission Date: March 17, 2024 Subjective no events overnight I saw patient post-op from her L hip surgery she was resting comfortably in bed she denied any post-op chest pain, dyspnea, or nausea tolerated her meals since the surgery she reports she wishes to rehab in [place] where her daughter lives she has a paper with the name/number of the SNF in [place] after the SNF she will then live with her daughter in [place] of note - was given 1 unit PRBCs this am martín-operatively tele - NSR, PACs Review of Systems Review of Systems: CV - no orthopnea or chest pain skin - right foot ulcer - had been seeing wound care in [place] for this musculo - had bunionectomy in [place] several months ago (right foot) pulm - no dyspnea GI - no abd pain Physical Exam Physical Exam: gen - thin, NAD, pleasant skin - left hip dressings intact; right foot - medial ankle - small ulcer covered with scab; no drainage; no cellulitis mouth - MMM neck - no JVD heart - irregular (PACs); s1 s2; regular rate; no murmur lungs - CTA b/l abd - soft NT ND BS+ musculo - left thigh edema, left hip dressings in place; RA changes of fingers/etc ext - no peripheral edema, pulses 2+ b/l psych - a/o x 3 Results & Data Results & Data Vital Signs (Past 12 Hours) Vital Signs Temp Pulse Pulse Pulse Resp BP Pulse Ox 03/18/24 19:43 37.1 C 59 L 20 129/85 96 03/18/24 18:00 03/18/24 15:32 69 03/18/24 15:25 37.0 C 57 L 18 131/65 94 03/18/24 14:13 36.8 C 60 18 146/72 H 96 03/18/24 14:00 03/18/24 13:13 36.8 C 66 16 138/66 90 03/18/24 12:43 36.8 C 70 16 124/72 92 03/18/24 12:13 36.6 C 70 16 131/77 92 03/18/24 12:01 36.4 C L 65 18 146/70 H 92 03/18/24 11:44 36.4 C L 81 16 158/78 H 93 03/18/24 11:30 71 16 135/75 92 03/18/24 11:20 36.5 C 68 13 140/72 95 03/18/24 11:10 65 15 142/79 H 98 03/18/24 11:00 63 12 157/77 H 97 03/18/24 10:50 62 19 148/80 H 97 03/18/24 10:46 36.0 C L 70 12 165/81 H 96 Pulse Ox O2 Del Method O2 Del Method O2 Flow Rate 03/18/24 19:43 Room Air 03/18/24 18:00 94 Room Air 03/18/24 15:32 03/18/24 15:25 Room Air 03/18/24 14:13 Room Air 03/18/24 14:00 90 Room Air 03/18/24 13:13 Room Air 03/18/24 12:43 Room Air 03/18/24 12:13 Room Air 03/18/24 12:01 Room Air 03/18/24 11:44 Room Air 03/18/24 11:30 Oxymask 0 03/18/24 11:20 Oxymask 0 03/18/24 11:10 Oxymask 2 03/18/24 11:00 Oxymask 4 03/18/24 10:50 Oxymask 4 03/18/24 10:46 Oxymask 6 Laboratory Results Laboratory Results - last 48 hr 03/17/24 03/17/24 03/17/24 15:07 17:20 19:09 WBC 7.42 RBC 3.72 L Hgb 10.7 L 9.2 L Hct 32.6 L 28.1 L MCV 87.6 MCH 28.8 MCHC 32.8 RDW Std Deviation 54.1 H RDW Coeff of Joao 17.0 H Plt Count 261 MPV 9.9 Immature Gran % (Auto) 0.5 Neut % (Auto) 83.7 Lymph % (Auto) 9.3 [place] % (Auto) 6.1 Eos % (Auto) 0.0 Baso % (Auto) 0.4 Neut # (Auto) 6.21 Lymph # (Auto) 0.69 L [place] # (Auto) 0.45 Eos # (Auto) 0.00 Baso # (Auto) 0.03 Immature Gran # (Auto) 0.04 RBC Morphology PT 11.6 INR 1.1 Sodium 138 Potassium 4.4 Chloride 107 Carbon Dioxide 21 Anion Gap 10 BUN 25 H Creatinine 0.80 Est Cr Clr Drug Dosing 40.2 Est GFR ( Amer) 77.9 Est GFR (Non-Af Amer) 67.2 BUN/Creatinine Ratio 31.3 H Glucose 122 H Calcium 9.6 Magnesium 1.9 Total Bilirubin 0.7 AST 29 ALT 16 Alkaline Phosphatase 63 Troponin I High Sens 13.1 Total Protein 7.1 Albumin 3.9 Globulin 3.2 Albumin/Globulin Ratio 1.2 Urine Color Yellow Urine Appearance Turbid A Urine pH 6.0 Ur Specific [place] 1.022 Urine Protein 1+ H Urine Glucose (UA) Negative Urine Ketones Negative Urine Blood 3+ H Urine Nitrite Negative Urine Bilirubin Negative Urine Urobilinogen Negative Ur Leukocyte Esterase 3+ H Urine WBC (Auto) >50 H Urine RBC (Auto) >20 H U Hyaline Cast (Auto) 0-2 U Epithel Cells (Auto) 3-5 H Urine Bacteria (Auto) 1+ H WBC Casts Present A 03/17/24 03/18/24 22:22 05:16 WBC 6.15 RBC 2.75 L Hgb 8.5 L 7.8 L Hct 25.7 L 24.0 L MCV 87.3 MCH 28.4 MCHC 32.5 RDW Std Deviation 54.5 H RDW Coeff of Joao 17.2 H Plt Count 202 MPV 9.9 Immature Gran % (Auto) 0.2 Neut % (Auto) 57.2 Lymph % (Auto) 23.6 [place] % (Auto) 18.2 Eos % (Auto) 0.3 Baso % (Auto) 0.5 Neut # (Auto) 3.52 Lymph # (Auto) 1.45 [place] # (Auto) 1.12 H Eos # (Auto) 0.02 Baso # (Auto) 0.03 Immature Gran # (Auto) 0.01 RBC Morphology Unremarkable Sodium 138 Potassium 3.5 D Chloride 108 H Carbon Dioxide 24 Anion Gap 6 BUN 19 Creatinine 0.56 L Est Cr Clr Drug Dosing 56.6 Est GFR ( Amer) 98.5 Est GFR (Non-Af Amer) 85.0 BUN/Creatinine Ratio 33.9 H Glucose 79 Calcium 8.1 L 03/18/24 11:28 Hgb 10.4 L Hct 31.6 L PG Care Time/CCT Total # of Minutes Spent Total Time Spent with Patient: Total time spent is greater than 50% in coordination of care (as documented) at patient's floor/unit and/or counseling patient: Coding Level of Care Code 14446 SUB INP/OBS CARE 3/50MIN Diagnoses Closed intertrochanteric fracture of left femur S72.142A Intermittent atrial fibrillation I48.0 Anemia D64.9 Hypertension I10 Acute blood loss anemia D62 Current chronic use of systemic steroids Z79.52 Abnormal urinalysis R82.90 Right foot ulcer L97.519
[2024-03-18] MEDS: busPIRone 5 MG TAB PO SCH (21:09)
[2024-03-18] MEDS: traZODone HCL 50 MG TAB PO SCH (21:09)
[2024-03-19] MEDS: LEVOTHYROXINE SODIUM 88 MCG TABLET PO SCH (05:48)
[2024-03-19 06:19] LABS: Basophils # (auto) 0.02 K/uL (0.00-0.20); Basophils % (auto) 0.3 %; Hematocrit (blood only) 25.1 % (37.0-47.0); Hemoglobin 8.5 g/dl (12.0-16.0); Immature Granulocytes # (auto) 0.04 K/uL (0.01-0.20); Immature Granulocytes % (auto) 0.6 %; Lymphocytes # (auto) 1.24 K/uL (1.20-3.40); Lymphocytes % (auto) 17.5 %; Mean Corpuscular Hemoglobin 29.1 pg (25.0-34.0); Mean Corpuscular Hgb Conc 33.9 g/dL (32.0-36.0); Mean Platelet Volume 10.3 fL (9.4-12.4); Monocytes # (auto) 1.18 K/uL (0.11-0.59); Monocytes % (auto) 16.7 %; Neutrophils # (auto) 4.59 K/uL (1.40-6.50); Neutrophils % (auto) 64.9 %; Platelet Count 175 K/uL (130-400); RDW Coefficient of Variation 16.3 % (11.5-14.5); RDW Standard Deviation 51.1 fL (36.4-46.3); Red Blood Count 2.92 M/uL (4.20-5.40); White Blood Count 7.07 K/ul (4.8-10.8)
[2024-03-19 06:34] LABS: BUN Creatinine Ratio 22.8 (10-20); Calcium 7.8 mg/dl (8.6-10.3); Creatinine Clr Calc Pharmacy 54.8 ml/min; Est GFR (Non-African American) 84.5 ml/min; Potassium 3.3 mmol/L (3.5-5.1)
[2024-03-19] MEDS: APIXABAN 2.5 MG TAB PO SCH (08:19)
[2024-03-19] MEDS: FERROUS SULFATE 325 MG TAB PO SCH (08:19)
[2024-03-19] MEDS: MULTIVITAMIN TAB PO SCH (08:19)
[2024-03-19] MEDS: predniSONE 20 MG TAB PO SCH (08:20)
--- NOTE | 2024-03-19 08:33 | Hospitalist Progress Note ---
Date of Service March 19, 2024 Assessment & Plan (1) Closed intertrochanteric fracture of left femur: Plan: s/p ORIF with troch nail by Dr Rao Stevens on 03/18 martín-operative course complicated by acute blood loss anemia s/p 1 unit PRBCs post-Tx H/H stable/improved , stable 7.8--> 8/5, eliquis resumed this morning for DVT proph as well as afib hx urine cx w/ ecoli + GPC - on Unasyn as given multiple doses ancef (hx enterococcus facecalis in urine in Jun 2023). DISCONTINUE HILLIARD DC IVF +bowel regimen, monitor K 3.3, will order PO replacement, check mag --LOW 1.5, IV replacement ordered 25-OH vit D level wnl in 50s PT, OT recs for rehab - family and patient requesting [facility] in [place]. CM aware of placement wants low grade temp, suspect atelectasis however urine cx also as above/abx as outlined -encouraged incentive spirometer Monitor labs in AM (2) Current chronic use of systemic steroids: Plan: prednisone 5mg daily for rheumatoid arthritis s/p 100mg of hydrocortisone IV given for stress dose purposes this am Prednisone 20mg for today (03/19), decreased to 5mg for AM 03/20 and plan to decrease by 5mg daily back to 5mg daily dose planned (3) Abnormal urinalysis: Plan: 1+ bacteria, WBC casts also noted - but no symptoms of pyelonephritis CT a/p in 2022 without any urinary tract abnormalities, stones, etc on multiple doses of IV ancef martín-operatively Urine cx pending however ancef should cover majority of pathogens except ESBL e.coli, MRSA, enterococcus, etc Unasyn continued for now -- urine cx gram positive cocci as well as Ecoli and will f/u final cx and adjustment to abx as able Asking RN to remove hilliard for today, monitor for retention issues (bowel regimen as above) (4) Intermittent atrial fibrillation: Plan: h/o Paroxysmal A-fib continue metoprolol tartrate 50mg BID echo 12/2023 with preserved but low-normal EF, 50-55% tele thus far with NSR continue telemetry, Eliquis resumed PAC/PVCs-- mag/K replacement as above (5) Anemia: Plan: Patient with chronic anemia Baseline hemoglobin ranging from 8.511, although last was 13.4. Hemoglobin 10.7 upon presentation Fell to 7.8 this am - likely due to bleeding into the left thigh from the hip fracture - c/w acute blood loss anemia s/p 1 unit PRBCs - hgb stable 8.5 at present. Monitor cbc in AM (6) Hypertension: Plan: Chronic, stable- BP 129/72 Continue metoprolol, amlodpine (7) Acute blood loss anemia: Plan: as above s/p 1 unit PRBCs with stable hgb and will monitor since resuming home eliquis (8) Right foot ulcer: Plan: present for several months was following with wound care in [place] for such? current dressing looks like Adaptic with kerlix; continue this until wound care sees (there is also a blue spongy material on top of the Adaptic; uncertain what this is; again defer to wound care) will consult wound care team - pending -- defer dressing changes to wound RN. Will need f/u outpt at rehab as above Plan Chronic medical problems: Rheumatoid arthritis On hydroxychloroquine/prednisone; see above re: steroids GERD - PPI Hypothyroidism -TSH with mild elevation 5.5 -ADDED t3/T4 to AM labs btu remains on 88mcg Synthroid at present time History of epidural hematoma Associated with compression fracture 02/2023. Did well with brace and physical therapy. No operative Rx needed at that time. DVT prophylaxis: SCDs, eliquis resumed AM 03/19 Updated daughter by phone w/ CM this morning 03/19 - hopeful dc to rehab by , following/referrals to be sent Admission and Anticipated Discharge Date Admission Date: March 17, 2024 Supervising Physician Co-Signing Physician Notes The patient was not seen by me. The chart was reviewed. Case discussed with RAYMUNDO Houser. Agree with assessment and plan Subjective Evaluated this morning, case management in the room/on phone with daughter (will be back from [facility] on ). Pain controlled but needing something , will have nursing provide. Discussed removal of catheter today, also bowel regimen. Poor appetite, but suspect due to constipation and bowel regimen added and will monitor. Not much gas but does have +BS on exam. Discussed monitoring urine cx/possible oral abx tomorrow if urine cx finalized but continue current course for now. No fever/chills, chest pain. Low grade temps suspect from urine infection but incentive spirometer encouraged. Physical Exam Physical Exam: gen - thin, NAD, pleasant skin - left hip dressings intact; supple, compartments soft/supple, no calf tenderness, pulses present right foot - medial ankle - small ulcer covered with scab; no drainage; no cellulitis HEENT: head atraumatic, normocephalic, mm slightly dry, trachea midline heart - irregular (PACs); s1 s2; regular rate; no murmur lungs - CTA b/l abd - +BS throughout but slightly distended, no overt tenderness/guarding/rigidity musculo - left thigh edema minimal, slight tenderness distal dressing left hip dressings in place; RA changes of fingers/etc ext - no peripheral edema, pulses 2+ b/l psych - a/o x 3 Results & Data Results & Data Vital Signs (Past 12 Hours) Vital Signs Temp Pulse Pulse Resp BP Pulse Ox O2 Del Method 03/19/24 07:41 37.6 C H 63 16 129/72 92 Room Air 03/19/24 07:17 60 03/19/24 04:19 37.6 C H 66 18 135/67 92 Room Air 03/18/24 23:31 37.3 C 54 L 18 118/59 L 92 Room Air 03/18/24 22:09 60 03/18/24 21:03 66 Laboratory Results 03/19/24 03/18/24 03/18/24 Range/Units 05:39 11:28 08:26 WBC 7.07 (4.8-10.8) K/ul RBC 2.92 L (4.20-5.40) M/uL Hgb 8.5 L 10.4 L (12.0-16.0) g/dl Hct 25.1 L 31.6 L (37.0-47.0) % MCV 86.0 (80.0-100.0) fL MCH 29.1 (25.0-34.0) pg MCHC 33.9 (32.0-36.0) g/dL RDW Std Deviation 51.1 H (36.4-46.3) fL RDW Coeff of Joao 16.3 H (11.5-14.5) % Plt Count 175 (130-400) K/uL MPV 10.3 (9.4-12.4) fL Immature Gran % (Auto) 0.6 % Neut % (Auto) 64.9 % Lymph % (Auto) 17.5 % Forrest % (Auto) 16.7 % Eos % (Auto) 0.0 % Baso % (Auto) 0.3 % Neut # (Auto) 4.59 (1.40-6.50) K/uL Lymph # (Auto) 1.24 (1.20-3.40) K/uL Forrest # (Auto) 1.18 H (0.11-0.59) K/uL Eos # (Auto) 0.00 (0.00-0.50) K/uL Baso # (Auto) 0.02 (0.00-0.20) K/uL Immature Gran # (Auto) 0.04 (0.01-0.20) K/uL Sodium 137 (136-145) mmol/L Potassium 3.3 L (3.5-5.1) mmol/L Chloride 105 (98-107) mmol/L Carbon Dioxide 24 (21-32) mmol/L Anion Gap 8 (3-11) BUN 13 (6-23) mg/dl Creatinine 0.57 L (0.6-1.2) mg/dl Est Cr Clr Drug Dosing 54.8 ml/min Est GFR ( Amer) 98.0 ml/min Est GFR (Non-Af Amer) 84.5 ml/min BUN/Creatinine Ratio 22.8 H (10-20) Glucose 85 (70-99(Fasting)) mg/dl Calcium 7.8 L (8.6-10.3) mg/dl Magnesium 1.5 L (1.7-2.4) mg/dl 25-OH Vitamin D Total 57.3 (30-100) ng/ml TSH 5.513 H (0.300-4.500) uIu/ml Blood Type O Negative Antibody Screen NEGATIVE Crossmatch See Detail Diagnostic Findings Hip X-Ray 03/18/24 10:51 XR hip LT min 2V CLINICAL HISTORY: Post-Operative implant position COMPARISON: Pelvis and left hip radiographs March 17, 2024. FINDINGS: Internal fixation of the intertrochanteric fracture of the left femur with trochanteric nail is noted. Fracture alignment has markedly improved and appears near anatomic. Hardware is intact. No unexpected radiopaque foreign bodies. There are skin gloria. Right hip arthroplasty is partially imaged. IMPRESSION: Expected findings following internal fixation of the intertrochanteric fracture of the left femur. ACT 112: Negative or not required by law. Electronically signed by: Mark Addison M.D. 03/18/2024 12:12 PM PG Care Time/CCT Total # of Minutes Spent Total Time Spent with Patient: Total time spent is greater than 50% in coordination of care (as documented) at patient's floor/unit and/or counseling patient: Coding Level of Care Code 03266 SUB INP/OBS CARE 3/50MIN Diagnoses Closed intertrochanteric fracture of left femur S72.142A Current chronic use of systemic steroids Z79.52 Abnormal urinalysis R82.90 Intermittent atrial fibrillation I48.0 Anemia D64.9 Hypertension I10 Acute blood loss anemia D62 Right foot ulcer L97.519
[2024-03-19] MEDS: POTASSIUM CHLORIDE CRTAB 20 MEQ TABCR PO STA (08:48)
[2024-03-19] MEDS: AMPICILLIN/SULBACTAM SOD 3,000 MG in SODIUM CHLOR 0.9% MINI-B 100 ML IV SCH (09:12)
[2024-03-19 09:15] LABS: Magnesium 1.5 mg/dl (1.7-2.4)
[2024-03-19] MEDS: oxyCODONE/ACETAMINOPHEN 5mg/325mg TAB PO PRN (11:07)
[2024-03-19] MEDS: MAGNESIUM SULFATE / D5W 1 GM/100 ML BAG IV SCH (11:13)
[2024-03-19] MEDS: POLYETHYLENE (MIRALAX) 17 GM PACK PO SCH (14:50)
[2024-03-19] MEDS: DOCUSATE SODIUM 100 MG CAP PO SCH (14:52)
[2024-03-19] MEDS: DAPTOmycin 375 MG in SYRINGE 0 ML IV SCH (14:58)
--- NOTE | 2024-03-19 15:51 | Infectious Disease Consult ---
Date of Consultation March 19, 2024 Assessment & Plan (1) Closed intertrochanteric fracture of left femur: (2) Rheumatoid arthritis: (3) Fall from standing: (4) Prediabetes: Plan 83yo F with h/o paroxysmal afib on Eliquis, prediabetes, hypothyroidism, RA on prednisone and plaquenil who presented on 03/17 after sustaining a mechanical fall. She has been afebrile, BP stable. WBC wnl. Cr 0.80. UA on 03/17 with > 50 WBCs, 3-5 epithelial cells. Hip XR with left intratrochanteric femur fracture with associated soft tissue swelling. S/p closed reduction internal fixation with intertrochanteric nail of left femur on 03/18. UCx returned with E coli and VRE and patient was started on Unasyn and daptomycin. ID consulted 03/19 for assistance. Patient has been afebrile, no leukocytosis and denies any urinary symptoms from admission. I would therefore not treat the urine cultures. She just had cortes removed and I did advise that there may be a little discomfort from the recent cortes, however this should resolve. If she has persistent urinary discomfort in the following days, or develops urinary frequency, abdominal/flank pain, then UA/UCX should be repeated. # Asymptomatic pyuria/bacteriuria # Left hip fracture s/p repair # h/o RA on prednisone and plaquenil - no need for antibiotics from urinary perspective - Deborah stopped daptomycin and Unasyn - remainder of care per primary team - note, would expect some discomfort from recent cortes. If discomfort continues in the next few days with dysuria, abdominal pain etc, then would repeat UA and UCx at that time ID will discontinue active follow up at this time. Please do not hesitate to reconsult the Infectious Diseases service as needed. Suly Montoya MD [facility], Division of Infectious Diseases [facility]: [phone] Consultation Information This patient recommendation is based on a telemedicine consult request which was completed asynchronously through chart review and information provided by the primary physician. The patient was not seen or examined today. The evaluation is consultative in nature and all patient care and treatment decisions can either be accepted or rejected by the patient's primary hospital-based treating physician using their own independent medical judgment for their patient. Sales Engineer Account Manager contact information: Please call [facility] Call Center . (Phone Number For Physician Use Only) Time Spent Reviewing Chart: 31+ minutes History of Present Illness Reason for Consultation: UTI Attending Physician: Zna Garcia MD History of Present Illness 83yo F with h/o paroxysmal afib on Eliquis, prediabetes, hypothyroidism, RA on prednisone and plaquenil who presented on 03/17 after sustaining a mechanical fall. She was moving boxes when she slipped and fell forward but twisted and hit her hip. She denied chest pian, lightheadedness, dizziness, fever. She reported left hip pain if she moves. She was afebrile, BP stable. WBC wnl. Cr 0.80. UA on 03/17 with > 50 WBCs, 3-5 epithelial cells. Hip XR with left intratrochanteric femur fracture with associated soft tissue swelling. S/p closed reduction internal fixation with intertrochanteric nail of left femur on 03/18. UCx returned with E coli and VRE and patient was started on Unasyn and daptomycin. ID consulted 03/19 for assistance. I dont have telepresenter at this time but I did call patients phone and spoke to her directly. She says that she never had any dysuria, urinary frequency, or abdominal pain. Since cortes was taken out today she has not urinated, but still denies having any abdominal discomfort. Only pain she reports is in her hip. Allergies Allergy/AdvReac Type Severity Reaction Status Date / Time alendronate sodium Allergy Unknown CAN'T Verified 03/17/24 17:03 [From Fosamax] REMEMBER azithromycin AdvReac Intermediate Arm/leg Verified 03/17/24 17:03 pain prochlorperazine AdvReac Intermediate Mental Verified 03/17/24 17:03 changes simvastatin [From Zocor] AdvReac Intermediate N/V Verified 03/17/24 17:03 Home Medications Medication Instructions Recorded Confirmed Type amlodipine 5 mg tablet 5 mg PO QAM 09/28/20 03/17/24 History levothyroxine 88 mcg tablet 88 mcg PO QAM 09/28/20 03/17/24 History multivitamin 1 tab PO QAM 09/28/20 03/17/24 History omeprazole 20 mg capsule,delayed 20 mg PO QAM 09/28/20 03/17/24 History release prednisone 5 mg tablet 5 mg PO QAM 09/28/20 03/17/24 History hydroxychloroquine 200 mg tablet 200 mg PO QAM 10/01/20 03/17/24 History buspirone 5 mg tablet 5 mg PO TID 12/22/22 03/17/24 History ferrous sulfate 325 mg (65 mg 325 mg PO DAILY 03/02/23 03/17/24 History iron) tablet apixaban 2.5 mg tablet (Eliquis) 2.5 mg PO BID #1 tab 03/06/23 03/17/24 Rx metoprolol tartrate 50 mg tablet 50 mg PO BID #60 tabs 03/06/23 03/17/24 Rx acetaminophen 500 mg capsule 500 mg PO TID PRN Pain 04/11/23 03/17/24 History polyethylene glycol 3350 17 17 g PO DAILY PRN Constipation 04/11/23 03/17/24 History gram/dose oral powder (Miralax) estradiol 0.01% (0.1 mg/gram) 1 g vaginal 3XWK #42.5 grams 01/08/24 03/17/24 Rx vaginal cream oxycodone-acetaminophen 5 mg-325 1 tab PO Q6H PRN Pain 03/17/24 03/17/24 History mg tablet trazodone 50 mg tablet 50 mg PO HS 03/17/24 03/17/24 History Patient History Medical History Vaginal discharge Osteoarthritis of shoulder Neck pain Low back pain Joint pain, knee High risk medication use ESR raised Cat bite of hand Acute bilateral low back pain without sciatica Acid reflux disease Lumbar spinal stenosis Compression fracture of L2 Discovered 03/02/23- conservative treatment Following routinely with Dr. Choi- may get steroid injections (still wearing brace) Epidural hematoma Noted on outside imaging per 03/02/23 H&P at [facility] - Dr. Choi consulted- "epidural hematoma very, very small. Located at L2." Recommended no intervention needed- restarted on AC Scoliosis Chronic steroid use for RA Atrial fibrillation Reason for Eliquis Follows with Dr. Marlow Scheduled for cardioversion 02/14/23 but converted back to SR prior to procedure Adrenal crisis [facility] ER 12/22/22 > admission- per admission records, suspected that patient was off chronic steroid therapy for 1-2 weeks prior to admission/adrenal crisis* Received stress dose IV hydrocortisone prior to 12/27/22 right GOPI done at [facility] Hypertension Long-term use of immunosuppressant medication Hypothyroidism HLD (hyperlipidemia) Osteoporosis Surgical History History of skin graft to hand History of anesthesia reaction "Gave me too much" with skin graft surgery approximately 7 years ago ([facility]) > "had difficulty breathing"/no other or similar issues with other surgeries/anesthesia, recent surgery at [facility] 12/2022 without any issues per patient History of benign breast biopsy History of joint surgery Right 3 fingers (+ hardware) History of surgery on right wrist History of total left knee replacement (TKR) History of total right knee replacement (TKR) History of colonoscopy History of section History of tooth extraction History of hysterectomy LINDA BSO History of appendectomy Family History Father Coronary heart disease Heart disease COPD (chronic obstructive pulmonary disease) Hypertension Mother Rheumatoid arthritis Uncle Coronary heart disease Other No family history of adverse response to anesthesia Denies family history of Pancreatic cancer Ovarian cancer Prostate cancer Breast cancer Colorectal cancer Uterine cancer Social History Smoking Status: Never smoker Second Hand Exposure: Yes (hx in the workplace); Do You Dip or Chew Tobacco: No; Hx Alcohol Use: No Hx Substance Use: No Preferred Language: Arabic Communication Ability: Effective Visual Impairment: Limited Hearing Ability: Hard of Hearing Windows 7 Deployment Lead Required: No Beliefs That Will Affect Care: None marital status: Current Living Situation: Spouse Current Living Situation Comment: lives at home with current occupational status: 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 @ [employer] How many Children do You have: 1 Other Information That Helps Us Care for You: No Feels Safe at Home: Yes Safety Concerns: Feels Safe At This Time Diet: regular caffeine: Yes during the past year weight has: decreased > 10 lbs Assistive Devices: Cane, Glasses, Hearing Aid - Bilateral and Walker Results & Data Vital Signs (Past 12 Hours) Vital Signs Temp Pulse Pulse Resp BP Pulse Ox O2 Del Method 03/19/24 15:27 36.6 C 55 L 16 120/62 96 Room Air 03/19/24 11:32 37.5 C 57 L 16 114/64 93 Room Air 03/19/24 07:41 37.6 C H 63 16 129/72 92 Room Air 03/19/24 07:17 60 03/19/24 04:19 37.6 C H 66 18 135/67 92 Room Air Laboratory Results Labs reviewed. Diagnostic Findings Imaging reviewed.
--- NOTE | 2024-03-19 18:26 | Orthopedic Progress Note ---
Date of Service March 19, 2024 Assessment & Plan (1) Closed intertrochanteric fracture of left femur: - She may continue be weightbearing as tolerated and range of motion as tolerated in the left lower extremity - She would benefit from inpatient therapy for post surgical rehabilitation - Anticoagulation as she was on prior to surgery - Follow-up in 10-12 days outpatient - Dressing may be taken off in 3 days. [place] to remain in place. Cover if there is drainage. Subjective s/p Closed Reduction internal fixation with intertrochanteric nail of left proximal femur fracture Surgeon: Rao Stevens MD DOS: 03/18/24 Patient is postop day 1 from the surgery above. She states she is doing well. She does have discomfort with range of motion of the left hip. States that she has been evaluated by physical therapy/Occupational Therapy and is aware that she can be range of motion as tolerated in the left lower extremity as well as weightbearing as tolerated. She states that she is unable to be weightbearing as tolerated quite yet. She denies any fever, chills or constitutional symptoms. Denies any other questions or concerns at today's progress check. To note, she states that she was living alone in her home prior to the fall. She is now moving in with her daughter in [facility]. She states that the larriman helper is already in the process of setting her up in acute inpatient therapy in [place]. Review of Systems All systems reviewed & are unremarkable except as noted in HPI & below. Physical Exam Patient is resting comfortably in hospital bed. Her dressing was not taken down. There is no saturation. She is nontender to palpation of the lateral left hip. She does have limited range of motion of the left hip, however she has good range of motion of her left knee as well as her left foot and ankle. Her sensation is intact left lower extremity. No lower extremity edema noted. Distal pulses palpated. Capillary fill less than 3 seconds left lower extremity. Results & Data Results & Data Laboratory Results . Diagnostic Findings . PG Care Time/CCT Total # of Minutes Spent Total Time Spent with Patient: Total time spent is greater than 50% in coordination of care (as documented) at patient's floor/unit and/or counseling patient: Coding Level of Care Code 84465 Post Operative Follow-Up Diagnoses Closed intertrochanteric fracture of left femur S72.142A
[2024-03-20 07:46] LABS: Basophils # (auto) 0.02 K/uL (0.00-0.20); Basophils % (auto) 0.3 %; Eosinophils # (auto) 0.02 K/uL (0.00-0.50); Eosinophils % (auto) 0.3 %; Hemoglobin 8.2 g/dl (12.0-16.0); Immature Granulocytes # (auto) 0.02 K/uL (0.01-0.20); Immature Granulocytes % (auto) 0.3 %; Lymphocytes # (auto) 1.08 K/uL (1.20-3.40); Lymphocytes % (auto) 16.2 %; Mean Corpuscular Hemoglobin 28.7 pg (25.0-34.0); Mean Corpuscular Hgb Conc 32.8 g/dL (32.0-36.0); Mean Corpuscular Volume 87.4 fL (80.0-100.0); Mean Platelet Volume 10.5 fL (9.4-12.4); Monocytes # (auto) 1.06 K/uL (0.11-0.59); Monocytes % (auto) 15.9 %; Neutrophils # (auto) 4.47 K/uL (1.40-6.50); Platelet Count 170 K/uL (130-400); RDW Coefficient of Variation 16.9 % (11.5-14.5); RDW Standard Deviation 53.8 fL (36.4-46.3); Red Blood Count 2.86 M/uL (4.20-5.40); White Blood Count 6.67 K/ul (4.8-10.8)
--- NOTE | 2024-03-20 07:53 | Hospitalist Progress Note ---
Date of Service March 20, 2024 Assessment & Plan (1) Closed intertrochanteric fracture of left femur: Plan: s/p ORIF with troch nail by Dr Rao Stevens on 03/18 martín-operative course complicated by acute blood loss anemia s/p 1 unit PRBCs post-Tx H/H stable/improved , stable 7.8--> 8/5, eliquis resumed this morning for DVT proph as well as afib hx urine cx w/ ecoli + GPC - on Unasyn as given multiple doses ancef (hx enterococcus facecalis in urine in Jun 2023). DISCONTINUE HILLIARD DC IVF +bowel regimen, monitor 25-OH vit D level wnl in 50s Bowel regimen -- miralax/colace, RN to administer suppository Pain control - did get dose IV dilaudid, not given PO oxycodone since last evening and playing catchup this morning PT, OT recs for rehab - family and patient requesting [facility] in [place]. CM aware of placement wants and possible bed tomorrow vs Monday ID consulted day prior, discontinued abx as below. Remains without fever since that time (prior low grade suspected from atelectasis). Continue to monitor. No urinary sx, hilliard removed 03/19 Monitor labs in AM (2) Current chronic use of systemic steroids: Plan: prednisone 5mg daily for rheumatoid arthritis s/p 100mg of hydrocortisone IV given for stress dose purposes this am Prednisone 15mg for 03/20, decreased to 10mg for 03/21 and plan for resuming usual 5mg dosing on 03/23. BP stable 143/66 (3) Abnormal urinalysis: Plan: 1+ bacteria, WBC casts also noted - but no symptoms of pyelonephritis CT a/p in 2022 without any urinary tract abnormalities, stones, etc on multiple doses of IV ancef martín-operatively Urine cx pending however ancef should cover majority of pathogens except ESBL e.coli, MRSA, enterococcus, etc Unasyn ordered, switched to amoxicillin/dapto given urine cx however ID consulted (see note) and given no leukocytosis/fever/urinary sx, abx discontinued at that time Hilliard discontinued 03/20 Monitor for any symptoms. If occurs, should have new UA/culture (4) Intermittent atrial fibrillation: Plan: h/o Paroxysmal A-fib continue metoprolol tartrate 50mg BID echo 12/2023 with preserved but low-normal EF, 50-55% tele thus far with NSR continue telemetry, Eliquis resumed PAC/PVCs-- mag/K replacement orior and stable on AM labs and will monitor (5) Anemia: Plan: Patient with chronic anemia Baseline hemoglobin ranging from 8.511, although last was 13.4. Hemoglobin 10.7 upon presentation Fell to 7.8 - likely due to bleeding into the left thigh from the hip fracture - c/w acute blood loss anemia s/p 1 unit PRBCs - hgb stable 8.5 at present-> 8.2 w/ repeated lab draws Monitor CBC (6) Hypertension: Plan: Chronic, stable- BP 143/66 Continue metoprolol, amlodpine (7) Acute blood loss anemia: Plan: as above s/p 1 unit PRBCs with stable hgb and will monitor since resuming home eliquis and repeated lab draws (8) Right foot ulcer: Plan: present for several months was following with wound care in [place] for such? current dressing looks like Adaptic with kerlix; continue this until wound care sees (there is also a blue spongy material on top of the Adaptic; uncertain what this is; again defer to wound care) will consult wound care team - pending -- defer dressing changes to wound RN. Will need f/u outpt at rehab as above Plan Chronic medical problems: Rheumatoid arthritis On hydroxychloroquine/prednisone; see above re: steroids GERD - PPI Hypothyroidism -TSH with mild elevation 5.5 -ADDED t3/T4 to AM labs btu remains on 88mcg Synthroid at present time History of epidural hematoma Associated with compression fracture 02/2023. Did well with brace and physical therapy. No operative Rx needed at that time. DVT prophylaxis: SCDs, eliquis resumed AM 03/19 Updated daughter by phone w/ CM AM 03/19. Rehab planned [place] area either tomorrow vs Monday pending bed/auth. CM following Admission and Anticipated Discharge Date Admission Date: March 17, 2024 Supervising Physician Co-Signing Physician Notes The patient was not seen by me. The chart was reviewed. Case discussed with RAYMUNDO Houser. Agree with assessment and plan Subjective Eval this morning, on the phone with daughter. Doing alright, reports improvement in appetite but still without bowel movement. Reports they gave her something this morning but agreeable to suppository. Given Dilaudid this morning but hadn't gotten any PO since evening prior, RN to administer. Discussed possible bed for rehab tomorrow vs Monday if pain controlled/improved and moving bowels. No fever/chills, no chest pain or shortness of breath, no abdominal pain or nausea. Questions/concerns addressed at this time. Physical Exam Physical Exam: gen - thin, NAD, pleasant, sitting up in the chair, on the phone with daughter upon entry skin - left hip dressings intact; supple, compartments soft/supple, no calf tenderness, pulses present right foot - medial ankle - small ulcer covered with scab; no drainage; no cellulitis HEENT: head atraumatic, normocephalic, mm slightly dry, trachea midline heart - irregular (PACs); s1 s2; regular rate; +faint systolic murmur lungs - CTA b/l abd - +BS throughout but slightly distended, no overt tenderness/guarding/rigidity musculo - left thigh edema minimal, slight tenderness distal dressing left hip dressings in place; RA changes of fingers/etc ext - no peripheral edema, pulses 2+ b/l psych - a/o x 3 Results & Data Results & Data Vital Signs (Past 12 Hours) Vital Signs Temp Pulse Pulse Resp BP Pulse Ox O2 Del Method 03/20/24 07:33 54 L 03/20/24 03:30 36.7 C 56 L 16 131/71 93 Room Air 03/19/24 23:19 56 L 03/19/24 22:42 36.7 C 55 L 16 104/64 94 Room Air Laboratory Results 03/20/24 03/18/24 Range/Units 07:21 08:26 WBC 6.67 (4.8-10.8) K/ul RBC 2.86 L (4.20-5.40) M/uL Hgb 8.2 L (12.0-16.0) g/dl Hct 25.0 L (37.0-47.0) % MCV 87.4 (80.0-100.0) fL MCH 28.7 (25.0-34.0) pg MCHC 32.8 (32.0-36.0) g/dL RDW Std Deviation 53.8 H (36.4-46.3) fL RDW Coeff of Joao 16.9 H (11.5-14.5) % Plt Count 170 (130-400) K/uL MPV 10.5 (9.4-12.4) fL Immature Gran % (Auto) 0.3 % Neut % (Auto) 67.0 % Lymph % (Auto) 16.2 % Perry % (Auto) 15.9 % Eos % (Auto) 0.3 % Baso % (Auto) 0.3 % Neut # (Auto) 4.47 (1.40-6.50) K/uL Lymph # (Auto) 1.08 L (1.20-3.40) K/uL Perry # (Auto) 1.06 H (0.11-0.59) K/uL Eos # (Auto) 0.02 (0.00-0.50) K/uL Baso # (Auto) 0.02 (0.00-0.20) K/uL Immature Gran # (Auto) 0.02 (0.01-0.20) K/uL Sodium 136 (136-145) mmol/L Potassium 3.5 (3.5-5.1) mmol/L Chloride 104 (98-107) mmol/L Carbon Dioxide 26 (21-32) mmol/L Anion Gap 6 (3-11) BUN 18 (6-23) mg/dl Creatinine 0.70 (0.6-1.2) mg/dl Est Cr Clr Drug Dosing 44.6 ml/min Est GFR ( Amer) 91.6 ml/min Est GFR (Non-Af Amer) 79.0 ml/min BUN/Creatinine Ratio 25.7 H (10-20) Glucose 105 H (70-99(Fasting)) mg/dl Calcium 8.2 L (8.6-10.3) mg/dl Magnesium 2.3 (1.7-2.4) mg/dl Total Bilirubin 0.6 (0.2-1.0) mg/dl AST 20 (13-39) U/L ALT 4 L (7-52) U/L Alkaline Phosphatase 47 (34-104) U/L Total Protein 5.7 L (6.0-8.3) gm/dl Albumin 2.8 L (3.4-5.0) gm/dl Globulin 2.9 (2.5-4.0) gm/dl Albumin/Globulin Ratio 1.0 (0.9-2) Free T4 1.13 (0.61-1.60) ng/dl Free T3 2.55 (2.3-4.2) pg/ml Blood Type O Negative Antibody Screen NEGATIVE Crossmatch See Detail PG Care Time/CCT Total # of Minutes Spent Total Time Spent with Patient: Total time spent is greater than 50% in coordination of care (as documented) at patient's floor/unit and/or counseling patient: Coding Level of Care Code 36787 SUB INP/OBS CARE MIN Diagnoses Closed intertrochanteric fracture of left femur S72.142A Current chronic use of systemic steroids Z79.52 Abnormal urinalysis R82.90 Intermittent atrial fibrillation I48.0 Anemia D64.9 Hypertension I10 Acute blood loss anemia D62 Right foot ulcer L97.519
[2024-03-20 08:24] LABS: Albumin Level 2.8 gm/dl (3.4-5.0); BUN Creatinine Ratio 25.7 (10-20); Bilirubin,Total 0.6 mg/dl (0.2-1.0); Calcium 8.2 mg/dl (8.6-10.3); Creatinine Clr Calc Pharmacy 44.6 ml/min; Est GFR (African American) 91.6 ml/min; Globulin 2.9 gm/dl (2.5-4.0); Magnesium 2.3 mg/dl (1.7-2.4); Potassium 3.5 mmol/L (3.5-5.1); Total Protein 5.7 gm/dl (6.0-8.3)
[2024-03-20] MEDS: predniSONE 5 MG TAB PO SCH (08:26)
[2024-03-20 08:41] LABS: T4 Free Thyroxine 1.13 ng/dl (0.61-1.60)
[2024-03-20] MEDS ORDERED: AMOXICILLIN 500 MG CAP PO SCH (09:00)
--- NOTE | 2024-03-20 11:56 | Orthopedic Progress Note ---
Date of Service March 20, 2024 Assessment & Plan (1) Closed intertrochanteric fracture of left femur: Plan: 78-year-old female POD# 2 s/p closed reduction internal fixation of left intertrochanteric fracture with short IM nail and cannulated femoral head/neck compression screw. Plan: 1. DVT prophylaxis w/ home dose Eliquis -- 2.5 mg BID. 2. Con't PT/OT as tolerated. WBAT on LLE. 3. Pain relatively well-controlled continue current regimen. 4. Medical management as per the primary medicine service. 5. Dressing may be taken off on POD#3; Tatiana to remain in place, cover w/ new dressing if there is drainage. 6. Disposition - plan is for rehab in [facility] 7. Follow-up outpatient with Dr. Stevens's team 10-12 days postop. Admission and Anticipated Discharge Date Admission Date: March 17, 2024 Subjective POD#2 s/p closed reduction internal fixation left intertrochanteric hip fracture with short IM nail and femoral head/neck compression screw. Patient says that she still has pain, but she is doing a bit better than yesterday. She says they "did a lot of therapy with me this morning". When asked if she had walked yet, she said that she had not. She has been doing transfers to the commode and bedside chair, as well as in-bed exercises. She says that the plan is to move in with her daughter in the [facility] after she has completed a short course in a rehab facility. Her is apparently already living in [place], and so she plans to move out there permanently. She denies chest pain, shortness of breath, and abnormal paresthesias to the left lower extremity. Review of Systems Review of Systems: All systems reviewed & are unremarkable except as noted in HPI & below. Physical Exam Constitutional: WD/WN, vitals as above no acute distress and not intoxicated appearing Respiratory: normal respiratory effort; no labored breathing Cardiovascular: Extremities: normal capillary refill Musculoskeletal: Surgical dressing c/d/i to left lateral hip with no drainage or saturation Calf soft/NT + Ankle dorsi/plantarflexion + Wiggles toes Results & Data Vital Signs (Past 12 Hours) Vital Signs Temp Pulse Pulse Resp BP BP Pulse Ox 03/20/24 11:48 37.1 C 60 17 128/61 93 03/20/24 07:57 37 C 55 L 17 143/66 H 93 03/20/24 07:33 54 L 03/20/24 03:30 36.7 C 56 L 16 131/71 93 O2 Del Method 03/20/24 11:48 Room Air 03/20/24 07:57 Room Air 03/20/24 07:33 03/20/24 03:30 Room Air
[2024-03-20] MEDS: bisacodyL 10 MG SUPP PR PRN (17:19)
[2024-03-21] MEDS ORDERED: HYDROmorphone INJ 0.5 MG/0.5 ML SYR IV PRN (08:01)
--- NOTE | 2024-03-21 08:03 | Hospitalist Progress Note ---
Date of Service March 21, 2024 Assessment & Plan (1) Closed intertrochanteric fracture of left femur: Plan: s/p ORIF with troch nail by Dr Rao Stevens on 03/18 martín-operative course complicated by acute blood loss anemia s/p 1 unit PRBCs post-Tx H/H stable/improved , stable 7.8--> 8/5, Eliquis resumed post-op also for hx paroxysmal afib Cortes discontinued prior, see below regarding urine cx/abx Pain control - did not realize needing to ask for pain medications when needing - increased to 2 tablets as needed, discontinued IV Dilaudid 0.5mg and 1mg dose but left 0.25mg for breakthrough if needed Bowel regimen - 2 small BM last evening, large BM this morning with colace/miralax. Will decrease to once daily for now/monitor while on pain medications Vit D wnl DVT proph; eliquis resumed post-op Prednisone changed back to usual 5mg PO daily for AM PT/OT consulted, recs rehab. Arranging for [facility] in [place], arranging transportation for 03/22 (2) Current chronic use of systemic steroids: Plan: prednisone 5mg daily for rheumatoid arthritis s/p 100mg of hydrocortisone IV given for stress dose purposes this am Prednisone 15mg for 03/20, 10mg for 03/21 and plan for resuming usual 5mg dosing on 03/23. BP stable 140/66 (3) Abnormal urinalysis: Plan: 1+ bacteria, WBC casts also noted - but no symptoms of pyelonephritis CT a/p in 2022 without any urinary tract abnormalities, stones, etc on multiple doses of IV ancef martín-operatively Urine cx pending however ancef should cover majority of pathogens except ESBL e.coli, MRSA, enterococcus, etc Cortes discontinued 03/20 Unasyn ordered, switched to amoxicillin/dapto given urine cx however ID consulted (see note) and given no leukocytosis/fever/urinary sx, abx discontinued at that time Monitor for any symptoms. If occurs, should have new UA/culture but to remain of abx at this time (4) Intermittent atrial fibrillation: Plan: h/o Paroxysmal A-fib continues on metoprolol tartrate 50mg BID echo 12/2023 with preserved but low-normal EF, 50-55% tele thus far with NSR, eliquis resumed as above and remains NSR w/ PACs on monitor (5) Anemia: Plan: acute blood loss anemia in setting of chronic anemia. TSH elevated but normal T4/T3 given hx pafib Hgb 10.7 on admit, fell to 7.8 post-op, likely due to bleeding into L thigh from fracture s/p 1u PRBC for hgb 7.8 --> 8.2 on repeat and no significant hematoma on exam. Eliquis resumed post-op Monitor CBC in AM for completeness, could consider venofer IV (prior iron studies 2022 w/ iron 16, trans % sat 11 -- defer on repeating given PRBC while inpatient) Continue ferrous sulfate daily, consider increasing to BID (6) Hypertension: Plan: Chronic, stable Continue metoprolol, amlodipine (7) Acute blood loss anemia: Plan: as above s/p 1 unit PRBCs with stable hgb and will monitor since resuming home eliquis and repeated lab draws (8) Right foot ulcer: Plan: present for several months was following with wound care in [place] for such? current dressing looks like Adaptic with kerlix; continue this until wound care sees (there is also a blue spongy material on top of the Adaptic; uncertain what this is; again defer to wound care) will consult wound care team - R medial ankle Will need f/u outpt at rehab as above Plan Chronic medical problems: Rheumatoid arthritis On hydroxychloroquine/prednisone; see above re: steroids GERD - PPI Hypothyroidism -TSH with mild elevation 5.5, T3/T4 wnl - Remains on Synthroid 88mcg daily History of epidural hematoma Associated with compression fracture 02/2023. Did well with brace and physical therapy. No operative Rx needed at that time. DVT prophylaxis: SCDs, eliquis resumed AM 03/19 Updated daughter by phone w/ CM AM 03/19. Rehab planned [place] area and transport being arranged for AM Admission and Anticipated Discharge Date Admission Date: March 17, 2024 Supervising Physician Co-Signing Physician Notes Holter no Subjective Evaluated this morning. Reports doing "terrible". Given Dilaudid overnight, did not get PO oxycodone after initial asked RN to provide yesterday. Discussing limiting IV/utilizing PO more regularly/as needed first line over IV however will increase PO to 2 tablets prn. No fever/chills, no chest pain or shortness of breath/nausea. Waiting placement for rehab but working on pain control at present time. Did have 2 small bowel movements last night, larger bowel movement this morning. Denies any increased urinary frequency/urgency or dysuria at this time but to notify if occurs. Questions/concerns addressed at this time. Physical Exam Physical Exam: General: 83 yo sitting up in chair, reporting pain to her left hip, RN to provide pain medication HEENT: head atraumatic, normocephalic, mmm, trachea midline Resp: even/unlabored, no significant w/c/r, on room air CV: NSR/PACs on monitor, faint systolic murmur, no pitting edema/calf tenderness GI: +BS, soft, less distension, nontender : no cortes MSK/Neuro: dressing to L hip/thigh c/d/i, mild edema, +tenderness, no significant erythema/warmth RA appearance to hands Psych: AOx3, cooperative Results & Data Results & Data Vital Signs (Past 12 Hours) Vital Signs Temp Pulse Pulse Resp BP Pulse Ox O2 Del Method 03/21/24 07:43 Room Air 03/21/24 07:17 59 L 03/21/24 03:48 37.1 C 53 L 20 153/81 H 92 Room Air 03/20/24 23:23 36.6 C 71 16 129/77 94 Room Air 03/20/24 22:17 70 03/20/24 21:11 67 Laboratory Results 03/18/24 Range/Units 08:26 Crossmatch See Detail PG Care Time/CCT Total # of Minutes Spent Total Time Spent with Patient: Total time spent is greater than 50% in coordination of care (as documented) at patient's floor/unit and/or counseling patient: Coding Level of Care Code 82696 SUB INP/OBS CARE 2/35MIN Diagnoses Closed intertrochanteric fracture of left femur S72.142A Current chronic use of systemic steroids Z79.52 Abnormal urinalysis R82.90 Intermittent atrial fibrillation I48.0 Anemia D64.9 Hypertension I10 Acute blood loss anemia D62 Right foot ulcer L97.519
[2024-03-21] MEDS: predniSONE 10 MG TABLET PO SCH (09:09)
[2024-03-21] MEDS: oxyCODONE HCL IR 5 MG TAB (IMMEDIATE RELEASE) PO STA (11:35)
[2024-03-21] MEDS: oxyCODONE/ACETAMINOPHEN 5mg/325mg TAB PO PRN (19:51)
[2024-03-22 06:50] LABS: Hematocrit (blood only) 25.6 % (37.0-47.0); Hemoglobin 8.3 g/dl (12.0-16.0); Mean Corpuscular Hemoglobin 28.7 pg (25.0-34.0); Mean Corpuscular Hgb Conc 32.4 g/dL (32.0-36.0); Mean Corpuscular Volume 88.6 fL (80.0-100.0); Mean Platelet Volume 10.5 fL (9.4-12.4); Platelet Count 206 K/uL (130-400); RDW Coefficient of Variation 16.7 % (11.5-14.5); RDW Standard Deviation 54.1 fL (36.4-46.3); Red Blood Count 2.89 M/uL (4.20-5.40); White Blood Count 5.38 K/ul (4.8-10.8)
[2024-03-22 07:06] LABS: BUN Creatinine Ratio 32.7 (10-20); Calcium 8.2 mg/dl (8.6-10.3); Creatinine Clr Calc Pharmacy 59.1 ml/min; Est GFR (African American) 99.1 ml/min; Est GFR (Non-African American) 85.5 ml/min; Magnesium 1.7 mg/dl (1.7-2.4); Potassium 3.4 mmol/L (3.5-5.1)
[2024-03-22 07:49] VITALS: PULSE 64; RESP 18; TEMP 98.6; O2SAT 95
--- NOTE | 2024-03-22 08:04 | Hospitalist Progress Note ---
Date of Service March 22, 2024 Assessment & Plan (1) Closed intertrochanteric fracture of left femur: Plan: s/p ORIF with troch nail by Dr Rao Stevens on 03/18 martín-operative course complicated by acute blood loss anemia s/p 1 unit PRBCs post-Tx H/H stable/improved , stable 7.8--> 8/5, Eliquis resumed post-op also for hx paroxysmal afib Navarro discontinued prior, see below regarding urine cx/abx Pain control - did not realize needing to ask for pain medications when needing - increased to 2 tablets as needed, discontinued IV Dilaudid 0.5mg and 1mg dose but left 0.25mg for breakthrough if needed Bowel regimen - 2 small BM last evening, large BM this morning with colace/miralax. Will decrease to once daily for now/monitor while on pain medications Vit D wnl DVT proph; eliquis resumed post-op Prednisone changed back to usual 5mg PO daily for AM PT/OT consulted, recs rehab. Arranging for [facility] in [place], arranging transportation for 03/22 03/22 (2) Current chronic use of systemic steroids: Plan: prednisone 5mg daily for rheumatoid arthritis s/p 100mg of hydrocortisone IV given for stress dose purposes this am Prednisone 15mg for 03/20, 10mg for 03/21 and plan for resuming usual 5mg dosing on 03/23. BP stable 140/66 (3) Abnormal urinalysis: Plan: 1+ bacteria, WBC casts also noted - but no symptoms of pyelonephritis CT a/p in 2022 without any urinary tract abnormalities, stones, etc on multiple doses of IV ancef martín-operatively Urine cx pending however ancef should cover majority of pathogens except ESBL e.coli, MRSA, enterococcus, etc Navarro discontinued 03/20 Unasyn ordered, switched to amoxicillin/dapto given urine cx however ID consulted (see note) and given no leukocytosis/fever/urinary sx, abx discontinued at that time Monitor for any symptoms. If occurs, should have new UA/culture but to remain of abx at this time (4) Intermittent atrial fibrillation: Plan: h/o Paroxysmal A-fib continues on metoprolol tartrate 50mg BID echo 12/2023 with preserved but low-normal EF, 50-55% tele thus far with NSR, eliquis resumed as above and remains NSR w/ PACs on monitor (5) Anemia: Plan: acute blood loss anemia in setting of chronic anemia. TSH elevated but normal T4/T3 given hx pafib Hgb 10.7 on admit, fell to 7.8 post-op, likely due to bleeding into L thigh from fracture s/p 1u PRBC for hgb 7.8 --> 8.2 on repeat and no significant hematoma on exam. Eliquis resumed post-op Monitor CBC in AM for completeness, could consider venofer IV (prior iron studies 2022 w/ iron 16, trans % sat 11 -- defer on repeating given PRBC while inpatient) Continue ferrous sulfate daily, consider increasing to BID (6) Hypertension: Plan: Chronic, stable Continue metoprolol, amlodipine (7) Acute blood loss anemia: Plan: as above s/p 1 unit PRBCs with stable hgb and will monitor since resuming home eliquis and repeated lab draws (8) Right foot ulcer: Plan: present for several months was following with wound care in [place] for such? current dressing looks like Adaptic with kerlix; continue this until wound care sees (there is also a blue spongy material on top of the Adaptic; uncertain what this is; again defer to wound care) will consult wound care team - R medial ankle Will need f/u outpt at rehab as above Plan Chronic medical problems: Rheumatoid arthritis On hydroxychloroquine/prednisone; see above re: steroids GERD - PPI Hypothyroidism -TSH with mild elevation 5.5, T3/T4 wnl - Remains on Synthroid 88mcg daily History of epidural hematoma Associated with compression fracture 02/2023. Did well with brace and physical therapy. No operative Rx needed at that time. DVT prophylaxis: SCDs, eliquis resumed AM 03/19 Updated daughter by phone w/ CM AM 03/19. Rehab planned [place] area and transport being arranged for AM Admission and Anticipated Discharge Date Admission Date: March 17, 2024 Results & Data Results & Data Vital Signs (Past 12 Hours) Vital Signs Temp Pulse Pulse Resp BP BP Pulse Ox 03/22/24 07:48 37.0 C 64 18 126/71 95 03/22/24 07:24 59 L 03/22/24 05:54 03/22/24 01:28 03/22/24 00:44 37 C 78 16 142/70 H 94 03/21/24 23:37 03/21/24 22:00 58 L 03/21/24 21:18 03/21/24 20:11 37 C 80 20 149/69 H 92 O2 Del Method O2 Del Method 03/22/24 07:48 Room Air 03/22/24 07:24 03/22/24 05:54 Room Air 03/22/24 01:28 Room Air 03/22/24 00:44 Room Air 03/21/24 23:37 Room Air 03/21/24 22:00 03/21/24 21:18 Room Air 03/21/24 20:11 Room Air PG Care Time/CCT Total # of Minutes Spent Total Time Spent with Patient: Total time spent is greater than 50% in coordination of care (as documented) at patient's floor/unit and/or counseling patient: Coding Diagnoses Closed intertrochanteric fracture of left femur S72.142A Current chronic use of systemic steroids Z79.52 Abnormal urinalysis R82.90 Intermittent atrial fibrillation I48.0 Anemia D64.9 Hypertension I10 Acute blood loss anemia D62 Right foot ulcer L97.519
--- NOTE | 2024-03-22 08:04 | Discharge Summary ---
Date of Service March 22, 2024 Admission HPI Per Admitting Provider Mary is an 83-year-old female with a past medical history of paroxysmal atrial fibrillation on Eliquis, chronic anemia, prediabetes, hypothyroidism, rheumatoid arthritis on prednisone/Plaquenil who lost her balance and had a mechanical fall and has sustained a hip fracture. Seen the bedside. Was moving boxes helping get things packed when she slipped and fell forward but twisted and hit her hip and landed on her back. No chest pain, chest pressure, lightheadedness, dizziness, syncope, presyncope that contributed to her fall. No vertigo. She has not any chest pain with exertion, although notes she fatigues easily. No chest pain or pleuritic pain on admission. No fever chills or sweats. No recent antibiotic allergies. At time of bedside assessment she has no back pain. Does have some pain in her left hip if she moves. Is able to wiggle her toes without difficulty. She did take her Eliquis this morning. No anginal symptoms with ambulation of the previous month. Medical History: Reviewed Medications: Reviewed Surgical History: Reviewed Family history: Reviewed Allergies: Reviewed Social History: Reviewed Code Status: Reviewed CODE STATUS, is DNR/DNI but would want ICU level care outside of chest compressions/intubation and interest and will continue conditional code to reflect this as was previously noted although patient is consistent with DNR/DNI. Admission Exam Per Admitting Provider General: A&Ox3. NAD. Cooperative. HEENT: Atraumatic, normocephalic. Vision and hearing grossly intact Pulm: CTAB A&P. -wheezes, -rales, -rhonchi. Symmetrical chest rise. No increased work of breathing. No respiratory distress. Cardiac: RRR, -mrg. Radial pulses intact and symmetrical. Abdominal: Nontender, nondistended, soft. BS present. Extremities: Left extremity externally rotated and shortened. Sensation is soft touch intact bilaterally without deficit, ankle dorsiflexion/plantarflexion 5/5 bilaterally without deficit, PT pulse intact bilaterally Principal Diagnosis LEFT HIP/FEMUR FRACTURE, S/P closed reduction internal fixation and in tertrochanteric nail of left proximal femur fracture Discharge Exam General: 83 yo sitting up in chair, reporting pain to her left hip, RN to provide pain medication HEENT: head atraumatic, normocephalic, mmm, trachea midline Resp: even/unlabored, no significant w/c/r, on room air CV: NSR/PACs on monitor, faint systolic murmur, no pitting edema/calf tenderness GI: +BS, soft, less distension, nontender : no cortes MSK/Neuro: dressing to L hip/thigh c/d/i, mild edema, +tenderness (decrease), no significant erythema/warmth RA appearance to hands Psych: AOx3, cooperative Discharge Data Allergies Allergy/AdvReac Type Severity Reaction Status Date / Time alendronate sodium Allergy Unknown CAN'T Verified 03/17/24 17:03 [From Fosamax] REMEMBER azithromycin AdvReac Intermediate Arm/leg Verified 03/17/24 17:03 pain prochlorperazine AdvReac Intermediate Mental Verified 03/17/24 17:03 changes simvastatin [From Zocor] AdvReac Intermediate N/V Verified 03/17/24 17:03 Consultations 03/17/24 16:48 ED Decision to Admit Stat 03/17/24 18:35 Consult Orthopedic Surgery Routine 03/19/24 13:36 Consult Infectious Diseases Routine Procedures Performed Operation Date: 03/18/24 08:00 Actual Procedures p Closed Reduction internal fixation with intertrochanteric nail of left proximal femur fracture(Left) - Rao Stevens MD Ordered Studies Hip/Pelvis X-Ray 03/17/24 14:54 XR hip LT 2V w pelvis CLINICAL HISTORY: L hip pain s/p fall from standing TECHNIQUE: 2 views of the right hip and single frontal view of the pelvis were obtained. Comparison: Comparison is made to hip radiograph 12/27/2022 FINDINGS: Acute left intertrochanteric fracture with apex lateral angulation. 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 Degenerative changes are seen in the lumbar spine. Soft tissue swelling is seen. IMPRESSION: Left intratrochanteric femur fracture with apex lateral angulation and associated soft tissue swelling. ACT 112: Negative or not required by law. Electronically signed by: Apollo Navarro M.D. 03/17/2024 4:49 PM Hip X-Ray 03/18/24 00:00 FL hip LT 2-3V CLINICAL HISTORY: LT HIP FX COMPARISON STUDY: Pelvis and left hip radiographs March 17, 2024. FLUOROSCOPY TIME: 1 minute and 22 seconds. Ivettr: 8.81 mGy FLUOROSCOPIC IMAGES: 5 FINDINGS: Fluoroscopy was provided during open reduction and internal fixation of the intertrochanteric fracture of the left femur with trochanteric nail. Fracture alignment has significantly improved and appears near anatomic. Hardware is intact. No unexpected radiopaque foreign bodies. IMPRESSION: Fluoroscopy provided during internal fixation of the intertrochanteric fracture of the left femur. ACT 112: Negative or not required by law. Electronically signed by: Mark Addison M.D. 03/18/2024 10:46 AM Hip X-Ray 03/18/24 10:51 XR hip LT min 2V CLINICAL HISTORY: Post-Operative implant position COMPARISON: Pelvis and left hip radiographs March 17, 2024. FINDINGS: Internal fixation of the intertrochanteric fracture of the left femur with trochanteric nail is noted. Fracture alignment has markedly improved and appears near anatomic. Hardware is intact. No unexpected radiopaque foreign bodies. There are skin tatiana. Right hip arthroplasty is partially imaged. IMPRESSION: Expected findings following internal fixation of the intertrochanteric fracture of the left femur. ACT 112: Negative or not required by law. Electronically signed by: Mark Addison M.D. 03/18/2024 12:12 PM Hospital Course (1) Closed intertrochanteric fracture of left femur: 83 yo female after mechanical fall/lost balance and sustained LEFT hip fracture Orthopedics was consulted, Dr Stevens s/p ORIF with troch nail on 03/18, did have perioperative course complicated by acute blood loss anemia from fracture/nailing and given 1u PRBC with stable hgb post op and improved on repeat 8.3 with repeated lab draws and remains on PO iron supplementation Continued pain control with bowel regimen however initially using IV dilaudid as was unaware of needing to ask for oral option and utilized PO oxycodone/tylenol for control with imrpovement and can continue 1-2 tablets as needed. Had increased her bowel regimen while on pain medications with 2 BM prior day and additional today and declined additional bowel regimen however discussed if occurs w/ continued pain medication to continue Had cortes placed for surgery given fx and initially placed on abx however consulted with ID and given no fever/leukocytosis and no urinary sx this was discontinued and patient remained without urinary symptoms but did discuss if they recur she should have repeat UA/culture prior to abx use. Vit D wnl PT/OT recs for rehab, wanting in [place] area as moving. Arranged for [facility] in [place], daughter updated during hospital stay DVT proph: eliquis resumed post-operatively and continued at dc, tolerating and hgb as above stable/improved on repeat with continued lab draws To have outpt f/u orthopedics as well as wound care/PCP. (2) Current chronic use of systemic steroids: on prednisone/Plaquenil for underlying RA Given 100mg hydrocortisone for stress purposes and then titrated back to usual 5mg dose by AM 6/1 and to continue usual 5mg at dc (3) Abnormal urinalysis: As above, initially had placed on Unasyn for UA/cx and increased to cover for cx however discussed with ID and abx discontinued as outlined above but did discuss if has any sx should have repeat UA/cx prior to any abx CT a/p in 2022 without any urinary tract abnormalities, stones, etc DENIED any issues w/ urinary sx prior to dc Of note, did have a little diarrhea w/ bowel regimen but only 2BM prior to dc however if any fevers/abdominal pain or worsened diarrhea would consider testing for completeness (4) Intermittent atrial fibrillation: h/o Paroxysmal A-fib however remained in sinus during hospitalization and continued on home metoprolol BID ECHO December 2023 w/ persevered but low-normal EF, 50-55%. No evidence for volume overload on exam Eliquis resumed post-operatively and continued at dc (5) Anemia: acute blood loss anemia in setting of chronic anemia. TSH elevated but normal T4/T3 given hx pafib Hgb 10.7 on admit, fell to 7.8 post-op, likely due to bleeding into L thigh from fracture s/p 1u PRBC for hgb 7.8 --> 8.2 on repeat and no significant hematoma on exam. Eliquis resumed post-op and repeat hgb 8.3 prior to dc Continued PO iron at dc, can consider increasing to BID but cautious w/ constipation (6) Hypertension: Chronic, stable and continued on home metoprolol, amlodipine (7) Acute blood loss anemia: as above, stable hgb on repeat since PRBC (8) Right foot ulcer: present for several months was following with wound care in [place] for such? current dressing looks like Adaptic with kerlix; continue this until wound care sees (there is also a blue spongy material on top of the Adaptic; uncertain what this is; again defer to wound care) will consult wound care team - R medial ankle, instructions in place on dc and continued wound care recommended at rehab in follow up Plan Chronic medical problems: Rheumatoid arthritis On hydroxychloroquine/prednisone; see above re: steroids and has been tapered back to her usual 5mg PO daily at dc GERD PPI continued Hypothyroidism TSH with mild elevation 5.5 (likely stress from fall/fx) but normal T3/T4 wnl. Remained on 88mcg Synthroid, f/u PCP for ongoing monitoring History of epidural hematoma Associated with compression fracture 02/2023. Did well with brace and physical therapy. No operative Rx needed at that time. DVT prophylaxis: SCDssanty resumed AM 03/19 and continued Discharged to [facility] for ongoing rehab Total Time Total Time Spent Total Time Spent (In Minutes): 45 Discharge Plan Discharge Items Patient Disposition: Transfer Detention Fac Reason For Visit: HIP FXR Discharge Diagnosis: Left closed intertrochanteric femur fracture s/p trochanteric fixation nail. Goals: You have been hospitalized for an urgent problem which required surgery. During your stay at [facility], we have made an effort to correct the problem that brought you to the hospital while keeping you as comfortable as possible. Surgery and medications were used to bring your condition under control and your discharge instructions will include directions for any medications you should take after leaving the hospital. Please make sure to follow the advice of your surgeon regarding follow up with the surgeon and with your primary care provider. Activity: As commented below Activity Comment: WBAT on LLE. Non-emergency contact: Surgeon Call non-emergency contact if: you have any medication questions, your pain is not controlled and your temperature is above 101 Follow-up/Referrals: Rao Stevens MD [Surgeon] - (2-3 weeks postop, she should have a followup wound check. Xrays at 6 weeks. This can be coordinated with nursing facility or local Orthopedics office. Tatiana can be removed by long-term if they contact our clinic for an order. ) Alin Branch [Primary Care Provider] - Diet: Heart Healthy Addtl Attending Provider Instructions: You have been hospitalized after a fall and found to have fracture of your hip. Orthopedics was consulted and you underwent surgery for repair and are to continue eliquis twice daily for blood clot prevention. You were treated with antibiotics for possible UTI but infectious disease was consulted and given you did not have fever/white count or urinary symptoms these were discontinued and if you develop any of these symptoms you should have repeat urine anaylsis and culture prior to any antibiotics. You are being sent on pain medications and should monitor for any constipation while on these and use stool softener/laxative if occurs. You should have ongoing wound care at follow up. For now to right ankle, please continue to clean with saline and cover open area with aquacell Ag and secure with optifoam. Change every other day and as needed. Please follow up with orthopedics as instructed in 10-12 days. Weight bearing as tolerated with walker on the left leg. Please follow up with primary care in the next 7-10 days to monitor status after discharge from the hospital. Please return to ER if any fever/chills, chest pain, increased pain/redness/drainage from surgical site, or for any other symptoms concerning for you. It has been a pleasure being a part of the medical team providing for you while you have been in the hospital. Take care! Addtl Director [place] Provider Instructions: Orthopedic Instructions after Hip Fracture Surgery: Please keep your wound clean and dry. Do not remove any of the tatiana. Humble will be removed at your follow-up appointment with orthopedic surgery or by the nursing facility in 2-3 weeks. Please continue daily dressing changes until your follow-up appointment. If there is no drainage onto the dressing for total of 24 hours, you may shower after 5 days from surgery. Allow soap and water to run over the incision, no scrubbing, and pat dry. Do not submerse (sitting in bathtub, hot tub, jacuzzi, pool, etc) the wound for at least 3 weeks. You may bear weight on your lower extremities as tolerated. Please use the walker or cane, as instructed by physical therapy. For pain control please use Tylenol as needed. You may also have a stronger pain medication prescribed to you at discharge. You can also apply ice to the surgical site. Resume Eliquis on the day after surgery. This should protect you from deep vein thrombosis (DVT), as well. Orthopedic clinic follow-up should be in 2-3 weeks after surgery for repeat wound check. Repeat xrays should be performed by 6 weeks. Humble can be removed at the orthopedic follow-up. If necessary, tatiana can be removed by a nurse at home or at a nursing facility upon our order. Please contact the clinic for guidance. Pending Studies at Discharge: No Stand-Alone Forms: My [facility] Skilled Items Patient informed of condition?: Yes DNR: No Discharge Level of Care: Acute rehab Communicable Disease: No Discharge Prognosis: Stable Lines: None Urinary Catheter: No Medications and DC Order Prescriptions: New oxycodone-acetaminophen [Percocet] 5-325 mg Tablet 1 - 2 tab PO Q4H PRN (Reason: pain) Qty: 14 0RF Rx Instructions: 1-2 tablets as needed for pain 1 tablet for pain <7, 2 tablets for pain 7 or above Continued estradiol 0.01 % (0.1 mg/gram) cream 1 g vaginal 3XWK Qty: 42.5 3RF Rx Instructions: Mon Wed & FRI. Insert /4 applicatorful vaginally 3 time a week. amlodipine 5 mg tablet 5 mg PO QAM Rx Instructions: HOLD FOR SBP < 100 levothyroxine 88 mcg tablet 88 mcg PO QAM multivitamin Tablet 1 tab PO QAM prednisone 5 mg tablet 5 mg PO QAM omeprazole 20 mg capsule,delayed release(DR/EC) 20 mg PO QAM hydroxychloroquine 200 mg tablet 200 mg PO QAM polyethylene glycol 3350 [Miralax] 17 gram/dose powder 17 g PO DAILY PRN (Reason: Constipation) acetaminophen 500 mg capsule 500 mg PO TID PRN (Reason: Pain) Rx Instructions: purchase [id number] ferrous sulfate 325 mg (65 mg iron) Tablet 325 mg PO DAILY metoprolol tartrate 50 mg tablet 50 mg PO BID Qty: 60 5RF Eliquis 2.5 mg tablet 2.5 mg PO BID Qty: 1 0RF trazodone 50 mg tablet 50 mg PO HS Rx Instructions: PER PT'S DAUGHTER "HAVE NOT PICKED UP FROM PHARMACY YET". Changed buspirone 5 mg tablet 10 mg PO BID Qty: 0 0RF Discontinued oxycodone-acetaminophen 5-325 mg tablet 1 tab PO Q6H PRN (Reason: Pain) Discharge Orders: Discharge Order (Routine); Ordered 03/22/24 Ordered By: Fany Gan Admission Data Admit Date/Time: 03/17/24 16:50 Attending Provider: Zan Garcia Admit Provider: Jonathan Vargas Primary Care Provider: Alin Branch Other Providers: Jonathan Vargas; Rao Stevens Other Interventions: Discharge Summary Assessment (RN) Last Done: 03/22/24 12:03 Supervising Physician Co-Signing Physician Notes The patient was not seen by me. The chart was reviewed. Case discussed with RAYMUNDO Houser. Agree with assessment and plan. The patient is medically stable for discharge today, March 22 Coding Level of Care Code 62649 INP/OBS DISCH >30 MIN Diagnoses Closed intertrochanteric fracture of left femur S72.142A Current chronic use of systemic steroids Z79.52 Abnormal urinalysis R82.90 Intermittent atrial fibrillation I48.0 Anemia D64.9 Hypertension I10 Acute blood loss anemia D62 Right foot ulcer L97.519
[2024-03-22] MEDS: DOCUSATE SODIUM 100 MG CAP PO SCH (08:52)
[2024-03-22] MEDS: POLYETHYLENE (MIRALAX) 17 GM PACK PO SCH (08:53)
[2024-03-22] MEDS: POTASSIUM CHLORIDE CRTAB 20 MEQ TABCR PO STA (08:54)
[2024-03-22] MEDS: MAGNESIUM OXIDE 400 MG TAB PO SCH (08:54)
[2024-03-22] MEDS: predniSONE 5 MG TAB PO SCH (08:55)
[2024-03-22 12:04] VITALS: BP 142/70
== END 2024-03-22 13:56 | DRG 481 ==
LOC: ED 14:48 → SUATTDRO 16:50 → 2W 16:50